=== PATIENT | female | born 1970 | race Caucasian/White ===

== ENCOUNTER → 2018-06-03 16:35 | Outpatient (CLI) | payer OTHER, SELFPAY ==
[2015-04-12 07:59] VITALS: BMI 31.9
--- NOTE | 2018-06-03 16:42 | RAD_ITS ---
STUDY: X-RAY - LUMBAR SPINE REASON FOR EXAM: Female, 48 years old. Pain in lower back for about a year or more per patient.. Pain radiates into both hips and legs TECHNIQUE: 5 view(s) of the lumbar spine were obtained. COMPARISON: None FINDINGS: Normal lumbar lordosis. There is no substantial scoliosis. There is a normal alignment of the vertebrae. Minor spondylosis at L3-L4 with only minimal disc height narrowing. Mild disc space narrowing L5-S1 with remaining disc levels are normal in height. There is no demonstrated fracture. There is no demonstrated spondylolysis of the pars interarticulares. There are surgical beverly of the right upper abdomen. RAD/L/S Spine Min 4 Views IMPRESSION: 1. Mild degenerative changes, as above. Electronically Signed: Adam Aguilar MD at 16:34 EST , Service support ,
== END ==
PROVIDERS: Family Provider Family Medicine; PCP Family Medicine; Referring Provider Chiropractor; Visit Provider Chiropractor
DX: S33.5XXA Sprain of ligaments of lumbar spine, initial encounter (principal)
CPT/HCPCS: 72110

== ENCOUNTER 2019-01-14 22:33 | Observation (INO) | payer OTHER, SELFPAY ==
[2019-01-14 22:33] VITALS: BP 160/88; PULSE 78; PULSE 81; RESP 16; TEMP 36.9; O2SAT 97; O2SAT 99; BMI 36.7
[2019-01-14 22:40] VITALS: O2SAT 96
--- NOTE | 2019-01-14 22:40 | EKG12_ITS ---
Test Reason : CHEST PAIN Blood Pressure : / mmHG Vent. Rate : 074 BPM Atrial Rate : 074 BPM P-R Int : 204 ms QRS Dur : 088 ms QT Int : 390 ms P-R-T Axes : -09 004 013 degrees QTc Int : 432 ms Normal sinus rhythm Normal ECG Confirmed by JEEVAN AUSTIN, TRISH ([id number]), editorial cartoonist GABE SCHAEFER ([id number]) on 01/17/2019 11:53:04 AM Referred By: Andrew Hudson Confirmed By:TRISH CHEW MD
--- NOTE | 2019-01-14 22:41 | ED.VIS.GEN ---
History of Present Illness Chief Complaint: Chest Pain Informant: Patient, Family Onset: Today Context: Gradual Onset Current Severity: Moderate Maximum Severity: Moderate Narrative: Patient presents with chest pressure throughout the day today. It was gradual in onset and continues this evening. Pain does radiate into her back somewhat she thought she pulled a muscle. She had some mild reflux symptoms tonight which is not normal for her. She does report some shortness of breath and mild cough, but thought was secondary to allergies. She denies history of cardiac disease in herself but does have family history. Past Medical History - Allergies and Home Meds Allergies/Adverse Reactions: Allergies Sulfa (Sulfonamide Antibiotics) Allergy (Verified 07/16/13 19:33) Rash Primary Care Physician: Janette Collier NP-C [Primary Care Provider] - Prior records reviewed: Yes Past Medical History: - - Reviewed Lives: Spouse/ Significant Other Smoking Status: Never smoker Review of Systems General: Denies: Chills, Fever Eyes: Denies: Visual changes - bilaterally ENT: Denies: Bilateral ear pain Cardiovascular: Reports: Chest pain Respiratory: Reports: Dyspnea, Cough Gastrointestinal: Denies: Abdominal pain, Nausea, Vomiting Genitourinary: Denies: Dysuria Musculoskeletal: Reports: Neck pain, Back pain Skin: Denies: Rash Neurological: Denies: Headache, Weakness, Parasthesia Endocrine: Denies: Polyuria, Polydipsia Hematologic: Denies: Easy bruising Allergy: Denies: Uticaria Physical Exam Vital Signs/Narrative: Vital Signs Temp Pulse Resp BP Pulse Ox 01/14/19 22:33 98.4 F 81 16 160/88 H 99 Inital Vital Signs reviewed: Yes General: Well nourished, Well developed Head: Normocephalic Eyes: EOMI ENT: Moist mucous membranes Neck: Supple Cardiovascular: Regular rate, Regular rhythm Respiratory: No distress, CTA bilaterally, Chest tenderness - Producible tenderness around the sternum. Abdomen: Soft, Nontender Extremities: Nontender, No edema Skin: Normal color, No rash Neurological: Alert, Oriented x3, Normal Strength, Normal Sensation Psychological: Normal affect Diagnostic/Tx/Re-eval Impressions Chest X-Ray 01/14/19 22:45 IMPRESSION: Normal x-ray examination of the chest. Electronically Signed: Adán Terry MD at 23:11 EDT Tel , Service support , 01/14/19 22:45 Chest 1 View (Portable) [RAD] Stat Laboratory Results 01/14/19 01/14/19 01/14/19 22:40 22:40 22:40 WBC 11.9 H RBC 4.58 Hgb 14.1 Hct 43.0 MCV 93.9 MCH 30.8 MCHC 32.8 RDW Std Deviation 44.1 H RDW Coeff of Paco 12.9 Plt Count 264 MPV 10.1 Immature Gran % (Auto) 0.300 Neut % (Auto) 58.7 Lymph % (Auto) 31.8 [place] % (Auto) 6.9 Eos % (Auto) 2.0 Baso % (Auto) 0.3 Absolute Neuts (auto) 7.0 Absolute Lymphs (auto) 3.78 Nucleated RBC % 0 D-Dimer Quant (PE/DVT) < 0.27 L Sodium 139 Potassium 3.9 Chloride 107 Carbon Dioxide 27.0 Anion Gap 5 BUN 21 H Creatinine 0.89 Estim Creat Clear Calc 73.94 Est GFR (MDRD) Af Amer 87 Est GFR (MDRD) Non-Af 72 BUN/Creatinine Ratio 23.6 H Glucose 92 Calcium 9.0 Troponin I < 0.015 - EKG Initial EKG Interpretation: Sinus Rhythm - Sinus at [address] change. - Medical Decision Making Patient presents with progressive chest pain with radiation into her back. She does have significant family history of coronary disease and herself has never had cardiac work-up. Labs are reassuring at this time, however explain to the patient that this does not rule out a coronary cause. She is agreed to overnight observation with probable stress test in the morning. I will speak with the hospitalist. ED Disposition - Plan for ED Patient: Disposition: Acute Care Hospital [facility] Diagnosis: Chest pain Referrals: Janette Collier NP-C [Primary Care Provider] -
--- NOTE | 2019-01-14 22:45 | RAD_ITS ---
STUDY: X-RAY CHEST REASON FOR EXAM: Female, 48 years old. Chest pain TECHNIQUE: Single frontal view of the chest. COMPARISON: None. FINDINGS: The lungs are clear and expanded. There is no demonstrated pleural abnormality. Normal size heart. Normal mediastinum and vignesh. Normal visualized pulmonary arteries. Normal visualized aortic arch and descending thoracic aorta. Normal visualized thoracic spine. Normal visualized ribs, clavicles, and shoulders. There is no demonstrated abnormality of the visualized soft tissue structures of the upper abdomen. RAD/Chest 1 View (Portable) IMPRESSION: Normal x-ray examination of the chest. Electronically Signed: Adán Terry MD at 23:11 EDT Tel , Service support ,
[2019-01-14 22:56] LABS: Absolute Lymphocyte Count 3.78 X10^3/uL (0.83-4.51); Basophil# 0.04 X10^3/uL; Basophil% 0.3 % (0-1); Eosinophil# 0.24 X10^3/uL; Hemoglobin 14.1 g/dL (12.0-15.0); Lymphocyte # 3.78 X10^3/ul (4.0); Lymphocyte % 31.8 % (19-41); Mean Corp Hgb Conc 32.8 g/dL (32-36); Mean Corpuscular Hgb 30.8 pg (27.0-32.0); Mean Corpuscular Volume 93.9 fL (81-99); Mean Platelet Vol. 10.1 fl (6.2-12.0); Monocyte# 0.82 X10^3/uL; Monocyte% 6.9 % (0-10); NRBC Flagged by Analyzer 0 % (0-5); Neutrophil # 6.95 X10^3/uL (2.7-7.7); Neutrophil % 58.7 % (47-70); Platelet Count 264 K/mm3 (150-450); RBC Distribution Width CV 12.9 % (11.6-14.6); RBC Distribution Width SD 44.1 fl (35.1-43.9); Red Blood Count 4.58 M/mm3 (4.2-5.4); White Blood Count 11.9 K/mm3 (4.4-11.0)
[2019-01-14] MEDS: Aspirin 81 MG TAB.CHEW 324 MG PO (23:04)
[2019-01-14] MEDS: 0.9% Normal Saline 1,000 ML 150 ML IV (23:07)
[2019-01-14 23:08] LABS: D-Dimer Quantitative (DVT/PE) < 0.27 FEU/ug/m (0.27-0.49)
[2019-01-14 23:20] LABS: Anion Gap 5 (5-15); BUN 21 mg/dL (7-18); BUN/Creat Ratio 23.6 RATIO (10-20); Chloride 107 mmol/L (98-107); Creatinine, Serum 0.89 mg/dL (0.55-1.02); EST Glomerular Filtration Rate 72 mL/min (>60); Est Glom Filt Rate - Afr Amer 87 mL/min (>60); Estimated Creatinine Clearance 73.94 ml/min; Glucose 92 mg/dL (74-106); Potassium 3.9 mmol/L (3.5-5.1); Sodium Level 139 mmol/L (136-145)
[2019-01-14 23:33] VITALS: BP 146/83; PULSE 77; RESP 16; O2SAT 97
--- NOTE | 2019-01-14 23:34 | HP.PCM_ITS ---
Problem List (1) Chest pain Status: Acute History of Present Illness Date of Admission: 01/15/19 Chief Complaint: chest pain The patient is a 48 year old F with a significant history of seasonal allergies; and asthma who presented with one day history of progressively worsening chest pain that she described as mild substernal and epigastric heaviness that radiated to beneath her left scapula and to her left arm. She describes a tingling sensation in her entire left upper extremities. Her symptoms is shortness of breath. She denies any aggravating or ameliorating factor to her chest pain. She denies any nausea, vomiting or diaphoresis. EKG and troponin at the emergency department was unremarkable.Patient states that her chest pain may be related to anxiety because if she began to think about her work or if she talks her chest pain comes on. Past Medical History Medical History: Medical History (Last Reviewed 01/15/19 @ 06:03 by Andrew Hudson MD) Asthma J45.909 Seasonal allergies J30.2 Allergies Sulfa (Sulfonamide Antibiotics) Allergy (Verified 07/16/13 19:33) Rash Home Medications: Ambulatory Orders Medication Instructions Recorded buPROPion XL [Wellbutrin Xl] 300 mg PO DAILY 07/16/13 Albuterol Sulfate [Proair Hfa] 8.5 gm IH PRN PRN 01/14/19 Loratadine [Claritin] 10 mg PO DAILY 01/14/19 Tolterodine Tartrate [Detrol LA] 4 mg PO DAILY 01/14/19 Surgical History: cholecystectomy, - - Carpal tunnel surgery; left foot surgery with screws in place; tubal ligation similar and 2 D&Cs Lives: With Family Smoking Status: Never smoker Alcohol: Occasional - *Family History Maternal History Items: Heart Disease - Her mother had congestive heart failure in her 50s. Her grandmother also had congestive heart failure in her 60s to 70s., - Paternal History Items: Heart Disease Review of Systems Constitutional: Denies: Chills, Fever, Weight Change HEENT: Denies: Head Aches, Sinus Congestion, Sinus Drainage Cardiovascular: Reports: Chest Pain. Denies: Palpitations Respiratory: Reports: Shortness of Breath. Denies: Cough Gastrointestinal: Denies: Abdominal Pain, Nausea, Vomiting Genitourinary: Denies: Dysuria Musculoskeletal: Denies: Joint Pain, Joint Tenderness Skin: Denies: Rash, Wounds Neurological: Reports: Tingling. Denies: Focal weakness, Numbness Psychiatric: Reports: Anxiety. Denies: Depression, Homicidal Ideations, Suicidal Ideations Hematologic/ Lymphatic: Denies: Easy Bruising, Easy Bleeding VTE Information - Inpt Only VTE Present on Admission: No VTE Mechan Device Prophylaxis: SCD's VTE Pharm Prophylaxis ordered?: No Patient Problems: Active and Suspected Problems (Last Updated 01/15/19 @ 02:41 by Andrew Hudson MD) Chest pain (Acute) - Physical Exam General: Alert, Oriented x3, Cooperative HEENT: Atraumatic, PERRLA, EOMI, Normocephalic Neck: Supple, No JVD, Negative Carotid Bruits Lungs: Clear to auscultation, Normal air movement Cardiovascular: Regular rate, No murmurs Abdomen: Bowel Sounds Present, Soft, Non Tender Extremities: No edema, Capillary Refill Less than 3 Seconds Skin: No rashes, No breakdown Musculoskeletal: No Tenderness to Palpation of Joints or Extremities Neurological: Cranial nerves II-XII grossly intact Psych/Mental Status: Normal Affect, Appropriate Vital Signs Temp Pulse Resp BP Pulse Ox 98.4 F 81 16 160/88 H 96 01/14/19 22:33 01/14/19 22:33 01/14/19 22:33 01/14/19 22:33 01/14/19 22:40 Oxygen Delivery Method Room Air Weight: 103.2 kg Body Mass Index (BMI) 36.7 Laboratory Tests Past 24 Hrs 01/14/19 01/14/19 01/14/19 22:40 22:40 22:40 WBC 11.9 H RBC 4.58 Hgb 14.1 Hct 43.0 MCV 93.9 MCH 30.8 MCHC 32.8 RDW Std Deviation 44.1 H RDW Coeff of Paco 12.9 Plt Count 264 MPV 10.1 Immature Gran % (Auto) 0.300 Neut % (Auto) 58.7 Lymph % (Auto) 31.8 [place] % (Auto) 6.9 Eos % (Auto) 2.0 Baso % (Auto) 0.3 Absolute Neuts (auto) 7.0 Absolute Lymphs (auto) 3.78 Nucleated RBC % 0 D-Dimer Quant (PE/DVT) < 0.27 L Sodium 139 Potassium 3.9 Chloride 107 Carbon Dioxide 27.0 Anion Gap 5 BUN 21 H Creatinine 0.89 Estim Creat Clear Calc 73.94 Est GFR (MDRD) Af Amer 87 Est GFR (MDRD) Non-Af 72 BUN/Creatinine Ratio 23.6 H Glucose 92 Calcium 9.0 Troponin I < 0.015 Assessment/Plan All Active Problems (Last Updated 01/15/19 @ 02:41 by Andrew Hudson MD) Chest pain (Acute) The patient is a 48 year old F with a significant history of seasonal allergies; and asthma who presented with one day history of progressively worsening chest pain. Chest Pain Admit to a monitored bed on progressive care unit CXR independently reviewed confirms no acute cardiopulmonary process. EKG independently reviewed confirms sinus rhythm Patient received aspirin 324 mg in the emergency department ASA 81 mg p.o. daily Morphine as needed for pain We will check lipid panel. Serial cardiac enzymes Stat EKG as needed for chest pain Chemical stress test in the AM if the cardiac enzymes are negative. Of note patient has hardware in her left lower extremities and can not run on a treadmill for long. Elevated blood pressure without diagnosis of hypertension: On presentation his blood pressure was not within goal. She reports that at home her blood pressures are not elevated. Trend blood pressures. Seasonal allergies/asthma Claritin and albuterol continued Depression/anxiety Wellbutrin continued Overactive bladder Detrol continued DVT prophylaxis SCD Code Visit OBSV E&M: 54538 Initial observation care L3
[2019-01-14 23:53] VITALS: BP 146/83; PULSE 77; RESP 16; O2SAT 97
[2019-01-15] VITALS (8 sets, daily range): BP systolic 133–141; BP diastolic 72–81; PULSE 60–77; RESP 14; TEMP 36.6–36.8; O2SAT 94–96; BMI 36.1
--- NOTE | 2019-01-15 01:11 | EKG12_ITS ---
Test Reason : REPEAT FLOOR EKG Blood Pressure : / mmHG Vent. Rate : 070 BPM Atrial Rate : 070 BPM P-R Int : 212 ms QRS Dur : 076 ms QT Int : 408 ms P-R-T Axes : -10 019 006 degrees QTc Int : 440 ms Sinus rhythm with 1st degree A-V block Otherwise normal ECG Confirmed by DAX AUSTIN, ROBER ([id number]), rewrite editor GABE SCHAEFER ([id number]) on 01/19/2019 12:59:15 PM Referred By: Andrew Hudson Confirmed By:ROBER VERDUZCO MD
[2019-01-15] MEDS: Aspirin E.C. 81 MG Tablet PO (05:16)
[2019-01-15 07:03] LABS: Cholesterol 154 mg/dL (200); High Density Lipoprotein 55 mg/dL; Triglycerides 94 mg/dL; Very Low Density Lipoprotein 19 mg/dL (5-40)
--- NOTE | 2019-01-15 10:28 | STRESSREP ---
Stress Test Report Pharmacologic myocardial perfusion stress test. 48-year-old lady with a history of chest pain. Stress protocol: Resting EKG demonstrates normal sinus rhythm with a rate of 73 bpm normal intervals are noted resting blood pressures 118/82 mmHg. 0.4 mg of regadenoson was infused per usual protocol followed Intravenous and flush injection continuous EKG monitoring was performed. The maximum heart rate attained was 108 bpm which was 62% of maximum predicted heart rate the maximum workload attained was 1 metabolic equivalent. At rest there were no ST or T wave changes noted suggest ischemia at peak infusion nonspecific ST-T wave changes were noted. No clinical angina was noted the test was terminated. Myocardial perfusion protocol. 14.3 mCi of technetium 99m sestamibi was injected at rest. 0.4 mg of regadenoson was infused per usual protocol peak infusion 42.5 mCi of technetium 99m sestamibi was injected stress images were obtained stress and rest images were reconstructed in comparing the short axis vertical and horizontal long axis. Gated images were also obtained Perfusion SPECT analysis: Review of the stress images demonstrate normal uptake of tracer noted in all areas of myocardium the resting images similar demonstrate normal uptake of tracer noted in all areas of the myocardium. Gated SPECT analysis: The gated ejection fraction is noted to be 60%. Conclusion: Normal pharmacologic myocardial perfusion stress test. Preserved ejection fraction.
--- NOTE | 2019-01-15 10:37 | DCINST_ITS ---
- Discharge Diagnoses Current Active Problems: Current Active and Chronic Problems (Last Reviewed 01/15/19 @ 06:03 by Andrew Hudson MD) Chest pain (Acute) You will use the following diet at home:: No restrictions Your food should be the consistency of: Regular Your liquids should be the consistency of: Regular/Thin Discharge Activity: Return to Normal Activity Weight Bearing Status: Full weight bearing Allergies/Adverse Reactions: Allergies cashew nut Allergy (Verified 01/15/19 00:51) Anaphylaxis cat dander Allergy (Verified 01/15/19 00:52) Itching Sulfa (Sulfonamide Antibiotics) Allergy (Verified 07/16/13 19:33) Rash Medications to take at Discharge buPROPion XL [Wellbutrin Xl] 300 mg PO DAILY 07/16/13 Albuterol Sulfate [Proair Hfa] 8.5 gm IH PRN PRN 01/14/19 Loratadine [Claritin] 10 mg PO DAILY 01/14/19 Tolterodine Tartrate [Detrol LA] 4 mg PO DAILY 01/14/19 Primary Care Physician: Janette Collier NP-C [Primary Care Provider] - Please follow up with your Primary Care Physician in: IN 2 WEEKS Test Results: Test results from this visit will be discussed in further detail at your follow- up appointment, if applicable.
--- NOTE | 2019-01-15 10:47 | NURSING ---
Patient refused to take scheduled am medications, she states that she will take her own when she gets home.
--- NOTE | 2019-01-17 09:22 | PCM.DC.SUM ---
Discharge Date and Diagnosis Date of Admission: 01/14/19 Date of Discharge: 01/15/19 - Primary Discharge Diagnosis #1 musculoskeletal chest pain #2 chronic depression Hospital Course and Treatment Operations: None Procedures: Nuclear stress test Summary of Care Provided: The patient is a 48 year old F was seen in the emergency room at [facility] with a chief complaint of chest pain which radiated into her back. She describes the pain is a pressure-like sensation. Work-up in the emergency room included an EKG which showed a normal sinus rhythm without evidence of ischemia, patient's labs are unremarkable. Patient's chest x-ray was unremarkable. Patient was placed in observation status on PCU, serial cardiac enzymes were obtained which were negative, she underwent a pharmacological resting stress test on 01/15/2019 which was negative for reversible ischemia. On 01/15/2019, patient was seen and examined: On examination she appeared in good health and spirits. Vital signs as documented. Skin warm and dry and without overt rashes. Neck without JVD. Lungs clear. Heart exam notable for regular rhythm, normal sounds and absence of murmurs, rubs or gallops. Abdomen unremarkable and without evidence of organomegaly, masses, or abdominal aortic enlargement. Extremities nonedematous. Neuro: Cranial nerves II through XII are grossly intact, no focal motor deficits were noted, sensation to light touch and pinprick is intact. Psych: Patient is alert and oriented x3, she does not appear anxious or depressed On 01/15/2019, patient was seen and examined and felt to be in stable condition for discharge home - Physical Exam Vital Signs Temp Pulse Resp BP Pulse Ox 97.9 F 77 14 133/80 H 96 01/15/19 09:24 01/15/19 09:24 01/15/19 09:24 01/15/19 09:24 01/15/19 09:24 Oxygen Delivery Method Room Air Weight: 101.5 kg Body Mass Index (BMI) 36.1 Intake and Output for Last 24 Hours 01/15/19 01/16/19 01/17/19 23:59 23:59 23:59 Intake Total 965.0 / 965.0 Balance 965.0 / 965.0 Discharge Activity: Return to Normal Activity Weight Bearing Status: Full weight bearing Home Medications: Medications to take at Discharge buPROPion XL [Wellbutrin Xl] 300 mg PO DAILY 07/16/13 Albuterol Sulfate [Proair Hfa] 8.5 gm IH PRN PRN 01/14/19 Loratadine [Claritin] 10 mg PO DAILY 01/14/19 Tolterodine Tartrate [Detrol LA] 4 mg PO DAILY 01/14/19 Primary Care Physician: Janette Collier NP-C [Primary Care Provider] - Please follow up with your Primary Care Physician in: IN 2 WEEKS Disposition: Home Minutes spent on discharge:: 28 Patient Condition:: Stable Medical Necessity - Tobacco Use Smoking Status: Never smoker Tobacco Use: Non-smoker Meaningful Use Info Meaningful Use Diagnoses (Choose all that apply): None applicable Code Visit OBSV E&M: 87249 Observation care discharge
== END 2019-01-15 11:38 | disposition home or self-care (01) ==
LOC: ED 23:29 → PCU 01-15 07:54
PROVIDERS: Admitting Provider Hospitalist; Emergency Provider Emergency Medicine; Family Provider Family Medicine; PCP Family Medicine; Referring Provider Hospitalist; Visit Provider Internal Medicine
DX: R07.9 Chest pain, unspecified (principal); F32.9 Major depressive disorder, single episode, unspecified; R06.02 Shortness of breath; J45.909 Unspecified asthma, uncomplicated; R20.2 Paresthesia of skin; Z79.899 Other long term (current) drug therapy; F41.9 Anxiety disorder, unspecified; N32.81 Overactive bladder; R03.0 Elevated blood-pressure reading, without diagnosis of hypertension
CPT/HCPCS: 36415; 71045; 78452; 80048; 80061; 84484; 85025; 85379; 93005; 93017; 96360; 96361; 99218; 99285; A9500; J7030; A4216; G0378; J2785

== ENCOUNTER 2020-07-29 07:10 | Emergency (ER) | payer OTHER, SELFPAY ==
[2019-01-15 00:22] VITALS: BMI 36.1
[2020-07-29 07:14] VITALS: BP 155/103; PULSE 77; RESP 18; TEMP 36.7; O2SAT 96; BMI 37.8
[2020-07-29 07:22] VITALS: O2SAT 96
--- NOTE | 2020-07-29 07:23 | RAD_ITS ---
STUDY: X-RAY CHEST REASON FOR EXAM: Female, 50 years old. chest pain, anxiety TECHNIQUE: Single AP portable view of the chest. COMPARISON: 01/14/2019 FINDINGS: The lungs are clear and expanded. There is no demonstrated pleural abnormality. Normal size heart. Normal mediastinum and vignesh. Normal visualized pulmonary arteries. Normal visualized aortic arch and descending thoracic aorta. Normal visualized thoracic spine. Normal visualized ribs, clavicles, and shoulders. There is no demonstrated abnormality of the visualized soft tissue structures of the upper abdomen. RAD/Chest 1 View (Portable) IMPRESSION: Normal x-ray examination of the chest. Electronically Signed: Arcenio Ng MD at 8:03 EST Tel , Service support ,
--- NOTE | 2020-07-29 07:23 | EKG12_ITS ---
Test Reason : CP Blood Pressure : / mmHG Vent. Rate : 073 BPM Atrial Rate : 073 BPM P-R Int : 206 ms QRS Dur : 080 ms QT Int : 404 ms P-R-T Axes : 005 -11 008 degrees QTc Int : 445 ms Normal sinus rhythm Normal ECG Confirmed by DAX AUSTIN, ROBER ([id number]), editor managing newspaper GABE SCHAEFER ([id number]) on 08/01/2020 10:46:49 AM Referred By: [place] Confirmed By:ROBER VERDUZCO MD
--- NOTE | 2020-07-29 07:24 | ED.VIS.GEN ---
History of Present Illness Chief Complaint: Chest Pain Informant: Patient Narrative: 50-year-old female presenting with chest pain. She states that her chest pain has been present all night. Patient states she has no health issues. She does relate that she has been under a lot of stress for the past year. She has been otherwise healthy. She is noted some palpitations recently. She has not had fever, chills, cough, myalgias, change in taste or smell. She states she is not short of breath. She denies any cardiac history. She denies any history of blood clots. She has no history of recent travel or risk factors for DVT/PE. Past Medical History - Allergies and Home Meds Allergies/Adverse Reactions: Allergies cashew nut Allergy (Verified 07/29/20 07:11) Anaphylaxis cat dander Allergy (Verified 07/29/20 07:11) Itching Sulfa (Sulfonamide Antibiotics) Allergy (Verified 07/29/20 07:11) Rash Primary Care Physician: Tavares Villa COMMERCIAL PRODUCER, COMMERCIAL PRODUCER-C [Primary Care Provider] - Prior records reviewed: Yes Past Medical History: - - Anxiety Surgical History: noncontributory, cholecystectomy, - - Carpal tunnel surgery; left foot surgery with screws in place; tubal ligation similar and 2 D&Cs Lives: Spouse/ Significant Other Smoking Status: Never smoker Alcohol: None Drugs: None - Family History Maternal Family History: Reports: Heart Disease - Her mother had congestive heart failure in her 50s. Her grandmother also had congestive heart failure in her 60s to 70s., - Paternal Family History: Reports: Heart Disease Review of Systems General: Denies: Chills, Fever, Malaise Eyes: Denies: Visual changes - left, Visual changes - right, Visual changes - bilaterally, Blurred vision - left, Blurred vision - right, Blurred Vision - bilaterally, Diplopia, -, - ENT: Denies: Rhinorrhea, Sore throat Cardiovascular: Reports: Chest pain, Palpitations. Denies: Heart racing Respiratory: Denies: Dyspnea, Cough, Sputum Gastrointestinal: Denies: Abdominal pain, Nausea, Vomiting Genitourinary: Denies: Dysuria, Hematuria Musculoskeletal: Denies: Myalgias, Arthralgias Skin: Denies: Rash, Abscess Neurological: Denies: Headache, Weakness, Parasthesia Psych: Reports: Anxiety. Denies: Suicidal thoughts, Suicidal ideations Physical Exam Vital Signs/Narrative: Vital Signs Temp Pulse Resp BP Pulse Ox 07/29/20 07:22 96 07/29/20 07:14 98.0 F 77 18 155/103 H 96 Inital Vital Signs reviewed: Yes General: Obese, No Acute Distress Head: Normocephalic, Atraumatic Eyes: Perrl, EOMI ENT: Moist mucous membranes, No rhinorrhea Cardiovascular: Regular rate, Regular rhythm Respiratory: No distress, CTA bilaterally Abdomen: Soft, Nontender, Nondistended Extremities: Nontender, No edema. Negative for: Calf Tenderness Skin: Normal color, No rash. Negative for: Cyanosis, Diaphoresis, Jaundice Neurological: Alert, Oriented x3, Cranial nerves II-XII grossly intact Psychological: Normal affect, Normal Mood Diagnostic/Tx/Re-eval Clinical Impression(s) from Imaging Studies Chest X-Ray 07/29/20 07:23 IMPRESSION: Normal x-ray examination of the chest. Electronically Signed: Arcenio Ng MD at 8:03 EST Tel , Service support , Laboratory Data 07/29/20 07/29/20 07:12 07:45 WBC 7.0 RBC 4.70 Hgb 14.0 Hct 42.9 MCV 91.3 MCH 29.8 MCHC 32.6 RDW Std Deviation 41.9 RDW Coeff of Paco 12.5 Plt Count 226 MPV 9.9 Immature Gran % (Auto) 0.300 Neut % (Auto) 64.2 Lymph % (Auto) 26.2 [place] % (Auto) 6.9 Eos % (Auto) 2.0 Baso % (Auto) 0.4 Absolute Neuts (auto) 4.5 Absolute Lymphs (auto) 1.83 Nucleated RBC % 0 Sodium 137 Potassium 3.7 Chloride 104 Carbon Dioxide 25.0 Anion Gap 8 BUN 23 H Creatinine 0.84 Estim Creat Clear Calc 76.67 Est GFR (MDRD) Af Amer 93 Est GFR (MDRD) Non-Af 77 BUN/Creatinine Ratio 27.5 H Glucose 93 Calcium 9.0 Troponin I < 0.015 - Medical Decision Making 50-year-old female presenting with chest pain which is been constant all night long. She denies shortness of breath, lightheadedness, nausea, vomiting. Patient had previous stress test within the last year which was normal. EKG interpreted by myself shows a normal sinus rhythm at 73 bpm without signs of ischemic change or dysrhythmia. Chest x-ray is interpreted by myself shows no acute cardiopulmonary process. Patient is PERC negative. CBC, BMP, troponin all unremarkable. Given that she has had chest pain all night I do not believe she needs repeat EKG or delta troponin. Patient counseled on all findings. I believe she stable for discharge at this time. She is given return precautions. Impression: 1. Chest pain ED Disposition - Plan for ED Patient: Disposition: Home or Assisted Living Instructions: ED Chest Pain, Uncertain Cause Referrals: Tavares Villa COMMERCIAL PRODUCER, COMMERCIAL PRODUCER-C [Primary Care Provider] -
[2020-07-29 07:29] VITALS: O2SAT 96
[2020-07-29] MEDS: Aspirin 81 MG TAB.CHEW 324 MG PO (07:32)
[2020-07-29 07:52] LABS: Anion Gap 8 (5-15); BUN 23 mg/dL (7-18); BUN/Creat Ratio 27.5 RATIO (10-20); Chloride 104 mmol/L (98-107); Creatinine, Serum 0.84 mg/dL (0.55-1.02); EST Glomerular Filtration Rate 77 mL/min (>60); Est Glom Filt Rate - Afr Amer 93 mL/min (>60); Estimated Creatinine Clearance 76.67 ml/min; Glucose 93 mg/dL (74-106); Potassium 3.7 mmol/L (3.5-5.1); Sodium Level 137 mmol/L (136-145)
[2020-07-29 07:53] LABS: Absolute Lymphocyte Count 1.83 X10^3/uL (0.83-4.51); Absolute Neutrophil Count 4.5 X10^3/uL (2.0-7.7); Basophil# 0.03 X10^3/uL; Basophil% 0.4 % (0-1); Eosinophil# 0.14 X10^3/uL; Hematocrit 42.9 % (37-47); Lymphocyte # 1.83 X10^3/ul (4.0); Lymphocyte % 26.2 % (19-41); Mean Corp Hgb Conc 32.6 g/dL (32-36); Mean Corpuscular Hgb 29.8 pg (27.0-32.0); Mean Corpuscular Volume 91.3 fL (81-99); Mean Platelet Vol. 9.9 fl (6.2-12.0); Monocyte# 0.48 X10^3/uL; Monocyte% 6.9 % (0-10); NRBC Flagged by Analyzer 0 % (0-5); Neutrophil # 4.49 X10^3/uL (2.7-7.7); Neutrophil % 64.2 % (47-70); Platelet Count 226 K/mm3 (150-450); RBC Distribution Width CV 12.5 % (11.6-14.6); RBC Distribution Width SD 41.9 fl (35.1-43.9)
[2020-07-29 08:10] VITALS: BP 139/83; PULSE 81; RESP 15; O2SAT 98
[2020-07-29 08:23] VITALS: PULSE 86; RESP 17; O2SAT 95
== END 2020-07-29 08:23 | disposition home or self-care (01) ==
PROVIDERS: Emergency Provider Student in an Organized Health Care Education/Training Program; PCP Nurse Practitioner Primary Care
DX: R07.9 Chest pain, unspecified (principal)
CPT/HCPCS: 71045; 80048; 84484; 85025; 93005; 99285; A4216

== ENCOUNTER 2021-03-03 21:03 | Emergency (ER) | payer OTHER, SELFPAY ==
[2021-03-03 21:04] VITALS: BP 170/82; PULSE 78; RESP 16; TEMP 37; O2SAT 98; BMI 35.5
--- NOTE | 2021-03-03 22:59 | EDS_ITS ---
HPI History of Present Illness Chief Complaint: Lower Extremity Injury Detail of Chief Complaint: Increased knee pain and swelling after arthroscopic surgery Informant: patient Occured/Mechanism Mechanism/Context: Yes other see comment below Comment: Arthroscopic surgery on March 01 Onset/Context/Timing Onset: Today Context: Gradual Onset Timing: Continuous Quality of Pain: Dull and Aching Current Severity: Moderate Maximum Severity: Severe Worsened by: Exercises and movement Relieved by: Nothing Associated Symptoms Associated Symptoms: Negative for Parasthesia, Weakness and Loss of Funtion Narrative Tetanus Immunization: 5-10 years Prior similar symptoms: No Recent Illness/Hospitalization: Yes PFSH PFS Medical History Aneurysm (arteriovenous) of coronary vessels Anxiety Asthma Seasonal allergies Home Medications albuterol sulfate 8.5 gm IH PRN PRN 01/14/19 [History Last Taken 01/14/19 15:30] tolterodine 4 mg PO DAILY 01/14/19 [History Last Taken 01/14/19 06:30] alprazolam 0.5 - 1 mg PO TID PRN PRN 07/29/20 [History Last Taken Unknown] aspirin 81 mg PO DAILY 03/03/21 [History Last Taken Unknown] oxycodone 5 - 10 mg PO Q4H PRN PRN 03/03/21 [History Last Taken Unknown] venlafaxine 150 mg PO DAILY 03/03/21 [History Last Taken Unknown] Allergy/AdvReac Type Severity Reaction Status Date / Time cashew nut Allergy Anaphylaxis Verified 03/03/21 21:04 cat dander Allergy Itching Verified 03/03/21 21:04 Sulfa (Sulfonamide Allergy Rash Verified 03/03/21 21:04 Antibiotics) Surgical History History of cholecystectomy History of D&C History of foot surgery History of knee surgery History of tonsillectomy and adenoidectomy History of tubal ligation Social History (Updated 03/03/21 @ 23:[address] El Fournier MD) household members: spouse Smoking Status: Never smoker substance use type: does not use ROS ROS ED Constitutional Constitutional ED: Denies chills, fever(s), subjective or sweats Eyes Eyes: Denies blurry vision, change in vision or diplopia ENT ENT ED: Denies ear pain, rhinorrhea or sore throat Cardiovascular Cardiovascular: Denies chest pain or palpitations Respiratory/Chest Respiratory/Chest: Denies cough, dyspnea or dyspnea on exertion Gastrointestinal Gastrointestinal: Denies abdominal pain, nausea or vomiting Musculoskeletal Musculoskeletal: Reports other Details: Anterior right knee pain status post arthroscopic surgery ; Denies arthralgias, back pain, myalgias or neck pain Neurologic Neurologic: Denies headache(s), paresthesias or weakness Hematologic/Lymphatic Hematologic/Lymphatic: Denies easy bleeding or easy bruising EXAM Physical Exam Const Vital Signs: 03/03/21 21:04 03/03/21 23:55 Temperature 98.6 F Temperature Source Oral Pulse Rate 78 74 Respiratory Rate 16 16 Blood Pressure 170/82 H 148/80 H Blood Pressure Mean 111 Pulse Ox 98 97 Oxygen Delivery Method Room Air Positive well nourished, well developed and obese General Appearance ED: well developed and NAD Nutritional Appearance: obese HEENT normocephalic and atraumatic Neck full ROM Resp normal respiratory effort Cardio regular rate and regular rhythm Extremity Negative for normal to inspection or full ROM Extremity Narrative: There is swelling of the right knee. There is a small effusion. The patellas not blottable. Sutures are in place. There is no erythema, warmth induration. There is no drainage from the incision/port sites. There is fullness in the popliteal fossa. There is no tenderness on the distribution deep venous system. There is no swelling of the leg or thigh. There is no palpable cords. General Extremety ED: Negative for cyanosis, edema or weight-bearing difficulty General Extremity: Negative for cyanosis, edema or weight-bearing difficulty Neuro oriented x3 and CN's II-XII intact bilaterally Sensorium / Orientation: alert Psych mental status grossly normal Skin no wounds Lesions: no lesions Rashes: no rashes MDM MDM MDM Narrative Medical decision making narrative: Patient with postop pain. Patient was informed that I would prescribe pain medicine parenterally. When nurse went to administer the medication she did not want an IV or meds. She requested to speak with me. After talking with her informing her why I chose the meds I did and specifically Toradol and Dilaudid. She has no contraindication to NSAIDs. There is no reconstructive work so NSAIDs are not contraindicated. Patient is now willing to have the nurse place the IV and receive the parenteral meds that were ordered. Patient was reassessed at 2345. Her pain improved markedly after IV Dilaudid and Toradol. Plan is to discharge to home Discharge Plan Triage Chief Complaint: Lower Extremity Injury ED Provider: El Fournier Dx/Rx/DC Orders Clinical Impression: Acute postoperative pain of right knee Instructions: Managing Post-Op Pain at Home Prescriptions: No Action tolterodine 4 MG capsule,extended release 24hr 4 mg PO DAILY RF: 0 albuterol sulfate 8.5 GM HFA aerosol inhaler 8.5 gm IH PRN PRN (Reason: Bronchodialation) RF: 0 alprazolam 1 MG tablet 0.5 - 1 mg PO TID PRN PRN (Reason: Anxiety) RF: 0 venlafaxine 150 mg capsule,extended release 24hr 150 mg PO DAILY RF: 0 aspirin 81 mg Tablet 81 mg PO DAILY RF: 0 oxycodone 5 mg tablet 5 - 10 mg PO Q4H PRN PRN (Reason: Pain) RF: 0 Primary Care Provider: Tavares Villa NP Referrals: Matias Collazo DO [STAFF PHYSICIAN] - Keep [place] appointment Tavares Villa NP, ADULT HEALTH CLINICAL NURSE SPECIALIST-[facility] [Primary Care Provider] - Activity Restrictions/Additional Instructions: 1. Apply ice 8+ times a day 2. Take 2 Aleve tablets every 12 hours in addition to the oxycodone you were prescribed 3. Contact Dr. Fish Coleman if the pain remains intense or severe Disposition Disposition: Home, Self Care
[2021-03-03] MEDS: HYDROmorphone 1 MG/ML Syringe 0.5 MG IV (23:22)
[2021-03-03] MEDS: Ondansetron 4 MG/2 ML Vial IV (23:23)
[2021-03-03] MEDS: Ketorolac 15 MG/ML Vial IV (23:23)
[2021-03-03 23:55] VITALS: BP 148/80; PULSE 74; RESP 16; O2SAT 97
[2021-03-04 00:16] VITALS: RESP 16; O2SAT 99
== END 2021-03-04 00:16 | disposition home or self-care (01) ==
PROVIDERS: Emergency Provider Emergency Medicine; PCP Nurse Practitioner Primary Care
DX: M25.561 Pain in right knee (principal); G89.18 Other acute postprocedural pain; E66.9 Obesity, unspecified; Z68.35 Body mass index [BMI] 35.0-35.9, adult; Z79.82 Long term (current) use of aspirin
CPT/HCPCS: 96374; 96375; 99283; A4216; J2405

== ENCOUNTER → 2021-10-24 | Outpatient (CLI) | payer OTHER, SELFPAY | END | disposition home or self-care (01) | LOC: PSN 11:41 | PROVIDERS: PCP Nurse Practitioner Primary Care; Referring Provider Internal Medicine Cardiovascular Disease; Visit Provider Internal Medicine Cardiovascular Disease | DX: I49.3 Ventricular premature depolarization (principal) | CPT/HCPCS: 93225; 93226 ==

== ENCOUNTER → 2021-10-25 | Outpatient (CLI) | payer OTHER, SELFPAY ==
--- NOTE | 2021-10-25 12:58 | ECHOD_ITS ---
Version 2 Reason For Study: ARRYTHMIA Procedure This was a 2D Doppler, Color Flow transthoracic echocardiogram. Exam performed in department. Left Ventricle Normal LV size. Left ventricular systolic function is normal. The estimated ejection fraction is 60 %. Stage 1 diastolic dysfunction. No regional wall motion abnormalities noted. Right Ventricle Normal RV size. Normal systolic function. Atria Normal left atrium. Normal right atrium. Patent foramen ovale. Aneurysmal atrial septum. Mitral Valve Normal mitral valve. Tricuspid Valve Normal tricuspid valve. Aortic Valve Trisinus/trileaflet aortic valve. Pulmonic Valve Normal pulmonic valve. Great Vessels Normal aortic root. The pulmonary artery is normal size. Normal inferior vena cava. Pericardium/Pleural No pericardial effusion. MMode/2D Measurements & Calculations LVIDd: 4.7 cm IVSd: 1.0 cm Ao root diam: 2.8 cm LVIDs: 3.1 cm LVPWd: 1.2 cm RVDd: 3.6 cm FS: 35.5 % LVAd ap4: 28.0 cm2 SV(MOD-sp4): 33.0 ml SV(sp4-el): 38.0 ml LVLd ap4: 7.3 cm EDV(MOD-sp4): 89.2 ml EDV(sp4-el): 91.4 ml LVAs ap4: 20.8 cm2 LVLs ap4: 6.9 cm ESV(MOD-sp4): 56.1 ml ESV(sp4-el): 53.3 ml EF(MOD-sp4): 37.1 % EF(sp4-el): 41.6 % LA A4 area: 18.9 cm2 LA dimension(2D): 3.7 cm RA A4 area: 16.0 cm2 Doppler Measurements & Calculations MV E max nael: 51.8 cm/sec Lat Peak E' Nael: 6.4 cm/sec Med Peak E' Nael: 5.4 cm/sec MV A max nael: 94.4 cm/sec E/E' lat: 8.1 E/E' med: 9.7 MV E/A: 0.55 Ao V2 max: 134.8 cm/sec LV V1 max: 105.6 cm/sec PA V2 max: 109.8 cm/sec Ao max P.3 mmHg LV V1 max P.5 mmHg TR max nael: 202.6 cm/sec TR max P.4 mmHg ECHO/Echo Complete Interpretation Summary Normal LV size. Left ventricular systolic function is normal. The estimated ejection fraction is 60 %. Stage 1 diastolic dysfunction. Patent foramen ovale. Aneurysmal atrial septum. Ordering Physician: Elder Kang Referring Physician: Pearl, [place] Performed By: Bethany Elam RCS
== END | disposition home or self-care (01) ==
PROVIDERS: PCP Nurse Practitioner Primary Care; Referring Provider Internal Medicine Cardiovascular Disease; Visit Provider Internal Medicine Cardiovascular Disease
DX: I49.3 Ventricular premature depolarization (principal)
CPT/HCPCS: 93306

== ENCOUNTER → 2022-03-31 | Outpatient (CLI) | payer OTHER, SELFPAY ==
--- NOTE | 2022-03-31 15:01 | VDLE_ITS ---
Reason For Study: Swelling RIGHT GSV is normal. CFV is compressible, spontaneous, phasic, competent and demonstrates normal augmentation. FV is compressible, spontaneous, phasic, competent and demonstrates normal augmentation. POP V is compressible, spontaneous, phasic, competent and demonstrates normal augmentation. T/P Trunk is compressible. PTV is compressible. RT PerV is compressible. Procedure This is a venous duplex using B-mode, color flow and spectral Doppler. Exam performed in department. A preliminary report was called and/or faxed to Dr. Collazo. VL/Venous Duplex US, Unilateral Interpretation Summary Deep veins of the right lower extremity are patent and compressible segmentally . There is no evidence of right lower extremity deep vein thrombosis. The right great sapheno us vein appears patent and compressible segmentally. Ordering Physician: Matias Collazo Referring Physician: Tavares Villa Performed By: Gena Marie, LOLY, RVT
== END | disposition home or self-care (01) ==
LOC: CVS 15:00
PROVIDERS: PCP Nurse Practitioner Primary Care; Referring Provider Orthopaedic Surgery; Visit Provider Orthopaedic Surgery
DX: R22.41 Localized swelling, mass and lump, right lower limb (principal)
CPT/HCPCS: 93971

== ENCOUNTER → 2022-05-20 | Outpatient (CLI) | payer OTHER, SELFPAY | END | disposition home or self-care (01) | LOC: SL 19:42 | PROVIDERS: PCP Nurse Practitioner Primary Care; Visit Provider Nurse Practitioner Gerontology | DX: G47.10 Hypersomnia, unspecified (principal) | CPT/HCPCS: 95810 ==

== ENCOUNTER → 2022-08-26 | Outpatient (CLI) | payer OTHER, SELFPAY | END | disposition home or self-care (01) | LOC: PSN 12:11 | PROVIDERS: PCP Nurse Practitioner Primary Care; Visit Provider Nurse Practitioner Gerontology | DX: I49.3 Ventricular premature depolarization (principal) | CPT/HCPCS: 93225; 93226 ==

== ENCOUNTER → 2023-06-16 | Outpatient (CLI) | payer OTHER, SELFPAY ==
--- OUTSIDE RECORDS SUMMARY | 2023-06-16 12:54 | XMS RPT_ITS | CCD ---
Author Name Unknown Address [address] [place] [address] Organization [facility] Care Team Providers Care Director Of Engineering Name Role Phone AKANKSHA JEREZ Unavailable Unavailable TAYLA MEHTA Unavailable Unavailable TAYLA MEHTA Unavailable Unavailable SCOTTY CONCRETE FINISHER APPRENTICEAlexeyINSTITUTION LIBRARIAN, JULIENNE Primary Care Physician Unavailable Primary Care Provider Unavailabl e BALTES CONCRETE FINISHER APPRENTICE-INSTITUTION LIBRARIAN, JULIENNE Primary Care Unavailabl e BALTES CONCRETE FINISHER APPRENTICE-INSTITUTION LIBRARIAN, JULIENNE Attending Unavailabl e FELIPA DONAHUE PA-C Attending Unavailab le BALTES CONCRETE FINISHER APPRENTICE-INSTITUTION LIBRARIAN, JULIENNE Primary Care Unavailabl e BALTES CONCRETE FINISHER APPRENTICE-INSTITUTION LIBRARIAN, JULIENNE Primary Care Unavailabl e RAY LEAL Attending Unavailable JIGNA AUSTIN, DR FRANKO Jackson Attending Unavailab le BALTES CONCRETE FINISHER APPRENTICE-INSTITUTION LIBRARIAN, JULIENNE Primary Care Unavailsheba BENITO MD, DR FRANKO Jackson Attending Unavailab le BALTES CONCRETE FINISHER APPRENTICE-INSTITUTION LIBRARIAN, JULIENNE Primary Care Unavailabl e BALTES CONCRETE FINISHER APPRENTICE-INSTITUTION LIBRARIAN, JULIENNE Attending Unavailabl e BALTES CONCRETE FINISHER APPRENTICE-INSTITUTION LIBRARIAN, JULIENNE Primary Care Unavailsheba BENITO MD, DR FRANKO Jackson Attending Unavailab le BALTES CONCRETE FINISHER APPRENTICE-INSTITUTION LIBRARIAN, JULIENNE Primary Care Unavailabl e BALTES CONCRETE FINISHER APPRENTICE-INSTITUTION LIBRARIAN, JULIENNE Primary Care UnavailTARAH Gaines MD Attending Unavailable BALTES CONCRETE FINISHER APPRENTICE-INSTITUTION LIBRARIAN, JULIENNE Primary Care UnavailTARAH Gaines MD Attending Unavailable BALTES CONCRETE FINISHER APPRENTICE-INSTITUTION LIBRARIAN, JULIENNE Attending Unavailabl e BALTES CONCRETE FINISHER APPRENTICE-INSTITUTION LIBRARIAN, JULIENNE Primary Care Unavailabl e Allergies Allergy Classification Reported Allergen(s) Allergy Type Date of Onset Reaction(s) Facility (12 sources) Cashew nut Food allergy Difficulty swallowing [facility] Work Phone: (12 sources) Sulfamethoxazole ; Translations: [sulfamethoxazol e] Drug Allergy Rash [facility] Work Phone: Medications Current Medications Medication Drug Class(es) Dates Sig (Normalized) Sig (Original) albuterol 0.83 mg/ml inhalation solution (13 sources) beta2-Adrenergic Agonist Start: 04-28-2023 take 1 capsule by inhalation every six hours as needed albuterol 2.5 mg/3 mL (0.083%) inhalation solution Dose : 2.5 mg = 3 mL, Inhalation, q6h, PRN as needed for wheezing, # 60 EA, 0 Refill(s), Pharmacy: [id number], Wheezing CAP (community acquired pneumonia), 166, cm, 04/10/23 15:01:00 EST, Height, kg, 04/10/23 15:01:00 EST, Dosing Weight Start Date: 04/28/23 Status: Ordered Completed/Discontinued Medications Medication Drug Class(es) Dates Sig (Normalized) Sig (Original) ALPRAZolam 1 mg oral tablet (12 sources) Benzodiazepine Start: 06-10-2023 ALPRAZolam 1 mg oral tablet Dose : 1 mg = 1 tab(s), Oral, qHS, 0 Refill(s), 107 Start Date: 06/10/23 Status: Ordered Problems Active Problems Problem Classification Problem Date Documented Date Episodic/Chronic Acute bronchitis (12 sources) Acute bronchiolitis 06-09-2019 Episodic Anxiety disorders (12 sources) Mixed anxiety and depressive disorder; Translations: [Anxiety] 06-08-2020 Chronic Asthma (12 sources) Allergic asthma 06-09-2019 Chronic Cancer of cervix (12 sources) Low grade squamous intraepithelial lesion on cervical Papanicolaou smear 07-31-2020 Episodic Cardiac and circulatory congenital anomalies (12 sources) Patent foramen ovale 10-29-2020 Chronic Cardiac dysrhythmias (12 sources) Ventricular premature beats 08-16-2020 Chronic Chronic obstructive pulmonary disease and bronchiectasis (1 source) Bronchitis 04-29-2023 Episodic Esophageal disorders (12 sources) Gastroesophageal reflux disease 12-13-2019 Chronic Genitourinary symptoms and ill-defined conditions (12 sources) Urge incontinence of urine 12-13-2019 Chronic Malaise and fatigue (10 sources) Fatigue 12-25-2021 Episodic Mood disorders (6 sources) Recurrent major depression 11-11-2022 Chronic Osteoarthritis (6 sources) Osteoarthritis of right knee joint 11-11-2022 Chronic Other and ill-defined heart disease (12 sources) Atrial septal aneurysm 09-13-2020 Chronic Other lower respiratory disease (12 sources) Cough 06-09-2019 Episodic Other lower respiratory disease (12 sources) Dyspnea on exertion 06-09-2019 Episodic Other lower respiratory disease (12 sources) H/O: pneumonia 06-09-2019 Episodic Other lower respiratory disease (1 source) Hemoptysis; Translations: [Hemoptysis] Onset: 04-12-2023 Episodic Other nutritional; endocrine; and metabolic disorders (2 sources) Body mass index (BMI) 37.0-37.9, adult; Translations: [Body mass index [BMI] 37.0-37.9, adult] Onset: 10-14-2022 Chronic Unclassified (1 source) Unknown / UNK(Unknown) Onset: 11-20-2016 Unclassified (20 sources) Patient encounter status 07-17-2021 Past or Other Problems Problem Classification Problem Date Documented Da te Episodic/Chronic Other female genital disorders (2 sources) Mild cervical dysplasia; Translations: [Mild cervical dysplasia] Onset: 10-14-2022 Episodic Other screening for suspected conditions (not mental disorders or infectious disease) (2 sources) Encounter for other screening for malignant neoplasm of breast; Translations: [Encounter for other screening for malignant neoplasm of breast] Onset: 10-14-2022 Episodic Spondylosis; intervertebral disc disorders; other back problems (1 source) Backache Onset: 11-20-2016 Episodic Results Test Name Value Interpretation Reference Range Facil ity Vital Signs Date Time Vital Sign Value Performing Clinician Facility 04-12-2023 05:19-0500 Heart rate 63 /min DR RAY LEAL MD [facility] 04-12-2023 05:19-0500 Respiratory rate 18 /min DR RAY LEAL MD [facility] 04-12-2023 04:41-0500 Body temperature 97.88 [degF] DR RAY LEAL MD [facility] 04-12-2023 04:41-0500 Diastolic Blood Pressure Non-Invasive 92 mm[Hg] DR RAY LEAL MD [facility] 04-12-2023 04:41-0500 Heart rate 64 /min DR RAY LEAL MD [facility] 04-12-2023 04:41-0500 Respiratory rate 20 /min DR RAY LEAL MD [facility] 04-12-2023 04:41-0500 Systolic Blood Pressure Non-Invasive 142 mm[Hg] DR RAY LEAL MD [facility] 11-28-2022 16:05-0400 Diastolic Blood Pressure Non-Invasive [address] FRANKO BENITO MD [facility] 11-28-2022 16:05-0400 Heart rate 73 /min DR FRANKO BENITO MD [facility] 11-28-2022 16:05-0400 Respiratory rate 16 /min DR FRANKO BENITO MD [facility] 11-28-2022 16:05-0400 Systolic Blood Pressure Non-Invasive [address] FRANKO BENITO MD [facility] 11-28-2022 14:02-0400 Diastolic Blood Pressure Non-Invasive [address] FRANKO BENITO MD [facility] 11-28-2022 14:02-0400 Heart rate 67 /min DR FRANKO BENITO MD [facility] 11-28-2022 14:02-0400 Systolic Blood Pressure Non-Invasive [address] FRANKO BENITO MD [facility] 11-28-2022 13:46-0400 Respiratory rate 16 /min DR FRANKO BENITO MD [facility] 11-28-2022 13:30-0400 Diastolic Blood Pressure Non-Invasive [address] FRANKO BENITO MD [facility] 11-28-2022 13:30-0400 Heart rate 68 /min DR FRANKO BENITO MD [facility] 11-28-2022 13:30-0400 Respiratory rate 21 /min DR FRANKO BENITO MD [facility] 11-28-2022 13:30-0400 Systolic Blood Pressure Non-Invasive [address] FRANKO BENIOT MD [facility] 11-28-2022 13:15-0400 Heart rate 62 /min DR FRANKO BENITO MD [facility] 11-28-2022 12:45-0400 Body temperature 96.8 [degF] DR FRANKO BENITO MD [facility] 11-28-2022 12:40-0400 Body temperature 32 [degF] DR FRANKO BENITO MD [facility] 11-28-2022 12:40-0400 Respiratory Rate - Anes 0 br/min DR FRANKO BENITO MD [facility] 11-28-2022 12:35-0400 Respiratory Rate - Anes 17 br/min DR FRANKO BENITO MD [facility] 11-28-2022 12:30-0400 Respiratory Rate - Anes 17 br/min DR FRANKO BENITO MD [facility] 11-28-2022 09:10-0400 Body height 165.[address] FRANKO BENITO MD [facility] 11-28-2022 09:10-0400 Body temperature 98.06 [degF] DR FRANKO BENITO MD [facility] 11-28-2022 09:10-0400 Body weight [address] FRANKO BENITO MD [facility] 11-28-2022 09:10-0400 Heart rate 75 /min DR FRANKO BENITO MD [facility] 11-26-2022 08:29-0400 Body height 165.[address] FRANKO BENITO MD [facility] 11-26-2022 08:29-0400 Body weight [address] FRANKO BENITO MD [facility] 11-26-2022 08:29-0400 Body weight 36.69 kg/m2 DR FRANKO BENITO MD [facility] 11-26-2022 08:29-0400 Diastolic Blood Pressure Non-Invasive [address] FRANKO BENITO MD [facility] 11-26-2022 08:29-0400 Heart rate 68 /min DR FRANKO BENITO MD [facility] 11-26-2022 08:29-0400 Respiratory rate 20 /min DR FRANKO BENITO MD [facility] 11-26-2022 08:29-0400 Systolic Blood Pressure Non-Invasive [address] FRANKO BENITO MD [facility] 01-27-2022 10:50-0400 Body height 167 cm GUERRERO KIM MD [facility] 01-27-2022 10:50-0400 Body temperature 100.04 [degF] GUERRERO KIM MD [facility] 01-27-2022 10:50-0400 Body weight 96 kg GUERRERO KIM MD [facility] 01-27-2022 10:50-0400 Diastolic blood pressure 84 mm[Hg] GUERRERO KIM MD [facility] 01-27-2022 10:50-0400 Heart rate 100 /min GUERRERO KIM MD [facility] 01-27-2022 10:50-0400 Respiratory rate 16 /min GUERRERO KIM MD [facility] 01-27-2022 10:50-0400 Systolic blood pressure 129 mm[Hg] GUERRERO KIM MD [facility] Encounters Encounter Date Encounter Type Care Provider Facility Start: 06-10-2023 End: 06-11-2023 ambulatory JULIENNE FAJARDO APRN-NILSA Facility:B Start: 06-10-2023 End: 06-10-2023 Patient encounter procedure JULIENNE FAJARDO APRN-NILSA [facility] Start: 04-12-2023 End: 04-12-2023 Emergency department patient visit JULIENNE FAJARDO APRN-NILSA Facility:B Start: 04-12-2023 End: 04-12-2023 Emergency department patient visit DR RAY LEAL MD [facility] Start: 04-06-2023 End: 04-07-2023 ambulatory FELIPA DONAHUE PA-C Facility:B Start: 04-06-2023 End: 04-06-2023 Patient encounter procedure FELIPA DONAHUE [facility] Start: 11-28-2022 End: 11-28-[address] FRANKO BENITO MD Facility:B Start: 11-28-2022 End: 11-28-[address] FRANKO BENITO MD [facility] Start: 11-26-2022 End: 11-27-[address] FRANKO BENITO MD Facility:B Start: 11-26-2022 End: 11-26-[address] FRANKO BENITO MD [facility] Start: 11-11-2022 End: 11-12-2022 ambulatory JULIENNE FAJARDO CONCRETE FINISHER APPRENTICE-INSTITUTION LIBRARIAN Facility:B Start: 11-11-2022 End: 11-11-2022 Patient encounter procedure JULIENNE FAJARDO CONCRETE FINISHER APPRENTICE-INSTITUTION LIBRARIAN [facility] Start: 11-11-2022 End: 11-11-2022 Well adult monitoring check done JULIENNE FAJARDO CONCRETE FINISHER APPRENTICE-INSTITUTION LIBRARIAN [facility] Start: 11-03-2022 End: 11-04-[address] FRANKO BENITO MD Facility:B Start: 10-23-2022 End: 10-24-2022 ambulatory JULIENNE FAJARDO CONCRETE FINISHER APPRENTICE-INSTITUTION LIBRARIAN Facility:B Start: 10-23-2022 End: 10-23-2022 Patient encounter procedure TARAH BHATT MD [facility] Start: 10-14-2022 End: 10-19-2022 ambulatory JULIENNE FAJARDO CONCRETE FINISHER APPRENTICE-INSTITUTION LIBRARIAN Facility:B Start: 10-14-2022 End: 10-19-2022 Encounter for gynecological examination (general) (routine) without abnormal findings TARAH BHATT MD Facility:B Start: 10-14-2022 End: 10-18-2022 Outreach Lab TARAH BHATT MD [facility] Start: 09-04-2022 ambulatory JULIENNE FAJARDO CONCRETE FINISHER APPRENTICE-INSTITUTION LIBRARIAN Fa cility:B Start: 01-27-2022 End: 01-27-2022 Emergency department patient visit GUERRERO KIM MD [facility] Start: 01-17-2022 End: 01-17-2022 Subsequent hospital visit by physician Mri 2 [facility] (I-Stat/1.5t) [facility]IO [facility] Procedures Date Procedure Procedure Detail Performing Clinician Start: 10-02-2020 Transesophageal echocardiography JULIENNE FAJARDO CONCRETE FINISHER APPRENTICE-INSTITUTION LIBRARIAN Plan of Treatment Date Care Activity Detail Author Start: 01-23-2022 Influenza vaccination INFLUENZA (#1) [facility] Start: 01-28-2017 COLOGUARD (FIT-DNA) COLOGUARD (FIT-D NA) [facility] Start: 01-28-2017 Colonoscopy COLONOSCOPY [facility] Start: 01-28-2017 COLORECTAL CANCER SCREENING COLORECTAL CANCER SCREENING [facility] Start: 01-28-[address] COLONOGRAPHY [facility] Start: 01-28-2017 DIABETES SCREEN DIABETES SCREEN [facility] Start: 01-28-2017 FECAL OCCULT BLOOD FECAL OCCULT BLOO D [facility] Start: 01-28-2017 LIPID SCREEN LIPID SCREEN [facility] Start: 01-28-2017 SIGMOIDOSCOPY SIGMOIDOSCOPY [facility] Start: 2012 Mammography MAMMOGRAM [facility] Start: 01-28-2002 HPV TESTING HPV TESTING [facility] Start: 01-28-1993 PAP TESTING PAP TESTING [facility] Start: 01-28-1991 Urine microalbumin profile DTAP,TDAP ,TD (1 - Tdap) [facility] Start: 01-28-1990 HEPATITIS C SCREENING HEPATITIS C SC REENING [facility] Start: 01-28-1990 HIV SCREENING HIV SCREENING [facility] Start: 1984 Adult depression scr eening assessment DEPRESSION SCREENING [facility] Start: 1972 COVID-19 VACCINE (#1) COVID-19 VACCI NE (#1) [facility] Start: 1972 HEPATITIS B (1 of 3 - 3-dose series) HEPATITIS B (1 of 3 - 3-dose series) [facility] Payers Date Payer Category Payer Unknown MMO MMO [employer] [id number] 2021-Present [phone] [address] [place] [address] PPO [id number] 2003 Unknown [id number] 1972 Unknown [id number] 1972 Unknown [id number] 1972 Unknown [id number] 1972 Unknown [id number] 1972 Unknown [id number] 1972 Unknown [id number] 1972 Unknown [id number] 1972 Unknown [id number] 1972 Unknown [id number] 1972 Unknown [id number] Social History Date Type Detail Facility Start: 12-28-2018 Never smoked t obmarta (finding) [facility] Sex Assigned At Female [facility] Tobacco smoking status NHIS Tobacco smoking consumption unknown [facility] Start: 1972 Sex Assigned At Not on file C [facility] Start: 01-07-2022 End: 01-17-2022 Exposure to SARS-CoV-2 (event) Not sure [facility] Functional Status Date Assessment Result Facility 04-12-2023 Functional Status Independent Yolanda [facility] 04-12-2023 Functional Status Standard Safet y ID band on, Allergy Band on, Call device within reach, Bed in low position, Wheels locked, Upper/Half-Length side-rails up, personal items within reach, Bedside Cart Locked, Visitor at bedside [facility] 11-28-2022 Functional Status Independent [facility] 11-28-2022 Functional Status Repositions se lf, Resting [facility] 11-28-2022 Functional Status ice on [facility] 11-28-2022 Functional Status NPO Status Maintained A [facility] 11-28-2022 Functional Status [facility] 11-26-2022 Functional Status Sensory Deficits None A [facility] 01-27-2022 Functional Status ID band on, Allergy Band on, Call device within reach, Bed in low position, Wheels locked, personal items within reach [facility] Mental Status Date Assessment Result Facility 04-12-2023 Mental Status Orientation Oriented x 4 [facility] 04-12-2023 Mental Status [facility] 11-28-2022 Mental Status Oriented x 4 [facility] 11-28-2022 Mental Status Orientation Asse ssment Oriented x 4 [facility] 01-27-2022 Mental Status Oriented x 4 [facility] Clinical Notes 01-14-2022 to 01-17-2024 RadiologyTelephone Encounter - Eula Cantrell, RT(R) - 01/14/2022 2:08 PM EDTLaboratoryLaboratoryLaboratoryLaboratoryRadiologyLaboratoryRadiologyRadiology Radiology Note Date & Type Note Facility 06-10-2023 Note ORIGINAL EXAMINATION: TWO XRAY VIEWS OF THE CHEST 06/10/2023 2:15 pm COMPARISON: Chest x-ray, 04/06/2023 HISTORY: ORDERING SYSTEM PROVIDED HISTORY: Reason for Exam: chronic cough, FINDINGS: The cardiomediastinal contours are stable. The lungs are clear bilaterally. There is no evidence of focal consolidation, pulmonary edema, pleural effusion or pneumothorax. There is no blunting of the costophrenic angles on the lateral view. Cholecystectomy clips seen overlying the right upper quadrant. IMPRESSION: Stable chest with no acute cardiopulmonary process. Interpreted by: Deric Burrell MD Preliminary Report By: Deric Burrell MD Electronically signed By Deric Burrell MD Dictated Date: 06/10/2023 2:57:36 PM Prelim Date: 06/10/2023 2:58:01 PM Sign Date: 06/10/2023 2:58:01 PM Ordering Provider: [facility] 04-18-2023 Note . MICRO - Microbiology PROCEDURE: Blood Culture (bacterial) [*1] SOURCE: Blood BODY SITE: COLLECTED DATE/TIME: 04/12/2023 05:06 EST RECEIVED DATE/TIME: 04/12/2023 22:59 EST START DATE/TIME: 04/12/2023 22:59 EST FREE TEXT SOURCE: FINAL REPORTS Final Report [] Verified Date/Time/Personnel: 04/17/2023 23:59 EST Blood Culture: No Growth at 5 days. PRELIMINARY REPORTS Preliminary Report [] Verified Date/Time/Personnel: 04/12/2023 23:59 EST Culture has been received in lab and is no growth to date. Routine cultures are held for 5 days. Performing Locations *1: This test was performed at: [facility], [address] [place] [address], [id number] , [facility] ([place]) 04-18-2023 Note . MICRO - Microbiology PROCEDURE: Blood Culture (bacterial) [*1] SOURCE: Blood BODY SITE: COLLECTED DATE/TIME: 04/12/2023 05:06 EST RECEIVED DATE/TIME: 04/12/2023 22:59 EST START DATE/TIME: 04/12/2023 22:59 EST FREE TEXT SOURCE: FINAL REPORTS Final Report [] Verified Date/Time/Personnel: 04/17/2023 23:59 EST Blood Culture: No Growth at 5 days. PRELIMINARY REPORTS Preliminary Report [] Verified Date/Time/Personnel: 04/12/2023 23:59 EST Culture has been received in lab and is no growth to date. Routine cultures are held for 5 days. Performing Locations *1: This test was performed at: [address], [facility] , [facility] ([place]) 04-12-2023 Hospital Discharg e instructions Patient Education 04/12/2023 06:41:00 Acute Bronchitis Acute Bronchitis Your healthcare provider has told you that you have acute bronchitis. Bronchitis is infection or inflammation of the bronchial tubes (airways in the lungs). Normally, air moves easily in and out of the airways. Bronchitis narrows the airways, making it harder for air to flow in and out of the lungs. This causes symptoms such as shortness of breath, coughing up yellow or green mucus, and wheezing. Bronchitis can be acute or chronic. Acute means the condition comes on quickly and goes away in a short time, usually within 3 to 10 days. Chronic means a condition lasts a long time and often comes back. What causes acute bronchitis? Acute bronchitis almost always starts as a viral respiratory infection, such as a cold or the flu. Certain factors make it more likely for a cold or flu to turn into bronchitis. These include being very young, being elderly, having a heart or lung problem, or having a weak immune system. Cigarette smoking also makes bronchitis more likely. When bronchitis develops, the airways become swollen. The airways may also become infected with bacteria. This is known as a secondary infection. Diagnosing acute bronchitis Your healthcare provider will examine you and ask about your symptoms and health history. You may also have a sputum culture to test the fluid in your lungs. Chest X-rays may be done to look for infection in the lungs. Treating acute bronchitis Bronchitis usually clears up as the cold or flu goes away. You can help feel better faster by doing the following: Take medicine as directed. You may be told to take ibuprofen or other qvfy-tzf-viicics medicines. These help relieve inflammation in your bronchial tubes. Your healthcare provider may prescribe an inhaler to help open up the bronchial tubes. Most of the time, acute bronchitis is caused by a viral infection. Antibiotics are usually not prescribed for viral infections. Drink plenty of fluids, such as water, juice, or warm soup. Fluids loosen mucus so that you can cough it up. This helps you breathe more easily. Fluids also prevent dehydration. Make sure you get plenty of rest. Do not smoke. Do not allow anyone else to smoke in your home. Recovery and follow-up Follow up with your doctor as you are told. You will likely feel better in a week or two. But a dry cough can linger beyond that time. Let your doctor know if you still have symptoms (other than a dry cough) after 2 weeks, or if you re prone to getting bronchial infections. Take steps to protect yourself from future infections. These steps include stopping smoking and avoiding tobacco smoke, washing your hands often, and getting a yearly flu shot. When to call your healthcare provider Call the healthcare provider if you have any of the following: Fever of 100.4 F (38.0 C) or higher, or as advised Symptoms that get worse, or new symptoms Trouble breathing Symptoms that don t start to improve within a week, or within 3 days of taking antibiotics [id number] [employer]. [address] [place] [address], [place] [address]. All rights reserved. This information is not intended as a substitute for professional medical care. Always follow your healthcare professional's instructions. 04/12/2023 06:40:52 Hemoptysis Hemoptysis Hemoptysis is the medical term for coughing up blood. There are many causes for this, including minor illnesses like bronchitis. Hemoptysis can also be an early sign of a more serious illness, like a blood clot in the lung (pulmonary embolism), cancer, tuberculosis, or pneumonia. Less common causes of hemoptysis can be hard to diagnose in an emergency department or a clinic. More testing will be needed if the symptoms continue. Home care Stay away from cigarette smoke. Smoke irritates the bronchial passages. Unless you are taking daily aspirin to prevent stroke or heart attack, don't take aspirin or products that contain aspirin. Check with your healthcare provider to see if you should continue the aspirin or when you should restart it if you develop hemoptysis. Aspirin affects how readily the blood clots. Medicines that prevent clotting may make hemoptysis worse. If you have a lung infection, drinking extra fluid will help loosen secretions in the lungs. Lfun-mri-vhfovov cough medicines that contain dextromethorphan may help reduce coughing. Check with your healthcare provider before taking dextromethorphan if you have a chronic illness, are , or take daily medicines. If you were prescribed an antibiotic, take it until it is all gone. Take it even if you are feeling better after only a few days. Follow-up care Follow up with your healthcare provider, or as advised. When to seek medical advice Call your healthcare provider right away if any of these occur: Fever of 100.4 F (38 C) or higher, or as directed by your healthcare provider Call 911 Call 911 if any of these occur: Coughing up an increased amount of blood Trouble breathing, wheezing, or pain with breathing Chest pain or chest pressure Fainting or losing consciousness Rapid heartbeat Weakness or dizziness 4213-0995 [employer]. [address] [place] [address]. All rights reserved. This information is not intended as a substitute for professional medical care. Always follow your healthcare professional's instructions. Follow Up Care 04/12/2023 04:34:10 With:JULIENNE FAJARDO Address: [address] [place] [address] [place] [address] [phone] When:2-4 days Comments:Return to ED if symptoms worsen [facility] 04-12-2023 Note Discharge Instructions Thank you for allowing [facility] to assist you with your healthcare needs. The following is important discharge information regarding your hospital visit. Diagnosis from Today's Visit Cough - Minor hemoptysis Hemoptysis What to Do Next Instructions from Your Care Team No qualifying data available. Post Acute Orders No qualifying data available. You Need to Schedule the Following Appointments Follow Up with JULIENNE FAJARDO When Within 2-4 days Why: Return to ED if symptoms worsen Where: [address] [facility] [place] [address]- [phone] Allergies Cashews (Difficulty swallowing) sulfamethoxazole (Rash) Medications Please ask your primary doctor or pharmacist before taking any other medication not listed, including over the counter drugs, herbal medications, vitamins and or supplements as they may interact with your home medications. What How Much When Why Instructions Last Dose New benzonatate (Tessalon Perles 100 mg oral capsule) 2 cap by mouth Three (3) times a day as needed for as needed for cough Duration: 5 Days Printed Prescription Please take this list to your next doctor s visit. Bring all medications you take, including over the counter medications, herbals and other supplements with you to your doctor s visit. Patients and families are reminded to discard old lists and to update any records with all medication providers or retail pharmacies. Education Materials Acute Bronchitis Your healthcare provider has told you that you have acute bronchitis. Bronchitis is infection or inflammation of the bronchial tubes (airways in the lungs). Normally, air moves easily in and out of the airways. Bronchitis narrows the airways, making it harder for air to flow in and out of the lungs. This causes symptoms such as shortness of breath, coughing up yellow or green mucus, and wheezing. Bronchitis can be acute or chronic. Acute means the condition comes on quickly and goes away in a short time, usually within 3 to 10 days. Chronic means a condition lasts a long time and often comes back. What causes acute bronchitis? Acute bronchitis almost always starts as a viral respiratory infection, such as a cold or the flu. Certain factors make it more likely for a cold or flu to turn into bronchitis. These include being very young, being elderly, having a heart or lung problem, or having a weak immune system. Cigarette smoking also makes bronchitis more likely. When bronchitis develops, the airways become swollen. The airways may also become infected with bacteria. This is known as a secondary infection. Diagnosing acute bronchitis Your healthcare provider will examine you and ask about your symptoms and health history. You may also have a sputum culture to test the fluid in your lungs. Chest X-rays may be done to look for infection in the lungs. Treating acute bronchitis Bronchitis usually clears up as the cold or flu goes away. You can help feel better faster by doing the following: Take medicine as directed. You may be told to take ibuprofen or other ictd-nye-xxinflk medicines. These help relieve inflammation in your bronchial tubes. Your healthcare provider may prescribe an inhaler to help open up the bronchial tubes. Most of the time, acute bronchitis is caused by a viral infection. Antibiotics are usually not prescribed for viral infections. Drink plenty of fluids, such as water, juice, or warm soup. Fluids loosen mucus so that you can cough it up. This helps you breathe more easily. Fluids also prevent dehydration. Make sure you get plenty of rest. Do not smoke. Do not allow anyone else to smoke in your home. Recovery and follow-up Follow up with your doctor as you are told. You will likely feel better in a week or two. But a dry cough can linger beyond that time. Let your doctor know if you still have symptoms (other than a dry cough) after 2 weeks, or if you re prone to getting bronchial infections. Take steps to protect yourself from future infections. These steps include stopping smoking and avoiding tobacco smoke, washing your hands often, and getting a yearly flu shot. When to call your healthcare provider Call the healthcare provider if you have any of the following: Fever of 100.4 F (38.0 C) or higher, or as advised Symptoms that get worse, or new symptoms Trouble breathing Symptoms that don t start to improve within a week, or within 3 days of taking antibiotics [id number] [employer]. [address] [place], [place] [id number]. All rights reserved. This information is not intended as a substitute for professional medical care. Always follow your healthcare professional's instructions. Hemoptysis Hemoptysis is the medical term for coughing up blood. There are many causes for this, including minor illnesses like bronchitis. Hemoptysis can also be an early sign of a more serious illness, like a blood clot in the lung (pulmonary embolism), cancer, tuberculosis, or pneumonia. Less common causes of hemoptysis can be hard to diagnose in an emergency department or a clinic. More testing will be needed if the symptoms continue. Home care Stay away from cigarette smoke. Smoke irritates the bronchial passages. Unless you are taking daily aspirin to prevent stroke or heart attack, don't take aspirin or products that contain aspirin. Check with your healthcare provider to see if you should continue the aspirin or when you should restart it if you develop hemoptysis. Aspirin affects how readily the blood clots. Medicines that prevent clotting may make hemoptysis worse. If you have a lung infection, drinking extra fluid will help loosen secretions in the lungs. Hukx-rle-xwsbzhw cough medicines that contain dextromethorphan may help reduce coughing. Check with your healthcare provider before taking dextromethorphan if you have a chronic illness, are , or take daily medicines. If you were prescribed an antibiotic, take it until it is all gone. Take it even if you are feeling better after only a few days. Follow-up care Follow up with your healthcare provider, or as advised. When to seek medical advice Call your healthcare provider right away if any of these occur: Fever of 100.4 F (38 C) or higher, or as directed by your healthcare provider Call 911 Call 911 if any of these occur: Coughing up an increased amount of blood Trouble breathing, wheezing, or pain with breathing Chest pain or chest pressure Fainting or losing consciousness Rapid heartbeat Weakness or dizziness [phone] [employer]. [address] [place] [address]. All rights reserved. This information is not intended as a substitute for professional medical care. Always follow your healthcare professional's instructions. Additional Information VACCINATE! IT SAVES LIVES! Members of the community who have not yet received the COVID-19 vaccine and would like to receive it can visit one of [facility] vaccine clinics. There are many vaccine clinic locations within the [facility]. For locations and available times, please visit www.gettheshot.coronavirus.[place]. gov/. It is important to note that some COVID mobile vaccine clinics are held outdoors and may be canceled in rainy or stormy conditions. To learn more about pediatric vaccinations (ages 5-11), we invite you to visit the [facility] webpage. https://www.[facility].org/p ages/0928-Wyzly-Jzygjsispwd-Freq jqoodk-Itmjr-Jicfiouvf.html To learn more about the COVID-19 vaccine, we invite you to visit the CDC website for a list of frequently asked questions. https://www.cdc.gov/coronavirus/ 2019-ncov/vaccines/faq.html [facility] Patient Portal Access Instructions: Stay connected with your healthcare team and access your personal medical information anytime with the [employer] Patient Portal. If you would like a full copy of your medical records please contact the [facility] Medical Records Department Thursday through Thursday between 8a.m. and 4:30p.m. Please follow the directions below to access the portal: 1.Access the email account you provided upon registration to the [facility].2.Look for an invitation email from [facility].3.Open the email and access the invitation link: [facility].Fill in the required zapien to create your account. Sign into [email or web address].[email or web address] with your username and password that you created in the above steps to stay up to date. You can then view a summary of results, a summary of your visits, and the ability to download your summaries to your computer or send the information securely to a physician. Remember that your healthcare information is confidential, so carefully consider who you will allow to register on the [employer] Patient Portal for access to your information. You can also access the [employer] Patient Portal on the [employer]. Simply click on Health Records under Health Data and then click on the [employer] logo. HOW TO SAFELY DISPOSE OF PRESCRIPTION MEDICATIONS Please use one of the following methods to safely dispose of your unused medications. 1.Use a drug disposal kit: the drug disposal pouch allows you to safely discard your old and unused drugs. Ask your nurse to give you one when you are discharged.2.Visit a local take-back location: Many local pharmacies and police departments have programs that collect old and unwanted prescription drugs. Call your local pharmacy or go to http://[employer]/1N2Zm4s to find one close to you.3.Make use of household items: Use cat litter or old coffee grounds to dispose medications if other options are not available. Mix your drugs with these household products, seal them in an airtight container and throw it into the garbage. Call [facility]: [phone] to be sure your drugs can be disposed of in this way. Some medicines may require a different approach.4.Never flush your medications down the toilet. IF YOU HAVE BEEN PRESCRIBED AN OPIOIDS FOR PAIN If you have been prescribed an opioid (such as hydrocodone, oxycodone or morphine), it is critical to understand the possible side effects and risks of opioid pain medications. Even when taken as directed, opioids can have several side effects including: Tolerance, meaning you might need to take more of a medication for the same pain relief. Nausea, vomiting and/or constipation. Sleepiness, dizziness, dry mouth, confusion, depression or itching. Physical dependence, meaning you have withdrawal symptoms when a medication is stopped ? this can develop within a few days. KNOW YOUR RESPONSIBILITIES It is important to know exactly how much and how often to take the opioid pain medications you are prescribed. Never take opioids in higher amounts or more often than prescribed. Do not combine opioids with alcohol or other drugs that cause drowsiness, such as benzodiazepines, also known as benzos, including diazepam and alprazolam, muscle relaxants or sleep aids. Never sell or share prescription opioids. This is illegal. Store opioids in a secure place and out of reach of others (including children, family, friends and visitors). The last page(s) of this document has been signed and retained as a CHART COPY Signatures Patient Education Materials Acute Bronchitis Hemoptysis Medication Leaflets My discharge plan and instructions have been reviewed and explained to me and ISANDRO PATRICIA E understand my current condition and have read and understand these discharge instructions. I have received a written copy of the plan/instructions. If I have questions, I am aware that I should contact my doctor. 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 Multiplanar reformatted images are provided for review. MIP images are provided for review. Automated exposure control, iterative reconstruction, and/or weight based adjustment of the mA/kV was utilized to reduce the radiation dose to as low as reasonably achievable. COMPARISON: Chest x-ray on 04/06/2023 HISTORY: ORDERING SYSTEM PROVIDED HISTORY: Reason for Exam: chest pain; suspect PE FINDINGS: Pulmonary Arteries: Pulmonary arteries are adequately opacified for evaluation. No evidence of intraluminal filling defect to suggest pulmonary embolism. Main pulmonary artery is normal in caliber. Mediastinum: No evidence of mediastinal lymphadenopathy. The heart and pericardium demonstrate no acute abnormality. There is no acute abnormality of the thoracic aorta. Lungs/pleura: The lungs are without acute process. No focal consolidation or pulmonary edema. No evidence of pleural effusion or pneumothorax. Upper Abdomen: Limited images of the upper abdomen are unremarkable. Soft Tissues/Bones: No acute bone or soft tissue abnormality. IMPRESSION: No evidence of pulmonary embolism or acute chest abnormality. Interpreted by: Rubio Lara MD Preliminary Report By: Rubio Lara MD Electronically signed By Rubio Lara MD Dictated Date: 04/12/2023 5:58:00 AM Prelim Date: 04/12/2023 6:00:00 AM Sign Date: 04/12/2023 6:00:00 AM Ordering Provider: RAY LEAL [facility] 04-12-2023 Note Sinus rhythm Short NM interval Nonspecific intraventricular conduction delay Artifact in lead(s) I,II,III,aVR,aVL,aVF,V1,V3,V4 and baseline wander in lead(s) V1,V2,V3,V6 Electronic Signature: MD RAY LEAL MD 04/12/2023 06:32:43 [facility] 04-12-2023 SARS-CoV-2 (COVID-19) RNA VALERIO+probe Ql (Nph) Negative *NA* (04/12/23 5:06 AM) AO Auto Urine SS 04-06-2023 Note ORIGINAL EXAMINATION: TWO XRAY VIEWS OF THE CHEST04/06/2023 9:15 am COMPARISON: 06/08/2021 HISTORY: ORDERING SYSTEM PROVIDED HISTORY: Reason for Exam: cough with SOB FINDINGS: The heart size is normal. Streaky retrocardiac opacities and right infrahilar opacities. No pneumothorax or pleural effusion. No aggressive osseous lesions identified.Surgical clips seen in the right upper quadrant. IMPRESSION: Streaky opacities in the retrocardiac region and left infrahilar region could relate to pneumonia in the proper clinical setting. Follow to resolution. Interpreted by: Nas Yancey MD Preliminary Report By: Nas Yancey MD Electronically signed By Nas Yancey MD Dictated Date: 04/06/2023 3:26:34 PM Prelim Date: 04/06/2023 3:27:35 PM Sign Date: 04/06/2023 3:27:35 PM Ordering Provider: [facility] 11-28-2022 Hospital [facility] instructions Patient Education 11/28/2022 14:30:57 Monitored Anesthesia Care, Care After Monitored Anesthesia Care, Care After These instructions provide you with information about caring for yourself after your procedure. Your health care provider may also give you more specific instructions. Your treatment has been planned according to current medical practices, but problems sometimes occur. Call your health care provider if you have any problems or questions after your procedure. What can I expect after the procedure? After your procedure, you may: Feel sleepy for several hours. Feel clumsy and have poor balance for several hours. Feel forgetful about what happened after the procedure. Have poor judgment for several hours. Feel nauseous or vomit. Have a sore throat if you had a breathing tube during the procedure. Follow these instructions at home: For at least 24 hours after the procedure: Have a responsible adult stay with you. It is important to have someone help care for you until you are awake and alert. Rest as needed. Do not: ?Participate in activities in which you could fall or become injured. ?Drive. ?Use heavy machinery. ?Drink alcohol. ?Take sleeping pills or medicines that cause drowsiness. ?Make important decisions or sign legal documents. ?Take care of children on your own. Eating and drinking Follow the diet that is recommended by your health care provider. If you vomit, drink water, juice, or soup when you can drink without vomiting. Make sure you have little or no nausea before eating solid foods. General instructions Take krkn-rkr-xgzkwco and prescription medicines only as told by your health care provider. If you have sleep apnea, surgery and certain medicines can increase your risk for breathing problems. Follow instructions from your health care provider about wearing your sleep device: ?Anytime you are sleeping, including during daytime naps. ?While taking prescription pain medicines, sleeping medicines, or medicines that make you drowsy. If you smoke, do not smoke without supervision. Keep all follow-up visits as told by your health care provider. This is important. Contact a health care provider if: You keep feeling nauseous or you keep vomiting. You feel light-headed. You develop a rash. You have a fever. Get help right away if: You have trouble breathing. Summary For several hours after your procedure, you may feel sleepy and have poor judgment. Have a responsible adult stay with you for at least 24 hours or until you are awake and alert. This information is not intended to replace advice given to you by your health care provider. Make sure you discuss any questions you have with your health care provider. Document Released: 08/31/2016 Document Revised: 08/09/2018 Document Reviewed: 08/31/2016 [employer] Patient Education 2020 [employer]. 11/28/2022 14:30:45 Partial Knee Replacement, Care After Partial Knee Replacement, Care After This sheet gives you information about how to care for yourself after your procedure. Your health care provider may also give you more specific instructions. If you have problems or questions, contact your health care provider. What can I expect after the procedure? After the procedure, it is common to have: Pain. This can be controlled with pain medicine. Soreness. Stiffness. Swelling. Bruising. Follow these instructions at home: Medicines Take krss-skg-ufuzpeh and prescription medicines only as told by your health care provider. If you were prescribed a blood thinner (anticoagulant), take it as told by your health care provider. Ask your health care provider if the medicine prescribed to you: ?Requires you to avoid driving or using heavy machinery. ?Can cause constipation. You may need to take these actions to prevent or treat constipation: ?Drink enough fluid to keep your urine pale yellow. ?Take emip-sjm-membkbl or prescription medicines. ?Eat foods that are high in fiber, such as beans, whole grains, and fresh fruits and vegetables. ?Limit foods that are high in fat and processed sugars, such as fried or sweet foods. Bathing Do not take baths, swim, or use a hot tub until your health care provider approves. Ask your health care provider if you may take showers. Keep your bandage (dressing) dry until your health care provider says it can be removed. If the dressing is not waterproof, cover it with a waterproof covering when you take a shower. Incision care Follow instructions from your health care provider about how to take care of your incision. Make sure you: ?Wash your hands with soap and water before and after you change your dressing. If soap and water are not available, use hand hogshead stripper. ?Change your dressing as told by your health care provider. ?Leave stitches (sutures), skin glue, or adhesive strips in place. These skin closures may need to stay in place for 2 weeks or longer. If adhesive strip edges start to loosen and curl up, you may trim the loose edges. Do not remove adhesive strips completely unless your health care provider tells you to do that. Check your incision area every day for signs of infection. Check for: ?More redness, swelling, or pain. ?More fluid or blood. ?Warmth. ?Pus or a bad smell. Managing pain, stiffness, and swelling If directed, put ice on the affected area. ?Put ice in a plastic bag or use the icing device (cold flow pad or cryocuff) that you were given. Follow instructions from your health care provider about how to use the icing device. ?Place a towel between your skin and the bag or between your skin and the icing device. ?Leave the ice on for 20 minutes, 2 3 times a day. If directed, apply heat to the affected area before you exercise. Use the heat source that your health care provider recommends, such as a moist heat pack or a heating pad. ?Place a towel between your skin and the heat source. ?Leave the heat on for 20 30 minutes. ?Remove the heat if your skin turns bright red. This is especially important if you are unable to feel pain, heat, or cold. You may have a greater risk of getting burned. Move your toes often to reduce stiffness and swelling. Raise (elevate) your knee above the level of your heart while you are sitting or lying down. ?Use several pillows to keep your leg straight. ?Do not put a pillow just under the knee. If the knee is bent for a long time, this may lead to stiffness. Wear elastic knee support as told by your health care provider. Activity Use your walker, cane, or crutches to walk. You can put some weight on your knee. You should be able to walk without assistance after several days or a few weeks. Do your knee exercises as instructed by your physical therapist. Ask your health care provider when it is safe to drive. Return to your normal activities as told by your health care provider. Ask your health care provider what activities are safe for you. Returning to all your usual activities may take about 6 weeks. General instructions Wear compression stockings as told by your health care provider. Tell your health care provider if you plan to have dental work. Also, tell your dentist about your joint replacement. ?Ask your health care provider if there are any special instructions you need to follow before having dental care and routine cleanings. Do not use any products that contain nicotine or tobacco, such as cigarettes, e-cigarettes, and chewing tobacco. If you need help quitting, ask your health care provider. Keep all follow-up visits with your health care provider and your physical therapist. This is important. Physical therapy may continue for several months after surgery. Contact a health care provider if you: Have chills or a fever. Have pain that is not controlled by your pain medicine. Are unable to put weight on your knee. Have any signs of infection when you check your incision. Get help right away if you: Develop a warm, tender, red, or swollen area in your leg. Have chest pain or trouble breathing. Summary After the procedure, it is common to have pain, soreness, and stiffness. Follow instructions from your health care provider about how to take care of your incision. Check your incision area every day for signs of infection. Use your walker, cane, or crutches to walk as told by your health care provider. You may have to do this for the first few days or weeks. You can put some weight on your knee as told by your health care provider. Return to your normal activities as told by your health care provider. Ask your health care provider what activities are safe for you. Returning to all your usual activities may take about 6 weeks. Call your health care provider if your pain medicine is not helping or if you have any signs of infection. This information is not intended to replace advice given to you by your health care provider. Make sure you discuss any questions you have with your health care provider. Document Released: 06/01/2019 Document Revised: 06/01/2019 Document Reviewed: 06/01/2019 [employer] Patient Education 2020 [employer]. Follow Up Care 11/17/2022 10:32:34 With:FRANKO BENITO MD Address: [address] [place] [address] [address] [place] [address] [phone] When:12/12/2022 09:15:00 Comments:Follow-up as scheduled with Sam Boone PA-C [facility] 11-28-2022 Summary of episod e note Discharge Instructions Thank you for allowing [facility] to assist you with your healthcare needs. The following is important discharge information regarding your hospital visit. Your Care Team JULIENNE FAJARDO Your Diagnosis Partial Right Knee Replacement What to do next Instructions From Your Doctor See Instruction Sheet Scheduled Follow-Up Appointments Appointment Type When With Where Contact Information Wellness Annual 12/04/2022 09:00 AM EDT JULIENNE FAJARDO [address] [id number] Follow Up Appointments Follow Up with FRANKO BENITO MD When 12/12/2022 09:15 AM EDT Why: Follow-up as scheduled with Sam Boone PA-C Where: [address] [place] [address] [place] [address] [place] [address] [phone] Allergies Cashews (Difficulty swallowing) sulfamethoxazole (Rash) Medications Please ask your primary doctor or pharmacist before taking any other medication not listed, including over the counter drugs, herbal medications, vitamins and or supplements as they may interact with your home medications. What How Much When Why Instructions Last Dose Unchanged albuterol (ProAir HFA MDI (90 mcg/ inh) inhalation aerosol) 2 puff(s) by inhalation Four (4) times a day as needed for as needed for wheezing Cough Shortness of breath EA=8.5 gr unit Unchanged ALPRAZolam (ALPRAZolam 1 mg oral tablet) 1 tab(s) by mouth Daily at bedtime as needed for as needed for anxiety Unchanged aspirin (aspirin 81 mg oral delayed release tablet) 1 tab(s) by mouth Once a day Unchanged metoprolol (metoprolol succinate 25 mg oral TABLET extended release) 2 tab(s) by mouth Once a day Unchanged multivitamin with minerals (One-A-Day Women oral tablet) 1 tab(s) by mouth Once a day Unchanged tolterodine (tolterodine 4 mg oral capsule, extended release) 1 cap by mouth Every day Urge incontinence of urine Unchanged venlafaxine (venlafaxine 75 mg oral capsule, extended release) 2 cap by mouth Daily at bedtime Please take this list to your next doctor s visit. Bring all medications you take, including over the counter medications, herbals and other supplements with you to your doctor s visit. Patients and families are reminded to discard old lists and to update any records with all medication providers or retail pharmacies. Education Materials Monitored Anesthesia Care, Care After These instructions provide you with information about caring for yourself after your procedure. Your health care provider may also give you more specific instructions. Your treatment has been planned according to current medical practices, but problems sometimes occur. Call your health care provider if you have any problems or questions after your procedure. What can I expect after the procedure? After your procedure, you may: Feel sleepy for several hours. Feel clumsy and have poor balance for several hours. Feel forgetful about what happened after the procedure. Have poor judgment for several hours. Feel nauseous or vomit. Have a sore throat if you had a breathing tube during the procedure. Follow these instructions at home: For at least 24 hours after the procedure: Have a responsible adult stay with you. It is important to have someone help care for you until you are awake and alert. Rest as needed. Do not: ? Participate in activities in which you could fall or become injured. ? Drive. ? Use heavy machinery. ? Drink alcohol. ? Take sleeping pills or medicines that cause drowsiness. ? Make important decisions or sign legal documents. ? Take care of children on your own. Eating and drinking Follow the diet that is recommended by your health care provider. If you vomit, drink water, juice, or soup when you can drink without vomiting. Make sure you have little or no nausea before eating solid foods. General instructions Take dpsr-rxp-smlfqnk and prescription medicines only as told by your health care provider. If you have sleep apnea, surgery and certain medicines can increase your risk for breathing problems. Follow instructions from your health care provider about wearing your sleep device: ? Anytime you are sleeping, including during daytime naps. ? While taking prescription pain medicines, sleeping medicines, or medicines that make you drowsy. If you smoke, do not smoke without supervision. Keep all follow-up visits as told by your health care provider. This is important. Contact a health care provider if: You keep feeling nauseous or you keep vomiting. You feel light-headed. You develop a rash. You have a fever. Get help right away if: You have trouble breathing. Summary For several hours after your procedure, you may feel sleepy and have poor judgment. Have a responsible adult stay with you for at least 24 hours or until you are awake and alert. This information is not intended to replace advice given to you by your health care provider. Make sure you discuss any questions you have with your health care provider. Document Released: 08/31/2016 Document Revised: 08/09/2018 Document Reviewed: 08/31/2016 [employer] Patient Education 2020 [employer]. Partial Knee Replacement, Care After This sheet gives you information about how to care for yourself after your procedure. Your health care provider may also give you more specific instructions. If you have problems or questions, contact your health care provider. What can I expect after the procedure? After the procedure, it is common to have: Pain. This can be controlled with pain medicine. Soreness. Stiffness. Swelling. Bruising. Follow these instructions at home: Medicines Take vhde-qse-vxdbuep and prescription medicines only as told by your health care provider. If you were prescribed a blood thinner (anticoagulant), take it as told by your health care provider. Ask your health care provider if the medicine prescribed to you: ? Requires you to avoid driving or using heavy machinery. ? Can cause constipation. You may need to take these actions to prevent or treat constipation: ? Drink enough fluid to keep your urine pale yellow. ? Take wrco-fwo-dvbmyrv or prescription medicines. ? Eat foods that are high in fiber, such as beans, whole grains, and fresh fruits and vegetables. ? Limit foods that are high in fat and processed sugars, such as fried or sweet foods. Bathing Do not take baths, swim, or use a hot tub until your health care provider approves. Ask your health care provider if you may take showers. Keep your bandage (dressing) dry until your health care provider says it can be removed. If the dressing is not waterproof, cover it with a waterproof covering when you take a shower. Incision care Follow instructions from your health care provider about how to take care of your incision. Make sure you: ? Wash your hands with soap and water before and after you change your dressing. If soap and water are not available, use hand hogshead stripper. ? Change your dressing as told by your health care provider. ? Leave stitches (sutures), skin glue, or adhesive strips in place. These skin closures may need to stay in place for 2 weeks or longer. If adhesive strip edges start to loosen and curl up, you may trim the loose edges. Do not remove adhesive strips completely unless your health care provider tells you to do that. Check your incision area every day for signs of infection. Check for: ? More redness, swelling, or pain. ? More fluid or blood. ? Warmth. ? Pus or a bad smell. Managing pain, stiffness, and swelling If directed, put ice on the affected area. ? Put ice in a plastic bag or use the icing device (cold flow pad or cryocuff) that you were given. Follow instructions from your health care provider about how to use the icing device. ? Place a towel between your skin and the bag or between your skin and the icing device. ? Leave the ice on for 20 minutes, 2 3 times a day. If directed, apply heat to the affected area before you exercise. Use the heat source that your health care provider recommends, such as a moist heat pack or a heating pad. ? Place a towel between your skin and the heat source. ? Leave the heat on for 20 30 minutes. ? Remove the heat if your skin turns bright red. This is especially important if you are unable to feel pain, heat, or cold. You may have a greater risk of getting burned. Move your toes often to reduce stiffness and swelling. Raise (elevate) your knee above the level of your heart while you are sitting or lying down. ? Use several pillows to keep your leg straight. ? Do not put a pillow just under the knee. If the knee is bent for a long time, this may lead to stiffness. Wear elastic knee support as told by your health care provider. Activity Use your walker, cane, or crutches to walk. You can put some weight on your knee. You should be able to walk without assistance after several days or a few weeks. Do your knee exercises as instructed by your physical therapist. Ask your health care provider when it is safe to drive. Return to your normal activities as told by your health care provider. Ask your health care provider what activities are safe for you. Returning to all your usual activities may take about 6 weeks. General instructions Wear compression stockings as told by your health care provider. Tell your health care provider if you plan to have dental work. Also, tell your dentist about your joint replacement. ? Ask your health care provider if there are any special instructions you need to follow before having dental care and routine cleanings. Do not use any products that contain nicotine or tobacco, such as cigarettes, e-cigarettes, and chewing tobacco. If you need help quitting, ask your health care provider. Keep all follow-up visits with your health care provider and your physical therapist. This is important. Physical therapy may continue for several months after surgery. Contact a health care provider if you: Have chills or a fever. Have pain that is not controlled by your pain medicine. Are unable to put weight on your knee. Have any signs of infection when you check your incision. Get help right away if you: Develop a warm, tender, red, or swollen area in your leg. Have chest pain or trouble breathing. Summary After the procedure, it is common to have pain, soreness, and stiffness. Follow instructions from your health care provider about how to take care of your incision. Check your incision area every day for signs of infection. Use your walker, cane, or crutches to walk as told by your health care provider. You may have to do this for the first few days or weeks. You can put some weight on your knee as told by your health care provider. Return to your normal activities as told by your health care provider. Ask your health care provider what activities are safe for you. Returning to all your usual activities may take about 6 weeks. Call your health care provider if your pain medicine is not helping or if you have any signs of infection. This information is not intended to replace advice given to you by your health care provider. Make sure you discuss any questions you have with your health care provider. Document Released: 06/01/2019 Document Revised: 06/01/2019 Document Reviewed: 06/01/2019 Elsevier Patient Education 2020 [employer] Additional Information VACCINATE! IT SAVES LIVES! Members of the community who have not yet received the COVID-19 vaccine and would like to receive it can visit one of [facility] vaccine clinics. There are many vaccine clinic locations within the [facility]. For locations and available times, please visit https://gettheshot.coronavirus.[place].gov/. It is important to note that some COVID mobile vaccine clinics are held outdoors and may be canceled in rainy or stormy conditions. To learn more about pediatric vaccinations (ages 5-11), we invite you to visit the [facility] webpage. https://www.TrenDemons.org/p ages/7024-Xmevf-Kascbphzhdy-Freq rhrynr-Bknem-Uvsvzazgm.html To learn more about the COVID-19 vaccine, we invite you to visit the CDC website for a list of frequently asked questions.https://www.cdc.gov/co ronavirus/2019-ncov/vaccines/faq .html [employer] Patient Portal Access Instructions: Stay connected with your healthcare team and access your personal medical information anytime with the [employer] Patient Portal. Please follow the directions below to create your [employer] account: 1.Access the email account you provided upon registration to the hospital/physician office.2.Look for an invitation email from [facility].3.Open the email and access the invitation link: Accept Invitation to [employer].4.Fill in the required zapien to create your account. To access your account, visit [email or web address]. Click the blue button labeled Access Patient Portal and then log in with the username and password that you created in the steps above. You will be able to view your test results, lab results, a summary of your visits, upcoming appointments and more. There is also a convenient messaging option where you can send secure messages to your provider. In addition, you will have the ability to download any documents or summaries to your computer and/or send the information securely to a physician. Remember that your healthcare information is confidential, so carefully consider who you will allow to register on the [facility] Patient Portal for access to your information. You can also access the [facility] Patient Portal on the [facility]. Simply click on Patient Portal and then log into your account. If you would like to receive a full copy of your medical records, please contact the [facility] Medical Records Department by calling [phone], Thursday through Thursday between 8 a.m. and 4:30 p.m. HOW TO SAFELY DISPOSE OF PRESCRIPTION MEDICATIONS Please use one of the following methods to safely dispose of your unused medications. 1.Use a drug disposal kit: the drug disposal pouch allows you to safely discard your old and unused drugs. Ask your nurse to give you one when you are discharged.2.Visit a local take-back location: Many local pharmacies and police departments have programs that collect old and unwanted prescription drugs. Call your local pharmacy or go to http://TagaPet/3N3Zs0i to find one close to you.3.Make use of household items: Use cat litter or old coffee grounds to dispose medications if other options are not available. Mix your drugs with these household products, seal them in an airtight container and throw it into the garbage. Call [facility]: [phone] to be sure your drugs can be disposed of in this way. Some medicines may require a different approach.4.Never flush your medications down the toilet. IF YOU HAVE BEEN PRESCRIBED AN OPIOID FOR PAIN If you have been prescribed an opioid (such as hydrocodone, oxycodone or morphine), it is critical to understand the possible side effects and risks of opioid pain medications. Even when taken as directed, opioids can have several side effects including: Tolerance, meaning you might need to take more of a medication for the same pain relief. Nausea, vomiting and/or constipation. Sleepiness, dizziness, dry mouth, confusion, depression or itching. Physical dependence, meaning you have withdrawal symptoms when a medication is stopped, can develop within a few days. KNOW YOUR RESPONSIBILITIES It is important to know exactly how much and how often to take the opioid pain medications you are prescribed. Never take opioids in higher amounts or more often than prescribed. Do not combine opioids with alcohol or other drugs that cause drowsiness, such as benzodiazepines, also known as benzos, including diazepam and alprazolam, muscle relaxants or sleep aids. Never sell or share prescription opioids. This is illegal. Store opioids in a secure place and out of reach of others (including children, family, friends and visitors). The last page of this document has been signed and retained as a CHART COPY. Signatures Patient Education Materials Monitored Anesthesia Care, Care After Partial Knee Replacement, Care After Medication Leaflets My discharge plan and instructions have been reviewed and explained to me and I,JAKE JO understand my current condition and have read and understand these discharge instructions. I have received a written copy of the plan/instructions. If I have questions, I am aware that I should contact my doctor. 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 HISTORY: ORDERING SYSTEM PROVIDED HISTORY: Reason for Exam: Status Post Arthroplasty FINDINGS: Patient is status post medial femorotibial compartment arthroplasty. There is no evidence of hardware complication. Ghost tracks are noted of the distal femur. Expected postoperative changes of the soft tissues are noted relating to swelling, soft tissue gas, as well as an air-fluid level of the knee joint. Overlying skin beverly. IMPRESSION: 1. Status post medial femorotibial compartment arthroplasty. No evidence of hardware complication. 2. Expected postoperative changes of the soft tissues. Interpreted by: Nas Lino DO Preliminary Report By: Nas Lino DO Electronically signed By Nas Lino DO Dictated Date: 11/28/2022 1:24:24 PM Prelim Date: 11/28/2022 1:25:39 PM Sign Date: 11/28/2022 1:25:39 PM Ordering Provider: [facility] 11-28-2022 Note ORIGINAL EXAMINATION: TWO XRAY VIEWS OF THE RIGHT KNEE 11/28/2022 1:20 pm COMPARISON: CT knee 11/03/2022. HISTORY: ORDERING SYSTEM PROVIDED HISTORY: Reason for Exam: Status Post Arthroplasty FINDINGS: Patient is status post medial femorotibial compartment arthroplasty. There is no evidence of hardware complication. Ghost tracks are noted of the distal femur. Expected postoperative changes of the soft tissues are noted relating to swelling, soft tissue gas, as well as an air-fluid level of the knee joint. Overlying skin beverly. IMPRESSION: 1. Status post medial femorotibial compartment arthroplasty. No evidence of hardware complication. 2. Expected postoperative changes of the soft tissues. Interpreted by: Nas Lino DO Preliminary Report By: Nas Lino DO Electronically signed By aNs Lino DO Dictated Date: 11/28/2022 1:24:24 PM Prelim Date: 11/28/2022 1:25:39 PM Sign Date: 11/28/2022 1:25:39 PM Ordering Provider: FRANKO [facility] 11-28-2022 Anesthesiology Consult note Patient: JAKE JO Age: 52 years Sex: Female : 1970 Associated Diagnoses: None Author: QUANG BOURNE Assessment Postanesthesia assessment Vitals: Reviewed Results: Vital signs from flowsheet : Vital Signs(Date Range: 11/27/2022 0:00 EDT - 11/28/2022 12:47 EDT) . Mental status: at preoperative baseline, alert & oriented x 4. Respiratory function: lungs are clear to auscultation. Respiratory support: none. CV function: Normal rate. Cardiovascular support: none. Pain. Nausea status: denies nausea. Postoperative hydration status: within normal limits. Digitally Signed by QUANG BOURNE on 11/28/2022 12:47 PM [facility] 11-28-2022 Anesthesiology Consult note Patient: JAKE JO Age: 52 years Sex: Female : 1970 Associated Diagnoses: None Author: QUANG BOURNE Preoperative Information Time of last food or liquid consumption: 11/28/2022 00:00:00 Anesthesia history Patient's history: negative. Family's history: negative. Health Status Allergies: Allergic Reactions (Selected) Severity Not Documented Cashews- Difficulty swallowing. Sulfamethoxazole- Rash., Allergies (2) ActiveReaction CashewsDifficulty swallowing sulfamethoxazoleRash Current medications: (Selected) Inpatient Medications Ordered Betadine 10% topical solution: 17.5 mL, mL/hr, Topical (INT), PREOP pharm Decadron: 10 mg, 1 mL, IV Push, AsDirected Kefzol: 2 gram(s), 200 mL/hr, IV Piggyback, PREOP pharm LR 1,000 mL: 125 mL/hr, Intravenous, Stop: 11/28/22 23:59:00 EDT Naropin 25 mg + Toradol 15 mg + EPINEPHrine 1 mg/mL injectable solution 0.3 mg + morphine 2.5 mg...: 25 mg, 5 mL, mL/hr, Other, PREOP pharm Naropin 25 mg + Toradol 15 mg + EPINEPHrine 1 mg/mL injectable solution 0.3 mg + morphine 2.5 mg...: 25 mg, 5 mL, mL/hr, Other, PREOP pharm tranexamic acid 1 g / 100 mL 0.7% NaCl PMX: 1 gram(s), 100 mL, 300 mL/hr, IV Piggyback, AsDirected tranexamic acid 1 g / 100 mL 0.7% NaCl PMX: 1 gram(s), 100 mL, 300 mL/hr, IV Piggyback, AsDirected Prescriptions Prescribed ProAir HFA MDI (90 mcg/inh) inhalation aerosol: 2 puff(s), Inhalation, QID, EA=8.5 gr unit, PRN: as needed for wheezing, 3 EA, 3 Refill(s) tolterodine 4 mg oral capsule, extended release: 4 mg, 1 cap(s), Oral, Daily, 90 cap(s), 3 Refill(s) Documented Medications Documented ALPRAZolam 1 mg oral tablet: 1 mg, 1 tab(s), Oral, qHS, PRN: as needed for anxiety, 0 Refill(s) One-A-Day Women oral tablet: 1 tab(s), Oral, qDay, 30 tab(s), 0 Refill(s) aspirin 81 mg oral delayed release tablet: 81 mg, 1 tab(s), Oral, qDay, 0 Refill(s) metoprolol succinate 25 mg oral TABLET extended release: 50 mg, 2 tab(s), Oral, qDay, 0 Refill(s) venlafaxine 75 mg oral capsule, extended release: 150 mg, 2 cap(s), Oral, qHS, 0 Refill(s), Medications (8) Active Scheduled: (7) ceFAZolin 2 gram(s), IV Piggyback, PREOP pharm dexamethasone 10 mg/mL (1mL) SDV 10 mg 1 mL, IV Push, AsDirected povidone iodine topical 17.5 mL, Topical (INT), PREOP pharm ropivacaine 25 mg + ketorolac 15 mg + epinephrine 0.3 mg + morphine 2.5 mg 25 mg 5 mL, Other, PREOP pharm ropivacaine 25 mg + ketorolac 15 mg + epinephrine 0.3 mg + morphine 2.5 mg 25 mg 5 mL, Other, PREOP pharm tranexamic acid PMX 1 gram(s) 100 mL, IV Piggyback, AsDirected tranexamic acid PMX 1 gram(s) 100 mL, IV Piggyback, AsDirected Continuous: (1) Lactated Ringers 1,000 mL 1,000 mL, Intravenous, 125 mL/hr PRN: (0) Problem list: Medical Acute bronchiolitis / SNOMED CT 42982383 / Confirmed Asthma due to seasonal allergies / SNOMED CT 4591476420 / Confirmed Anxiety / SNOMED CT 95572795 / Confirmed Atrial septal aneurysm / SNOMED CT 502565009 / Confirmed Cough in adult / SNOMED CT 50954031 / Confirmed SOB (shortness of breath) on exertion / SNOMED CT 674727886 / Confirmed Fatigue / SNOMED CT 868880326 / Confirmed GERD (gastroesophageal reflux disease) / SNOMED CT 120845841 / Confirmed History of pneumonia / SNOMED CT 810096728 / Confirmed LGSIL on Pap smear of cervix / SNOMED CT 8678277141 / Confirmed Osteoarthritis of right knee / SNOMED CT 3709131354 / Confirmed PFO (patent foramen ovale) / SNOMED CT 402915197 / Confirmed Screening for colon cancer / SNOMED CT 110369187 / Confirmed Screening for cardiovascular condition / SNOMED CT 197631568 / Confirmed Pre-op exam / SNOMED CT 412258289 / Confirmed Major depression, recurrent, chronic / SNOMED CT 246814078 / Confirmed Urge incontinence of urine / SNOMED CT 966942552 / Confirmed PVCs (premature ventricular contractions) / SNOMED CT 00261745 / Confirmed, Active Problems (18) Acute bronchiolitis Anxiety Asthma due to seasonal allergies Atrial septal aneurysm Cough in adult Fatigue GERD (gastroesophageal reflux disease) History of pneumonia LGSIL on Pap smear of cervix Major depression, recurrent, chronic Osteoarthritis of right knee PFO (patent foramen ovale) Pre-op exam PVCs (premature ventricular contractions) Screening for cardiovascular condition Screening for colon cancer SOB (shortness of breath) on exertion Urge incontinence of urine Histories Past Medical History: Resolved (742901596): Resolved. Screening for breast cancer (166299337): Resolved., extreme anxiety and panic attacks. PFO, atrial septal aneurysm being followed by cardiology, Family History: Heart disease Mother (Loyda Sifuentes) Grandparent (mat, gma) Father (Quan Muse) Arthritis Mother (Loyda Sifuentes) Alcohol abuse Father (Quan Muse) Hepatitis Grandparent (mat, gma) Cancer Grandparent (mat, gpa) Procedure history: Transesophageal echocardiogram ([id number]) on 10/02/2020 at 50 Years. Comments: 10/19/2020 14:46 TOMT Jake Melara MA (ABR-OE) No evidence of thrombus or vegetation. There is a small shunt through a patent foramen ovale. Cholecystectomy ([id number]). Tubal ligation ([id number]). Dilation and curettage ([id number]). Comments: 12/28/2018 11:37 La Collins LPN x2 Foot repair ([id number]). Comments: 12/28/2018 11:38 La Collins LPN screw Carpal tunnel release ([id number]). Comments: 12/28/2018 11:38 EDT - La Russell LPN damaso Arthroscopic repair of meniscus ([id number]). Social History Social & Psychosocial Habits Alcohol 04/30/2018Risk Assessment: Denies Alcohol Use 08/20/2021 Use: Current Frequency: 1-2 times per week Comment: Moderate-4 weekly - 12/28/2018 06:38 - La Russell LPN; Hasn't drank in a couple months - 12/13/2019 08:08 - La Russell LPN; Has drank since September 2019 - 12/27/2019 09:46 - La Russell LPN; Still has not drank alcohol - 07/31/2020 13:32 - La Russell LPN; very occ - 07/17/2021 15:40 - La Russell LPN Substance Abuse 04/30/2018Risk Assessment: Denies Substance Abuse 12/28/2018 Use: Never Tobacco 04/30/2018Risk Assessment: Denies Tobacco Use 12/28/2018 Tobacco Use: Never (less than 100 in l Home/Environment 11/26/2022 Domestic Concerns None Living situation: Home/Independent 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 Physical Examination Vital Signs 11/28/2022 9:10 EDT Temperature Temporal Artery 36.7 DegC Apical Heart Rate 75 bpm Respiratory Rate 14 br/min Systolic Blood Pressure Non-Invasive 131 mmHg Diastolic Blood Pressure Non-Invasive 82 mmHg Vital Signs(last 24 hrs) Last Charted Resp Rate 14 br/min (NOV 28 09:10) KYM291 mmHg (NOV 28 09:10) DBP82 mmHg (NOV 28 09:10) Measurements from flowsheet : Measurements 11/28/2022 9:10 EDT Height 165.1 cm Admission Weight 100 kg [place] Body Weight 57.00 kg Body Mass Index In Error kg/m2 (In Error) Admission Body Mass Index 36.69 m2 Pain assessment: Pain Assessment 11/28/2022 9:51 EDT Primary Pain Intensity 3 11/28/2022 9:10 EDT Primary Pain Location Knee Primary Pain Laterality Right Primary Pain Intensity 3 Pain Scale Type 0-10 Pain scale . General: Alert and oriented. Airway: Normal temporomandibular joint mobility. Mallampati classification: II (soft palate, fauces, uvula visible). Head: Normocephalic. Dentition Evaluation: Intact, Chipped teeth, broken molar lower left. Neck: Supple. Respiratory: Lungs are clear to auscultation. Cardiovascular: Normal rate. Heart Sounds: Normal. Gastrointestinal: Soft. Musculoskeletal Normal range of motion. Integumentary: Intact. Neurologic: Alert. Review / Management Results review: No qualifying data available , Lab results 11/28/2022 10:11 EDT Consent Form Signed Yes Bedside Procedure Nerve Block NPO Status Maintained Anesthesia Consent Signed Yes Blood Consent Signed Yes Last Void 11/28/2022 9:10 11/28/2022 9:56 EDT SN - Preop - CTm Pt Ready for OR/Proced 11/28/2022 9:45 11/28/2022 9:51 EDT Primary Pain Intensity 3 famotidine 20 mg mg oxyCODONE 10 mg mg Lactated Ringers Injection 1,000 mL mL 11/28/2022 9:43 EDT citric acid-sodium citrate 30 mL mL 11/28/2022 9:35 EDT Ed-Plan of Care Verbalizes/Nonverbally indicates understanding Individuals Taught Patient Pre Procedure/Surgery Education Appropriate expectations 11/28/2022 9:34 EDT Hand Right 11/28/2022 20 gauge Peripheral IV Activity: Insert new site Peripheral IV Dressing Condition: Clean, Dry, Intact Peripheral IV Site Condition: No complications Peripheral IV Number of Attempts: 1 11/28/2022 9:17 EDT Test Urine Negative test (u) int test (u) int QC PRGUN Negative QC PRGUP Positive 11/28/2022 9:10 EDT Additional Designated Person Share PHI Additional Designated Person Share PHI Height 165.1 cm Admission Weight 100 kg [place] Body Weight 57.00 kg Body Mass Index In Error kg/m2 (In Error) Admission Body Mass Index 36.69 m2 Temperature Temporal Artery 36.7 DegC Apical Heart Rate 75 bpm Respiratory Rate 14 br/min Systolic Blood Pressure Non-Invasive 131 mmHg Diastolic Blood Pressure Non-Invasive 82 mmHg Primary Pain Location Knee Primary Pain Laterality Right Primary Pain Intensity 3 Pain Scale Type 0-10 Pain scale Heart Rhythm Regular Respirations Unlabored Respiratory Pattern Regular All Lobes Breath Sounds Clear Cough None Oxygen Therapy Room air Oxygen Saturation 94 % Abdomen Description Non-distended, Soft Swallowing Disorder None Bowel Sounds All Quadrants Present Urinary Elimination Voiding, no difficulties Skin Temperature Warm Skin Description [place], Normal for ethnicity, Dry Skin Moisture General Dry IV Present Present Extremity Movement Equal Characteristics of Speech Clear Level of Consciousness Alert Strength All Extremities Strong Affect/Behavior Appropriate Orientation Oriented x 4 Infectious Disease Symptoms Patient states no symptoms Allergies Yes Data Consultant On Yes Consent Form Signed Yes Patient Dressed In Hospital gown Pre-op Preparation Jewelry removed CHG Preoperative Wash/Wipe Night before procedure, Day of procedure Preop Nasal Swab Povidone-Iodine CHG Skin Prep Completed for Eligible Surgery History & Physical Update On Chart Yes History & Physical On Chart Yes Obstructive Sleep Apnea Assess Completed Yes Orientation Assessment Oriented x 4 Safety Brochure Information Reviewed Unable to complete Yolanda Guzman Video Viewed No Teaching Evaluation No further teaching needed Belongings At Bedside Cell phone, Pants, Purse, Shirt, Shoes Activity Status ADL Ambulating in kong, Ambulating in room, Awake, Repositions self, Resting Assistive Device Walker SCD On/Re-applied left knee high Antiembolism Stocking On/Re-applied left thigh high NPO Status Maintained Standard Safety ID band on, Allergy Band on, Call device within reach, Bed in low position, Wheels locked, Safety level maintained Allergy Band on and Verified Yes Patient ID Band on and Verified Yes Implants Verified Yes Pacemaker/AICD Verified Yes Blood Consent Signed Yes Last Fluid Intake 11/27/2022 22:30 Last Food Intake 11/28/2022 21:00 Last Void 11/28/2022 9:15 Patient Cleared for Surgery By JULIENNE FAJARDO APRN-INSTITUTION LIBRARIAN Cardiac Clearance For Surgery By TRISH CHEW MD Admission Note-Nursing Same Day Patient History (Modified) 11/28/2022 9:02 EDT SN - Preop - CTm Pt in SDS Room 11/28/2022 9:02 . Assessment and Plan [place] [employer] Anesthesiologists (ASA) physical status classification: Class III. Anesthetic Preoperative Plan Premedication: intravenous. Anesthetic technique: Spinal. Induction: intravenously. Regional: Spinal, Adductor Canal Block. Postoperative pain management: Per surgeon. Risks discussed: nausea, vomiting, headache, sore throat, dental injury, hypotension, allergic reaction, serious complications. Informed consent: signed by patient. Digitally Signed by QUANG BOURNE on 11/28/2022 10:24 AM [facility] 09-19-2022 Evaluation + Plan note Future Scheduled TestsMA Mammo Screening Bilateral w/ [place] 09/19/22 [facility] 01-27-2022 Hospital Discharg e instructions Patient Education 01/27/2022 11:04:31 URI, Viral, No Abx (Adult) Viral Upper Respiratory Illness (Adult) You have a viral upper respiratory illness (URI), which is another term for the common cold. This illness is contagious during the first few days. It is spread through the air by coughing and sneezing. It may also be spread by direct contact (touching the sick person and then touching your own eyes, nose, or mouth). Frequent handwashing will decrease risk of spread. Most viral illnesses go away within 7 to 10 days with rest and simple home remedies. Sometimes the illness may last for several weeks. Antibiotics will not kill a virus, and they are generally not prescribed for this condition. Home care If symptoms are severe, rest at home for the first 2 to 3 days. When you resume activity, don't let yourself get too tired. Don't smoke. If you need help stopping, talk with your healthcare provider. Avoid being exposed to cigarette smoke (yours or others ). You may use acetaminophen or ibuprofen to control pain and fever, unless another medicine was prescribed. If you have chronic liver or kidney disease, have ever had a stomach ulcer or gastrointestinal bleeding, or are taking blood-thinning medicines, talk with your healthcare provider before using these medicines. Aspirin should never be given to anyone under 18 years of age who is ill with a viral infection or fever. It may cause severe liver or brain damage. Your appetite may be poor, so a light diet is fine. Stay well hydrated by drinking 6 to 8 glasses of fluids per day (water, soft drinks, juices, tea, or soup). Extra fluids will help loosen secretions in the nose and lungs. Ljjc-acb-bkzotqs cold medicines will not shorten the length of time you re sick, but they may be helpful for the following symptoms: cough, sore throat, and nasal and sinus congestion. If you take prescription medicines, ask your healthcare provider or pharmacist which nzxy-pca-mwlgzhh medicines are safe to use. (Note: Don't use decongestants if you have high blood pressure.) Follow-up care Follow up with your healthcare provider, or as advised. When to seek medical advice Call your healthcare provider right away if any of these occur: Cough with lots of colored sputum (mucus) Severe headache; face, neck, or ear pain Difficulty swallowing due to throat pain Fever of 100.4 F (38 C) or higher, or as directed by your healthcare provider Call 911 Call 911 if any of these occur: Chest pain, shortness of breath, wheezing, or difficulty breathing Coughing up blood Very severe pain with swallowing, especially if it goes along with a muffled voice [phone] [employer]. [address] [place] [address]. All rights reserved. This information is not intended as a substitute for professional medical care. Always follow your healthcare professional's instructions. Follow Up Care 01/27/2022 10:46:34 With:JULIENNE FAJARDO Address: [address] [place] [address] [place] [address]- [phone] When:Within 1 Week(s) Comments:Follow-up as needed if your symptoms or not improving.Push fluids, vaporizer at bedside.Use Tylenol, Advil or Aleve for fever and discomfort as needed.Continue vbju-tos-kwddduj decongestants for symptomatic relief.Use antibiotic (Z-Lisa) as prescribed.Return to the ED if symptoms worsen. [facility] 01-27-2022 Note Discharge Instructions Thank you for allowing [facility] to assist you with your healthcare needs. The following is important discharge information regarding your hospital visit. Diagnosis from Today's Visit Sinus Pain/Congestion What to Do Next Instructions from Your Care Team No qualifying data available. Post Acute Orders No qualifying data available. You Need to Schedule the Following Appointments Follow Up with JULIENNE FAJARDO When In 1 week Why: Follow-up as needed if your symptoms or not improving. Push fluids, vaporizer at bedside. Use Tylenol, Advil or Aleve for fever and discomfort as needed. Continue rsrq-kab-jcffxus decongestants for symptomatic relief. Use antibiotic (Z-Lisa) as prescribed. Return to the ED if symptoms worsen. Where: [address] [facility] [place] [address]- [phone] Allergies Cashews (Difficulty swallowing) sulfamethoxazole (Rash) Medications Please ask your primary doctor or pharmacist before taking any other medication not listed, including over the counter drugs, herbal medications, vitamins and or supplements as they may interact with your home medications. What How Much When Why Instructions Last Dose New azithromycin (Zithromax 250 mg oral tablet) 1 tab(s) by mouth Once a day Duration: 5 Days follow directions on Z-Lisa Printed Prescription Unchanged albuterol (ProAir HFA MDI (90 mcg/ inh) inhalation aerosol) 2 puff(s) by inhalation Four (4) times a day as needed for as needed for wheezing Cough Shortness of breath EA=8.5 gr unit Unchanged ALPRAZolam (ALPRAZolam 1 mg oral tablet) 1 tab(s) by mouth Three (3) times a day been taking 1/ 2 in am, one a hs and another if needed during the day Unchanged ascorbic acid/ chondroitin/ glucosa/ karie (Glucosamine Chondroitin) 1 tab by mouth Once a day Unchanged aspirin (aspirin 81 mg oral delayed release tablet) 1 tab(s) by mouth Once a day Unchanged metoprolol (Lopressor 25mg--USE metoprolol tartrate 25 mg oral tablet) 1 tab(s) by mouth Once a day Unchanged multivitamin with minerals (One-A-Day Women oral tablet) 1 tab(s) by mouth Once a day Unchanged tolterodine (tolterodine 4 mg oral capsule, extended release) 1 cap by mouth Every day Urge incontinence of urine Unchanged venlafaxine (venlafaxine 75 mg oral capsule, extended release) 2 cap by mouth Daily at bedtime Please take this list to your next doctor s visit. Bring all medications you take, including over the counter medications, herbals and other supplements with you to your doctor s visit. Patients and families are reminded to discard old lists and to update any records with all medication providers or retail pharmacies. Medication Leaflets azithromycin (oral/injection) (venice conway) Azithromycin 3 Day Dose Pack, Azithromycin 5 Day Dose Pack, Zithromax, Zithromax IV, Zithromax TRI-LISA, Zithromax Z-Lisa What is the most important information I should know about azithromycin? You should not use azithromycin if you have ever had an allergic reaction, jaundice, or liver problems while taking this medicine. You should not use azithromycin if you have ever had a severe allergic reaction to similar drugs such as clarithromycin, erythromycin, or telithromycin. What is azithromycin? Azithromycin is used to treat many different types of infections caused by bacteria, including infections of the lungs, sinus, throat, tonsils, skin, urinary tract, cervix, or genitals. Azithromycin may also be used for purposes not listed in this medication guide. What should I discuss with my healthcare provider before using azithromycin? You should not use azithromycin if you are allergic to it, or if you have ever had: jaundice or liver problems caused by taking azithromycin; or a severe allergic reaction to similar drugs such as clarithromycin, erythromycin, or telithromycin. Azithromycin oral should not be used to treat pneumonia in people who have: cystic fibrosis; an infection after being in a hospital; an infection in the blood; a weak immune system (caused by diseases such as HIV/AIDS or cancer); or in older adults and those who are ill or debilitated. Tell your doctor if you have ever had: pneumonia; liver or kidney disease; myasthenia gravis; low levels of potassium in your blood; a heart rhythm disorder; or long QT syndrome (in you or a family member). It is not known whether this medicine is effective in treating genital ulcers in women. Tell your doctor if you are or . Taking azithromycin while may cause diarrhea, vomiting, or rash in the nursing baby. Azithromycin is not approved for use by anyone younger than 6 months old. Azithromycin should not be used to treat a throat or tonsil infection in a child younger than 2 years old. How should I take azithromycin? Follow all directions on your prescription label and read all medication guides or instruction sheets. Use the medicine exactly as directed. Azithromycin oral is taken by mouth. Azithromycin injection is given as an infusion into a vein, usually for 2 days before you switch to azithromycin oral. A healthcare provider will give you this injection. You may take azithromycin oral with or without food. Shake the oral suspension (liquid) before you measure a dose. Use the dosing syringe provided, or use a medicine dose-measuring device (not a kitchen spoon). Use this medicine for the full prescribed length of time, even if your symptoms quickly improve. Skipping doses can increase your risk of infection that is resistant to medication. Azithromycin will not treat a viral infection such as the flu or a common cold. Store at room temperature away from moisture and heat. Throw away any unused liquid medicine after 10 days. What happens if I miss a dose? Take the medicine as soon as you can, but skip the missed dose if it is almost time for your next dose. Do not take two doses at one time. What happens if I overdose? Seek emergency medical attention or call the Poison Help line at . What should I avoid while taking azithromycin? Antibiotic medicines can cause diarrhea, which may be a sign of a new infection. If you have diarrhea that is watery or bloody, call your doctor before using anti-diarrhea medicine. Azithromycin could make you sunburn more easily. Avoid sunlight or tanning beds. Wear protective clothing and use sunscreen (SPF 30 or higher) when you are outdoors. What are the possible side effects of azithromycin? Get emergency medical help if you have signs of an allergic reaction (hives, difficult breathing, swelling in your face or throat) or a severe skin reaction (fever, sore throat, burning in your eyes, skin pain, red or purple skin rash that spreads and causes blistering and peeling). Seek medical treatment if you have a serious drug reaction that can affect many parts of your body. Symptoms may include: skin rash, fever, swollen glands, muscle aches, severe weakness, unusual bruising, or yellowing of your skin or eyes. Call your doctor at once if you have: severe stomach pain, diarrhea that is watery or bloody; fast or pounding heartbeats, fluttering in your chest, shortness of breath, and sudden dizziness (like you might pass out); or liver problems--nausea, vomiting, loss of appetite, stomach pain (upper right side), tiredness, itching, dark urine, bibiana-colored stools, jaundice (yellowing of the skin or eyes); Call your doctor right away if a baby taking azithromycin becomes irritable or vomits while eating or nursing. Older adults may be more likely to have side effects on heart rhythm, including a life-threatening fast heart rate. Common side effects may include: nausea, vomiting; or stomach pain. This is not a complete list of side effects and others may occur. Call your doctor for medical advice about side effects. You may report side effects to FDA at 6-495-YFB-3592. What other drugs will affect azithromycin? Tell your doctor about all your other medicines, especially: colchicine; digoxin; nelfinavir; phenytoin; an antacid that contains aluminum or magnesium--Acid Gone, Gaviscon, Gelusil, Maalox, Milk of Magnesia, Mylanta, Pepcid Complete, Rolaids, Rulox, and others; or a blood thinner--warfarin, Coumadin, Jantoven. This list is not complete. Other drugs may affect azithromycin, including prescription and zjuh-olt-jiwvoso medicines, vitamins, and herbal products. Not all possible drug interactions are listed here. Where can I get more information? Your pharmacist can provide more information about azithromycin. Remember, keep this and all other medicines out of the reach of children, never share your medicines with others, and use this medication only for the indication prescribed. Every effort has been made to ensure that the information provided by [employer] ('[employer]') is accurate, up-to-date, and complete, but no guarantee is made to that effect. Drug information contained herein may be time sensitive. [employer] information has been compiled for use by healthcare practitioners and consumers in the [place] and therefore [employer] does not warrant that uses outside of the [place] are appropriate, unless specifically indicated otherwise. [employer] drug information does not endorse drugs, diagnose patients or recommend therapy. [employer] drug information is an informational resource designed to assist licensed healthcare practitioners in caring for their patients and/or to serve consumers viewing this service as a supplement to, and not a substitute for, the expertise, skill, knowledge and judgment of healthcare practitioners. The absence of a warning for a given drug or drug combination in no way should be construed to indicate that the drug or drug combination is safe, effective or appropriate for any given patient. [employer] does not assume any responsibility for any aspect of healthcare administered with the aid of information [employer] provides. The information contained herein is not intended to cover all possible uses, directions, precautions, warnings, drug interactions, allergic reactions, or adverse effects. If you have questions about the drugs you are taking, check with your doctor, nurse or pharmacist. Copyright 8417-7888 [employer]. Version: 18.01. Revision Date: 09/23/2018. Education Materials Viral Upper Respiratory Illness (Adult) You have a viral upper respiratory illness (URI), which is another term for the common cold. This illness is contagious during the first few days. It is spread through the air by coughing and sneezing. It may also be spread by direct contact (touching the sick person and then touching your own eyes, nose, or mouth). Frequent handwashing will decrease risk of spread. Most viral illnesses go away within 7 to 10 days with rest and simple home remedies. Sometimes the illness may last for several weeks. Antibiotics will not kill a virus, and they are generally not prescribed for this condition. Home care If symptoms are severe, rest at home for the first 2 to 3 days. When you resume activity, don't let yourself get too tired. Don't smoke. If you need help stopping, talk with your healthcare provider. Avoid being exposed to cigarette smoke (yours or others ). You may use acetaminophen or ibuprofen to control pain and fever, unless another medicine was prescribed. If you have chronic liver or kidney disease, have ever had a stomach ulcer or gastrointestinal bleeding, or are taking blood-thinning medicines, talk with your healthcare provider before using these medicines. Aspirin should never be given to anyone under 18 years of age who is ill with a viral infection or fever. It may cause severe liver or brain damage. Your appetite may be poor, so a light diet is fine. Stay well hydrated by drinking 6 to 8 glasses of fluids per day (water, soft drinks, juices, tea, or soup). Extra fluids will help loosen secretions in the nose and lungs. Neir-ize-gexfhxz cold medicines will not shorten the length of time you re sick, but they may be helpful for the following symptoms: cough, sore throat, and nasal and sinus congestion. If you take prescription medicines, ask your healthcare provider or pharmacist which xxaz-fdd-mjunlto medicines are safe to use. (Note: Don't use decongestants if you have high blood pressure.) Follow-up care Follow up with your healthcare provider, or as advised. When to seek medical advice Call your healthcare provider right away if any of these occur: Cough with lots of colored sputum (mucus) Severe headache; face, neck, or ear pain Difficulty swallowing due to throat pain Fever of 100.4 F (38 C) or higher, or as directed by your healthcare provider Call 911 Call 911 if any of these occur: Chest pain, shortness of breath, wheezing, or difficulty breathing Coughing up blood Very severe pain with swallowing, especially if it goes along with a muffled voice [phone] [employer]. [address] [place] [address]. All rights reserved. This information is not intended as a substitute for professional medical care. Always follow your healthcare professional's instructions. Additional Information VACCINATE! IT SAVES LIVES! Members of the community who have not yet received the COVID-19 vaccine and would like to receive it can visit one of [facility] vaccine clinics. There are many vaccine clinic locations within the [facility]. For locations and available times, please visit [email or web address]. It is important to note that some COVID mobile vaccine clinics are held outdoors and may be canceled in rainy or stormy conditions. To learn more about pediatric vaccinations (ages 5-11), we invite you to visit the [facility] webpage. [email or web address] [email or web address] To learn more about the COVID-19 vaccine, we invite you to visit the [facility] website for a list of frequently asked questions. [email or web address] [facility] Patient Portal Access Instructions: Stay connected with your healthcare team and access your personal medical information anytime with the [facility] Patient Portal. If you would like a full copy of your medical records please contact the [facility] Medical Records Department Thursday through Thursday between 8a.m. and 4:30p.m. Please follow the directions below to access the portal: 1.Access the email account you provided upon registration to the [facility] [facility].2.Look for an invitation email from [facility].3.Open the email and access the invitation link: Accept Invitation to [employer]4.Fill in the required zapien to create your account. Sign into [email or web address] with your username and password that you created in the above steps to stay up to date. You can then view a summary of results, a summary of your visits, and the ability to download your summaries to your computer or send the information securely to a physician. Remember that your healthcare information is confidential, so carefully consider who you will allow to register on the [facility] Patient Portal for access to your information. You can also access the [facility] Patient Portal on the [employer] kj. Simply click on Health Records under Health Data and then click on the Yolanda logo. HOW TO SAFELY DISPOSE OF PRESCRIPTION MEDICATIONS Please use one of the following methods to safely dispose of your unused medications. 1.Use a drug disposal kit: the drug disposal pouch allows you to safely discard your old and unused drugs. Ask your nurse to give you one when you are discharged.2.Visit a local take-back location: Many local pharmacies and police departments have programs that collect old and unwanted prescription drugs. Call your local pharmacy or go to http://Virtual DBS.Teamwork Retail/3I3Tv5o to find one close to you.3.Make use of household items: Use cat litter or old coffee grounds to dispose medications if other options are not available. Mix your drugs with these household products, seal them in an airtight container and throw it into the garbage. Call [facility]: [phone] to be sure your drugs can be disposed of in this way. Some medicines may require a different approach.4.Never flush your medications down the toilet. IF YOU HAVE BEEN PRESCRIBED AN OPIOIDS FOR PAIN If you have been prescribed an opioid (such as hydrocodone, oxycodone or morphine), it is critical to understand the possible side effects and risks of opioid pain medications. Even when taken as directed, opioids can have several side effects including: Tolerance, meaning you might need to take more of a medication for the same pain relief. Nausea, vomiting and/or constipation. Sleepiness, dizziness, dry mouth, confusion, depression or itching. Physical dependence, meaning you have withdrawal symptoms when a medication is stopped ? this can develop within a few days. KNOW YOUR RESPONSIBILITIES It is important to know exactly how much and how often to take the opioid pain medications you are prescribed. Never take opioids in higher amounts or more often than prescribed. Do not combine opioids with alcohol or other drugs that cause drowsiness, such as benzodiazepines, also known as benzos, including diazepam and alprazolam, muscle relaxants or sleep aids. Never sell or share prescription opioids. This is illegal. Store opioids in a secure place and out of reach of others (including children, family, friends and visitors). The last page(s) of this document has been signed and retained as a CHART COPY Signatures Patient Education Materials URI, Viral, No Abx (Adult) Medication Leaflets azithromycin (oral/injection) My discharge plan and instructions have been reviewed and explained to me and I,JAKE JO understand my current condition and have read and understand these discharge instructions. I have received a written copy of the plan/instructions. If I have questions, I am aware that I should contact my doctor. 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 Order in scanned documents. documented in this encounter [facility] Evaluation + Plan note Future Appointments Appointment Date:08/05/2021 03:30:00 PM Scheduled Provider:LINDSAY AYALA MD Location:[facility] Appointment Type:CARMEN CONTINUOUS LINTER DRIER OPERATOR Appointment Date:08/13/2021 03:30:00 PM Scheduled Provider:TARAH BHATT MD Location: [facility] Appointment Type:WH OV Appointment Date:12/24/2021 10:00:00 AM Scheduled Provider:JULIENNE FAJARDO Location:[facility] [place] Appointment Type:PC OV Appointment Date:04/28/2022 03:30:00 PM Scheduled Provider:KANDY HERRERA Location:[facility] [place] Appointment Type:CV OV Future Scheduled TestsPathology Global Recruiter Request 02/14/21 [facility] Evaluation + Plan note Future Appointments Appointment Date:12/24/2021 10:00:00 AM Scheduled Provider:JULIENNE FAJARDO Location:[facility] [place] Appointment Type:PC OV Appointment Date:04/28/2022 03:30:00 PM Scheduled Provider:KANDY HERRERA Location:[facility] [place] Appointment Type:CV OV Future Scheduled TestsPathology Global Recruiter Request 02/14/21 [facility] Evaluation + Plan note Future Appointments Appointment Date:04/28/2022 03:30:00 PM Scheduled Provider:KANDY HERRERA Location:[facility] [place] Appointment Type:CV OV Appointment Date:07/24/2022 03:30:00 PM Scheduled Provider:JULIENNE FAJARDO Location:[facility] [place] Appointment Type:PC OV Future Scheduled TestsPathology Global Recruiter Request 02/14/21 [facility] Evaluation + Plan note Future Appointments Appointment Date:11/03/2022 09:30:00 AM Scheduled Provider: Location:[facility] Appointment Type:CT Knee w/o Contrast Right Appointment Date:11/11/2022 09:00:00 AM Scheduled Provider:ABEBA MIDDLETON Location:[facility] [place] Appointment Type:PC OV Pre Op Appointment Date:12/04/2022 09:00:00 AM Scheduled Provider:JULIENNE FAJARDO Location:[facility] Appointment Type:PC Wellness Annual Future Scheduled TestsComplete Blood Count 11/29/22Lipid Profile 11/29/22Complete Metabolic Panel 11/29/22[facility] Mammo Screening Bilateral w/ Her[place]th 10/14/22MA Mammo Screening Bilateral w/ [place] 09/19/22CT Knee w/o Contrast Right 11/03/22 [facility] Evaluation + Plan note Future Appointments Appointment Date:11/03/2022 09:30:00 AM Scheduled Provider: Location:[facility] Appointment Type:CT Knee w/o Contrast Right Appointment Date:11/11/2022 09:00:00 AM Scheduled Provider:ABEBA MIDDLETON Location:[facility] [place] Appointment Type:PC OV Pre Op Appointment Date:12/04/2022 09:00:00 AM Scheduled Provider:JULIENNE FAJARDO Location:[facility] [place] Appointment Type:PC Wellness Annual Future Scheduled TestsComplete Blood Count 11/29/22Lipid Profile 11/29/22Complete Metabolic Panel 11/29/22MA Mammo Screening Bilateral w/ [place] 09/19/22CT Knee w/o Contrast Right 11/03/22 [facility] Evaluation + Plan note Future Appointments Appointment Date:12/04/2022 09:00:00 AM Scheduled Provider:JULIENNE FAJARDO Location:[facility] [place] Appointment Type:PC Wellness Annual Future Scheduled TestsMA Mammo Screening Bilateral w/ [place] 09/19/22 [facility] Evaluation + Plan note Future Appointments Appointment Date:07/01/2023 03:30:00 PM Scheduled Provider:JULIENNE FAJARDO Location:[facility] [place] Appointment Type:PC OV Future Scheduled TestsMA Mammo Screening Bilateral w/ [place] 09/19/22 [facility] Hospital course Narrative No data available for this section [facility] Hospital Discharge instructions No data available for this section [facility] Progress note No data available for this section [facility] Referral ID Status Reason Start Date Expiration Date Visits Re quested Visits Authorized [id number] Closed 01/08/2022 02/22/2022 1 1 [facility] Summary Purpose Family History No Family History Records FoundNo Family History Records Found No data available for this section No data available for this section No Family History Records Found No data available for this section Advance Directives No Advanced Directives Records FoundNo Advanced Directives Records FoundNo Advanced Directives Records Found Additional Source Comments INFORMATION SOURCE (unrecogn ized section and content) DATE CREATED AUTHOR AUTHOR'S ORGANIZ ATION 01/24/2022 [facility] DATE CREATED AUTHOR AUTHOR'S ORGANIZ ATION 06/11/2023 [facility] ([place]) Care Team (unrecognized sect ion and content) Personnel Name: JULIENNE FAJARDO Address: [address] [place] [address]- Care Team Personnel Name: JULIENNE FAJARDO Position: P4 Advanced Coutierier Member Role: Primary Care Physician Address: Address: [address] [place] [address]- Name: KANDY HERRERA Position: P4 Advanced Coutierier Member Role: Marine Structural Designer Address: Address: [address] [place] [address] [address] [facility] [place] [address]- Name: DO HEIDI JACKMAN DO Position: P3 Physician - Orthopedics Member Role: Orthopaedist Address: Address: [address] [place] [address] [address] [place] [address] [place] Name: TARAH BHATT MD Position: P4 MANAGER MALL Provider Member Role: OBGYN Address: Address: [address] [facility] [address] [facility] [address]- [place] Name: COSTA MCBRIDE APRN-INSTITUTION LIBRARIAN Member Role: Portfolio Lead Address: Address: [address] [facility] [address] [place] [address] [place] Name: LAMINE SANDOVAL MD Member Role: Psychiatrist Address: Address: [address] [facility] [address] [place] [address]- [place] Care Team Related Persons Name: ELOISA ELIZABETH Address: Home [address] [place], [place] [id number] [place] Name: LOYDA SIFUENTES Name: RADHA MARSHALL Name: HEIDI JO Name: HEIDI JO Care Team Personnel Name: JULIENNE FAJARDO Position: P4 Advanced Coutierier Member Role: Primary Care Physician Address: Address: [address] [place] [address]- Name: KANDY HERRERA APRN-INSTITUTION LIBRARIAN Position: P4 Advanced Coutierier Member Role: Marine Structural Designer Address: Address: [facility] [place] [address] [address] [place] [address]- [place] Name: DO HEIDI JACKMAN DO Position: P3 Physician - Orthopedics Member Role: Orthopaedist Address: Address: [address] [place] [address] [address] [place] [address] [place] Name: TARAH BHATT MD Position: P4 MANAGER MALL Provider Member Role: OBGYN Address: Address: [address] [place] [address] [address] [facility] [place] [address]- Name: COSTA MCBRIDE APRN-INSTITUTION LIBRARIAN Member Role: Portfolio Lead Address: Address: [address] [facility] [address] [place] [address] [place] Name: LAMINE SANDOVAL MD Member Role: Psychiatrist Address: Address: [address] [facility] [address] [place] [address]- [place] Care Team Related Persons Name: ELOISA ELIZABETH Address: Home [address] [place], [place] [id number] [place] Name: LOYDA SIFUENTES Name: RADHA MARSHALL Name: HEIDI JO Name: HEIDI JO Care Team Personnel Name: JULIENNE FAJARDO Position: P4 Advanced Coutierier Member Role: Primary Care Physician Address: Address: [address] [place] [address]- [place] Name: KANDY HERRERA APRN-INSTITUTION LIBRARIAN Position: P4 Advanced Coutierier Member Role: Marine Structural Designer Address: Address: [address] [place] [address] [address] [place] [address]- [place] Name: DO HEIDI JACKMAN DO Position: P3 Physician - Orthopedics Member Role: Orthopaedist Address: Address: [address] [place], [place] [address] [address] [place] [address] [place] Name: TARAH BHATT MD Position: P4 MANAGER MALL Provider Member Role: OBGYN Address: Address: [address] [place] [address]- Name: COSTA MCBRIDE APRN-INSTITUTION LIBRARIAN Member Role: Portfolio Lead Address: Address: [address] [facility] [address] [place] [address] [place] Name: LAMINE SANDOVAL MD Member Role: Psychiatrist Address: Address: [address] [facility] [address] [place] [address]- Care Team Related Persons Name: ALLY ELIZABETH Name: ELOISA ELIZABETH Address: Home [address] [place], [place] [phone] [place] Name: SIFUENTESLOYDA Name: RADHA MARSHALL Name: HEIDI JO Care Team Personnel Name: JULIENNE FAJARDO CONCRETE FINISHER APPRENTICE-INSTITUTION LIBRARIAN Position: P4 Advanced Coutierier Member Role: Primary Care Physician Address: Address: [address] [place] [address]- Name: KANDY HERRERA CONCRETE FINISHER APPRENTICE-INSTITUTION LIBRARIAN Position: P4 Advanced Coutierier Member Role: Marine Structural Designer Address: Address: [address] [place] [address] [address] [facility] [place] [address]- Name: DO HEIDI JACKMAN DO Position: P3 Physician - Orthopedics Member Role: Orthopaedist Address: Address: [address] [place] [address] [address] [place] [address] [place] Name: TARAH BHATT MD Position: P4 MANAGER MALL Provider Member Role: OBGYN Address: Address: [address] [place] [address] [address] [place] [address]- Name: COSTA MCBRIDE APRN-INSTITUTION LIBRARIAN Member Role: Portfolio Lead Address: Address: [address] [facility] [address] [place] [address] [place] Name: LAMINE SANDOVAL MD Member Role: Psychiatrist Address: Address: [address] [facility] [address] [place] [address]- Care Team Related Persons Name: ALLY ELIZABETH Name: ELOISA ELIZABETH Address: Home [address] [place], [place] [phone] [place] Name: LOYDA SIFUENTES Name: RADHA MARSHALL Name: HEIDI JO Care Team Personnel Name: JULIENNE FAJARDO APRN-INSTITUTION LIBRARIAN Position: P4 Advanced Coutierier Member Role: Primary Care Physician Address: Address: [address] [place] [address]- Name: KANDY HERRERA APRN-INSTITUTION LIBRARIAN Position: P4 Advanced Coutierier Member Role: Marine Structural Designer Address: Address: [address] [place] [address] [address] [place] [address]- [place] Name: DO HEIDI JACKMAN DO Position: P3 Physician - Orthopedics Member Role: Orthopaedist Address: Address: [address] [place] [address] [address] [place] [address] [place] Name: TARAH BHATT MD Position: P4 MANAGER MALL Provider Member Role: OBGYN Address: Address: [address] [facility] [address] [facility] [place] [address]- Name: COSTA MCBRIDE APRN-INSTITUTION LIBRARIAN Member Role: Portfolio Lead Address: Address: [address] [facility] [address] [place] [address] [place] Name: LAMINE SANDOVAL MD Member Role: Psychiatrist Address: Address: [address] [facility] [address] [place] [address]- [place] Care Team Related Persons Name: SHILPA ELIZABETHON Name: ELOISA ELIZABETH Address: Home [address] [place], [place] [phone] [place] Name: LOYDA SIFUENTES Name: RADHA MARSHALL Name: HEIDI JO Care Team Personnel Name: JULIENNE FAJARDOINSTITUTION LIBRARIAN Position: P4 Advanced Coutierier Member Role: Primary Care Physician Address: Address: [address] [place] [address]- Name: KANDY HERRERA APRN-INSTITUTION LIBRARIAN Position: P4 Advanced Coutierier Member Role: Marine Structural Designer Address: Address: [address] [place] [address] [address] [place] [address]- [place] Name: DO HEIDI JACKMAN DO Position: P3 Physician - Orthopedics Member Role: Orthopaedist Address: Address: [facility] [address] [place] [address] [place] Name: TARAH BHATT MD Position: P4 MANAGER MALL Provider Member Role: OBGYN Address: Address: [address] [place] [address]- Name: COSTA MCBRIDE APRN-INSTITUTION LIBRARIAN Member Role: Portfolio Lead Address: Address: [address] [facility] [address] [place] [address] [place] Name: LAMINE SANDOVAL MD Member Role: Psychiatrist Address: Address: [address] [address]- Care Team Related Persons Name: ALLY ELIZABETH Name: ELOISA ELIZABETH Address: Home [address] [place], [place] [phone] [place] Name: RADHA MARSHALL Care Team Personnel Name: JULIENNE FAJARDO CONCRETE FINISHER APPRENTICE-INSTITUTION LIBRARIAN Position: P4 Advanced Coutierier Member Role: Primary Care Physician Address: Address: [address] [place] [address] [place] [address]- Name: KANDY HERRERA CONCRETE FINISHER APPRENTICE-INSTITUTION LIBRARIAN Position: P4 Advanced Coutierier Member Role: Marine Structural Designer Address: Address: [address] [place] [address] [address] [facility] [place] [address]- Name: DO HEIDI JACKMAN DO Position: P3 Physician - Orthopedics Member Role: Orthopaedist Address: Address: [address] [place] [address] [address] [place] [address] [place] Name: TARAH BHATT MD Position: P4 MANAGER MALL Provider Member Role: OBGYN Address: Address: [address] [place] [address]- Name: COSTA MCBRIDE APRN-INSTITUTION LIBRARIAN Member Role: Portfolio Lead Address: Address: [address] [facility] [address] [place] [address] [place] Name: LAMINE SANDOVAL MD Member Role: Psychiatrist Address: Address: [address] [facility] [address] [place] [address]- Care Team Related Persons Name: ALLY ELIZABETH Name: ELOISA ELIZABETH Address: Home [address] [place], [place] [phone] [place] Name: RADHA MARSHALL Care Team Personnel Name: JULIENNE FAJARDO Position: P4 Advanced Coutierier Member Role: Primary Care Physician Address: Address: [address] [place] [address]- Name: KANDY HERRERA Position: P4 Advanced Coutierier Member Role: Marine Structural Designer Address: Address: [address] [place] [address] [address] [place] [address]- [place] Name: DO HEIDI JACKMAN DO Position: P3 Physician - Orthopedics Member Role: Orthopaedist Address: Address: [address] [place] [address] [address] [place] [address] [place] Name: TARAH BHATT MD Position: P4 MANAGER MALL Provider Member Role: OBGYN Address: Address: [address] [facility] [address] [place] [address]- [place] Name: COSTA MCBRIDE Member Role: Portfolio Lead Address: Address: [address] [facility] [address] [place] [address] [place] Name: LAMINE SANDOVAL MD Member Role: Psychiatrist Address: Address: [address] [facility] [address] [place] [address]- [place] Care Team Related Persons Name: ALLY ELIZABETH Name: ELOISA ELIZABETH Address: Home [address] [place], [place] [phone] [place] Name: RADHA MARSHALL Care Team (unrecognized sect ion and content) Care Team Personnel Name: JULIENNE FAJARDO Position: P4 Advanced Practice Nurse Med Service: Active Provider Member Role: Primary Care Physician Address: Address: [address] [place] [address]- [place] Name: KANDY HERRERA Position: P4 Advanced Practice Nurse Med Service: Active Provider Member Role: Marine Structural Designer Address: Address: [address] [place] [address] [address] [place] [address]- [place] Name: DO HEIDI JACKMAN DO Position: P3 Physician - Orthopedics Med Service: Admitting Member Role: Orthopaedist Address: Address: [address] [place] [address] 2 [place] [address] [place] Name: TARAH BHATT MD Position: P4 MANAGER MALL Provider Med Service: Active Provider Member Role: OBGYN Address: Address: [address] [place] [address] [address] [place] [address]- Name: LAMINE SANDOVAL MD Med Service: Psychiatry Member Role: Psychiatrist Address: Address: [address] [place] [address] [address] [place] [address]- Care Team Related Persons Name: ELOISA ELIZABETH Address: Home [address] [place], [place] [phone] [place] Name: LOYDA SIFUENTES Name: RADHA MARSHALL Name: HEIDI JO Name: HEIDI JO Care Team Personnel Name: JULIENNE FAJARDO APRN-INSTITUTION LIBRARIAN Position: P4 Advanced Practice Nurse Member Role: Primary Care Physician Address: Address: [address] [place] [address]- Name: KANDY HERRERA CONCRETE FINISHER APPRENTICE-INSTITUTION LIBRARIAN Position: P4 Advanced Practice Nurse Address: Address: [address] [place] [address] [address] [facility] [place] [address]- [place] Name: DO HEIDI JACKMAN DO Position: P3 Physician - Orthopedics Address: Address: [address] [place] [address] [address] [place] [address] [place] Name: TARAH BHATT MD Position: P4 MANAGER MALL Provider Address: Address: [address] [place] [address]- Name: LAMINE SANDOVAL MD Address: Address: [address] [place] [address]- [place] Name: GUERRERO KIM MD Position: ED Physician Member Role: ED Physician Address: Address: [facility] [address] [place] [address]- [place] Name: JELANI Wolff Position: AO RN Member Role: ED RN Care Team Related Persons Name: ELOISA ELIZABETH Address: Home [address], [place] [phone] [place] Name: LOYDA SIFUENTES Name: RADHA MARSHALL Name: HEIDI JO Name: HEIDI JO Source Comments (unrecognize d section and content) In the event this informatio n is protected by the Federal Confidentiality of Alcohol and Drug Abuse Patient Records regulations: The Federal rules restrict any use of the information to criminally investigate or prosecute any alcohol or drug abuse patient.[facility] the event this information is protected by the Federal Confidentiality of Alcohol and Drug Abuse Patient Records regulations: The Federal rules restrict any use of the information to criminally investigate or prosecute any alcohol or drug abuse patient.[facility] Reason for Visit (unrecogniz ed section and content) FOR RECORDS PERTAINING TO PATIENTS WHO ARE OR HAVE BEEN ENROLLED IN A CHEMICAL DEPENDENCY/SUBSTANCEABUSE PROGRAM, SOME INFORMATION MAY BE OMITTED. This clinical summary was aggregated from multiple sources. Caution should be exercised in using it in the provision of clinical care. This summary normalizes information from multiple sources, and as a consequence, information in this document may materially change the coding, format and clinical context of patient data. In addition, data may be omitted in some cases. CLINICAL DECISIONS SHOULD BE BASED ON THE PRIMARY CLINICAL RECORDS. [facility]. provides no warranty or guarantee of the accuracy or completeness of information in this document.
[2023-06-16 13:06] LABS: Absolute Lymphocyte Count 2.36 X10^3/uL (0.83-4.51); Absolute Neutrophil Count 3.2 X10^3/uL (2.0-7.7); Basophil# 0.04 X10^3/uL; Basophil% 0.6 % (0-1); Eosinophil# 0.31 X10^3/uL; Eosinophils% 4.8 % (0-5); Hematocrit 41.4 % (37-47); Hemoglobin 13.1 g/dL (12.0-15.0); Lymphocyte # 2.36 X10^3/ul (0.83-4.51); Lymphocyte % 36.2 % (19-41); Mean Corp Hgb Conc 31.6 g/dL (32-36); Mean Corpuscular Hgb 29.6 pg (27.0-32.0); Mean Corpuscular Volume 93.5 fL (81-99); Mean Platelet Vol. 10.7 fl (6.2-12.0); Monocyte# 0.56 X10^3/uL; Monocyte% 8.6 % (0-10); NRBC Flagged by Analyzer 0 % (0-5); Neutrophil # 3.24 X10^3/uL (2.7-7.7); Neutrophil % 49.6 % (47-70); Platelet Count 295 K/mm3 (150-450); RBC Distribution Width CV 13.4 % (11.6-14.6); RBC Distribution Width SD 46.1 fl (35.1-43.9); Red Blood Count 4.43 M/mm3 (4.2-5.4); White Blood Count 6.5 K/mm3 (4.4-11.0)
[2023-06-20 00:06] LABS: Alternaria tenuis <0.10 kU/L (Class 0); Ash, White <0.10 kU/L (Class 0); Aspergillus fumigatus <0.10 kU/L (Class 0); Bermuda Grass <0.10 kU/L (Class 0); Birch <0.10 kU/L (Class 0); Black Walnut <0.10 kU/L (Class 0); Cat Hair / Dander,Stand 4.48 kU/L (Class IV); Cedar, Mountain <0.10 kU/L (Class 0); Cladosporium herbarum <0.10 kU/L (Class 0); Cockroach, American 0.15 kU/L (Class 0/I); Cottonwood <0.10 kU/L (Class 0); Elm, American White <0.10 kU/L (Class 0); Immunoglobulin E 193 IU/mL (6-495); Immunoglobulin E 199 IU/mL (6-495); Maple/Box Elder 0.12 kU/L (Class 0/I); Mouse Urine 0.49 kU/L (Class I); Mulberry, White <0.10 kU/L (Class 0); Oak, White <0.10 kU/L (Class 0); Pecan 0.15 kU/L (Class 0/I); Penicillium Notatum <0.10 kU/L (Class 0); Pigweed, Rough <0.10 kU/L (Class 0); Ragweed, Short/Common <0.10 kU/L (Class 0); Russian Thistle <0.10 kU/L (Class 0); Sheep Sorrel <0.10 kU/L (Class 0); Sycamore, American <0.10 kU/L (Class 0); Timothy Grass 0.49 kU/L (Class I)
== END | disposition home or self-care (01) ==
LOC: LAB 12:28
PROVIDERS: PCP Nurse Practitioner Primary Care; Referring Provider Internal Medicine Critical Care Medicine; Visit Provider Internal Medicine Critical Care Medicine
DX: R05.3 Chronic cough (principal); J45.909 Unspecified asthma, uncomplicated
CPT/HCPCS: 36415; 82785; 85025; 86003

== ENCOUNTER → 2023-06-23 | Outpatient (CLI) | payer OTHER, SELFPAY ==
--- NOTE | 2023-06-23 14:24 | PFTCOMP_ITS ---
COMPLETE PULMONARY FUNCTION TEST INTERPRETATION Brief HPI: Patient is a 53-year-old female, currently under the care of Dr. Schmidt, who presents to [facility] for complete pulmonary function tests secondary to diagnosis of cough. Respiratory therapist reports good effort and reproducible results. Interpretation: Forced expiration spirometry shows no large airways obstructive ventilatory defect with an FEV1 of 112% predicted. There is no significant bronchodilator response by strict ATS criteria. Spirograms are of good quality and plateau normally. The respiratory flow volume loop shows a normal pattern. Lung volumes by body plethysmography show a normal total lung capacity at 5.88 L, 115% predicted. All other lung volumes are within normal limits. Diffusion capacity by carbon monoxide is elevated at 139% predicted. The airway resistance is normal. No previous pulmonary function tests were available for review. Impression: Grossly normal pulmonary function test. Could consider a bronchoprovocation study if asthma is suspected
== END | disposition home or self-care (01) ==
PROVIDERS: PCP Nurse Practitioner Primary Care; Referring Provider Internal Medicine Critical Care Medicine; Visit Provider Internal Medicine Critical Care Medicine
DX: R05.3 Chronic cough (principal)
CPT/HCPCS: 94060; 94726; 94729

== ENCOUNTER → 2023-07-11 | Outpatient (CLI) | payer OTHER, SELFPAY ==
--- NOTE | 2023-07-11 08:49 | CT_ITS ---
STUDY: CT MAXILLOFACIAL SINUSES REASON FOR EXAM: Female, 53 years old. CHRONIC SINUSITIS RADIATION DOSAGE (If Supplied By Facility): CTDIvol = ( 33.06 ) mGy, DLP = ( 788.40 ) mGycm TECHNIQUE: The patient was scanned in a multi detector CT scanner. High resolution axial imaging was performed without the administration of intravenous contrast material. Sagittal and coronal images were reconstructed. Individualized dose optimization techniques were used for this CT. COMPARISON: None. FINDINGS: FRONTAL SINUSES: Normal aeration, without mucosal inflammatory disease. ETHMOIDAL SINUSES: Normal aeration, with moderate mucosal inflammatory disease. MAXILLARY SINUSES: Normal aeration, with moderate mucosal inflammatory disease. SPHENOIDAL SINUSES: Normal aeration, without mucosal inflammatory disease. There is patency of the right maxillary infundibuli with normal uncinate process, the left ostiomeatal complex is occluded. Normal bilateral middle turbinates. Normal bilateral inferior turbinates. Normal midline nasal septum. There is patency of the bilateral nasal airways. The visualized osseous structures are normal. The visualized bilateral orbital contents are normal. CT/Sinus/Facial Bone IMPRESSION: No demonstrated fracture or suspicious osseous lesion Diffuse mucosal thickening noted in the maxillary and ethmoid sinuses with occlusion of the left ostiomeatal complex Electronically Signed: New Lee MD at 12:53 EST ,
--- OUTSIDE RECORDS SUMMARY | 2023-07-11 09:01 | XMS RPT_ITS | CCD ---
Author Name Unknown Address [address] [place] [address] Organization [facility] Care Team Providers Care Police Commanding Officer Name Role Phone AKANKSHA JEREZ Unavailable Unavailable TAYLA MEHTA Unavailable Unavailable TAYLA MEHTA Unavailable Unavailable SCOTTY BREWERY REPRESENTATIVERITU, JULIENNE Primary Care Physician Unavailable Primary Care Provider Unavailabl e BALTES BREWERY REPRESENTATIVE-DROP HAMMER PILE DRIVER OPERATOR, JULIENNE Primary Care Unavailabl e BALTES BREWERY REPRESENTATIVE-DROP HAMMER PILE DRIVER OPERATOR, JULIENNE Attending Unavailabl e FELIPA DONAHUE PA-C Attending Unavailab le BALTES BREWERY REPRESENTATIVE-DROP HAMMER PILE DRIVER OPERATOR, JULIENNE Primary Care Unavailabl e BALTES BREWERY REPRESENTATIVE-DROP HAMMER PILE DRIVER OPERATOR, JULIENNE Primary Care Unavailabl e RAY LEAL Attending Unavailable JIGNA AUSTIN, DR FRANKO Jackson Attending Unavailab le BALTES BREWERY REPRESENTATIVE-DROP HAMMER PILE DRIVER OPERATOR, JULIENNE Primary Care Unavailsheba BENITO MD, DR FRANKO Jackson Attending Unavailab le BALTES BREWERY REPRESENTATIVE-DROP HAMMER PILE DRIVER OPERATOR, JULIENNE Primary Care Unavailabl e BALTES BREWERY REPRESENTATIVE-DROP HAMMER PILE DRIVER OPERATOR, JULIENNE Attending Unavailabl e BALTES BREWERY REPRESENTATIVE-DROP HAMMER PILE DRIVER OPERATOR, JULIENNE Primary Care Unavailsheba BENITO MD, DR FRANKO Jackson Attending Unavailab le BALTES BREWERY REPRESENTATIVE-DROP HAMMER PILE DRIVER OPERATOR, JULIENNE Primary Care Unavailabl e BALTES BREWERY REPRESENTATIVE-DROP HAMMER PILE DRIVER OPERATOR, JULIENNE Primary Care UnavailTARAH Gaines MD Attending Unavailable BALTES BREWERY REPRESENTATIVE-DROP HAMMER PILE DRIVER OPERATOR, JULIENNE Primary Care UnavailTARAH Gaines MD Attending Unavailable BALTES BREWERY REPRESENTATIVE-DROP HAMMER PILE DRIVER OPERATOR, JULIENNE Attending Unavailabl e BALTES BREWERY REPRESENTATIVE-DROP HAMMER PILE DRIVER OPERATOR, JULIENNE Primary Care Unavailabl e Allergies Allergy Classification Reported Allergen(s) Allergy Type Date of Onset Reaction(s) Facility (12 sources) Cashew nut Food allergy Difficulty swallowing [facility] Work Phone: (12 sources) Sulfamethoxazole ; Translations: [sulfamethoxazol e] Drug Allergy Rash [facility] Work Phone: Medications Current Medications Medication Drug Class(es) Dates Sig (Normalized) Sig (Original) albuterol 0.83 mg/ml inhalation solution (13 sources) beta2-Adrenergic Agonist Start: 04-28-2023 take 1 capsule by inhalation every six hours as needed albuterol 2.5 mg/3 mL (0.083%) inhalation solution Dose : 2.5 mg = 3 mL, Inhalation, q6h, PRN as needed for wheezing, # 60 EA, 0 Refill(s), Pharmacy: [facility], Wheezing CAP (community acquired pneumonia), 166, [...] rate 63 /min DR RAY LEAL MD [facility] 04-12-2023 05:19-0500 Respiratory rate 18 /min DR RAY LEAL MD [facility] 04-12-2023 04:41-0500 Body temperature 97.88 [degF] DR RAY LEAL MD [facility] 04-12-2023 04:41-0500 Diastolic Blood Pressure Non-Invasive 92 mm[Hg] DR RAY LEAL MD [facility] 04-12-2023 04:41-0500 Heart rate 64 /min DR RAY LEAL MD [facility] 04-12-2023 04:41-0500 Respiratory rate 20 /min DR RAY LEAL MD [facility] 04-12-2023 04:41-0500 Systolic Blood Pressure Non-Invasive 142 mm[Hg] DR RAY LEAL MD [facility] 11-28-2022 16:05-0400 Diastolic Blood Pressure Non-Invasive [address] FRANKO BENIOT MD [facility] 11-28-2022 16:05-0400 Heart rate 73 /min DR FRANKO BENITO MD [facility] 11-28-2022 16:05-0400 Respiratory rate 16 /min DR FRANKO BENITO MD [facility] 11-28-2022 16:05-0400 Systolic Blood Pressure Non-Invasive [address] FRANKO BENITO MD [facility] 11-28-2022 14:02-0400 Diastolic Blood Pressure Non-Invasive [address] FRANKO BENITO MD [facility] 11-28-2022 14:02-0400 Heart rate 67 /min DR FRANKO BENITO MD [facility] 11-28-2022 14:02-0400 Systolic Blood Pressure Non-Invasive [address] FRANKO BENITO MD [facility] 11-28-2022 13:46-0400 Respiratory rate 16 /min DR FARNKO BENITO MD [facility] 11-28-2022 13:30-0400 Diastolic Blood Pressure Non-Invasive [address] FRANKO BENITO MD [facility] 11-28-2022 13:30-0400 Heart rate 68 /min DR FRANKO BENITO MD [facility] 11-28-2022 13:30-0400 Respiratory rate 21 /min DR FRANKO BENITO MD [facility] 11-28-2022 13:30-0400 Systolic Blood Pressure Non-Invasive [address] FRANKO BENITO MD [facility] 11-28-2022 13:15-0400 Heart rate 62 /min DR FRANKO BENITO MD [facility] 11-28-2022 12:45-0400 Body temperature 96.8 [degF] DR FRANKO BENITO MD [facility] 11-28-2022 12:40-0400 Body temperature 32 [degF] DR FRANKO BENITO MD [facility] 11-28-2022 12:40-0400 Respiratory Rate - Anes 0 br/min DR FRANKO BENITO MD [facility] 11-28-2022 12:35-0400 Respiratory Rate - Anes 17 br/min DR FRANKO BENITO MD [facility] 11-28-2022 12:30-0400 Respiratory Rate - Anes 17 br/min DR FRANKO BENITO MD [facility] 11-28-2022 09:10-0400 Body height 165.[address] FRANKO BENITO MD [facility] 11-28-2022 09:10-0400 Body temperature 98.06 [degF] DR FRANKO BENITO MD [facility] 11-28-2022 09:10-0400 Body weight [address] FRANKO BENITO MD [facility] 11-28-2022 09:10-0400 Heart rate 75 /min DR FRANKO BENITO MD [facility] 11-26-2022 08:29-0400 Body height 165.[address] FRANKO BENITO MD [facility] 11-26-2022 08:29-0400 Body weight [address] FRANKO BENITO MD [facility] 11-26-2022 08:29-0400 Body weight 36.69 kg/m2 DR FRANKO BENITO MD [facility] 11-26-2022 08:29-0400 Diastolic Blood Pressure Non-Invasive [address] FRANKO BENITO MD [facility] 11-26-2022 08:29-0400 Heart rate 68 /min DR FRANKO BENITO MD [facility] 11-26-2022 08:29-0400 Respiratory rate 20 /min DR FRANKO BENITO MD [facility] 11-26-2022 08:29-0400 Systolic Blood Pressure Non-Invasive [address] FRANKO BENITO MD [facility] 01-27-2022 10:50-0400 Body height 167 cm GUERRERO KIM MD [facility] 01-27-2022 10:50-0400 Body temperature 100.04 [degF] GUERRERO KIM MD [facility] 01-27-2022 10:50-0400 Body weight 96 kg GUERRERO KIM MD [facility] 01-27-2022 10:50-0400 Diastolic blood pressure 84 mm[Hg] GUERRERO KIM MD [facility] 01-27-2022 10:50-0400 Heart rate 100 /min GUERRERO KIM MD [facility] 01-27-2022 10:50-0400 Respiratory rate 16 /min GUERRERO KIM MD [facility] 01-27-2022 10:50-0400 Systolic blood pressure 129 mm[Hg] GUERRERO KIM MD [facility] Encounters Encounter Date Encounter Type Care Provider Facility Start: 06-10-2023 End: 06-11-2023 ambulatory JULIENNE FAJARDO APRN-NILSA Facility:B Start: 06-10-2023 End: 06-10-2023 Patient encounter procedure JULIENNE FAJARDO APRN-NILSA [facility] Start: 04-12-2023 End: 04-12-2023 Emergency department patient visit JULIENNE FAJARDO APRN-NILSA Facility:B Start: 04-12-2023 End: 04-12-2023 Emergency department patient visit DR RAY LEAL MD [facility] Start: 04-06-2023 End: 04-07-2023 ambulatory FELIPA DONAHUE PA-C Facility:B Start: 04-06-2023 End: 04-06-2023 Patient encounter procedure FELIPA BLAKELYMiller DONG [facility] Start: 11-28-2022 End: 11-28-[address] FRANKO BENITO MD Facility:B Start: 11-28-2022 End: 11-28-[address] FRANKO BENITO MD [facility] Start: 11-26-2022 End: 11-27-[address] FRANKO BENITO MD Facility:B Start: 11-26-2022 End: 11-26-[address] FRANKO BENITO MD [facility] Start: 11-11-2022 End: 11-12-2022 ambulatory JULIENNE FAJARDO BREWERY REPRESENTATIVE-DROP HAMMER PILE DRIVER OPERATOR Facility:B Start: 11-11-2022 End: 11-11-2022 Patient encounter procedure JULIENNE FAJARDO BREWERY REPRESENTATIVE-DROP HAMMER PILE DRIVER OPERATOR [facility] Start: 11-11-2022 End: 11-11-2022 Well adult monitoring check done JULIENNE FAJARDO BREWERY REPRESENTATIVE-DROP HAMMER PILE DRIVER OPERATOR [facility] Start: 11-03-2022 End: 11-04-[address] FRANKO BENITO MD Facility:B Start: 10-23-2022 End: 10-24-2022 ambulatory JULIENNE FAJARDO BREWERY REPRESENTATIVE-DROP HAMMER PILE DRIVER OPERATOR Facility:B Start: 10-23-2022 End: 10-23-2022 Patient encounter procedure TARAH BHATT MD [facility] Start: 10-14-2022 End: 10-19-2022 ambulatory JULIENNE FAJARDO BREWERY REPRESENTATIVE-DROP HAMMER PILE DRIVER OPERATOR Facility:B Start: 10-14-2022 End: 10-19-2022 Encounter for gynecological examination (general) (routine) without abnormal findings TARAH BHATT MD Facility:B Start: 10-14-2022 End: 10-18-2022 Outreach Lab TARAH BHATT MD [facility] Start: 09-04-2022 ambulatory JULIENNE FAJARDO BREWERY REPRESENTATIVE-DROP HAMMER PILE DRIVER OPERATOR Fa cility:B Start: 01-27-2022 End: 01-27-2022 Emergency department patient visit GUERRERO KIM MD [facility] Start: 01-17-2022 End: 01-17-2022 Subsequent hospital visit by physician [facility] (I-Stat/1.5t) [facility] Procedures Date Procedure Procedure Detail Performing Clinician Start: 10-02-2020 Transesophageal echocardiography JULIENNE FAJARDO BREWERY REPRESENTATIVE-DROP HAMMER PILE DRIVER OPERATOR Plan of Treatment Date Care Activity Detail Author Start: 01-23-2022 Influenza vaccination INFLUENZA (#1) [facility] Start: 01-28-2017 COLOGUARD (FIT-DNA) COLOGUARD (FIT-D NA) [facility] Start: 01-28-2017 Colonoscopy COLONOSCOPY [facility] Start: 01-28-2017 COLORECTAL CANCER SCREENING COLORECTAL CANCER SCREENING [facility] Start: 01-28-[address] COLONOGRAPHY [facility] Start: 01-28-2017 DIABETES SCREEN DIABETES SCREEN [facility] Start: 01-28-2017 FECAL OCCULT BLOOD FECAL OCCULT BLOO D [facility] Start: 01-28-2017 LIPID SCREEN LIPID SCREEN [facility] Start: 01-28-2017 SIGMOIDOSCOPY SIGMOIDOSCOPY [facility] Start: 2012 Mammography MAMMOGRAM [facility] Start: 01-28-2002 HPV TESTING HPV TESTING [facility] Start: 01-28-1993 PAP TESTING PAP TESTING [facility] Start: 01-28-1991 Urine microalbumin profile DTAP,TDAP ,TD (1 - Tdap) [facility] Start: 01-28-1990 HEPATITIS C SCREENING HEPATITIS C SC REENING [facility] Start: 01-28-1990 HIV SCREENING HIV SCREENING [facility] Start: 1984 Adult depression scr eening assessment DEPRESSION SCREENING [facility] Start: 03-06-1973 COVID-19 VACCINE (#1) COVID-19 VACCI NE (#1) [facility] Start: 1972 HEPATITIS B (1 of 3 - 3-dose series) HEPATITIS B (1 of 3 - 3-dose series) [facility] Clini c Payers Date Payer Category Payer Unknown MMO MMO [employer] [id number] 2021-Present [phone] [address] [place] [address] PPO [id number] 2003 Unknown [id number] 1972 Unknown [id number] 1972 Unknown [id number] 1972 Unknown [id number] 1972 Unknown [id number] 1972 Unknown [id number] 1972 Unknown [id number] 1972 Unknown [id number] 1972 Unknown [id number] 1972 Unknown [id number] 1972 Unknown [id number] Social History Date Type Detail Facility Start: 12-28-2018 Never smoked t indira (finding) [facility] Sex Assigned At Female [facility] Tobacco smoking status CTIS Tobacco smoking consumption unknown [facility] Start: 1970 Sex Assigned At Not on file C [facility] Start: 01-07-2022 End: 01-17-2022 Exposure to SARS-CoV-2 (event) Not sure [facility] Functional Status Date Assessment Result Facility 04-12-2023 Functional Status Independent [facility] 04-12-2023 Functional Status Standard Safet y ID band on, Allergy Band on, Call device within reach, Bed in low position, Wheels locked, Upper/Half-Length side-rails up, personal items within reach, Bedside Cart Locked, Visitor at bedside [facility] 11-28-2022 Functional Status Independent [facility] 11-28-2022 Functional Status Repositions se lf, Resting [facility] 11-28-2022 Functional Status ice on [facility] 11-28-2022 Functional Status NPO Status Maintained A [facility] 11-28-2022 Functional Status [facility] 11-26-2022 Functional Status Sensory Deficits None A [facility] 01-27-2022 Functional Status ID band on, Allergy Band on, Call device within reach, Bed in low position, Wheels locked, personal items within reach [facility] Mental Status Date Assessment Result Facility 04-12-2023 Mental Status Orientation Oriented x 4 [facility] 04-12-2023 Mental Status [facility] 11-28-2022 Mental Status Oriented x [facility] 11-28-2022 Mental Status Orientation Asse ssment Oriented x 4 [facility] 01-27-2022 Mental Status Oriented x [address] [facility] Clinical Notes 01-14-2022 to 06-10-2023 RadiologyTelephone Encounter - Eula Cantrell, RT(R) - [...] Sign Date: 06/10/2023 2:58:01 PM Ordering Provider: [facility] 04-18-2023 Note . MICRO - Microbiology PROCEDURE: [...] Locations *1: This test was performed at: [facility], [address] [place] [address], [address] , [facility] [place] 04-18-2023 Note . MICRO - Microbiology PROCEDURE: [...] Locations *1: This test was performed at: [address], [facility] , [facility] [place] 04-12-2023 Hospital Discharg e instructions Patient Education [...] be told to take ibuprofen or other rmeh-hve-uajrxgf medicines. These help relieve inflammation in your [...] or within 3 days of taking antibiotics 9755-8731 [employer]. [address] [place] [address], [place] [address]. All rights reserved. This information is not [...] will help loosen secretions in the lungs. Wqvg-lea-ipxzthz cough medicines that contain dextromethorphan may help [...] losing consciousness Rapid heartbeat Weakness or dizziness 1547-1065 [employer]. [address] [place] [address], [place] [address]. All rights reserved. This information is not intended as a substitute for professional medical care. Always follow your healthcare professional's instructions. Follow Up Care 04/12/2023 04:34:10 With:JULIENNE FAJARDO Address: [address] [place] [address] Physicians [place], [place] [phone]- [phone] When:2-4 days Comments:Return to ED if symptoms worsen [facility] 04-12-2023 Note Discharge Instructions Thank you for allowing [facility] to assist you with your healthcare needs. [...] to ED if symptoms worsen Where: [address] [facility] [place] [place] [address]- [phone] Allergies Cashews (Difficulty swallowing) sulfamethoxazole (Rash) Medications [...] be told to take ibuprofen or other fkuc-xau-zmiqlfg medicines. These help relieve inflammation in your [...] or within 3 days of taking antibiotics 1754-6719 [employer]. [address] [place], [place] [id number]. All rights reserved. This information is not [...] will help loosen secretions in the lungs. Ayzv-qwm-vftsbzs cough medicines that contain dextromethorphan may help [...] losing consciousness Rapid heartbeat Weakness or dizziness 5051-8723 [employer]. [address] [place] [address]. All rights reserved. This information is not intended as a substitute for professional medical care. Always follow your healthcare professional's instructions. Additional Information VACCINATE! IT SAVES LIVES! Members of the community who have not yet received the COVID-19 vaccine and would like to receive it can visit one of [facility] vaccine clinics. There are many vaccine clinic locations within the [facility]. For locations and available times, please visit [email or web address].[place]. gov/. It is important to note that some COVID mobile vaccine clinics are held outdoors and may be canceled in rainy or stormy conditions. To learn more about pediatric vaccinations (ages 5-11), we invite you to visit the [facility] webpage. https://www.[facility].org/p ages/5931-Oofxe-Nvbkrkgwlrn-Freq kdajjg-Gttjr-Zplzchpuk.html To learn more about the COVID-19 vaccine, we invite you to visit the CDC website for a list of frequently asked questions. https://www.cdc.gov/coronavirus/ 2019-ncov/vaccines/faq.html [facility] Patient Portal Access Instructions: Stay connected with your healthcare team and access your personal medical information anytime with the [facility] Patient Portal. If you would like a full copy of your medical records please contact the [facility] Medical Records Department Thursday through Thursday between 8a.m. and 4:30p.m. Please follow the directions below to access the portal: 1.Access the email account you provided upon registration to the [facility].2.Look for an invitation email from [facility].3.Open the email and access the invitation link: Accept Invitation to [facility]4.Fill in the required zapien to create your account. Sign into [email or web address] with your username and password that you [...] you will allow to register on the [facility] Patient Portal for access to your information. You can also access the [facility] Patient Portal on the Yo[employer]. Simply click on Health Records under Health [...] Call your local pharmacy or go to [email or web address] to find one close to you.3.Make use of household items: Use cat litter or old coffee grounds to dispose medications if other options are not available. Mix your drugs with these household products, seal them in an airtight container and throw it into the garbage. Call [facility]: [phone] to be sure your drugs can be [...] aware that I should contact my doctor. Patient/Choke Reamer Signature: Date/Time: Relationship to Patient: Witness Name/Signature: Date/Time: [facility] 04-12-2023 Note ORIGINAL EXAMINATION: CTA OF [...] 04/12/2023 6:00:00 AM Ordering Provider: RAY LEAL [facility] 04-12-2023 Note Sinus rhythm Short IN interval Nonspecific intraventricular conduction delay Artifact in lead(s) I,II,III,aVR,aVL,aVF,V1,V3,V4 and baseline wander in lead(s) V1,V2,V3,V6 Electronic Signature: MD RAY LEAL MD 04/12/2023 06:32:43 [facility] 04-12-2023 SARS-CoV-2 (COVID-19) RNA VALERIO+probe Ql [...] Sign Date: 04/06/2023 3:27:35 PM Ordering Provider: [facility]20[facility] Patient Education 11/28/2022 14:30:57 Monitored Anesthesia [...] before eating solid foods. General instructions Take myaf-omb-mgynabf and prescription medicines only as told by [...] 08/31/2016 Document Revised: 08/09/2018 Document Reviewed: 08/31/2016 [employer] Patient Education 2020 [employer]. 11/28/2022 14:30:45 Partial Knee Replacement, Care After [...] Follow these instructions at home: Medicines Take diym-isu-pjeehiu and prescription medicines only as told by [...] to keep your urine pale yellow. ?Take uumu-rxy-kbosvst or prescription medicines. ?Eat foods that are [...] and water are not available, use hand ar manager. ?Change your dressing as told by your [...] 06/01/2019 Document Revised: 06/01/2019 Document Reviewed: 06/01/2019 [employer] Patient Education 2020 [employer]. Follow Up Care 11/17/2022 10:32:34 With:FRANKO BENITO MD Address: [address] [place] [address] [place] [address] [place] [phone] When:12/12/2022 09:15:00 Comments:Follow-up as scheduled with Sam Boone PA-C [facility] 11-28-2022 Summary of episod e note Discharge Instructions Thank you for allowing [facility] to assist you with your healthcare needs. The following is important discharge information regarding your hospital visit. Your Care Team JULIENNE FAJARDO Your Diagnosis Partial Right Knee Replacement What to do next Instructions From Your Doctor See Instruction Sheet Scheduled Follow-Up Appointments App[facility] 09:00 AM EDT JULIENNE FAJARDO [address] [phone] Follow Up Appointments Follow Up with FRANKO BENITO MD When 12/12/2022 09:15 AM EDT Why: Follow-up as scheduled with Sam Boone PA-C Where: [address] [place] [address] [place] [address] [place] [phone] Allergies Cashews (Difficulty swallowing) sulfamethoxazole (Rash) Medications [...] before eating solid foods. General instructions Take zjzp-kwe-emcepyv and prescription medicines only as told by [...] 08/31/2016 Document Revised: 08/09/2018 Document Reviewed: 08/31/2016 [employer] Patient Education 2020 [employer]. Partial Knee Replacement, Care After This sheet [...] Follow these instructions at home: Medicines Take drkt-ean-srkbqex and prescription medicines only as told by [...] keep your urine pale yellow. ? Take ebtr-jbb-bouyzvt or prescription medicines. ? Eat foods that [...] and water are not available, use hand ar manager. ? Change your dressing as told by [...] Document Reviewed: 06/01/2019 Elsevier Patient Education 2020 [employer] Additional Information VACCINATE! IT SAVES LIVES! Members of the community who have not yet received the COVID-19 vaccine and would like to receive it can visit one of [facility] vaccine clinics. There are many vaccine clinic locations within the [facility]. For locations and available times, please visit [email or web address].[email or web address].o [place].gov/. It is important to note that some COVID mobile vaccine clinics are held outdoors and may be canceled in rainy or stormy conditions. To learn more about pediatric vaccinations (ages 5-11), we invite you to visit the [facility] webpage. https://www.[employer].org/p ages/3069-Thcuq-Qqkezbwmtzt-Freq fdymjo-Maivz-Ppfjixxfc.html To learn more about the COVID-19 vaccine, we invite you to visit the CDC website for a list of frequently asked questions.https://www.cdc.gov/co ronavirus/2019-ncov/vaccines/faq .html [facility] Patient Portal Access Instructions: Stay connected with your healthcare team and access your personal medical information anytime with the [facility] Patient Portal. Please follow the directions below to create your [facility] account: 1.Access the email account you provided upon registration to the hospital/physician office.2.Look for an invitation email from [facility].3.Open the email and access the invitation link: Accept Invitation to [facility].4.Fill in the required zapien to create your account. To access your account, visit [email or web address]. Click the blue button labeled Access Patient [...] you will allow to register on the [facility] Patient Portal for access to your information. You can also access the [facility] Patient Portal on the [facility] kj. Simply click on Patient Portal and then log into your account. If you would like to receive a full copy of your medical records, please contact the [facility] Medical Records Department by calling [phone], Thursday through Thursday between 8 a.m. and [...] Call your local pharmacy or go to [email or web address] to find one close to you.3.Make use of household items: Use cat litter or old coffee grounds to dispose medications if other options are not available. Mix your drugs with these household products, seal them in an airtight container and throw it into the garbage. Call [facility]: [phone] to be sure your drugs can be [...] aware that I should contact my doctor. Patient/Choke Reamer Signature: Date/Time: Relationship to Patient: Witness Name/Signature: Date/Time: [facility] 11-28-2022 Note ORIGINAL EXAMINATION: TWO XRAY [...] Date: 11/28/2022 1:25:39 PM Ordering Provider: FRANKO [facility] 11-28-2022 Note ORIGINAL EXAMINATION: TWO [...] Date: 11/28/2022 1:25:39 PM Ordering Provider: FRANKO [facility] 11-28-2022 Anesthesiology Consult note Patient: JAKE JO [...] by QUANG BOURNE on 11/28/2022 12:47 PM [facility] 11-28-2022 Anesthesiology Consult note Patient: JAKE [...] list: Medical Acute bronchiolitis / SNOMED CT 80034552 / Confirmed Asthma due to seasonal allergies / SNOMED CT 9378860667 / Confirmed Anxiety / SNOMED CT 28300205 / Confirmed Atrial septal aneurysm / SNOMED CT 035313988 / Confirmed Cough in adult / SNOMED CT 13973703 / Confirmed SOB (shortness of breath) on exertion / SNOMED CT 295869032 / Confirmed Fatigue / SNOMED CT 771333058 / Confirmed GERD (gastroesophageal reflux disease) / SNOMED CT 497139954 / Confirmed History of pneumonia / SNOMED CT 125953466 / Confirmed LGSIL on Pap smear of cervix / SNOMED CT 2030496142 / Confirmed Osteoarthritis of right knee / SNOMED CT 6009281738 / Confirmed PFO (patent foramen ovale) / SNOMED CT 295893911 / Confirmed Screening for colon cancer / SNOMED CT 009257586 / Confirmed Screening for cardiovascular condition / SNOMED CT 558031570 / Confirmed Pre-op exam / SNOMED CT 135707849 / Confirmed Major depression, recurrent, chronic / SNOMED CT 949791138 / Confirmed Urge incontinence of urine / SNOMED CT 853033524 / Confirmed PVCs (premature ventricular contractions) / SNOMED CT 65548647 / Confirmed, Active Problems (18) Acute bronchiolitis [...] of urine Histories Past Medical History: Resolved (064465500): Resolved. Screening for breast cancer (136996485): Resolved., extreme anxiety and panic attacks. PFO, atrial septal aneurysm being followed by cardiology, Family History: Heart disease Mother (Loyda Sifuentes) Grandparent (mat, gma) Father (Quan Muse) Arthritis Mother (Loyda Sifuentes) Alcohol abuse Father (Quan Muse) Hepatitis Grandparent (mat, gma) Cancer Grandparent (mat, gpa) Procedure history: Transesophageal echocardiogram (0025610331) on 10/02/2020 at 50 Years. Comments: 10/19/2020 14:46 TOMT Jake Melara MA (ABR-OE) No evidence of thrombus or vegetation. There is a small shunt through a patent foramen ovale. Cholecystectomy (59369542). Tubal ligation (152630420). Dilation and curettage (47957302). Comments: 12/28/2018 11:37 La Collins LPN x2 Foot repair (251178306). Comments: 12/28/2018 11:38 La Collins LPN screw Carpal tunnel release (440371653). Comments: 12/28/2018 11:38 EDT - La Russell LPN damaso Arthroscopic repair of meniscus (7200856876). 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 Lives In Single level home Current [...] Resp Rate 14 br/min (NOV 28 09:10) RLA812 mmHg (NOV 28 09:10) DBP82 mmHg (NOV 28 09:10) Measurements from flowsheet : Measurements 11/28/2022 9:10 EDT Height 165.1 cm Admission Weight 100 kg Leander Body Weight 57.00 kg Body Mass Index [...] Height 165.1 cm Admission Weight 100 kg Leander Body Weight 57.00 kg Body Mass Index [...] no difficulties Skin Temperature Warm Skin Description [place], Normal for ethnicity, Dry Skin Moisture General Dry IV Present Present Extremity Movement Equal Characteristics of Speech Clear Level of Consciousness Alert Strength All Extremities Strong Affect/Behavior Appropriate Orientation Oriented x 4 Infectious Disease Symptoms Patient states no symptoms Allergies Yes Customer Care Specialist On Yes Consent Form Signed Yes Patient [...] Patient Cleared for Surgery By JULIENNE FAJARDO APRN-DROP HAMMER PILE DRIVER OPERATOR Cardiac Clearance For Surgery By TRISH CHEW MD Admission Note-Nursing Same Day Patient History (Modified) 11/28/2022 9:02 EDT SN - Preop - CTm Pt in SDS Room 11/28/2022 9:02 . Assessment and Plan [place] [employer] Anesthesiologists (ASA) physical status classification: Class III. Anesthetic Preoperative Plan Premedication: intravenous. Anesthetic technique: Spinal. Induction: intravenously. Regional: Spinal, Adductor Canal Block. Postoperative pain management: Per surgeon. Risks discussed: nausea, vomiting, headache, sore throat, dental injury, hypotension, allergic reaction, serious complications. Informed consent: signed by patient. Digitally Signed by QUANG BOURNE on 11/28/2022 10:24 AM [facility] 09-19-2022 Evaluation + Plan note Future Scheduled TestsMA Mammo Screening Bilateral w/ Herberth 09/19/22 [facility] 01-27-2022 Hospital Discharg e instructions Patient [...] loosen secretions in the nose and lungs. Aofc-njn-ycitcum cold medicines will not shorten the length of time you re sick, but they may be helpful for the following symptoms: cough, sore throat, and nasal and sinus congestion. If you take prescription medicines, ask your healthcare provider or pharmacist which higg-ehb-ldiumny medicines are safe to use. (Note: Don't [...] it goes along with a muffled voice [phone] [employer]. [address] [place] [address]. All rights reserved. This information is not intended as a substitute for professional medical care. Always follow your healthcare professional's instructions. Follow Up Care 01/27/2022 10:46:34 With:JULIENNE FAJARDO Address: [address] [place] [address] [place] [address]- [phone] When:Within 1 Week(s) Comments:Follow-up as needed if your symptoms or not improving.Push fluids, vaporizer at bedside.Use Tylenol, Advil or Aleve for fever and discomfort as needed.Continue mqhb-hwq-hcwoqxc decongestants for symptomatic relief.Use antibiotic (Z-Lisa) as prescribed.Return to the ED if symptoms worsen. [facility] 01-27-2022 Note Discharge Instructions Thank you for allowing [facility] to assist you with your healthcare needs. [...] for fever and discomfort as needed. Continue hxrb-ecc-lzrzmmd decongestants for symptomatic relief. Use antibiotic (Z-Lisa) as prescribed. Return to the ED if symptoms worsen. Where: [address] [facility] [place] [address]- [phone] Allergies Cashews (Difficulty swallowing) sulfamethoxazole (Rash) Medications [...] Pack, Zithromax, Zithromax IV, Zithromax TRI-LISA, Zithromax Z-Lias What is the most important information I [...] may report side effects to FDA at [phone]-KXI-[phone]. What other drugs will affect azithromycin? Tell your doctor about all your other medicines, especially: colchicine; digoxin; nelfinavir; phenytoin; an antacid that contains aluminum or magnesium--Acid Gone, Gaviscon, Gelusil, Maalox, Milk of Magnesia, Mylanta, Pepcid Complete, Rolaids, Rulox, and others; or a blood thinner--warfarin, Coumadin, Jantoven. This list is not complete. Other drugs may affect azithromycin, including prescription and llhl-eza-vrbtods medicines, vitamins, and herbal products. Not all [...] to ensure that the information provided by [employer]. ('[employer]') is accurate, up-to-date, and complete, but no guarantee is made to that effect. Drug information contained herein may be time sensitive. [employer] information has been compiled for use by healthcare practitioners and consumers in the [place] and therefore [employer] does not warrant that uses outside of the [place] are appropriate, unless specifically indicated otherwise. [employer] drug information does not endorse drugs, diagnose patients or recommend therapy. [employer] drug information is an informational resource designed [...] effective or appropriate for any given patient. [employer] does not assume any responsibility for any aspect of healthcare administered with the aid of information [employer] provides. The information contained herein is not intended to cover all possible uses, directions, precautions, warnings, drug interactions, allergic reactions, or adverse effects. If you have questions about the drugs you are taking, check with your doctor, nurse or pharmacist. Copyright 3617-4401 [employer]. Version: 18.01. Revision Date: 09/23/2018. Education Materials [...] loosen secretions in the nose and lungs. Fvef-zys-rbjgypj cold medicines will not shorten the length of time you re sick, but they may be helpful for the following symptoms: cough, sore throat, and nasal and sinus congestion. If you take prescription medicines, ask your healthcare provider or pharmacist which lzxz-yqi-tvonbvg medicines are safe to use. (Note: Don't [...] it goes along with a muffled voice [phone] [employer]. [address] [place] [address]. All rights reserved. This information is not intended as a substitute for professional medical care. Always follow your healthcare professional's instructions. Additional Information VACCINATE! IT SAVES LIVES! Members of the community who have not yet received the COVID-19 vaccine and would like to receive it can visit one of [facility] vaccine clinics. There are many vaccine clinic locations within the [facility]. For locations and available times, please visit [email or web address]. org. It is important to note that some COVID mobile vaccine clinics are held outdoors and may be canceled in rainy or stormy conditions. To learn more about pediatric vaccinations (ages 5-11), we invite you to visit the [facility] webpage. https://www.[email or web address].org/p ages/0059-Mxbrx-Wwptqlryskm-Freq eswqla-Utlta-Vgvcrqcrg.html To learn more about the COVID-19 vaccine, we invite you to visit the [facility] website for a list of frequently asked questions. [email or web address] leq-[email or web address]/hotnq-[email or web address]-Q requently_[email or web address]-Questions.pdf [facility] Patient Portal Access Instructions: Stay connected with your healthcare team and access your personal medical information anytime with the [facility] Patient Portal. If you would like a full copy of your medical records please contact the [facility] Medical Records Department Thursday through Thursday between 8a.m. and 4:30p.m. Please follow the directions below to access the portal: 1.Access the email account you provided upon registration to the [facility].2.Look for an invitation email from [facility].3.Open the email and access the invitation link: Accept Invitation to [facility]4.Fill in the required zapien to create your [...] you will allow to register on the [facility] Patient Portal for access to your information. You can also access the [facility] Patient Portal on the Yoics. Simply click on Health Records under Health [...] Call your local pharmacy or go to [email or web address] to find one close to you.3.Make use of household items: Use cat litter or old coffee grounds to dispose medications if other options are not available. Mix your drugs with these household products, seal them in an airtight container and throw it into the garbage. Call [facility]: [phone] to be sure your drugs can be [...] aware that I should contact my doctor. Patient/Choke Reamer Signature: Date/Time: Relationship to Patient: Witness Name/Signature: Date/Time: [facility] 01-14-2022 Miscellaneous Notes Outpatient CMR for Wednesday 01/17. Order in scanned documents. documented in this encounter [facility] Evaluation + Plan note Future Appointments Appointment Date:08/05/2021 03:30:00 PM Scheduled Provider:LINDSAY AYALA MD Location:[facility] Appointment Type:CARMEN ROLLING CHAIR PUSHER Appointment Date:08/13/2021 03:30:00 PM Scheduled Provider:TARAH BHATT MD Location: [facility] Appointment Type:WH OV Appointment Date:12/24/2021 10:00:00 AM Scheduled Provider:JULIENNE FAJARDO Location:[facility] Appointment Type:PC OV Appointment Date:04/28/2022 03:30:00 PM Scheduled Provider:KANDY HERRERA Location:[facility] [place] Appointment Type:CV OV Future Scheduled TestsPathology Boilermaker Central Steam Plant Request 02/14/21 [facility] Evaluation + Plan note Future Appointments Appointment Date:12/24/2021 10:00:00 AM Scheduled Provider:JULIENNE FAJARDO Location:[facility] [place] Appointment Type:PC OV Appointment Date:04/28/2022 03:30:00 PM Scheduled Provider:KANDY HERRERA Location:[facility] [place] Appointment Type:CV OV Future Scheduled TestsPathology Boilermaker Central Steam Plant Request 02/14/21 [facility] Evaluation + Plan note Future Appointments Appointment Date:04/28/2022 03:30:00 PM Scheduled Provider:KANDY HERRERA Location:[facility] [place] Appointment Type:CV OV Appointment Date:07/24/2022 03:30:00 PM Scheduled Provider:JULIENNE FAJARDO Location:[facility] Appointment Type:PC OV Future Scheduled TestsPathology Boilermaker Central Steam Plant Request 02/14/21 [facility] Evaluation + Plan note Future Appointments Appointment Date:11/03/2022 09:30:00 AM Scheduled Provider: Location:[facility] Appointment Type:CT Knee w/o Contrast Right Appointment Date:11/11/2022 09:00:00 AM Scheduled Provider:ABEBA MIDDLETON Location:[facility] Appointment Type:PC OV Pre Op Appointment Date:12/04/2022 09:00:00 AM Scheduled Provider:JULIENNE FAJARDO Location:[facility] Appointment Type:PC Wellness Annual Future Scheduled TestsComplete Blood Count 11/29/22Lipid Profile 11/29/22Complete Metabolic Panel 11/29/22[facility] Mammo Screening Bilateral w/ Herberth 10/14/22MA Mammo Screening Bilateral w/ Herberth 09/19/22CT Knee w/o Contrast Right 11/03/22 [facility] Evaluation + Plan note Future Appointments Appointment Date:11/03/2022 09:30:00 AM Scheduled Provider: Location:[facility] Appointment Type:CT Knee w/o Contrast Right Appointment Date:11/11/2022 09:00:00 AM Scheduled Provider:ABEBA MIDDLETON Location:[facility] [place] Appointment Type:PC OV Pre Op Appointment Date:12/04/2022 09:00:00 AM Scheduled Provider:JULIENNE FAJARDO Location:[facility] [place] Appointment Type:PC Wellness Annual Future Scheduled TestsComplete Blood Count 11/29/22Lipid Profile 11/29/22Complete Metabolic Panel 11/29/22MA Mammo Screening Bilateral w/ Herberth 09/19/22CT Knee w/o Contrast Right 11/03/22 [facility] Evaluation + Plan note Future Appointments Appointment Date:12/04/2022 09:00:00 AM Scheduled Provider:JULIENNE FAJARDO Location:[facility] [place] Appointment Type:PC Wellness Annual Future Scheduled TestsMA Mammo Screening Bilateral w/ Herberth 09/19/22 [facility] Evaluation + Plan note Future Appointments Appointment Date:07/01/2023 03:30:00 PM Scheduled Provider:JULIENNE FAJARDO Location:[facility] [place] Appointment Type:PC OV Future Scheduled TestsMA Mammo Screening Bilateral w/ Herberth 09/19/22 [facility] Hospital course Narrative No data available for this section [facility] Hospital Discharge instructions No data available for this section [facility] Progress note No data available for this section [facility] Referral ID Status Reason Start Date Expiration Date Visits Re quested Visits Authorized [id number] Closed 01/08/2022 02/22/2022 1 1 [facility] Summary Purpose Family History No Family [...] DATE CREATED AUTHOR AUTHOR'S ORGANIZ ATION 01/24/2022 [facility] DATE CREATED AUTHOR AUTHOR'S ORGANIZ ATION 06/11/2023 [facility] ([place]) Care Team (unrecognized sect ion and content) Personnel Name: JULIENNE FAJARDO Address: [address] [place] [address]- Care Team Personnel Name: JULIENNE FAJARDO Position: P4 Advanced Button Puncher Member Role: Primary Care Physician Address: Address: [address] [place] [address]- Name: KANDY HERRERA Position: P4 Advanced Button Puncher Member Role: Radiation Oncology Manager Address: Address: [address] [place] [address] [address] [facility] [place] [address]- Name: DO HEIDI JACKMAN DO Position: P3 Physician - Orthopedics Member Role: Orthopaedist Address: Address: [address] [place] [address] [address] [place] [address] [place] Name: TARAH BHATT MD Position: P4 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 Provider Member Role: OBGYN Address: Address: [address] [facility] [address] [facility] [place] [address]- [place] Name: COSTA MCBRIDE APRN-DROP HAMMER PILE DRIVER OPERATOR Member Role: Audit Machine Operator Address: Address: [address] [facility] [address] [place] [address] [place] Name: LAMINE SANDOVAL MD Member Role: Psychiatrist Address: Address: [address] [facility] [address] [place] [address]- [place] Care Team Related Persons Name: ELOISA ELIZABETH Address: Home [address] [place], [place] [id number] [place] Name: LOYDA SIFUENTES Name: RADHA MARSHALL Name: HEIDI JO Name: HEIDI JO Care Team Personnel Name: JULIENNE FAJARDO Position: P4 Advanced Button Puncher Member Role: Primary Care Physician Address: Address: [address] [place] [address]- Name: KANDY HERRERA APRN-DROP HAMMER PILE DRIVER OPERATOR Position: P4 Advanced Button Puncher Member Role: Radiation Oncology Manager Address: Address: [address] [place] [address] [address] [place] [address]- [place] Name: DO HEIDI JACKMAN DO Position: P3 Physician - Orthopedics Member Role: Orthopaedist Address: Address: [address] [place] [address] [address] [place] [address] [place] Name: TARAH BHATT MD Position: P4 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 Provider Member Role: OBGYN Address: Address: [address] [place] [address] [address] [facility] [place] [address]- Name: COSTA MCBRIDE APRN-DROP HAMMER PILE DRIVER OPERATOR Member Role: Audit Machine Operator Address: Address: [address] [facility] [address] [place] [address] [place] Name: LAMINE SANDOVAL MD Member Role: Psychiatrist Address: Address: [address] [facility] [address] [place] [address] [place] Care Team Related Persons Name: ELOISA ELIZABETH Address: Home [address] [place], [place] [phone] [place] Name: LOYDA SIFUENTES Name: RADHA MARSHALL Name: HEIDI JO Name: HEIDI JO Care Team Personnel Name: JULIENNE FAJARDO Position: P4 Advanced Button Puncher Member Role: Primary Care Physician Address: Address: [address] [place] [address]- [place] Name: KANDY HERRERA APRN-DROP HAMMER PILE DRIVER OPERATOR Position: P4 Advanced Button Puncher Member Role: Radiation Oncology Manager Address: Address: [address] [place] [address] [address] [place] [address]- [place] Name: DO HEIDI JACKMAN DO Position: P3 Physician - Orthopedics Member Role: Orthopaedist Address: Address: [address] [place] [address] [address] [place] [address] [place] Name: TARAH BHATT MD Position: P4 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 Provider Member Role: OBGYN Address: Address: [address] [place] [address]- Name: COSTA MCBRIDE APRN-DROP HAMMER PILE DRIVER OPERATOR Member Role: Audit Machine Operator Address: Address: [address] [facility] [address] [place] [address] [place] Name: LAMINE SANDOVAL MD Member Role: Psychiatrist Address: Address: [address] [facility] [address] [place] [address]- Care Team Related Persons Name: ALLY ELIZABETH Name: ELOISA ELIZABETH Address: Home [address] [place], [place] [phone] [place] Name: JAGDEEP LOYDA Name: RADHA MARSHALL Name: HEIDI JO Care Team Personnel Name: JULIENNE FAJARDO BREWERY REPRESENTATIVE-DROP HAMMER PILE DRIVER OPERATOR Position: P4 Advanced Button Puncher Member Role: Primary Care Physician Address: Address: [address] [place] [address]- Name: KANDY HERRERA BREWERY REPRESENTATIVE-DROP HAMMER PILE DRIVER OPERATOR Position: P4 Advanced Button Puncher Member Role: Radiation Oncology Manager Address: Address: [address] [place] [address] [address] [facility] [place] [address]- Name: DO HEIDI JACKMAN DO Position: P3 Physician - Orthopedics Member Role: Orthopaedist Address: Address: [address] [place] [address] [address] [place] [address] [place] Name: TARAH BHATT MD Position: P4 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 Provider Member Role: OBGYN Address: Address: [address] [place] [address] [address] [place] [address]- Name: COSTA MCBRIDE APRN-DROP HAMMER PILE DRIVER OPERATOR Member Role: Audit Machine Operator Address: Address: [address] [facility] [address] [place] [address] [place] Name: LAMINE SANDOVAL MD Member Role: Psychiatrist Address: Address: [address] [facility] [address] [place] [address]- Care Team Related Persons Name: ALLY ELIZABETH Name: ELOISA ELIZABETH Address: Home [address] [place], [place] [phone] [place] Name: LOYDA SIFUENTES Name: RADHA MARSHALL Name: HEIDI JO Care Team Personnel Name: JULIENNE FAJARDO Position: P4 Advanced Button Puncher Member Role: Primary Care Physician Address: Address: [address] [place] [address]- Name: KANDY HERERRA APRN-DROP HAMMER PILE DRIVER OPERATOR Position: P4 Advanced Button Puncher Member Role: Radiation Oncology Manager Address: Address: [address] [place] [address] [address] [place] [address]- [place] Name: DO HEIDI JACKMAN DO Position: P3 Physician - Orthopedics Member Role: Orthopaedist Address: Address: [address] [place] [address] [address] [place] [address] [place] Name: TARAH BHATT MD Position: P4 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 Provider Member Role: OBGYN Address: Address: [address] [place] [address] [address] [facility] [place] [address]- Name: COSTA MCBRIDE APRN-DROP HAMMER PILE DRIVER OPERATOR Member Role: Audit Machine Operator Address: Address: [address] [facility] [address] [place] [address] [place] Name: LAMINE SANDOVAL MD Member Role: Psychiatrist Address: Address: [address] [facility] [address] [place] [address]- [place] Care Team Related Persons Name: ALLY ELIZABETH Name: ELOISA ELIZABETH Address: Home [address] [place], [place] [phone] [place] Name: LOYDA SIFUENTES Name: RADHA MARSHALL Name: HEIDI JO Care Team Personnel Name: JULIENNE FAJARDO Position: P4 Advanced Button Puncher Member Role: Primary Care Physician Address: Address: [address] [place] [address]- [place] Name: KANDY HERRERA APRN-DROP HAMMER PILE DRIVER OPERATOR Position: P4 Advanced Button Puncher Member Role: Radiation Oncology Manager Address: Address: [address] [place] [address] [address] [place] [address]- [place] Name: DO HEIDI JACKMAN DO Position: P3 Physician - Orthopedics Member Role: Orthopaedist Address: Address: [facility] [address] [place] [address] [place] Name: TARAH BHATT MD Position: P4 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 Provider Member Role: OBGYN Address: Address: [address] [place] [address]- Name: COSTA MCBRIDE APRN-DROP HAMMER PILE DRIVER OPERATOR Member Role: Audit Machine Operator Address: Address: [address] [facility] [address] [place] [address] [place] Name: LAMINE SANDOVAL MD Member Role: Psychiatrist Address: Address: [address] [address]- Care Team Related Persons Name: ALLY ELIZABETH Name: ELOISA ELIZABETH Address: [address] [place], [place] [id number] [place] Name: RADHA MARSHALL Care Team Personnel Name: JULIENNE FAJARDO BREWERY REPRESENTATIVE-DROP HAMMER PILE DRIVER OPERATOR Position: P4 Advanced Button Puncher Member Role: Primary Care Physician Address: Address: [address] [place] [address] [place] [address]- Name: KANDY HERRERA BREWERY REPRESENTATIVE-DROP HAMMER PILE DRIVER OPERATOR Position: P4 Advanced Button Puncher Member Role: Radiation Oncology Manager Address: Address: [address] [place] [address] [address] [facility] [place] [address]- Name: DO HEIDI JACKMAN DO Position: P3 Physician - Orthopedics Member Role: Orthopaedist Address: Address: [address] [place] [address] [address] [place] [address] [place] Name: TARAH BHATT MD Position: P4 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 Provider Member Role: OBGYN Address: Address: [address] [place] [address]- Name: COSTA MCBRIDE APRN-DROP HAMMER PILE DRIVER OPERATOR Member Role: Audit Machine Operator Address: Address: [facility] [address] [place] [address] [place] Name: LAMINE SANDOVAL MD Member Role: Psychiatrist Address: Address: [address] [facility] [address] [place] [address]- Care Team Related Persons Name: ALLY ELIZABETH Name: ELOISA ELIZABETH Address: Home [address] [place], [place] [id number] [place] Name: RADHA MARSHALL Care Team Personnel Name: JULIENNE FAJARDO Position: P4 Advanced Button Puncher Member Role: Primary Care Physician Address: Address: [address] [place] [address]- Name: KANDY HERRERA Position: P4 Advanced Button Puncher Member Role: Radiation Oncology Manager Address: Address: [address] [place] [address] [address] [place] [address]- [place] Name: DO HEIDI JACKMAN DO Position: P3 Physician - Orthopedics Member Role: Orthopaedist Address: Address: [address] [place] [address] [address] [place] [address] [place] Name: TARAH BHATT MD Position: P4 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 Provider Member Role: OBGYN Address: Address: 0 [facility] [address] [place] [address]- [place] Name: COSTA MCBRIDEDROP HAMMER PILE DRIVER OPERATOR Member Role: Audit Machine Operator Address: Address: [address] [facility] [address] [place] [address] [place] Name: LAMINE SANDOVAL MD Member Role: Psychiatrist Address: Address: [address] [facility] [address] [place] [address] [place] Care Team Related Persons Name: ALLY ELIZABETH Name: ELOISA ELIZABETH Address: Home [address] [place], [place] [phone] [place] Name: RADHA MARSHALL Care Team (unrecognized sect ion and content) Care Team Personnel Name: JULIENNE FAJARDO Position: P4 Advanced Practice Nurse Med Service: Active Provider Member Role: Primary Care Physician Address: Address: [address] [place] [address] [place] Name: KANDY HERRERA Position: P4 Advanced Practice Nurse Med Service: Active Provider Member Role: Radiation Oncology Manager Address: Address: [address] [place] [address] [address] [place] [address]- [place] Name: DO HEIDI JACKMAN DO Position: P3 Physician - Orthopedics Med Service: Admitting Member Role: Orthopaedist Address: Address: [address] [place] [address] [address] [place] [phone] [place] Name: TARAH BHATT MD Position: P4 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 Provider Med Service: Active Provider Member Role: OBGYN Address: Address: [address] [place] [address] [address] [place] [address]- Name: LAMINE SANDOVAL MD Med Service: Psychiatry Member Role: Psychiatrist Address: Address: [address] [place] [address] [address] [place] [phone]- Care Team Related Persons Name: ELOISA ELIZABETH Address: Home [address] [place], [place] [phone] [place] Name: LOYDA SIFUENTES Name: RADHA MARSHALL Name: HEIDI JO Name: HEIDI JO Care Team Personnel Name: JULIENNE FAJARDO APRN-DROP HAMMER PILE DRIVER OPERATOR Position: P4 Advanced Practice Nurse Member Role: Primary Care Physician Address: Address: [address] [place] [address]- Name: KANDY HERRERA BREWERY REPRESENTATIVE-DROP HAMMER PILE DRIVER OPERATOR Position: P4 Advanced Practice Nurse Address: Address: [address] [place] [address] [address] [facility] [place] [address]- [place] Name: DO HEIDI JACKMAN DO Position: P3 Physician - Orthopedics Address: Address: [address] [place] [address] [address] [place] [address] [place] Name: TARAH BHATT MD Position: P4 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 Provider Address: Address: [address] [place] [address]- Name: LAMINE SANDOVAL MD Address: Address: [address] [place] [address]- [place] Name: GUERRERO KIM MD Position: ED Physician Member Role: ED Physician Address: Address: [facility] [address] [place] [address]- [place] Name: JELANI Wolff Position: AO RN Member Role: ED RN Care Team Related Persons Name: ELOISA ELIZABETH Address: Home [address] [place], [place] [id number] [place] Name: LOYDA SIFUENTES Name: RADHA MARSHALL Name: HEIDI JO Name: HEIDI JO Source Comments (unrecognize d section and content) In the event this informatio n is protected by the Federal Confidentiality of Alcohol and Drug Abuse Patient Records regulations: The Federal rules restrict any use of the information to criminally investigate or prosecute any alcohol or drug abuse patient.[facility] the event this information is protected by the Federal Confidentiality of Alcohol and Drug Abuse Patient Records regulations: The Federal rules restrict any use of the information to criminally investigate or prosecute any alcohol or drug abuse patient.[facility] Reason for Visit (unrecogniz ed section [...] BE BASED ON THE PRIMARY CLINICAL RECORDS. [facility]. provides no warranty or guarantee of the accuracy or completeness of information in this document.
== END | disposition home or self-care (01) ==
PROVIDERS: PCP Nurse Practitioner Primary Care; Referring Provider Otolaryngology; Visit Provider Otolaryngology
DX: J32.9 Chronic sinusitis, unspecified (principal)
CPT/HCPCS: 70486

== ENCOUNTER → 2024-03-17 | Outpatient (CLI) | payer OTHER, SELFPAY ==
[2024-03-17 12:19] LABS: Absolute Neutrophil Count 5.1 X10^3/uL (2.0-7.7); Basophil# 0.03 X10^3/uL; Basophil% 0.4 % (0-1); Eosinophil# 0.21 X10^3/uL; Eosinophils% 2.6 % (0-5); Hematocrit 43.1 % (37-47); Lymphocyte % 26.1 % (19-41); Mean Corp Hgb Conc 32.5 g/dL (32-36); Mean Corpuscular Hgb 30.5 pg (27.0-32.0); Mean Corpuscular Volume 93.9 fL (81-99); Mean Platelet Vol. 10.4 fl (6.2-12.0); Monocyte# 0.55 X10^3/uL; Monocyte% 6.8 % (0-10); NRBC Flagged by Analyzer 0 % (0-5); Neutrophil # 5.14 X10^3/uL (2.7-7.7); Neutrophil % 63.7 % (47-70); Platelet Count 254 K/mm3 (150-450); RBC Distribution Width CV 12.8 % (11.6-14.6); Red Blood Count 4.59 M/mm3 (4.2-5.4); White Blood Count 8.1 K/mm3 (4.4-11.0)
--- OUTSIDE RECORDS SUMMARY | 2024-03-17 13:32 | XMS RPT_ITS | CCD ---
Author Organization [facility] ion [facility] Care Team Providers Care Public Health Clinical Nurse Specialist Name Role Phone DEVANTEDMITRI AKANKSHA TiffanieAmy Unavailable Unavailable TAYLA MEHTA Unavailable Unavailable TAYLA MEHTA Unavailable Unavailable SCOTTY MEEKS, JULIENNE Primary Care Physician [phone] Unavailable Primary Care Provider Unavailabl e DANIATES MICROBIOLOGY DIRECTOR-MANAGER MARKET DEVELOPMENT, JULIENNE Attending Unavailabl e BALTES MICROBIOLOGY DIRECTOR-MANAGER MARKET DEVELOPMENT, JULIENNE Primary Care Unavailabl e BALTES MICROBIOLOGY DIRECTOR-MANAGER MARKET DEVELOPMENT, JULIENNE Primary Care Unavailabl e FELIPA DONAHUE PA-C Attending Unavailab le BALTES MICROBIOLOGY DIRECTOR-MANAGER MARKET DEVELOPMENT, [place] Primary Care Unavailabl e PROVIDER, UNKNOWN Attending Unavailable BALTES MICROBIOLOGY DIRECTOR-MANAGER MARKET DEVELOPMENT, JULIENNE Primary Care Unavailabl e PROVIDER, UNKNOWN Attending Unavailable PROVIDER, UNKNOWN Attending Unavailable BALTES MICROBIOLOGY DIRECTOR-MANAGER MARKET DEVELOPMENT, JULIENNE Primary Care Unavailabl e BALTES MICROBIOLOGY DIRECTOR-MANAGER MARKET DEVELOPMENT, [place] Primary Care Unavailabl e MEL AUSTIN, DR RAY Reyes Attending Anita villa PROVIDER, UNKNOWN Attending Unavailable SCOTTY LITTLEN-MANAGER MARKET DEVELOPMENT, JULIENNE Primary Care Unavailabl e PROVIDER, UNKNOWN Attending Unavailable BALTES MICROBIOLOGY DIRECTOR-MANAGER MARKET DEVELOPMENT, JULIENNE Primary Care Unavailabl e SOTO MICROBIOLOGY DIRECTOR-MANAGER MARKET DEVELOPMENT, LISA Attending Unavail able DANIATES MICROBIOLOGY DIRECTOR-MANAGER MARKET DEVELOPMENT, JULIENNE Primary Care Unavailabl e Allergies Allergy Classification Reported Allergen(s) Allergy Type Date of Onset Reaction(s) Facility (16 sources) Cashew nut Food allergy Difficulty swallowing [facility] Work Phone: (16 sources) Sulfamethoxazole ; Translations: [sulfamethoxazol e] Drug Allergy Rash [facility] Work Phone: Medications Current Medications Medication Drug Class(es) Dates Sig (Normalized) Sig (Original) albuterol 0.83 mg/ml inhalation solution (20 sources) beta2-Adrenergic Agonist Start: 04-28-2023 take 1 capsule by inhalation every six hours as needed albuterol 2.5 mg/3 mL (0.083%) inhalation solution Dose : 2.5 mg = 3 mL, Inhalation, q6h, PRN as needed for wheezing, # 60 EA, 0 Refill(s), Pharmacy: [id number], Wheezing CAP (community acquired pneumonia), 166, cm, 04/10/23 15:01:00 EST, Height, kg, 04/10/23 15:01:00 EST, Dosing Weight Start Date: 04/28/23 Status: Ordered Start: 04-06-2023 take 2 puff(s) by in halation four times daily as needed for wheezing ProAir HFA MDI (90 mcg/inh) inhalation aerosol 2 puff(s), Inhalation, QID, PRN as needed for wheezing, EA=8.5 gr unit, # 3 EA, 3 Refill(s), Pharmacy: [facility], Cough Shortness of breath, 166, cm, 04/06/23 8:01:00 EST, Height, kg, 04/06/23 8:01:00 EST, Dosing Weight Start Date: 04/06/23 Status: Ordered Start: 02-04-2022 take 2 puff(s) by in halation four times daily as needed for wheezing ProAir HFA MDI (90 mcg/inh) inhalation aerosol 2 puff(s), Inhalation, QID, PRN as needed for wheezing, EA=8.5 gr unit, # 3 EA, 3 Refill(s), Pharmacy: [facility], Cough Shortness of breath, 167, cm, 01/27/22 11:05:00 EDT, Height, kg, 01/27/22 11:05:00 EDT, Dosing Weight Start Date: 02/04/22 Status: Ordered Start: 01-16-2021 take 2 puff(s) by in halation four times daily as needed for wheezing ProAir HFA MDI (90 mcg/inh) inhalation aerosol 2 puff(s), Inhalation, QID, PRN as needed for wheezing, EA=8.5 gr unit, # 3 EA, 3 Refill(s), Pharmacy: [facility], Cough Shortness of breath, 166.37, cm, 12/20/20 14:03:00 EDT, Height, kg, 12/20/20 14:03:00 EDT, Dosing Weight Start Date: 01/16/21 Status: Ordered Start: 01-16-2021 take 2 puff(s) by in halation four times daily as needed for wheezing ProAir HFA MDI (90 mcg/inh) inhalation aerosol 2 puff(s), Inhalation, QID, PRN as needed for wheezing, EA=8.5 gr unit, # 3 EA, 3 Refill(s), Pharmacy: [facility], Cough Shortness of breath, 166.37, cm, 12/20/20 14:03:00 EDT, Height, kg, 12/20/20 14:03:00 EDT, Dosing Weight Start Date: 01/16/21 Status: Ordered aspirin 81 mg delayed release oral tablet (16 sources) Platelet Aggregation Inhibitor, Nonsteroidal Anti-inflammatory Drug Start: 12-06-2020 aspirin 81 mg ora l delayed release tablet Dose : 81 mg = 1 tab(s), Oral, qDay, 0 Refill(s) Start Date: 12/06/20 Status: Ordered Start: 12-06-2020 aspirin 81 mg oral delayed release tablet Dose : 81 mg = 1 tab(s), Oral, qDay, 0 Refill(s) Start Date: 12/06/20 Status: Ordered azithromycin 250 mg oral tablet (2 sources) Macrolide Antimicrobial Start: 04-06-2023 End: 04-11-2023 Zithromax Z-Lisa 250 mg oral tablet Take two (2) tablets day 1-then one (1) tablet, Oral, Daily, X 5 day(s), # 6 tab(s), 0 Refill(s), 04/11/23 6:47:00 PM EST, Pharmacy: [facility]/pharmacy #[id number], Community acquired pneumonia, 166, cm, 04/06/23 8:01:00 EST, Height, 106.6, kg, 04/06/23 8:01:00 EST, Dosing Weight Start Date: 04/06/23 Stop Date: 04/11/23 Status: Ordered Start: 01-27-2022 End: 02-01-2022 Zithromax 250 mg oral tablet Dose : 250 mg = 1 tab(s), Oral, qDay, follow directions on Z-Lisa, X 5 day(s), # 6 tab(s), 0 Refill(s), 02/01/22 11:05:00 EDT, 98.4 Start Date: 01/27/22 Stop Date: 02/01/22 Status: Ordered benzonatate 100 mg oral capsule (1 source) Non-narcotic Antitussive Start: 04-12-2023 End: 04-17-2023 Tessalon Perles 100 mg oral capsule Dose : 200 mg = 2 cap(s), Oral, TID, PRN as needed for cough, X 5 day(s), # 30 cap(s), 0 Refill(s), 04/17/23 6:41:00 AM EST Start Date: 04/12/23 Stop Date: 04/17/23 Status: Ordered Chondroitin Sulfates / Glucosamine (4 sources) Start: 07-17-2021 take 1 tablet by mouth once daily Glucosamine Chondroitin 1 tab, Oral, qDay, 0 Refill(s) Start Date: 07/17/21 Status: Ordered dextromethorphan hydrobromide 3 mg/ml / promethazine hydrochloride 1.25 mg/ml oral solution (1 source) Phenothiazine, Uncompetitive E-mlzfgt-H-aspartat e Receptor Antagonist, Sigma-1 Agonist Start: 04-10-2023 End: 04-17-2023 take 1 dose by mouth every six hours as needed for cough dextromethorphan -promethazine 15 mg-6.25 mg/5 mL oral syrup Dose = 5 mL, Oral, q6h, PRN for cough, # 120 mL, 0 Refill(s), Pharmacy: [facility]/pharmacy #[id number], 166, cm, 04/10/23 15:01:00 EST, Height, kg, 04/10/23 15:01:00 EST, Dosing Weight Start Date: 04/10/23 Stop Date: 04/17/23 Status: Ordered doxycycline hyclate 100 mg oral capsule (1 source) Tetracycline-class Drug Start: 04-10-2023 End: 04-20-2023 doxycycline hyclate 100 mg oral capsule Dose : 100 mg = 1 cap(s), Oral, q12h, X 10 day(s), # 20 cap(s), 0 Refill(s), 04/20/23 3:30:00 PM EST, Pharmacy: [facility]/pharmacy #[id number], 166, cm, 04/10/23 15:01:00 EST, Height, 106.6, kg, 04/10/23 15:01:00 EST, Dosing Weight Start Date: 04/10/23 Stop Date: 04/20/23 Status: Ordered imiquimod 50 mg/ml topical cream (2 sources) Start: 11-17-2023 imiquimod 5% topical cream APPLY TO AFFECTED AREA OF LABIA ON THU, THU, AND FRIDAYS AT NIGHT INTIL RESOLVED, WASH HANDS AFTER Start Date: 11/17/23 Status: Ordered Lopressor 25mg--USE metoprolol tartrate 25 mg oral tablet (3 sources) Start: 07-19-2021 Lopressor 25mg--USE metoprolol tartrate 25 mg oral tablet Dose : 25 mg = 1 tab(s), Oral, qDay, # 90 tab(s), 3 Refill(s), Pharmacy: [facility], 167.6, cm, 07/17/21 15:33:00 EST, Height, kg, 07/17/21 15:33:00 EST, Dosing Weight Start Date: 07/19/21 Status: Ordered loratadine 10 mg oral tablet (4 sources) Start: 08-14-2023 Claritin 10 mg oral tablet Dose : 10 mg = 1 tab(s), Oral, qDay Start Date: 08/14/23 Status: Ordered melatonin 10 mg oral tablet (5 sources) Start: 06-10-2023 take 2-3 tablets by mouth once daily at bedtime as needed melatonin 10 mg oral tablet 2-3 tab(s), Oral, qHS, PRN as needed for insomnia, 0 Refill(s) Start Date: 06/10/23 Status: Ordered methylPREDNISolone 4 mg oral tablet (1 source) Corticosteroid Start: 04-06-2023 End: 04-12-2023 Medrol Dosepak 4 mg oral tablet 1 packet(s), Oral, qDay, as directed on package labeling, X 6 day(s), # 21 tab(s), 0 Refill(s), 04/12/23 8:31:00 AM EST, [id number], Cough Shortness of breath, 166, cm, 04/06/23 8:01:00 EST, Height, kg, 04/06/23 8:01:00 EST, Dosing Weight Start Date: 04/06/23 Stop Date: 04/12/23 Status: Ordered 24 hr metoprolol succinate 25 mg extended release oral tablet (13 sources) beta-Adrenergic Wna Start: 10-14-2022 metoprolol succinate 25 mg oral TABLET extended release Dose : 50 mg = 2 tab(s), Oral, qDay, 0 Refill(s) Start Date: 10/14/22 Status: Ordered Start: 07-19-2021 Lopressor 25mg --USE metoprolol tartrate 25 mg oral tablet Dose : 25 mg = 1 tab(s), Oral, qDay, # 90 tab(s), 3 Refill(s), Pharmacy: [facility], 167.6, cm, 07/17/21 15:33:00 EST, Height, kg, 07/17/21 15:33:00 EST, Dosing Weight Start Date: 07/19/21 Status: Ordered metroNIDAZOLE 500 mg oral tablet (2 sources) Nitroimidazole Antimicrobial Start: 11-18-2023 End: 11-25-2023 metroNIDAZOLE 500 mg oral tablet Dose : 500 mg = 1 tab(s), Oral, q12h, X 7 day(s), # 14 tab(s), 0 Refill(s), 11/25/23 4:11:00 PM EDT, [id number], 166, cm, 11/17/23 11:11:00 EDT, Height, 102.5, kg, 11/17/23 11:11:00 EDT, Dosing Weight Start Date: 11/18/23 Stop Date: 11/25/23 Status: Ordered omeprazole 40 mg delayed release oral capsule (4 sources) Proton Pump Inhibitor Start: 08-14-2023 omeprazole 40 mg oral delayed release capsule Dose : 40 mg = 1 cap(s), Oral, qDay, 0 Refill(s) Start Date: 08/14/23 Status: Ordered One-A-Day Women oral tablet (16 sources) Start: 06-02-2019 take 1 tablet by mouth once daily One-A-Day Women oral tablet Dose = 1 tab(s), Oral, qDay, # 30 tab(s), 0 Refill(s) Start Date: 06/02/19 Status: Ordered predniSONE 10 mg oral tablet (1 source) Start: 04-10-2023 take 4 tablets by mouth once daily, then take 3 tablets by mouth once daily predniSONE 10 mg oral tablet See Instructions, Take 4 tabs (40mg) per day x 3 days; then take 3 tabs (30mg) per day x 3 days; then take 2 tabs (20mg) per day x 3 days; then take 10 mg (1 tab) per day x 1 days and stop, # 30 cap(s), 0 Refill(s), Pharmacy: [facility]/pharmacy #[id number], 166, cm, 04/10/23 15:01:00 EST, Height, kg, 04/10/23 15:01:00 EST, Dosing Weight Start Date: 04/10/23 Status: Ordered 24 hr tolterodine tartrate 4 mg extended release oral capsule (12 sources) Cholinergic Muscarinic Antagonist Start: 01-18-2023 tolterodine 4 mg oral capsule, extended release Dose : 4 mg = 1 cap(s), Oral, Daily, # 90 cap(s), 3 Refill(s), Pharmacy: [facility], Urge incontinence of urine, 165.1, cm, 11/28/22 9:33:00 EDT, Height, kg, 11/28/22 9:33:00 EDT, Dosing Weight Start Date: 01/18/23 Status: Ordered Start: 12-11-2021 tolterodine 4 mg oral capsule, extended release Dose : 4 mg = 1 cap(s), Oral, Daily, # 90 cap(s), 3 Refill(s), Pharmacy: [facility], Urge incontinence of urine, 167, cm, 08/20/21 10:05:00 EDT, Height, kg, 08/20/21 10:05:00 EDT, Dosing Weight Start Date: 12/11/21 Status: Ordered Start: 12-20-2020 tolterodine 4 mg oral capsule, extended release Dose : 4 mg = 1 cap(s), Oral, Daily, # 90 cap(s), 3 Refill(s), [facility], Urge incontinence of urine, 166.37, cm, 12/20/20 14:03:00 EDT, Height, kg, 12/20/20 14:03:00 EDT, Dosing Weight Start Date: 12/20/20 Status: Ordered 24 hr venlafaxine 150 mg extended release oral capsule (16 sources) Serotonin and Norepinephrine Reuptake Inhibitor Start: 08-14-2023 venlafaxine 150 mg oral capsule, extended release Dose : 150 mg = 1 cap(s), Oral, BID, 0 Refill(s) Start Date: 08/14/23 Status: Ordered Start: 08-14-2020 venlafaxine 75 mg oral capsule, extended release Dose : 150 mg = 2 cap(s), Oral, qHS, 0 Refill(s) Start Date: 08/14/20 Status: Ordered Start: 08-14-2020 venlafaxine 75 mg oral capsule, extended release Dose : 150 mg = 2 cap(s), Oral, qHS, 0 Refill(s) Start Date: 08/14/20 Status: Ordered Completed/Discontinued Medications Medication Drug Class(es) Dates Sig (Normalized) Sig (Original) ALPRAZolam 1 mg oral tablet (16 sources) Benzodiazepine Start: 06-10-2023 ALPRAZolam 1 mg oral tablet Dose : 1 mg = 1 tab(s), Oral, qHS, 0 Refill(s), 107 Start Date: 06/10/23 Status: Ordered Start: 07-03-2020 ALPRAZolam 1 m g oral tablet Dose : 1 mg = 1 tab(s), Oral, qHS, PRN as needed for anxiety, 0 Refill(s), 106.4 Start Date: 07/03/20 Status: Ordered fluticasone propionate 0.05 mg/actuat metered dose nasal spray (5 sources) Corticosteroid Start: 05-08-2023 End: 06-07-2023 take 50 ug nasal route twice daily Flonase 50 mcg/inh nasal spray 50 mcg Dose = 1 spray(s), Nostril, each, BID, # 16 gram(s), 0 Refill(s), Pharmacy: [facility]/pharmacy #[id number], Allergic rhinitis, 166, cm, 04/29/23 15:43:00 EST, Height, kg, 05/08/23 12:59:00 EST, Dosing Weight Start Date: 05/08/23 Stop Date: 06/07/23 Status: Ordered valACYclovir 1000 mg oral tablet (2 sources) Herpesvirus Nucleoside Analog DNA Polymerase Inhibitor, Herpes Simplex Virus Nucleoside Analog DNA Polymerase Inhibitor, Herpes Zoster Virus Nucleoside Analog DNA Polymerase Inhibitor Start: 11-17-2023 End: 11-22-2023 Valtrex 1 g oral tablet Dose : 1 gram(s) = 1 tab(s), Oral, BID, X 5 day(s), # 10 tab(s), 0 Refill(s), 11/22/23 12:15:00 PM EDT, [id number], Well woman exam STD exposure, 166, cm, 11/17/23 11:11:00 EDT, Height, 102.5, kg, 11/17/23 11:11:00 EDT, Dosing Weight Start Date: 11/17/23 Stop Date: 11/22/23 Status: Ordered Problems Active Problems Problem Classification Problem Date Documented Date Episodic/Chronic Acute bronchitis (16 sources) Acute bronchiolitis 06-09-2019 Episodic Anxiety disorders (16 sources) Mixed anxiety and depressive disorder; Translations: [Anxiety] 06-08-2020 Chronic Asthma (16 sources) Allergic asthma 06-09-2019 Chronic Cancer of cervix (18 sources) Low grade squamous intraepithelial lesion on cervical Papanicolaou smear; Translations: [Low grade squamous intraepithelial lesion on cytologic smear of cervix (LGSIL)] Onset: 11-17-2023 07-31-2020 Episodic Cardiac and circulatory congenital anomalies (16 sources) Patent foramen ovale 10-29-2020 Chronic Cardiac dysrhythmias (16 sources) Ventricular premature beats 08-16-2020 Chronic Chronic obstructive pulmonary disease and bronchiectasis (5 sources) Bronchitis 04-29-2023 Episodic Esophageal disorders (16 sources) Gastroesophageal reflux disease 12-13-2019 Chronic Genitourinary symptoms and ill-defined conditions (16 sources) Urge incontinence of urine 12-13-2019 Chronic Immunizations and screening for infectious disease (3 sources) Exposure to sexually transmissible disorder; Translations: [Contact with and (suspected) exposure to infections with a predominantly sexual mode of transmission] Onset: 12-01-2023 Episodic Inflammatory diseases of female pelvic organs (2 sources) Acute vaginitis; Translations: [Acute vaginitis] Onset: 11-17-2023 Episodic Malaise and fatigue (14 sources) Fatigue 12-25-2021 Episodic Menopausal disorders (2 sources) Postmenopausal bleeding; Translations: [Postmenopausal bleeding] Onset: 02-01-2024 Chronic Mood disorders (10 sources) Recurrent major depression 11-11-2022 Chronic Osteoarthritis (10 sources) Osteoarthritis of right knee joint 11-11-2022 Chronic Other and ill-defined heart disease (16 sources) Atrial septal aneurysm 09-13-2020 Chronic Other lower respiratory disease (16 sources) Cough 06-09-2019 Episodic Other lower respiratory disease (16 sources) Dyspnea on exertion 06-09-2019 Episodic Other lower respiratory disease (16 sources) H/O: pneumonia 06-09-2019 Episodic Other lower respiratory disease (1 source) Hemoptysis; Translations: [Hemoptysis] Onset: 04-12-2023 Episodic Other screening for suspected conditions (not mental disorders or infectious disease) (2 sources) Abnormal findings on diagnostic imaging of other specified body structures; Translations: [Abnormal findings on diagnostic imaging of other specified body structures] Onset: 02-01-2024 Chronic Other screening for suspected conditions (not mental disorders or infectious disease) (2 sources) Encounter for other screening for malignant neoplasm of breast; Translations: [Encounter for other screening for malignant neoplasm of breast] Onset: 11-17-2023 Episodic Unclassified (1 source) Unknown / UNK(Unknown) Onset: 11-20-2016 Unclassified (20 sources) Patient encounter status 07-17-2021 Viral infection (2 sources) Herpesviral infection of urogenital system, unspecified; Translations: [Herpesviral infection of urogenital system, unspecified] Onset: 11-17-2023 Chronic Past or Other Problems Problem Classification Problem Date Documented Da te Episodic/Chronic Spondylosis; intervertebral disc disorders; other back problems (1 source) Backache Onset: 11-20-2016 Episodic Results Test Name Value Interpretation Reference Range Facility Final Surgical Pathology Rep cici 02-03-2024 Final Surgical Pathology Report . Pathology Reports Accession: Collected Date/Time: Received Date/Time: Pathologist: [id number] 02/01/2024 11:35 EDT 02/02/2024 09:42 EDT CALEB FRIAS MD Final Surgical Pathology Report DIAGNOSIS: ENDOMETRIUM, BIOPSY: - FRAGMENTS OF PROLIFERATIVE ENDOMETRIUM WITHOUT ATYPIA OR MALIGNANCY CLINICAL INFORMATION: THICKENED ENDOMETRIUM, PMB PROCEDURE: EMB PREOPERATIVE DIAGNOSIS: THICKENED ENDOMETRIUM, PMB POSTOPERATIVE DIAGNOSIS: THICKENED ENDOMETRIUM, PMB SPECIMEN: A ENDOMETRIAL GROSS DESCRIPTION: All parts labelled with patient name and [id number] Received in formalin labeled undesignated are multiple waite-pink and hemorrhagic tissue fragments aggregating 1.8 x 0.7 x 0.2 cm. TS-1 Glory Jennings, [employer]/ Dr. Caleb Frias, Pathologist Performed by Glory Jennings MICROSCOPIC DESCRIPTION: The microscopic examination is performed, except in the case of Gross Only. Electronically Signed by Pathology Report verified by [facility] CALEB FRIAS Sign out Date: 02/03/2024 13:22 Performing Lab: [facility], [address] [place] [address] Pathology Dept Disclaimer If ancillary studies were utilized, the following Laboratory Developed Test (LDT) disclaimer will apply: Under CLIA requirements, [facility] Pathology Laboratory is qualified to perform high complexity testing. For all ancillary stains, positive and negative controls stain appropriately. Performance characteristics of immunohistochemical and chromogenic in-situ hybridization tests have been determined by [facility] Pathology Laboratory. These tests are used for clinical purposes, They should not be regarded as investigational or for research. Normal [facility] [id number] 01-09-2024 HSV 1 IgG Type Spec 52.40 Index High 0.00-0.90 [facility]ly [facility] ([place]) Comment on above: Result Comment: Nega tive <0.91 Equivocal 0.91 - 1.09 Positive >1.09 Note: Negative indicates no antibodies detected to HSV-1. Equivocal may suggest early infection. If clinically appropriate, retest at later date. Positive indicates antibodies detected to HSV-1. Performed By: #### 1 [id number] #### [address] [address] HSV 2 IgG Type Spec <0.91 Normal 0.00-0.90 Formerly [facility] ([place]) Comment on above: Result Comment: Nega tive <0.91 Equivocal 0.91 - 1.09 Positive >1.09 HSV-2 Antibody Interpretation: Current guidelines and recommendations do not recommend routine screening for HSV-2 in asymptomatic individuals, including those that are . A negative antibody result indicates no detectable antibodies to HSV-2 were found. If recent exposure is suspected, retest in 4 to 6 weeks. Equivocal samples should be retested in 4 to 6 weeks. A positive result indicates the presence of detectable IgG antibody to HSV-2. FALSE POSITIVE RESULTS MAY OCCUR. Repeat testing, or testing by a different method, may be indicated in some settings (e.g. patients with low likelihood of HSV infection). If clinically appropriate, retest 4 to 6 weeks later. HSV-2 IgG antibody testing results should be clinically correlated. Performed At: [address] [id number] Frank Mendes PhD Ph:[phone] Performed By: #### 1 [id number] #### [address] 12-02-2023 C. trachomatis Interp Normal See CT Interp N [facility] ([place]) Comment on above: Result Comment: C. t rachomatis DNA not detected. Specimen is presumptive negative for C. trachomatis. A negative result does not preclude C. trachomatis infection because results depend on adequate specimen collection, absence of inhibitors, and sufficient DNA to be detected. See CT Interp N Performed By: #### M G, ESR, PBNP, GFR, ADIFF, PRO, ANEU, CMP, CRP, CBC #### [place] [address] C.trachomatis PCR Negative Normal Negative [facility] ([place]) Comment on above: Result Comment: Mole cular (PCR) assay performed on the Janiya Sofie 4800 system. Performed By: #### M G, ESR, PBNP, GFR, ADIFF, PRO, ANEU, CMP, CRP, CBC #### [place] [id number] Chlam Source Cervix Normal [facility] ([place]) Comment on above: Performed By: #### M G, ESR, PBNP, GFR, ADIFF, PRO, ANEU, CMP, CRP, CBC #### [address] [address] [id number] 12-02-2023 GC PCR Source Cervix Normal [facility] ([place]) Comment on above: Performed By: #### M G, ESR, PBNP, GFR, ADIFF, PRO, ANEU, CMP, CRP, CBC #### [address] [address] N. gonorrhoeae (PCR) Negative Normal Negative [facility] ([place]) Comment on above: Result Comment: Mole cular (PCR) assay performed on the Jan[employer] Sofie 4800 System. Performed By: #### M G, ESR, PBNP, GFR, ADIFF, PRO, ANEU, CMP, CRP, CBC #### [address] [address] N. gonorrhoeae Interp Normal See NG Interp N [facility] ([place]) Comment on above: Result Comment: N. g onorrhoeae DNA not detected. Specimen is presumptive negative for N. gonorrhoeae. A negative result does not preclude Neisseria gonorrhoeae infection because results depend on adequate specimen collection, absence of inhibitors, and sufficient DNA to be detected. See NG Interp N Performed By: #### M G, ESR, PBNP, GFR, ADIFF, PRO, ANEU, CMP, CRP, CBC #### [address] [address] LABORATORYOrdered By: Delphine Herbert on 12-01-2023 C. trachomatis DNA VALERIO+probe Ql (Unsp spec) Negative 2 (12/01/23 5:17 PM) Normal Negative [facility] Comment on above: Interpretive Data: M betseycular (PCR) assay performed on the Janiya Sofie 4800 system. C. trachomatis DNA VALERIO+probe Ql (Unsp spec) C. trachomatis DNA not detected. Specimen is presumptive negative forC. trachomatis.A negative result does not preclude C. trachomatis infection becauseresults depend on adequate specimen collection, absence of inhibitors,and sufficient DNA to be detected. Normal See CT Interp N AH Auto Viro/Sero SS N. gonorrhoeae DNA VALERIO+probe Ql (Unsp spec) Negative 1 (12/01/23 5:17 PM) Normal Negative AH [facility]Sero SS Comment on above: Interpretive Data: Romeo madison (PCR) assay performed on the Janiya Sofie 4800 System. N. gonorrhoeae DNA VALERIO+probe Ql (Unsp spec) N. gonorrhoeae DNA not detected. Specimen is presumptive negative forN. gonorrhoeae. A negative result does not preclude Neisseria gonorrhoeaeinfection because results depend on adequate specimen collection, absenceof inhibitors, and sufficient DNA to be detected. Normal See NG Interp N AH [facility] Laboratory - Specimen inform ationOrdered By: Delphine Herbert on 12-01-2023 Specimen source Nom (Unsp spec) Cervix (12/01/23 5:17 PM) Normal AH Auto Viro/Sero SS MA MAMMOGRAM SCREENING BILAT ERAL W/TOMOon 11-24-2023 MA MAMMOGRAM SCREENING BILATERAL W/[facility] ORIGINAL FROM: [place] [phone] PROCEDURE FOR: JAKE ELIZABETH [facility] [place] [address] Home: PID#: [id number] Exam#: [id number] : 1970 Age: 53 TO: TARAH BHATT MD [address] [facility] [address] [place] [address] Fax: NO FAX EXAMINATION: SCREENING DIGITAL BILATERAL MAMMOGRAM WITH TOMOSYNTHESIS, 11/24/2023 7:43 am TECHNIQUE: Screening mammography of the bilateral breasts was performed with tomosynthesis. 2D standard and 3D tomosynthesis combination imaging performed through both breasts in the MLO and CC projection. Computer aided detection was utilized in the interpretation of this exam. COMPARISON: Mammograms 10/23/2022, 07/25/2021, 07/06/2020, and 04/22/2019. HISTORY: Breast cancer screening FINDINGS: BREAST DENSITY: Scattered fibroglandular tissue There are no significant masses or calcifications. IMPRESSION: No mammographic evidence of malignancy. Continued screening with annual mammograms is recommended. Tyrer Cuzick risk calculations, generated with the history provided, report this patient's 10 year risk and lifetime risk for developing breast cancer at 2.3% and 9.3%, respectively. Based on this assessment tool, if the patient's calculated lifetime risk is below 20%, then the patient is considered at average risk for developing breast cancer. If the patient's calculated lifetime risk is at or above 20%, then the patient is considered high risk for developing breast cancer and may be a candidate for supplemental breast MRI screening in addition to annual mammographic screening per the [employer]. I have personally reviewed the images of this examination and agree with the resident's findings and interpretation. BIRADS: MAMMOGRAM BI-RADS: 1: Negative RECALL: 1 year screening RECALL TYPE: mammo LETTER SENT: Normal BI-RADS 1 and 2 Interpreted by: Yoly Weinstein Preliminary Report By: Mary Pearl Electronically signed By Yoly Weinstein Dictated Date: 11/24/2023 8:46:13 AM Prelim Date: 11/24/2023 4:13:29 PM Sign Date: 11/24/2023 4:13:29 PM Ordering Provider: TARAH BHATT copy to: JULIENNE FAJARDO APRN [employer]NAGER [employer], ph: [phone], fax: NO FAX Sand Mixer: JAIME SKINNER (R)(M) letter sent: Normal BI-RADS 1 and 2 Mammogram BI-RADS: 1 Negative Normal [facility] ([place]) US PELVIS NON-OB W/TRANSVAGI NALon 11-24-2023 US PELVIS NON-OB W/TRANSVAGINAL ORIGINAL EXAMINATION: TRANSVAGINAL PELVIC ULTRASOUND 11/24/2023 TECHNIQUE: Transvaginal pelvic ultrasound was performed. COMPARISON: None HISTORY: ORDERING SYSTEM PROVIDED HISTORY: Reason for Exam: irregular bleeding FINDINGS: Measurements: Uterus: 9.6 x 5.1 x 3.8 cm Endometrial stripe: 6.2 mm Right Ovary:2.7 x 2.4 x 1.5 cm Left Ovary: 3.1 x 3.2 x 1.7 cm Ultrasound Findings: Uterus: Uterus demonstrates normal myometrial echotexture. Endometrial stripe: Endometrial stripe is within normal limits. Right Ovary: Right ovary is within normal limits. Left Ovary: Left ovary is within normal limits. Free Fluid: No evidence of free fluid. IMPRESSION: Unremarkable pelvic ultrasound. Interpreted by: Nas Velasco DO Preliminary Report By: Nas Velasco DO Electronically signed By Nas Velasco DO Dictated Date: 11/24/2023 1:41:43 PM Prelim Date: 11/24/2023 1:51:37 PM Sign Date: 11/24/2023 1:51:37 PM Ordering Provider: TARAH Cruz [facility]) HSVABon 11-20-2023 HSV IgG 1 Qualitative Positive Abnormal Negative [facility]) Comment on above: Result Comment: Perf ormed By: [facility] [employer] [facility] [place] [address] Simulation Technician: Nathaniel Gaffney III, M.D. CLIA#: [id number] Performed By: #### M G, ESR, PBNP, GFR, ADIFF, PRO, ANEU, CMP, CRP, CBC #### [place] [id number] HSV IgG 2 Qualitative Negative Normal Negative [facility]) Comment on above: Result Comment: Perf ormed By: [facility] [employer] [facility] [place] [address] Simulation Technician: Nathaniel Gaffney III, M.D. CLIA#: [id number] Performed By: #### M G, ESR, PBNP, GFR, ADIFF, PRO, ANEU, CMP, CRP, CBC #### [address] [address] HSV IgM Qualitative Positive Abnormal Negative [facility]) Comment on above: Result Comment: Perf ormed By: [facility] [employer] [facility] [place] [address] Simulation Technician: Nathaniel Gaffney III, M.D. CLIA#: [id number] Performed By: #### M G, ESR, PBNP, GFR, ADIFF, PRO, ANEU, CMP, CRP, CBC #### [address] [address] HSV Serological Interpretation See Below Normal [facility] ([place]) Comment on above: Result Comment: In t he presence of typical herpes simplex lesion(s), these results suggest one of the following: recent primary HSV-1 or HSV-2 infection, or HSV-1 reinfection, or HSV-1 reactivation. False positive HSV IgM results are common. HSV PCR is strongly recommended, if feasible. Otherwise, repeat serology using both HSV-1 IgG and HSV-2 IgG after 4-6 weeks is recommended to look for HSV-2 IgG seroconversion. Performed By: [facility] [address] [place] [address] Simulation Technician: Nathaniel Gaffney III, M.D. CLIA#: [id number] Performed By: #### M G, ESR, PBNP, GFR, ADIFF, PRO, ANEU, CMP, CRP, CBC #### [place] [address] CTPCRon 11-19-2023 C. trachomatis Interp Normal [facility] ([place]) Comment on above: Result Comment: CTPC R assay was repeated on specimen. Unable to obtain a valid test result. This may be due to specimen integrity, improper collection technique or other unknown cause. Recommend repeat testing. See CT Interp I Performed By: #### M G, ESR, PBNP, GFR, ADIFF, PRO, ANEU, CMP, CRP, CBC #### [place] [address] C.trachomatis PCR Failed Normal Negative [facility] ([place]) Comment on above: Result Comment: Lydia rene (PCR) assay performed on the Janiya Sofie 4800 system. Performed By: #### M G, ESR, PBNP, GFR, ADIFF, PRO, ANEU, CMP, CRP, CBC #### [address] [address] [employer] [facility] ([place]) Comment on above: Performed By: #### M G, ESR, PBNP, GFR, ADIFF, PRO, ANEU, CMP, CRP, CBC #### [place] [address] [id number] 11-19-2023 GC PCR Source [employer] [facility] ([place]) Comment on above: Performed By: #### M G, ESR, PBNP, GFR, ADIFF, PRO, ANEU, CMP, CRP, CBC #### [address] [address] N. gonorrhoeae (PCR) Failed Normal Negative [facility] ([place]) Comment on above: Result Comment: Mole cular (PCR) assay performed on the Janiya Sofie 4800 System. Performed By: #### M G, ESR, PBNP, GFR, ADIFF, PRO, ANEU, CMP, CRP, CBC #### [place] [id number] [place], [place] [address] N. gonorrhoeae Interp Normal [facility] ([place]) Comment on above: Result Comment: NGPC R assay was repeated on specimen. Unable to obtain a valid test result. This may be due to specimen integrity, improper collection technique or other unknown cause. Recommend repeat testing. See NG Interp I Performed By: #### M G, ESR, PBNP, GFR, ADIFF, PRO, ANEU, CMP, CRP, CBC #### [address] [address] RPRon 11-19-2023 Reagin Ab RPR Ql (S) Non-Reactive Normal Non-Reactive [facility] ([place]) Comment on above: Result Comment: The RPR test is a non-treponemal assay useful as an aid in the diagnosis of primary and secondary syphilis. It converts to positive generally within 2 weeks after the appearance of a lesion. This test is also useful for monitoring response to antibiotic therapy. A positive RPR screening test will be followed by the FTA ABS test. False positive RPR tests may occur in 1) patients with underlying autoimmune disorders, 2) elderly patients, 3) , and 4) other conditions with abnormal serum globulins. Performed By: #### M G, ESR, PBNP, GFR, ADIFF, PRO, ANEU, CMP, CRP, CBC #### [address] [address] E2on 11-18-2023 Estradiol Level 13.99 pg/mL Normal [facility] ([place]) Comment on above: Result Comment: No te - New Reference Range in effect 19 Adult Female E2 Reference Ranges: Follicular phase 19.5 - 144.2 pg/mL Midcycle 63.9 - 356.7 pg/mL Luteal phase 55.8 - 214.2 pg/mL Post menopausal 0 - 33.2 pg/mL Performed By: #### M G, ESR, PBNP, GFR, ADIFF, PRO, ANEU, CMP, CRP, CBC #### [place] [id number] FSHon 11-18-2023 FSH 36.8 mIU/mL Normal [facility] ([place]) Comment on above: Result Comment: Adul t Female FSH Reference Ranges (04/17/99): Follicular phase 2.5 - 10.2 mIU/mL Midcycle phase 3.4 - 33.4 mIU/mL Luteal phase 1.5 - 9.1 mIU/mL Post menopausal 23.0 -116.3 mIU/mL Adult Male: 1.4 - 18.1 mIU/mL Performed By: #### M G, ESR, PBNP, GFR, ADIFF, PRO, ANEU, CMP, CRP, CBC #### [place] [address] HCVon 11-18-2023 Hep C Ab Non-Reactive Normal Non-Reactive [facility] ([place]) Comment on above: Performed By: #### M G, ESR, PBNP, GFR, ADIFF, PRO, ANEU, CMP, CRP, CBC #### [place] [id number] Hep C Ab Int Normal [facility] ([place]) Comment on above: Result Comment: Nonr eactive: Samples with a value < 0.80 are considered nonreactive (negative) for antibodies to HCV. A negative test result does not exclude the possibility of exposure to or infection with HCV. HCV antibodies may be undetectable in some stages of the infection and in some clinical conditions. See Interp Performed By: #### M G, ESR, PBNP, GFR, ADIFF, PRO, ANEU, CMP, CRP, CBC #### [place] [id number] HIVRPon 11-18-2023 HIV p24 Antigen Non-Reactive Normal Non-Reactive [facility] ([place]) Comment on above: Result Comment: Dete ction of p24 may be inhibited by biotin in the sample, causing false negative results in acute infection. Therefore do not test samples from patients who are taking biotin. Performed By: #### M G, ESR, PBNP, GFR, ADIFF, PRO, ANEU, CMP, CRP, CBC #### [place] [address] HIV P24 Int Non-Reactive Invalid Interpretation Code [facility] ([place]) Comment on above: Performed By: #### M G, ESR, PBNP, GFR, ADIFF, PRO, ANEU, CMP, CRP, CBC #### [place] [address] Rapid HIV 1/2 Antibody Non-Reactive Normal Non-Reactive [facility] ([place]) Comment on above: Performed By: #### M G, ESR, PBNP, GFR, ADIFF, PRO, ANEU, CMP, CRP, CBC #### [place] [id number] [place] [address] RHIV 1/2 Ab Int Non-Reactive Invalid Interpretation Code [facility]) Comment on above: Performed By: #### M G, ESR, PBNP, GFR, ADIFF, PRO, ANEU, CMP, CRP, CBC #### [place] [address] LABORATORYOrdered By: Albert acosta on 11-18-2023 HIV 1 p24 Ab Ql (S) Non-Reactive 4 (11/18/23 9:21 AM) Normal Non-Reactive AO Rapid Testing Comment on above: Interpretive Data: D etection of p24 may be inhibited by biotin in the sample, causing false negative results in acute infection. Therefore do not test samples from patients who are taking biotin. HIV 1 p24 Ab Ql (S) Non-Reactive Invalid Interpretation Code AO Rapid Testing SS HIV 1+2 Ab IA Ql Non-Reactive Invalid Interpretation Code AO Rapid Testing SS HIV 1+2 Ab IA.rapid Ql (Unsp spec) Non-Reactive (11/18/23 9:21 AM) Normal Non-Reactive AO Rapid Testing SS LABORATORYOrdered By: SYSTEM SYSTEM on 11-18-2023 E2 [Mass/Vol] 13.99 pg/mL Invalid Interpretation Code ADM SS Comment on above: Interpretive Data: * *Note - New Reference Range in effect 19 Adult Female E2 Reference Ranges: Follicular phase 19.5 - 144.2 pg/mL Midcycle 63.9 - 356.7 pg/mL Luteal phase 55.8 - 214.2 pg/mL Post menopausal 0 - 33.2 pg/mL Follitropin Qn 36.8 m[IU]/mL Invalid Interpretation Code ADM SS Comment on above: Interpretive Data: A dult Female FSH Reference Ranges (04/17/99): Follicular phase 2.5 - 10.2 mIU/mL Midcycle phase 3.4 - 33.4 mIU/mL Luteal phase 1.5 - 9.1 mIU/mL Post menopausal 23.0 -116.3 mIU/mL Adult Male: 1.4 - 18.1 mIU/mL Lutropin Qn 24.0 m[IU]/mL Invalid Interpretation Code ADM SS Comment on above: Interpretive Data: * *Note - New Reference Range in effect 19 Adult Female LH Reference Ranges: Follicular phase 1.9 - 12.5 mIU/mL Midcycle phase 8.7 - 76.3 mIU/mL Luteal phase 0.5 - 16.9 mIU/mL Post menopausal 5.0 - 55.2 mIU/mL LABORATORYOrdered By: Delores Golden on 11-18-2023 HCV Ab IA Ql Non-Reactive (11/18/23 9:20 AM) Normal Non-Reactive [facility] HCV Ab IA Ql Nonreactive: Samples with a value < 0.80 are considered nonreactive (negative) for antibodies to HCV.A negative test result does not exclude the possibility of exposure to or infection with HCV. HCV antibodies may be undetectable in some stages of the infection and in some clinical conditions. Invalid Interpretation Code Chemistry S LHon 11-18-2023 LH 24.0 mIU/mL Normal [facility] ([place]) Comment on above: Result Comment: No te - New Reference Range in effect 19 Adult Female LH Reference Ranges: Follicular phase 1.9 - 12.5 mIU/mL Midcycle phase 8.7 - 76.3 mIU/mL Luteal phase 0.5 - 16.9 mIU/mL Post menopausal 5.0 - 55.2 mIU/mL Performed By: #### M G, ESR, PBNP, GFR, ADIFF, PRO, ANEU, CMP, CRP, CBC #### [place] [id number] [place], [place] [address] LABORATORYOrdered By: Nell Maynard on 11-17-2023 C. trachomatis DNA VALERIO+probe Ql (Unsp spec) Failed 2 (11/17/23 3:57 PM) Normal Negative Auto Viro/Sero SS Comment on above: Interpretive Data: M olecular (PCR) assay performed on the Janiya Sofie 4800 system. C. trachomatis DNA VALERIO+probe Ql (Unsp spec) CTPCR assay was repeated on specimen. Unable to obtain a valid testresult. This may be due to specimen integrity, improper collectiontechnique or other unknown cause. Recommend repeat testing. Normal Auto Viro/Sero SS N. gonorrhoeae DNA VALERIO+probe Ql (Unsp spec) Failed 1 (11/17/23 3:57 PM) Normal Negative Auto Viro/Sero SS Comment on above: Interpretive Data: M olecular (PCR) assay performed on the Janiya Sofie 4800 System. N. gonorrhoeae DNA VALERIO+probe Ql (Unsp spec) NGPCR assay was repeated on specimen. Unable to obtain a valid testresult. This may be due to specimen integrity, improper collectiontechnique or other unknown cause. Recommend repeat testing. Normal Auto Viro/Sero SS Laboratory - Specimen inform ationOrdered By: Carleen Maynard on 11-17-2023 Specimen source Nom (Unsp spec) Cervix (11/17/23 3:57 PM) Normal Auto Viro/Sero SS No Panel InformationOrdered By: Phi Bravo on 11-17-2023 Affirm Pathogens DNA Direct Probe Gardnerella vaginalis DNA Probe Positive Trichomonas vaginalis DNA Probe Negative Tracy species DNA Probe Negative [facility] .Auto Diffon 06-10-2023 Basophil, Absolute 0.0 10 3/mcL Normal 0.0-0.2 [facility] ([place]) Comment on above: Performed By: #### M G, ESR, PBNP, GFR, ADIFF, PRO, ANEU, CMP, CRP, CBC #### [place] [address] [place] [address] Basophils/100 WBC (Bld) 0.5 % Normal 0.0-2.5 [facility] ([place]) Comment on above: Performed By: #### M G, ESR, PBNP, GFR, ADIFF, PRO, ANEU, CMP, CRP, CBC #### [address] [address] Eosinophil, Absolute 0.2 10 3/mcL Normal 0.0-0.4 [facility] ([place]) Comment on above: Performed By: #### M G, ESR, PBNP, GFR, ADIFF, PRO, ANEU, CMP, CRP, CBC #### [address] [address] Eosinophils/100 WBC (Bld) 3.4 % Normal 0.0-7.0 [facility] ([place]) Comment on above: Performed By: #### M G, ESR, PBNP, GFR, ADIFF, PRO, ANEU, CMP, CRP, CBC #### [address] [address] Lymphocyte, Absolute 2.2 10 3/mcL Normal 0.8-3.9 [facility] ([place]) Comment on above: Performed By: #### M G, ESR, PBNP, GFR, ADIFF, PRO, ANEU, CMP, CRP, CBC #### [address] [address] Lymphocytes/100 WBC (Bld) 30.5 % Normal 10.0-50.0 [facility] ([place]) Comment on above: Performed By: #### M G, ESR, PBNP, GFR, ADIFF, PRO, ANEU, CMP, CRP, CBC #### [address] [address] Monocyte, Absolute 0.5 10 3/mcL Normal 0.2-1.0 [facility] ([place]) Comment on above: Performed By: #### M G, ESR, PBNP, GFR, ADIFF, PRO, ANEU, CMP, CRP, CBC #### [address] [address] Monocytes/100 WBC (Bld) 6.7 % Normal 1.7-13.0 [facility] ([place]) Comment on above: Performed By: #### M G, ESR, PBNP, GFR, ADIFF, PRO, ANEU, CMP, CRP, CBC #### [address] [address] Neutrophils/100 WBC (Bld) 58.9 % Normal 37.0-80.0 [facility] ([place]) Comment on above: Performed By: #### M G, ESR, PBNP, GFR, ADIFF, PRO, ANEU, CMP, CRP, CBC #### [address] [address] .GFRon 06-10-2023 GFR 96 ml/min/1.73sqm Normal [facility] ([place]) Comment on above: Result Comment: GFR Population mean for , Non- Americans Ages 20-29 = 116 mL/min/1.73 sq.m. Ages 30-39 = 107 mL/min/1.73 sq.m. Ages 40-49 = 99 mL/min/1.73 sq.m. Ages 50-59 = 93 mL/min/1.73 sq.m. Ages 60-69 = 85 mL/min/1.73 sq.m. Ages 70+ = 75 mL/min/1.73 sq.m. Chronic Kidney Disease: Less than 60 mL/min/1.73 square meters End Stage Renal Disease: Less than 15 mL/min/1.73 square meters Performed By: #### M G, ESR, PBNP, GFR, ADIFF, PRO, ANEU, CMP, CRP, CBC #### [address] [address] GFR Non- 79 ml/min/1.73sqm Normal [facility] ([place]) Comment on above: Result Comment: GFR Population mean for , Non- Americans Ages 20-29 = 116 mL/min/1.73 sq.m. Ages 30-39 = 107 mL/min/1.73 sq.m. Ages 40-49 = 99 mL/min/1.73 sq.m. Ages 50-59 = 93 mL/min/1.73 sq.m. Ages 60-69 = 85 mL/min/1.73 sq.m. Ages 70+ = 75 mL/min/1.73 sq.m. Chronic Kidney Disease: Less than 60 mL/min/1.73 square meters End Stage Renal Disease: Less than 15 mL/min/1.73 square meters Performed By: #### M G, ESR, PBNP, GFR, ADIFF, PRO, ANEU, CMP, CRP, CBC #### [place] [id number] .NEUABSon 06-10-2023 Neutrophil, Absolute 4.2 10 3/mcL Normal 2.9-6.2 [facility] ([place]) Comment on above: Performed By: #### M G, ESR, PBNP, GFR, ADIFF, PRO, ANEU, CMP, CRP, CBC #### [place] [address] CBCon 06-10-2023 Erythrocyte distribution width (RBC) [Ratio] 14.3 % Normal 11.5-14.5 [facility] ([place]) Comment on above: Performed By: #### M G, ESR, PBNP, GFR, ADIFF, PRO, ANEU, CMP, CRP, CBC #### [place] [address] Hematocrit (Bld) [Volume fraction] 40.1 % Normal 37.0-47.0 [facility] ([place]) Comment on above: Performed By: #### M G, ESR, PBNP, GFR, ADIFF, PRO, ANEU, CMP, CRP, CBC #### [place] [id number] Hgb 13.9 G/dL Normal 12.0-16.0 [facility] ([place]) Comment on above: Performed By: #### M G, ESR, PBNP, GFR, ADIFF, PRO, ANEU, CMP, CRP, CBC #### [place] [id number] MCH (RBC) [Entitic mass] 31.7 pg High 27.0-31.2 [facility] ([place]) Comment on above: Performed By: #### M G, ESR, PBNP, GFR, ADIFF, PRO, ANEU, CMP, CRP, CBC #### [place] [address] MCHC 34.6 G/dL Normal 33.0-37.0 [facility] ([place]) Comment on above: Performed By: #### M G, ESR, PBNP, GFR, ADIFF, PRO, ANEU, CMP, CRP, CBC #### [place] [address] MCV (RBC) [Entitic vol] 91.7 fL Normal 80.0-94.0 [facility] ([place]) Comment on above: Performed By: #### M G, ESR, PBNP, GFR, ADIFF, PRO, ANEU, CMP, CRP, CBC #### [place] [address] Platelet 306 10 3/mcL Normal 130-400 [facility] ([place]) Comment on above: Performed By: #### M G, ESR, PBNP, GFR, ADIFF, PRO, ANEU, CMP, CRP, CBC #### [place] [address] Platelet mean volume (Bld) [Entitic vol] 8.4 fL Normal 7.4-10.4 [facility] ([place]) Comment on above: Performed By: #### M G, ESR, PBNP, GFR, ADIFF, PRO, ANEU, CMP, CRP, CBC #### [place] [address] RBC 4.37 10 6/mcL Normal 4.20-5.40 [facility] ([place]) Comment on above: Performed By: #### M G, ESR, PBNP, GFR, ADIFF, PRO, ANEU, CMP, CRP, CBC #### [place] [address] WBC 7.2 10 3/mcL Normal 4.6-10.8 [facility] ([place]) Comment on above: Performed By: #### M G, ESR, PBNP, GFR, ADIFF, PRO, ANEU, CMP, CRP, CBC #### [address] [address] CMPon 06-10-2023 Albumin Level 3.8 G/dL Normal 3.5-5.0 [facility] ([place]) Comment on above: Performed By: #### M G, ESR, PBNP, GFR, ADIFF, PRO, ANEU, CMP, CRP, CBC #### [address] [address] Albumin/Globulin [Mass ratio] 1.1 {ratio} Normal 1.1-2.5 [facility] ([place]) Comment on above: Performed By: #### M G, ESR, PBNP, GFR, ADIFF, PRO, ANEU, CMP, CRP, CBC #### [address] [address] ALP [Catalytic activity/Vol] 90 U/L Normal 40-135 [facility] ([place]) Comment on above: Performed By: #### M G, ESR, PBNP, GFR, ADIFF, PRO, ANEU, CMP, CRP, CBC #### [address] [address] ALT [Catalytic activity/Vol] 40 U/L Normal 14-59 [facility] ([place]) Comment on above: Performed By: #### M G, ESR, PBNP, GFR, ADIFF, PRO, ANEU, CMP, CRP, CBC #### [address] [address] AST [Catalytic activity/Vol] 16 U/L Normal 10-40 [facility] ([place]) Comment on above: Performed By: #### M G, ESR, PBNP, GFR, ADIFF, PRO, ANEU, CMP, CRP, CBC #### [address] [address] Bili Total 0.5 mg/dL Normal 0.2-1.0 [facility] ([place]) Comment on above: Result Comment: Use of this assay is not recommended for patients undergoing treatment with eltrombopag due to the potential for falsely elevated results. Performed By: #### M G, ESR, PBNP, GFR, ADIFF, PRO, ANEU, CMP, CRP, CBC #### [address] [address] BUN/Creatinine Ratio 29 ratio High 7-27 [facility] ([place]) Comment on above: Performed By: #### M G, ESR, PBNP, GFR, ADIFF, PRO, ANEU, CMP, CRP, CBC #### [address] [address] Calcium [Mass/Vol] 9.6 mg/dL Normal 8.4-10.2 [facility] ([place]) Comment on above: Performed By: #### M G, ESR, PBNP, GFR, ADIFF, PRO, ANEU, CMP, CRP, CBC #### [place] [address] Chloride [Moles/Vol] 106 mmol/L Normal 98-107 [facility] ([place]) Comment on above: Performed By: #### M G, ESR, PBNP, GFR, ADIFF, PRO, ANEU, CMP, CRP, CBC #### [address] [address] CO2 [Moles/Vol] 30 mmol/L High 22-29 [facility] ([place]) Comment on above: Performed By: #### M G, ESR, PBNP, GFR, ADIFF, PRO, ANEU, CMP, CRP, CBC #### [address] [address] Creatinine [Mass/Vol] 0.77 mg/dL Normal 0.55-1.02 [facility] ([place]) Comment on above: Performed By: #### M G, ESR, PBNP, GFR, ADIFF, PRO, ANEU, CMP, CRP, CBC #### [address] [address] Electrolyte Balance 3.0 mEq/L Low 4.0-15.0 [facility] ([place]) Comment on above: Performed By: #### M G, ESR, PBNP, GFR, ADIFF, PRO, ANEU, CMP, CRP, CBC #### [place] [address] Globulin 3.4 G/dL Normal [facility] ([place]) Comment on above: Performed By: #### M G, ESR, PBNP, GFR, ADIFF, PRO, ANEU, CMP, CRP, CBC #### [address] [address] Glucose [Mass/Vol] 102 mg/dL Normal 70-105 [facility] ([place]) Comment on above: Performed By: #### M G, ESR, PBNP, GFR, ADIFF, PRO, ANEU, CMP, CRP, CBC #### [address] [address] Potassium [Moles/Vol] 4.9 mmol/L Normal 3.5-5.1 [facility] ([place]) Comment on above: Performed By: #### M G, ESR, PBNP, GFR, ADIFF, PRO, ANEU, CMP, CRP, CBC #### [address] [address] Sodium [Moles/Vol] 139 mmol/L Normal 136-145 [facility] ([place]) Comment on above: Performed By: #### M G, ESR, PBNP, GFR, ADIFF, PRO, ANEU, CMP, CRP, CBC #### [address] [address] Total Protein 7.2 G/dL Normal 6.4-8.2 [facility] ([place]) Comment on above: Performed By: #### M G, ESR, PBNP, GFR, ADIFF, PRO, ANEU, CMP, CRP, CBC #### [address] [address] Urea nitrogen [Mass/Vol] 22 mg/dL High 7-18 [facility] ([place]) Comment on above: Performed By: #### M G, ESR, PBNP, GFR, ADIFF, PRO, ANEU, CMP, CRP, CBC #### [address] [address] CRPon 06-10-2023 C-Reactive Protein 0.6 mg/dL High 0.0-0.3 [facility] ([place]) Comment on above: Performed By: #### M G, ESR, PBNP, GFR, ADIFF, PRO, ANEU, CMP, CRP, CBC #### [place] [address] [place], [place] [address] ESRon 06-10-2023 Erythrocyte Sed Rate 9 mm/hr Normal 0-30 [facility] ([place]) Comment on above: Performed By: #### M G, ESR, PBNP, GFR, ADIFF, PRO, ANEU, CMP, CRP, CBC #### [place] [id number] [place], [place] [address] LABORATORYOrdered By: SYSTEM SYSTEM on 06-10-2023 Albumin BCP dye [Mass/Vol] 3.8 G/dL Normal 3.5 - 5.0 G/dL AO ADM SS Albumin/Globulin [Mass ratio] 1.1 {ratio} Normal 1.1 - 2.5 ratio AO ADM SS ALP [Catalytic activity/Vol] 90 U/L Normal 40 - 135 U/L AO ADM SS ALT With P-5'-P [Catalytic activity/Vol] 40 U/L Normal 14 - 59 U/L AO ADM SS AST With P-5'-P [Catalytic activity/Vol] 16 U/L Normal 10 - 40 U/L AO ADM SS Basophil, Absolute 0.0 103/mcL Normal 0.0 - 0.2 10^3/mcL AO Workflow SS Basophils/100 WBC (Bld) 0.5 % Normal 0.0 - 2.5 % AO Workflow SS Bilirubin [Mass/Vol] 0.5 mg/dL Normal 0.2 - 1 .0 mg/dL AO ADM SS Comment on above: Interpretive Data: U se of this assay is not recommended for patients undergoing treatment with eltrombopag due to the potential for falsely elevated results. Calcium [Mass/Vol] 9.6 mg/dL Normal 8.4 - 10. 2 mg/dL AO ADM SS Chloride [Moles/Vol] 106 mmol/L Normal 98 - 10 7 mmol/L AO ADM SS CO2 [Moles/Vol] 30 mmol/L High 22 - 29 mmol/L AO ADM SS Creatinine [Mass/Vol] 0.77 mg/dL Normal 0.55 - 1.02 mg/dL AO ADM SS CRP [Mass/Vol] 0.6 mg/dL High 0.0 - 0.3 mg/dL AO ADM SS Electrolyte Balance 3.0 mEq/L Low 4.0 - 15 .0 mEq/L AO ADM SS Eosinophil, Absolute 0.2 103/mcL Normal 0.0 - 0 .4 10^3/mcL AO Workflow SS Eosinophils/100 WBC (Bld) 3.4 % Normal 0.0 - 7.0 % AO Workflow SS Erythrocyte distribution width (RBC) [Ratio] 14.3 % Normal 11.5 - 14.5 % AO Workflow SS GFR/1.73 sq M.predicted among blacks MDRD (S/P/Bld) [Vol rate/Area] 96 ml/min/1.73sqm Invalid Interpretation Code AO Chemistry S Comment on above: Interpretive Data: GFR Population mean for , Non- Americans Ages 20-29 = 116 mL/min/1.73 sq.m. Ages 30-39 = 107 mL/min/1.73 sq.m. Ages 40-49 = 99 mL/min/1.73 sq.m. Ages 50-59 = 93 mL/min/1.73 sq.m. Ages 60-69 = 85 mL/min/1.73 sq.m. Ages 70+ = 75 mL/min/1.73 sq.m. Chronic Kidney Disease: Less than 60 mL/min/1.73 square meters End Stage Renal Disease: Less than 15 mL/min/1.73 square meters GFR/1.73 sq M.predicted among non-blacks MDRD (S/P/Bld) [Vol rate/Area] 79 ml/min/1.73sqm Invalid Interpretation Code AO Chemistry S Comment on above: Interpretive Data: GFR Population mean for , Non- Americans Ages 20-29 = 116 mL/min/1.73 sq.m. Ages 30-39 = 107 mL/min/1.73 sq.m. Ages 40-49 = 99 mL/min/1.73 sq.m. Ages 50-59 = 93 mL/min/1.73 sq.m. Ages 60-69 = 85 mL/min/1.73 sq.m. Ages 70+ = 75 mL/min/1.73 sq.m. Chronic Kidney Disease: Less than 60 mL/min/1.73 square meters End Stage Renal Disease: Less than 15 mL/min/1.73 square meters Globulin 3.4 G/dL Invalid Interpretation Code AO ADM SS Glucose [Mass/Vol] 102 mg/dL Normal 70 - 105 mg/dL AO ADM SS Hematocrit (Bld) [Volume fraction] 40.1 % Normal 37.0 - 47.0 % AO Workflow SS Hemoglobin (Bld) [Mass/Vol] 13.9 G/dL Normal 12.0 - 16.0 G/dL AO Workflow SS Lymphocyte, Absolute 2.2 103/mcL Normal 0.8 - 3 .9 10^3/mcL AO Workflow SS Lymphocytes/100 WBC (Bld) 30.5 % Normal 10.0 - 50.0 % AO Workflow SS Magnesium [Mass/Vol] 2.1 mg/dL Normal 1.8 - 2 .4 mg/dL AO ADM SS MCH (RBC) [Entitic mass] 31.7 pg High 27.0 - 31.2 pg AO Workflow SS MCHC 34.6 G/dL Normal 33.0 - 37.0 G/dL AO Workflow SS MCV (RBC) [Entitic vol] 91.7 fL Normal 80.0 - 94.0 fL AO Workflow SS Monocyte, Absolute 0.5 103/mcL Normal 0.2 - 1.0 10^3/mcL AO Workflow SS Monocytes/100 WBC (Bld) 6.7 % Normal 1.7 - 13.0 % AO Workflow SS Natriuretic peptide.B prohormone N-Terminal [Mass/Vol] 125 pg/mL Normal 0 - 125 pg/mL AO ADM SS Comment on above: Interpretive Data: N T-proBNP results of less than 300 pg/mL effectively rules out acute congestive heart failure with 99% negative predictive value. Neutrophil, Absolute 4.2 103/mcL Normal 2.9 - 6 .2 10^3/mcL AO Workflow SS Neutrophils/100 WBC (Bld) 58.9 % Normal 37.0 - 80.0 % AO Workflow SS Platelet mean volume (Bld) [Entitic vol] 8.4 fL Normal 7.4 - 10.4 fL AO Workflow SS Platelets (Bld) [#/Vol] 306 103/mcL Normal 130 - 400 10^3/mcL AO Workflow SS Potassium [Moles/Vol] 4.9 mmol/L Normal 3.5 - 5.1 mmol/L AO ADM SS Protein [Mass/Vol] 7.2 G/dL Normal 6.4 - 8.2 G/dL AO ADM SS RBC (Bld) [#/Vol] 4.37 106/mcL Normal 4.20 - 5.4 0 10^6/mcL AO Workflow SS Sodium [Moles/Vol] 139 mmol/L Normal 136 - 145 mmol/L AO ADM SS Urea nitrogen [Mass/Vol] 22 mg/dL High 7 - 18 mg/dL AO ADM SS Urea nitrogen/Creatinine [Mass ratio] 29 ratio High 7 - 27 ratio AO ADM SS WBC (Bld) [#/Vol] 7.2 103/mcL Normal 4.6 - 10.8 10^3/mcL AO Workflow SS LABORATORYOrdered By: Linh Marc on 06-10-2023 ESR Photometric method (Bld) [Velocity] 9 mm/hr Normal 0 - 30 mm/hr AO Man Heme SS INR Coag (PPP) [Relative time] 1.0 {INR} Invalid Interpretation Code AO HemoHub SS Comment on above: Interpretive Data: [employer] [employer] (CHEST, 1991, 102:[id number]) recommended therapeutic range for oral anticoagulant therapy is: LOW RISK: Prophylaxis of venous thrombosis INR: 2.0-3.0 Treatment of pulmonary embolism 2.0-3.0 Prevention of systemic embolism 2.0-3.0 HIGH RISK: Mechanical prosthetic valves 2.5-3.5 PT Coag (PPP) [Time] 11.7 s Normal 9.0 - 1 4.2 seconds AO HemoHub SS MGon 06-10-2023 Magnesium [Mass/Vol] 2.1 mg/dL Normal 1.8-2.4 [facility] ([place]) Comment on above: Performed By: #### M G, ESR, PBNP, GFR, ADIFF, PRO, ANEU, CMP, CRP, CBC #### [address] [address] PBNPon 06-10-2023 Natriuretic peptide B (Bld) [Mass/Vol] 125 pg/mL Normal 0-125 [facility] ([place]) Comment on above: Result Comment: NT-p roBNP results of less than 300 pg/mL effectively rules out acute congestive heart failure with 99% negative predictive value. Performed By: #### M G, ESR, PBNP, GFR, ADIFF, PRO, ANEU, CMP, CRP, CBC #### [id number] [place], [place] [address] PROon 06-10-2023 PT Coag (PPP) [Time] 11.7 s Normal 9.0-14.2 [facility] ([place]) Comment on above: Performed By: #### M G, ESR, PBNP, GFR, ADIFF, PRO, ANEU, CMP, CRP, CBC #### [id number] [place], [place] [address] PT International Ratio 1.0 Normal [facility] ([place]) Comment on above: Result Comment: [employer] (CHEST, 1992, 102:[id number]) recommended therapeutic range for oral anticoagulant therapy is: LOW RISK: Prophylaxis of venous thrombosis INR: 2.0-3.0 Treatment of pulmonary embolism 2.0-3.0 Prevention of systemic embolism 2.0-3.0 HIGH RISK: Mechanical prosthetic valves 2.5-3.5 Performed By: #### M G, ESR, PBNP, GFR, ADIFF, PRO, ANEU, CMP, CRP, CBC #### [id number] [place], [place] [address] XR CHEST 2 VIEWSon 4 XR CHEST 2 VIEWS ORIGINAL EXAMINATION: TWO XRAY VIEWS OF THE [...] Sign Date: 06/10/2023 2:58:01 PM Ordering Provider: JULIENNE FAJARDO [facility] ([place]) .Auto Diffon 04-12-2023 Basophil, Absolute 0.1 10 3/mcL Normal 0.0-0.2 [facility] ([place]) Comment on above: Performed By: #### M G, ESR, PBNP, GFR, ADIFF, PRO, ANEU, CMP, CRP, CBC #### [address] [address] Basophils/100 WBC (Bld) 0.5 % Normal 0.0-2.5 [facility] ([place]) Comment on above: Performed By: #### M G, ESR, PBNP, GFR, ADIFF, PRO, ANEU, CMP, CRP, CBC #### [address] [address] Eosinophil, Absolute 0.3 10 3/mcL Normal 0.0-0.4 [facility] ([place]) Comment on above: Performed By: #### M G, ESR, PBNP, GFR, ADIFF, PRO, ANEU, CMP, CRP, CBC #### [address] [address] Eosinophils/100 WBC (Bld) 2.6 % Normal 0.0-7.0 [facility] ([place]) Comment on above: Performed By: #### M G, ESR, PBNP, GFR, ADIFF, PRO, ANEU, CMP, CRP, CBC #### [address] [address] Lymphocyte, Absolute 4.1 10 3/mcL High 0.8-3.9 [facility] ([place]) Comment on above: Performed By: #### M G, ESR, PBNP, GFR, ADIFF, PRO, ANEU, CMP, CRP, CBC #### [address] [address] Lymphocytes/100 WBC (Bld) 40.0 % Normal 10.0-50.0 [facility] ([place]) Comment on above: Performed By: #### M G, ESR, PBNP, GFR, ADIFF, PRO, ANEU, CMP, CRP, CBC #### [address] [address] Monocyte, Absolute 0.6 10 3/mcL Normal 0.2-1.0 [facility] ([place]) Comment on above: Performed By: #### M G, ESR, PBNP, GFR, ADIFF, PRO, ANEU, CMP, CRP, CBC #### [address] [address] Monocytes/100 WBC (Bld) 5.6 % Normal 1.7-13.0 [facility] ([place]) Comment on above: Performed By: #### M G, ESR, PBNP, GFR, ADIFF, PRO, ANEU, CMP, CRP, CBC #### [address] [address] Neutrophils/100 WBC (Bld) 51.3 % Normal 37.0-80.0 [facility] ([place]) Comment on above: Performed By: #### M G, ESR, PBNP, GFR, ADIFF, PRO, ANEU, CMP, CRP, CBC #### [address] [address] .GFRon 04-12-2023 GFR 89 ml/min/1.73sqm Normal [facility] ([place]) Comment on above: Result Comment: GFR Population mean for , Non- Americans Ages 20-29 = 116 mL/min/1.73 sq.m. Ages 30-39 = 107 mL/min/1.73 sq.m. Ages 40-49 = 99 mL/min/1.73 sq.m. Ages 50-59 = 93 mL/min/1.73 sq.m. Ages 60-69 = 85 mL/min/1.73 sq.m. Ages 70+ = 75 mL/min/1.73 sq.m. Chronic Kidney Disease: Less than 60 mL/min/1.73 square meters End Stage Renal Disease: Less than 15 mL/min/1.73 square meters Performed By: #### M G, ESR, PBNP, GFR, ADIFF, PRO, ANEU, CMP, CRP, CBC #### [address] [address] GFR Non- 74 ml/min/1.73sqm Normal [facility] ([place]) Comment on above: Result Comment: GFR Population mean for , Non- Americans Ages 20-29 = 116 mL/min/1.73 sq.m. Ages 30-39 = 107 mL/min/1.73 sq.m. Ages 40-49 = 99 mL/min/1.73 sq.m. Ages 50-59 = 93 mL/min/1.73 sq.m. Ages 60-69 = 85 mL/min/1.73 sq.m. Ages 70+ = 75 mL/min/1.73 sq.m. Chronic Kidney Disease: Less than 60 mL/min/1.73 square meters End Stage Renal Disease: Less than 15 mL/min/1.73 square meters Performed By: #### M G, ESR, PBNP, GFR, ADIFF, PRO, ANEU, CMP, CRP, CBC #### [address] [address] .MDWon 04-12-2023 Monocyte Distribution Width 18.93 Normal 0.00-20.00 [facility] ([place]) Comment on above: Result Comment: For ED adult patients suspected of sepsis, MDW<=20.0 does not rule out sepsis or risk of sepsis Performed By: #### M G, ESR, PBNP, GFR, ADIFF, PRO, ANEU, CMP, CRP, CBC #### [address] [address] .Morphon 04-12-2023 Platelet Estimate Normal Normal [facility]) Comment on above: Performed By: #### M G, ESR, PBNP, GFR, ADIFF, PRO, ANEU, CMP, CRP, CBC #### [address] [address] .NEUABSon 04-12-2023 Neutrophil, Absolute 5.3 10 3/mcL Normal 2.9-6.2 [facility] ([place]) Comment on above: Performed By: #### M G, ESR, PBNP, GFR, ADIFF, PRO, ANEU, CMP, CRP, CBC #### [address] [address] BMPon 04-12-2023 BUN/Creatinine Ratio 45 ratio High 7-27 [facility] ([place]) Comment on above: Performed By: #### M G, ESR, PBNP, GFR, ADIFF, PRO, ANEU, CMP, CRP, CBC #### [address] [address] Calcium [Mass/Vol] 8.7 mg/dL Normal 8.4-10.2 [facility] ([place]) Comment on above: Performed By: #### M G, ESR, PBNP, GFR, ADIFF, PRO, ANEU, CMP, CRP, CBC #### [address] [address] Chloride [Moles/Vol] 102 mmol/L Normal 98-107 [facility] ([place]) Comment on above: Performed By: #### M G, ESR, PBNP, GFR, ADIFF, PRO, ANEU, CMP, CRP, CBC #### [address] [address] CO2 [Moles/Vol] 31 mmol/L High 22-29 [facility] ([place]) Comment on above: Performed By: #### M G, ESR, PBNP, GFR, ADIFF, PRO, ANEU, CMP, CRP, CBC #### [address] [address] Creatinine [Mass/Vol] 0.82 mg/dL Normal 0.55-1.02 [facility] ([place]) Comment on above: Performed By: #### M G, ESR, PBNP, GFR, ADIFF, PRO, ANEU, CMP, CRP, CBC #### [address] [address] Electrolyte Balance 8.0 mEq/L Normal 4.0-15.0 [facility] ([place]) Comment on above: Performed By: #### M G, ESR, PBNP, GFR, ADIFF, PRO, ANEU, CMP, CRP, CBC #### [address] [address] Glucose [Mass/Vol] 90 mg/dL Normal 70-105 [facility] ([place]) Comment on above: Performed By: #### M G, ESR, PBNP, GFR, ADIFF, PRO, ANEU, CMP, CRP, CBC #### [address] [address] Potassium [Moles/Vol] 3.8 mmol/L Normal 3.5-5.1 [facility] ([place]) Comment on above: Performed By: #### M G, ESR, PBNP, GFR, ADIFF, PRO, ANEU, CMP, CRP, CBC #### [address] [address] Sodium [Moles/Vol] 141 mmol/L Normal 136-145 [facility] ([place]) Comment on above: Performed By: #### M G, ESR, PBNP, GFR, ADIFF, PRO, ANEU, CMP, CRP, CBC #### [address] [address] Urea nitrogen [Mass/Vol] 37 mg/dL High 7-18 [facility] ([place]) Comment on above: Performed By: #### M G, ESR, PBNP, GFR, ADIFF, PRO, ANEU, CMP, CRP, CBC #### [address] [address] CBCon 04-12-2023 Erythrocyte distribution width (RBC) [Ratio] 14.4 % Normal 11.5-14.5 [facility] ([place]) Comment on above: Performed By: #### M G, ESR, PBNP, GFR, ADIFF, PRO, ANEU, CMP, CRP, CBC #### [address] [address] Hematocrit (Bld) [Volume fraction] 38.7 % Normal 37.0-47.0 [facility] ([place]) Comment on above: Performed By: #### M G, ESR, PBNP, GFR, ADIFF, PRO, ANEU, CMP, CRP, CBC #### [address] [address] Hgb 13.7 G/dL Normal 12.0-16.0 [facility] ([place]) Comment on above: Performed By: #### M G, ESR, PBNP, GFR, ADIFF, PRO, ANEU, CMP, CRP, CBC #### [address] [address] MCH (RBC) [Entitic mass] 33.7 pg High 27.0-31.2 [facility] ([place]) Comment on above: Performed By: #### M G, ESR, PBNP, GFR, ADIFF, PRO, ANEU, CMP, CRP, CBC #### [address] [address] MCHC 35.4 G/dL Normal 33.0-37.0 [facility] ([place]) Comment on above: Performed By: #### M G, ESR, PBNP, GFR, ADIFF, PRO, ANEU, CMP, CRP, CBC #### [address] [address] MCV (RBC) [Entitic vol] 95.4 fL High 80.0-94.0 [facility] ([place]) Comment on above: Performed By: #### M G, ESR, PBNP, GFR, ADIFF, PRO, ANEU, CMP, CRP, CBC #### [address] [address] Platelet 305 10 3/mcL Normal 130-400 [facility] ([place]) Comment on above: Performed By: #### M G, ESR, PBNP, GFR, ADIFF, PRO, ANEU, CMP, CRP, CBC #### [address] [address] Platelet mean volume (Bld) [Entitic vol] 7.8 fL Normal 7.4-10.4 [facility] ([place]) Comment on above: Performed By: #### M G, ESR, PBNP, GFR, ADIFF, PRO, ANEU, CMP, CRP, CBC #### [address] [address] RBC 4.06 10 6/mcL Low 4.20-5.40 [facility] ([place]) Comment on above: Performed By: #### M G, ESR, PBNP, GFR, ADIFF, PRO, ANEU, CMP, CRP, CBC #### [place] [id number] WBC 10.3 10 3/mcL Normal 4.6-10.8 [facility] ([place]) Comment on above: Performed By: #### M G, ESR, PBNP, GFR, ADIFF, PRO, ANEU, CMP, CRP, CBC #### [id number] [place], [place] [address] [id number] 04-12-2023 SARS-CoV-2 (COVID-19) RNA VALERIO+probe Ql (Unsp spec) Negative Normal Negative [facility] ([place]) Comment on above: Performed By: #### M G, ESR, PBNP, GFR, ADIFF, PRO, ANEU, CMP, CRP, CBC #### [address] [place], [place] [address] SARS-CoV-2 (COVID-19) RNA VALERIO+probe Ql (Unsp spec) Normal [facility] ([place]) Comment on above: Result Comment: Nega tive results do not preclude SARS-CoV-2 infection and should not be used as the sole basis for patient management decisions. Negative results must be combined with clinical observations, patient history, and epidemiological information. There is a risk of false negative values resulting from improperly collected, transported, or handled specimens. There is a risk of false negative values due to the presence of sequence variants in the pathogen targets of the assay, procedural errors, amplification inhibitors in specimens, or inadequate numbers of organisms for amplification. JOSE SARS-CoV-2 Assay is a Real-Time reverse-transcriptase polymerase chain reaction (RT-PCR) based qualitative in vitro diagnostic test intended for the qualitative detection of nucleic acid from the SARS-CoV-2 in nasopharyngeal swab specimens collected from individuals suspected of COVID-19 by their healthcare provider. Testing is limited to laboratories certified under the Clinical Laboratory Improvement Amendments of 1988 (CLIA), 42 U.S.C. ?263a, to perform moderate and high complexity tests. COVID-19 Int Performed By: #### M G, ESR, PBNP, GFR, ADIFF, PRO, ANEU, CMP, CRP, CBC #### [id number] [place], [place] [address] CT ANGIOGRAPHY CHEST W/CONTR Jessica 04-12-2023 CT ANGIOGRAPHY CHEST W/CONTRAST ORIGINAL EXAMINATION: CTA OF THE CHEST 04/12/2023 [...] 04/12/2023 6:00:00 AM Ordering Provider: RAY LEAL Normal [facility] ([place]) FLURSBrandon 04-12-2023 Flu A PCR (AO) Negative Normal Negative [facility] ([place]) Comment on above: Result Comment: Posi tive Results: Positive Flu A/B or RSV for by PCR. Positive test results do not rule out bacterial infection or co-infection with other pathogens. Test results should be interpreted in conjunction with other laboratory and clinical data. Negative Results: Negative for by PCR. Negative test results do not preclude influenza virus or RSV infection and should not be used as the sole basis for diagnosis, treatment, or other management decisions. There is a risk of false negative RSV results when at low concentration and in the presence of co-infection with high concentration of influenza A. Invalid Results: An Invalid result (INV) was obtained. The test was repeated with similar results. REPEAT COLLECTION AND TESTING IS RECOMMENDED. The Jose Flu A/B & RSV Assay is a real-time polymerase chain reaction (PCR) based qualitative in vitro diagnostic test for the direct detection and differentiation of influenza A virus, influenza B virus, and respiratory syncytial virus (RSV) nucleic acid in nasopharyngeal swab (MARINE PIPEFITTER HELPER) specimens from patients with signs and symptoms of respiratory infection in conjunction with clinical and laboratory findings. The test is intended for use as an aid in the differential diagnosis of influenza A virus, influenza B virus, and RSV in humans and is not intended to detect influenza C. Performed By: #### M G, ESR, PBNP, GFR, ADIFF, PRO, ANEU, CMP, CRP, CBC #### [id number] [place], [place] [address] Flu B PCR (AO) Negative Normal Negative [facility] ([place]) Comment on above: Result Comment: Posi tive Results: Positive Flu A/B or RSV for by PCR. Positive test results do not rule out bacterial infection or co-infection with other pathogens. Test results should be interpreted in conjunction with other laboratory and clinical data. Negative Results: Negative for by PCR. Negative test results do not preclude influenza virus or RSV infection and should not be used as the sole basis for diagnosis, treatment, or other management decisions. There is a risk of false negative RSV results when at low concentration and in the presence of co-infection with high concentration of influenza A. Invalid Results: An Invalid result (INV) was obtained. The test was repeated with similar results. REPEAT COLLECTION AND TESTING IS RECOMMENDED. The Jose Flu A/B & RSV Assay is a real-time polymerase chain reaction (PCR) based qualitative in vitro diagnostic test for the direct detection and differentiation of influenza A virus, influenza B virus, and respiratory syncytial virus (RSV) nucleic acid in nasopharyngeal swab ([employer]INE [employer] HELPER) specimens from patients with signs and symptoms of respiratory infection in conjunction with clinical and laboratory findings. The test is intended for use as an aid in the differential diagnosis of influenza A virus, influenza B virus, and RSV in humans and is not intended to detect influenza C. Performed By: #### M G, ESR, PBNP, GFR, ADIFF, PRO, ANEU, CMP, CRP, CBC #### [id number] [place], [place] [address] RSV PCR (AO) Negative Normal Negative [facility] ([place]) Comment on above: Result Comment: Posi tive Results: Positive Flu A/B or RSV for by PCR. Positive test results do not rule out bacterial infection or co-infection with other pathogens. Test results should be interpreted in conjunction with other laboratory and clinical data. Negative Results: Negative for by PCR. Negative test results do not preclude influenza virus or RSV infection and should not be used as the sole basis for diagnosis, treatment, or other management decisions. There is a risk of false negative RSV results when at low concentration and in the presence of co-infection with high concentration of influenza A. Invalid Results: An Invalid result (INV) was obtained. The test was repeated with similar results. REPEAT COLLECTION AND TESTING IS RECOMMENDED. The Vimodi Flu A/B & RSV Assay is a real-time polymerase chain reaction (PCR) based qualitative in vitro diagnostic test for the direct detection and differentiation of influenza A virus, influenza B virus, and respiratory syncytial virus (RSV) nucleic acid in nasopharyngeal swab (MARINE [employer]EFITTER HELPER) specimens from patients with signs and symptoms of respiratory infection in conjunction with clinical and laboratory findings. The test is intended for use as an aid in the differential diagnosis of influenza A virus, influenza B virus, and RSV in humans and is not intended to detect influenza C. Performed By: #### M G, ESR, PBNP, GFR, ADIFF, PRO, ANEU, CMP, CRP, CBC #### [place] [place] [address] LABORATORYOrdered By: SYSTEM SYSTEM on 04-12-2023 Basophil, Absolute 0.1 103/mcL Normal 0.0 - 0.2 10^3/mcL AO Workflow SS Basophils/100 WBC (Bld) 0.5 % Normal 0.0 - 2.5 % AO Workflow SS Calcium [Mass/Vol] 8.7 mg/dL Normal 8.4 - 10. 2 mg/dL AO ADM SS Chloride [Moles/Vol] 102 mmol/L Normal 98 - 10 7 mmol/L AO ADM SS CO2 [Moles/Vol] 31 mmol/L High 22 - 29 mmol/L AO ADM SS Creatinine [Mass/Vol] 0.82 mg/dL Normal 0.55 - 1.02 mg/dL AO ADM SS Electrolyte Balance 8.0 mEq/L Normal 4.0 - 15 .0 mEq/L AO ADM SS Eosinophil, Absolute 0.3 103/mcL Normal 0.0 - 0 .4 10^3/mcL AO Workflow SS Eosinophils/100 WBC (Bld) 2.6 % Normal 0.0 - 7.0 % AO Workflow SS Erythrocyte distribution width (RBC) [Ratio] 14.4 % Normal 11.5 - 14.5 % AO Workflow SS GFR/1.73 sq M.predicted among blacks MDRD (S/P/Bld) [Vol rate/Area] 89 ml/min/1.73sqm Invalid Interpretation Code AO Chemistry S Comment on above: Interpretive Data: GFR Population mean for , Non- Americans Ages 20-29 = 116 mL/min/1.73 sq.m. Ages 30-39 = 107 mL/min/1.73 sq.m. Ages 40-49 = 99 mL/min/1.73 sq.m. Ages 50-59 = 93 mL/min/1.73 sq.m. Ages 60-69 = 85 mL/min/1.73 sq.m. Ages 70+ = 75 mL/min/1.73 sq.m. Chronic Kidney Disease: Less than 60 mL/min/1.73 square meters End Stage Renal Disease: Less than 15 mL/min/1.73 square meters GFR/1.73 sq M.predicted among non-blacks MDRD (S/P/Bld) [Vol rate/Area] 74 ml/min/1.73sqm Invalid Interpretation Code AO Chemistry S Comment on above: Interpretive Data: GFR Population mean for , Non- Americans Ages 20-29 = 116 mL/min/1.73 sq.m. Ages 30-39 = 107 mL/min/1.73 sq.m. Ages 40-49 = 99 mL/min/1.73 sq.m. Ages 50-59 = 93 mL/min/1.73 sq.m. Ages 60-69 = 85 mL/min/1.73 sq.m. Ages 70+ = 75 mL/min/1.73 sq.m. Chronic Kidney Disease: Less than 60 mL/min/1.73 square meters End Stage Renal Disease: Less than 15 mL/min/1.73 square meters Glucose [Mass/Vol] 90 mg/dL Normal 70 - 105 mg/dL AO ADM SS Hematocrit (Bld) [Volume fraction] 38.7 % Normal 37.0 - 47.0 % AO Workflow SS Hemoglobin (Bld) [Mass/Vol] 13.7 G/dL Normal 12.0 - 16.0 G/dL AO Workflow SS Lactate [Moles/Vol] 0.7 mmol/L Normal 0.4 - 2. 0 mmol/L AO ADM SS Lymphocyte, Absolute 4.1 103/mcL High 0.8 - 3 .9 10^3/mcL AO Workflow SS Lymphocytes/100 WBC (Bld) 40.0 % Normal 10.0 - 50.0 % AO Workflow SS MCH (RBC) [Entitic mass] 33.7 pg High 27.0 - 31.2 pg AO Workflow SS MCHC 35.4 G/dL Normal 33.0 - 37.0 G/dL AO Workflow SS MCV (RBC) [Entitic vol] 95.4 fL High 80.0 - 94.0 fL AO Workflow SS Monocyte distribution width Auto (Bld) [Entitic vol] 18.93 1 Normal 0.00 - 20.00 AO Workflow SS Comment on above: Result Comment: For ED adult patients suspected of sepsis, MDW<=20.0 does not rule out sepsis or risk of sepsis Monocyte, Absolute 0.6 103/mcL Normal 0.2 - 1.0 10^3/mcL AO Workflow SS Monocytes/100 WBC (Bld) 5.6 % Normal 1.7 - 13.0 % AO Workflow SS Natriuretic peptide.B prohormone N-Terminal [Mass/Vol] 193 pg/mL High 0 - 125 pg/mL AO ADM SS Comment on above: Interpretive Data: N T-proBNP results of less than 300 pg/mL effectively rules out acute congestive heart failure with 99% negative predictive value. Neutrophil, Absolute 5.3 103/mcL Normal 2.9 - 6 .2 10^3/mcL AO Workflow SS Neutrophils/100 WBC (Bld) 51.3 % Normal 37.0 - 80.0 % AO Workflow SS Platelet mean volume (Bld) [Entitic vol] 7.8 fL Normal 7.4 - 10.4 fL AO Workflow SS Platelets (Bld) [#/Vol] 305 103/mcL Normal 130 - 400 10^3/mcL AO Workflow SS Potassium [Moles/Vol] 3.8 mmol/L Normal 3.5 - 5.1 mmol/L AO ADM SS RBC (Bld) [#/Vol] 4.06 106/mcL Low 4.20 - 5.4 0 10^6/mcL AO Workflow SS Sodium [Moles/Vol] 141 mmol/L Normal 136 - 145 mmol/L AO ADM SS Troponin I.cardiac DL <= 0.01 ng/mL [Mass/Vol] 8.5 ng/L Normal 0.0 - 51.4 ng/L AO ADM SS Urea nitrogen [Mass/Vol] 37 mg/dL High 7 - 18 mg/dL AO ADM SS Urea nitrogen/Creatinine [Mass ratio] 45 ratio High 7 - 27 ratio AO ADM SS WBC (Bld) [#/Vol] 10.3 103/mcL Normal 4.6 - 10.8 10^3/mcL AO Workflow SS LABORATORYOrdered By: Alana Short on 04-12-2023 FLUAV RNA VALERIO+probe Ql (Upper resp) Negative 5 (04/12/23 5:06 AM) Normal Negative AO Auto Urine SS Comment on above: Interpretive Data: P ositive Results: Positive Flu A/B or RSV for by PCR. Positive test results do not rule out bacterial infection or co-infection with other pathogens. Test results should be interpreted in conjunction with other laboratory and clinical data. Negative Results: Negative for by PCR. Negative test results do not preclude influenza virus or RSV infection and should not be used as the sole basis for diagnosis, treatment, or other management decisions. There is a risk of false negative RSV results when at low concentration and in the presence of co-infection with high concentration of influenza A. Invalid Results: An Invalid result (INV) was obtained. The test was repeated with similar results. REPEAT COLLECTION AND TESTING IS RECOMMENDED. The Vimodi Flu A/B & RSV Assay is a real-time polymerase chain reaction (PCR) based qualitative in vitro diagnostic test for the direct detection and differentiation of influenza A virus, influenza B virus, and respiratory syncytial virus (RSV) nucleic acid in nasopharyngeal swab ([employer]) specimens from patients with signs and symptoms of respiratory infection in conjunction with clinical and laboratory findings. The test is intended for use as an aid in the differential diagnosis of influenza A virus, influenza B virus, and RSV in humans and is not intended to detect influenza C. FLUBV RNA VALERIO+probe Ql (Upper resp) Negative 6 (04/12/23 5:06 AM) Normal Negative AO Auto Urine SS Comment on above: Interpretive Data: P ositive Results: Positive Flu A/B or RSV for by PCR. Positive test results do not rule out bacterial infection or co-infection with other pathogens. Test results should be interpreted in conjunction with other laboratory and clinical data. Negative Results: Negative for by PCR. Negative test results do not preclude influenza virus or RSV infection and should not be used as the sole basis for diagnosis, treatment, or other management decisions. There is a risk of false negative RSV results when at low concentration and in the presence of co-infection with high concentration of influenza A. Invalid Results: An Invalid result (INV) was obtained. The test was repeated with similar results. REPEAT COLLECTION AND TESTING IS RECOMMENDED. The Vimodi Flu A/B & RSV Assay is a real-time polymerase chain reaction (PCR) based qualitative in vitro diagnostic test for the direct detection and differentiation of influenza A virus, influenza B virus, and respiratory syncytial virus (RSV) nucleic acid in nasopharyngeal swab ([employer]) specimens from patients with signs and symptoms of respiratory infection in conjunction with clinical and laboratory findings. The test is intended for use as an aid in the differential diagnosis of influenza A virus, influenza B virus, and RSV in humans and is not intended to detect influenza C. RSV RNA VALERIO+probe Ql (Upper resp) Negative 7 (04/12/23 5:06 AM) Normal Negative AO Auto Urine SS Comment on above: Interpretive Data: P ositive Results: Positive Flu A/B or RSV for by PCR. Positive test results do not rule out bacterial infection or co-infection with other pathogens. Test results should be interpreted in conjunction with other laboratory and clinical data. Negative Results: Negative for by PCR. Negative test results do not preclude influenza virus or RSV infection and should not be used as the sole basis for diagnosis, treatment, or other management decisions. There is a risk of false negative RSV results when at low concentration and in the presence of co-infection with high concentration of influenza A. Invalid Results: An Invalid result (INV) was obtained. The test was repeated with similar results. REPEAT COLLECTION AND TESTING IS RECOMMENDED. The Vimodi Flu A/B & RSV Assay is a real-time polymerase chain reaction (PCR) based qualitative in vitro diagnostic test for the direct detection and differentiation of influenza A virus, influenza B virus, and respiratory syncytial virus (RSV) nucleic acid in nasopharyngeal swab ([employer]) specimens from patients with signs and symptoms of respiratory infection in conjunction with clinical and laboratory findings. The test is intended for use as an aid in the differential diagnosis of influenza A virus, influenza B virus, and RSV in humans and is not intended to detect influenza C. SARS-CoV-2 (COVID-19) RNA VALERIO+probe Ql (Resp) Negative results do not preclude SARS-CoV-2 infection and should not be used as the sole basis for patient management decisions. Negative results must be combined with clinical observations, patient history, and epidemiological information.There is a risk of false negative values resulting from improperly collected, transported, or handled specimens.There is a risk of false negative values due to the presence of sequence variants in the pathogen targets of the assay, procedural errors, amplification inhibitors in specimens, or inadequate numbers of organisms for amplification.JOSE SARS-CoV-2 Assay is a Real-Time reverse-transcriptase polymerase chain reaction (RT-PCR) based qualitative in vitro diagnostic test intended for the qualitative detection of nucleic acid from the SARS-CoV-2 in nasopharyngeal swab specimens collected from individuals suspected of COVID-19 by their healthcare provider. Testing is limited to laboratories certified under the Clinical Laboratory Improvement Amendments of 1988 (CLIA), 42 U.S.C. 263a, to perform moderate and high complexity tests. Invalid Interpretation Code AO Auto Urine SS LABORATORYOrdered By: Linh Marc on 04-12-2023 Platelet Estimate Normal (04/12/23 5:06 AM) Normal AO Hematology S LACon 04-12-2023 Lactic Acid Lvl 0.7 mmol/L Normal 0.4-2.0 [facility] ([place]) Comment on above: Performed By: #### M G, ESR, PBNP, GFR, ADIFF, PRO, ANEU, CMP, CRP, CBC #### [facility] [address], [place] [address] No Panel Informationon 04-12 Microscopic examination of blood, culture Culture has been received in lab and is no growth to date. Routine cultures are held for 5 days. [facility] Work Phone: PBNPon 04-12-2023 Natriuretic peptide B (Bld) [Mass/Vol] 193 pg/mL High 0-125 [facility] ([place]) Comment on above: Result Comment: NT-p roBNP results of less than 300 pg/mL effectively rules out acute congestive heart failure with 99% negative predictive value. Performed By: #### M G, ESR, PBNP, GFR, ADIFF, PRO, ANEU, CMP, CRP, CBC #### [place] [place] [id number], [place] [address] TROPHSon 04-12-2023 Troponin I High Sensitivity 8.5 ng/L Normal 0.0-51.4 [facility] ([place]) Comment on above: Performed By: #### M G, ESR, PBNP, GFR, ADIFF, PRO, ANEU, CMP, CRP, CBC #### [facility] [address], [place] [address] XR CHEST 2 VIEWSon 3 XR CHEST 2 VIEWS ORIGINAL EXAMINATION: TWO XRAY VIEWS OF THE [...] Sign Date: 04/06/2023 3:27:35 PM Ordering Provider: FELIPA Cruz [facility]) LABORATORYOrdered By: Tico Sandoval on 11-28-2022 HCG ( test) Ql Negative (11/28/22 9:17 AM) Invalid Interpretation Code AO Manual Urine SS test (u) int Not detected Invalid Interpretation Code AO Manual Urine SS LABORATORYOrdered By: Shana Hanson on 11-28-2022 ABO/Rh Interp Positive Invalid Interpretation Code AO BB SS Antibody Screen Gel Negative ABSC (11/28/22 9:16 AM) Invalid Interpretation Code AO BB SS LABORATORYOrdered By: SYSTEM SYSTEM on 11-11-2022 Albumin BCP dye [Mass/Vol] 3.8 G/dL Invalid Interpretation Code 3.5 - 5.0 G/dL AO ADM SS Albumin/Globulin [Mass ratio] 1.2 {ratio} Invalid Interpretation Code 1.1 - 2.5 ratio AO ADM SS ALP [Catalytic activity/Vol] 84 U/L Invalid Interpretation Code 40 - 135 U/L AO ADM SS ALT With P-5'-P [Catalytic activity/Vol] 26 U/L Invalid Interpretation Code 14 - 59 U/L AO ADM SS AST With P-5'-P [Catalytic activity/Vol] 17 U/L Invalid Interpretation Code 10 - 40 U/L AO ADM SS Bilirubin [Mass/Vol] 0.3 mg/dL Invalid Interpretation Code 0.2 - 1.0 mg/dL AO ADM SS Calcium [Mass/Vol] 9.2 mg/dL Invalid Interpretation Code 8.4 - 10.2 mg/dL AO ADM SS Chloride [Moles/Vol] 103 mmol/L Invalid Interpretation Code 98 - 107 mmol/L AO ADM SS CO2 [Moles/Vol] 30 mmol/L Invalid Interpretation Code 22 - 29 mmol/L AO ADM SS Creatinine [Mass/Vol] 0.74 mg/dL Invalid Interpretation Code 0.55 - 1.02 mg/dL AO ADM SS Electrolyte Balance 7.0 mEq/L Invalid Interpretation Code 4.0 - 15.0 mEq/L AO ADM SS GFR/1.73 sq M.predicted among blacks MDRD (S/P/Bld) [Vol rate/Area] 101 ml/min/1.73sqm Invalid Interpretation Code AO Chemistry S GFR/1.73 sq M.predicted among non-blacks MDRD (S/P/Bld) [Vol rate/Area] 83 ml/min/1.73sqm Invalid Interpretation Code AO Chemistry S Globulin 3.2 G/dL Invalid Interpretation Code AO ADM SS Glucose [Mass/Vol] 89 mg/dL Invalid Interpretation Code 70 - 105 mg/dL AO ADM SS Potassium [Moles/Vol] 5.1 mmol/L Invalid Interpretation Code 3.5 - 5.1 mmol/L AO ADM SS Protein [Mass/Vol] 7.0 G/dL Invalid Interpretation Code 6.4 - 8.2 G/dL AO ADM SS Sodium [Moles/Vol] 140 mmol/L Invalid Interpretation Code 136 - 145 mmol/L AO ADM SS Urea nitrogen [Mass/Vol] 23 mg/dL Invalid Interpretation Code 7 - 18 mg/dL AO ADM SS Urea nitrogen/Creatinine [Mass ratio] 31 ratio Invalid Interpretation Code 7 - 27 ratio AO ADM SS LABORATORYOrdered By: Andrea Buck on 11-11-2022 Basophil, Absolute 0.0 103/mcL Invalid Interpretation Code 0.0 - 0.2 10^3/mcL AO Workflow SS Basophils/100 WBC (Bld) 0.6 % Invalid Interpretation Code 0.0 - 2.5 % AO Workflow SS Cholesterol [Mass/Vol] 178 mg/dL Invalid Interpretation Code 0 - 200 mg/dL AO ADM SS Cholesterol in HDL [Mass/Vol] 64 mg/dL Invalid Interpretation Code 40 - 60 mg/dL AO ADM SS Cholesterol in LDL [Mass/Vol] 91 mg/dL Invalid Interpretation Code 0 - 130 mg/dL AO ADM SS Eosinophil, Absolute 0.3 103/mcL Invalid Interpretation Code 0.0 - 0.4 10^3/mcL AO Workflow SS Eosinophils/100 WBC (Bld) 4.2 % Invalid Interpretation Code 0.0 - 7.0 % AO Workflow SS Erythrocyte distribution width (RBC) [Ratio] 13.8 % Invalid Interpretation Code 11.5 - 14.5 % AO Workflow SS Hematocrit (Bld) [Volume fraction] 39.1 % Invalid Interpretation Code 37.0 - 47.0 % AO Workflow SS Hemoglobin (Bld) [Mass/Vol] 12.9 G/dL Invalid Interpretation Code 12.0 - 16.0 G/dL AO Workflow SS Lymphocyte, Absolute 2.6 103/mcL Invalid Interpretation Code 0.8 - 3.9 10^3/mcL AO Workflow SS Lymphocytes/100 WBC (Bld) 34.0 % Invalid Interpretation Code 10.0 - 50.0 % AO Workflow SS MCH (RBC) [Entitic mass] 30.0 pg Invalid Interpretation Code 27.0 - 31.2 pg AO Workflow SS MCHC 33.0 G/dL Invalid Interpretation Code 33.0 - 37.0 G/dL AO Workflow SS MCV (RBC) [Entitic vol] 90.7 fL Invalid Interpretation Code 80.0 - 94.0 fL AO Workflow SS Monocyte, Absolute 0.6 103/mcL Invalid Interpretation Code 0.2 - 1.0 10^3/mcL AO Workflow SS Monocytes/100 WBC (Bld) 7.9 % Invalid Interpretation Code 1.7 - 13.0 % AO Workflow SS Neutrophil, Absolute 4.0 103/mcL Invalid Interpretation Code 2.9 - 6.2 10^3/mcL AO Workflow SS Neutrophils/100 WBC (Bld) 53.3 % Invalid Interpretation Code 37.0 - 80.0 % AO Workflow SS Platelet mean volume (Bld) [Entitic vol] 8.5 fL Invalid Interpretation Code 7.4 - 10.4 fL AO Workflow SS Platelets (Bld) [#/Vol] 209 103/mcL Invalid Interpretation Code 130 - 400 10^3/mcL AO Workflow SS RBC (Bld) [#/Vol] 4.31 106/mcL Invalid Interpretation Code 4.20 - 5.40 10^6/mcL AO Workflow SS Triglyceride [Mass/Vol] 116 mg/dL Invalid Interpretation Code 0 - 150 mg/dL AO ADM SS WBC (Bld) [#/Vol] 7.5 103/mcL Invalid Interpretation Code 4.6 - 10.8 10^3/mcL AO Workflow SS MRI CARD MORPH FUNC WO/W IVC ONon 01-17-2022 MRI CARD MORPH FUNC WO/W IVCON * * *Final Report* * * DATE OF EXAM: Jan 17 2022 10:43AM [facility] 0703 - MRI CARD MORPH FUNC WO/W IVCON / PROCEDURE REASON: I49.3 * * * * Physician Interpretation * * * * EXAM TITLE:MRI CARDIAC VELOCITY FLOW MAP, MRI CARD TriVascular FUNC WO/W IVCON DATE: 01/17/2022 10:43 AM COMPARISON: None. CLINICAL INDICATION/HISTORY: Premature ventricular complexes IMPRESSION: 1. Mild to moderately dilated left ventricle with low normal to mildly decreased systolic function, and a calculated LVEF of 52% 2. Normal sized right ventricle with normal systolic function, and a calculated RVEF of 55% 3. There is uniform nulling of the myocardium on late gadolinium enhancement sequences, arguing against myocarditis, infiltrative, ischemic, hypertrophic cardiomyopathies 4. No significant valvular abnormalities/intracard iac shunting seen. FINDINGS: 1. The left ventricle is mild to moderately dilated in size, with low normal to mildly decreased systolic function. 2. The calculated left ventricular ejection fraction is 52%. There are no regional wall motion abnormalities. 3. T1 mapping of the myocardium indicated a global rincon T1 value of 964 +/- 57 ms (normal values for this scanner 945 - 965 ms, [facility]). Late gadolinium enhancement sequences indicated no evidence of scars involving the left or right ventricles. The T2 value of the rincon myocardium is calculated at 45+/-5 msec ( normal values 40-45 msec). By modified Crenshaw criteria, there is no suggestion of acute/subacute myocarditis. 4. The right ventricle is mildly dilated.,The tricuspid annular excursion is measured at 2.7 cm. The right ventricular ejection fraction is calculated at 55%. No right ventricular free wall aneurysms are seen. No fatty infiltration of the free wall is seen on T2 weighted STIR images. [place], there is no evidence of arrhythmogenic right ventricular cardiomyopathy. 5. No significant valvular abnormalities seen.. There is mild left atrial enlargement ([place] 35 ml/m2). 6. The pericardial thickness is 1 mm. A trivial (physiologic) pericardial effusion is present without changes of tamponade. 7. The great vessels including the aorta, main pulmonary artery, superior and inferior vena cavae and pulmonary veins are within normal limits. The cardiac situs is solitus. The venoatrial, atrioventricular, ventricular arterial connections appear to be concordant. No significant mediastinal lymphadenopathy is seen. 8. Phase velocity mapping sequences did not indicate any intracardiac shunting Qp/Qs ratio 1.05 MEASUREMENTS: A. GREAT VESSELS: I. Aortic root 3.3 cm at the sinuses of Valsalva, 2.3 cm at the sinotubular junction. II. Ascending Aorta 3.2 cm III. Descending Aorta: 2.3 cm IV. Main Pulmonary Artery 2.8 cm V. RIGHT Pulmonary Artery 1.8 cm . Left Pulmonary Artery 2 cm B. LEFT VENTRICLE: I. End Diastolic dimension 5.4 cm II. End systolic dimension 4.3 cm III. LVEF 52 % IV. Anteroseptal wall 1 cm V. Inferolateral wall 0.7 cm C. RIGHT VENTRICLE: I. Major Dimension 9.1 cm II.Minor Dimension 3.5 cm VOLUMES: I. Left Ventricular End systolic Volume index (LVESVI) 48 ml/m2 (10-43) II. Left Ventricular End diastolic Volume index (LVEDVI) 100 ml/m2 (51-110) III. Left Ventricular Stroke Volume index (LVSVI) 52 ml/m2 (20-62) IV. Right Ventricular End Systolic volume index ( RVESVI) 43 ml/m2 (37-127) V. Right Ventricular End Diastolic volume index ( RVEDVI) 95 ml/m2 (45-110) . Right Ventricular Stroke volume index ( RVSVI) 52 ml/m2 (33-77) VII.Cardiac Index 2.5 L/min/m2 (2.5-3.0) Ear Nose And Throat Specialist: ANA Transcribe Date/Time: Jan 23 2022 1:30P Dictated by : JOSE PALM MD This examination was interpreted and the report reviewed and electronically signed by: JOSE PALM MD on Jan 23 2022 2:25PM EST [id number] Normal [facility] MRI CARDIAC VELOCITY FLOW MA Allen 01-17-2022 MRI CARDIAC VELOCITY FLOW MAP * * *Final Report* * * DATE OF EXAM: Jan 17 2022 10:43AM [facility] 0[facility] - MRI CARDIAC VELOCITY FLOW MAP / PROCEDURE REASON: I49.3 * * * * Physician Interpretation * * * * EXAM TITLE:MRI CARDIAC VELOCITY FLOW MAP, MRI CARD MORPH FUNC WO/W IVCON DATE: 01/17/2022 10:43 AM COMPARISON: None. CLINICAL INDICATION/HISTORY: Premature ventricular complexes IMPRESSION: 1. Mild to moderately dilated left ventricle with low normal to mildly decreased systolic function, and a calculated LVEF of 52% 2. Normal sized right ventricle with normal systolic function, and a calculated RVEF of 55% 3. There is uniform nulling of the myocardium on late gadolinium enhancement sequences, arguing against myocarditis, infiltrative, ischemic, hypertrophic cardiomyopathies 4. No significant valvular abnormalities/intracard iac shunting seen. FINDINGS: 1. The left ventricle is mild to moderately dilated in size, with low normal to mildly decreased systolic function. 2. The calculated left ventricular ejection fraction is 52%. There are no regional wall motion abnormalities. 3. T1 mapping of the myocardium indicated a global rincon T1 value of 964 +/- 57 ms (normal values for this scanner 945 - 965 ms, [facility]). Late gadolinium enhancement sequences indicated no evidence of scars involving the left or right ventricles. The T2 value of the rincon myocardium is calculated at 45+/-5 msec ( normal values 40-45 msec). By modified Crenshaw criteria, there is no suggestion of acute/subacute myocarditis. 4. The right ventricle is mildly dilated.,The tricuspid annular excursion is measured at 2.7 cm. The right ventricular ejection fraction is calculated at 55%. No right ventricular free wall aneurysms are seen. No fatty infiltration of the free wall is seen on T2 weighted STIR images. [place], there is no evidence of arrhythmogenic right ventricular cardiomyopathy. 5. No significant valvular abnormalities seen.. There is mild left atrial enlargement ([place] 35 ml/m2). 6. The pericardial thickness is 1 mm. A trivial (physiologic) pericardial effusion is present without changes of tamponade. 7. The great vessels including the aorta, main pulmonary artery, superior and inferior vena cavae and pulmonary veins are within normal limits. The cardiac situs is solitus. The venoatrial, atrioventricular, ventricular arterial connections appear to be concordant. No significant mediastinal lymphadenopathy is seen. 8. Phase velocity mapping sequences did not indicate any intracardiac shunting Qp/Qs ratio 1.05 MEASUREMENTS: A. GREAT VESSELS: I. Aortic root 3.3 cm at the sinuses of Valsalva, 2.3 cm at the sinotubular junction. II. Ascending Aorta 3.2 cm III. Descending Aorta: 2.3 cm IV. Main Pulmonary Artery 2.8 cm V. RIGHT Pulmonary Artery 1.8 cm . Left Pulmonary Artery 2 cm B. LEFT VENTRICLE: I. End Diastolic dimension 5.4 cm II. End systolic dimension 4.3 cm III. LVEF 52 % IV. Anteroseptal wall 1 cm V. Inferolateral wall 0.7 cm C. RIGHT VENTRICLE: I. Major Dimension 9.1 cm II.Minor Dimension 3.5 cm VOLUMES: I. Left Ventricular End systolic Volume index (LVESVI) 48 ml/m2 (10-43) II. Left Ventricular End diastolic Volume index (LVEDVI) 100 ml/m2 (51-110) III. Left Ventricular Stroke Volume index (LVSVI) 52 ml/m2 (20-62) IV. Right Ventricular End Systolic volume index ( RVESVI) 43 ml/m2 (37-127) V. Right Ventricular End Diastolic volume index ( RVEDVI) 95 ml/m2 (45-110) . Right Ventricular Stroke volume index ( RVSVI) 52 ml/m2 (33-77) VII.Cardiac Index 2.5 L/min/m2 (2.5-3.0) Ear Nose And Throat Specialist: ANA Transcribe Date/Time: Jan 23 2022 1:30P Dictated by : JOSE PALM MD This examination was interpreted and the report reviewed and electronically signed by: JOSE PALM MD on Jan 23 2022 2:25PM EST [id number] [facility] CNPNon 01-14-2022 CNPN Telephone (AKI) JAKE ELIZABETH ([id number]) 1970 F Date Time Provider Department 01/14/22 DELLA AVERY During your visit today, we recorded the following information about you: RT Felicity(R) 01/14/2022 2:10 PM Signed Outpatient CMR for Wednesday 01/17. Order in scanned documents. Jose Palm MD 01/15/2022 11:57 PM Signed Hello, Get dark, and bright bloods, make sure U get RV 2 C, RVOT, STIRS of RV2 C, RVOT. Also STIR the 4 C, 2 C, one short axis, inject contrast, and get delayed images at 3 (regular PSIRS), 8 min (fat suppressed PSIRS: SPAIR). Qp, Qs. T1 mapping ( 3 levels), T2 mapping required.You can use the arrhythmia rejection protocol if several PVCs cause blurry images. Thanks, Dr Palm Allergies As of Date: 01/14/2022 (Not on File) Date Reviewed: Never Reviewed Reason for Visit: Orders [681] Problem List As Of Date: 01/14/2022 (None) Encounter Status:Closed by DELLA AVERY on 01/14/22 [facility] LABORATORYOrdered By: Linh Marc on 12-25-2021 Basophil, Absolute 0.1 103/mcL Invalid Interpretation Code 0.0 - 0.2 10^3/mcL AO Workflow SS Basophils/100 WBC (Bld) 0.7 % Invalid Interpretation Code 0.0 - 2.5 % AO Workflow SS Eosinophil, Absolute 0.2 103/mcL Invalid Interpretation Code 0.0 - 0.4 10^3/mcL AO Workflow SS Eosinophils/100 WBC (Bld) 2.1 % Invalid Interpretation Code 0.0 - 7.0 % AO Workflow SS Erythrocyte distribution width (RBC) [Ratio] 13.9 % Invalid Interpretation Code 11.5 - 14.5 % AO Workflow SS Hematocrit (Bld) [Volume fraction] 36.3 % Invalid Interpretation Code 37.0 - 47.0 % AO Workflow SS Hemoglobin (Bld) [Mass/Vol] 12.4 G/dL Invalid Interpretation Code 12.0 - 16.0 G/dL AO Workflow SS Lymphocyte, Absolute 1.8 103/mcL Invalid Interpretation Code 0.8 - 3.9 10^3/mcL AO Workflow SS Lymphocytes/100 WBC (Bld) 24.2 % Invalid Interpretation Code 10.0 - 50.0 % AO Workflow SS MCH (RBC) [Entitic mass] 31.1 pg Invalid Interpretation Code 27.0 - 31.2 pg AO Workflow SS MCHC 34.0 G/dL Invalid Interpretation Code 33.0 - 37.0 G/dL AO Workflow SS MCV (RBC) [Entitic vol] 91.2 fL Invalid Interpretation Code 80.0 - 94.0 fL AO Workflow SS Monocyte, Absolute 0.6 103/mcL Invalid Interpretation Code 0.2 - 1.0 10^3/mcL AO Workflow SS Monocytes/100 WBC (Bld) 7.9 % Invalid Interpretation Code 1.7 - 13.0 % AO Workflow SS Neutrophil, Absolute 4.8 103/mcL Invalid Interpretation Code 2.9 - 6.2 10^3/mcL AO Workflow SS Neutrophils/100 WBC (Bld) 65.1 % Invalid Interpretation Code 37.0 - 80.0 % AO Workflow SS Platelet mean volume (Bld) [Entitic vol] 8.6 fL Invalid Interpretation Code 7.4 - 10.4 fL AO Workflow SS Platelets (Bld) [#/Vol] 446 103/mcL Invalid Interpretation Code 130 - 400 10^3/mcL AO Workflow SS RBC (Bld) [#/Vol] 3.98 106/mcL Invalid Interpretation Code 4.20 - 5.40 10^6/mcL AO Workflow SS WBC 7.3 103/mcL Invalid Interpretation Code 4.6 - 10.8 10^3/mcL AO Workflow SS LABORATORYOrdered By: Samantha armas [place] on 12-25-2021 Cholesterol [Mass/Vol] 204 mg/dL Invalid Interpretation Code 0 - 200 mg/dL AO ADM SS Cholesterol in HDL [Mass/Vol] 35 mg/dL Invalid Interpretation Code 40 - 60 mg/dL AO ADM SS Cholesterol in LDL [Mass/Vol] 143 mg/dL Invalid Interpretation Code 0 - 130 mg/dL AO ADM SS Triglyceride [Mass/Vol] 131 mg/dL Invalid Interpretation Code 0 - 150 mg/dL AO ADM SS TSH Qn 0.58 m[IU]/L Invalid Interpretation Code 0.36 - 3.74 mcIU/mL AO ADM SS Vit. D 25-Hydroxy 77.0 ng/mL Invalid Interpretation Code AO ADM SS LABORATORYOrdered By: SYSTEM SYSTEM on 12-25-2021 Monocyte distribution width Auto (Bld) [Entitic vol] Not Performed 1 *NA* (12/25/21 11:31 AM) Invalid Interpretation Code 0.00 - 20.00 AO Hematology S Comment on above: Result Comment: MDW testing performed only on adult ER patients between the ages of 18-89 years. LABORATORYOrdered By: Yesenia Novoa on 08-20-2021 HPV Interp High Risk HPV Typing : NEGATIVEHPV types 16, 18, 31, 33, 35, 39, 45, 51, 52, 56, 58, 59, 66 and 68 DNA wereundetectable or below the pre-set threshold.The sofie High-Risk HPV DNA Test is not intended for use as a screening device forPap normal women under age 30 and is not intended to substitute for regular Papscreening.The sofie High-Risk HPV DNA Test is designed to augment existing methods for thedetection of cervical disease and should be used in conjunction with clinicalinformation derived from other diagnostic and screening tests, physical examinationsand full medical history in accordance with appropriate patient managementprocedures.NO TE: A negative result does not preclude the presence of HPV infection because resultsdepend on adequate specimen collection, absence of inhibitors and sufficientDNA to be detected. Invalid Interpretation Code See Interp HPVN AH Auto Viro/Sero SS Specimen source Nom (Unsp spec) Cervix (08/20/21 12:13 PM) Invalid Interpretation Code AH Auto Viro/Sero SS CT ABDOMEN/PELVIS W/O CONTRA STon 11-21-2016 CT ABDOMEN/PELVIS W/O CONTRAST ORIGINALCT ABDOMEN/PELVIS W/O CONTRAST CLINICAL STATEMENT: LEFT flank pain COMPARISON: None TECHNIQUE: Axial images were obtained from the lung bases through the pubic symphysis. Coronal reformatted images were generated from the axial dataset. This exam was performed according to our departmental dose optimization program, and includes the following measures where applicable: automated exposure control, adjustment of the mAs and/or kVp according to patient size and/or exam, and an iterative reconstruction algorithm. FINDINGS: The kidneys are symmetric in size. The right kidney and ureter are unremarkable. Several left renal calculi measure up to 5 mm. A 2 mm calculus is present within the urinary bladder adjacent the left ureterovesical junction. There is mild left hydronephrosis. No perinephric stranding. The left ureter is not significantly dilated. The urinary bladder is collapsed. The visualized liver and spleen are unremarkable for noncontrast examination. The noncontrasted pancreas and adrenal glands are normal. The gallbladder is surgically absent. There is no bowel dilation or other evidence of obstruction. The large bowel distal to the hepatic flexure is collapsed. The appendix is unremarkable. There is a approximately 1 cm nodular focus in the fat at the cecum of uncertain etiology, possibly epiploic appendagitis. The uterus and adnexa are within normal limits. There is no free fluid or free air. No adenopathy is identified. There are no suspicious osseous lesions. IMPRESSION: Left nephrolithiasis up to 5 mm, and a punctate bladder calculus adjacent the left ureterovesical junction with mild left hydroureteronephrosis.. I have personally reviewed the images of this examination and agree with the resident's findings and interpretation. Interpreted By: Heidi Zamoranoreliminary Report By: Amanda Leon DOElectronically Signed By: Heidi Zamorano MD Dictated Date: 11/20/2016 11:02:18 PM Prelim Date: 11/20/2016 11:14:17 PM Sign Date: 11/20/2016 11:33:17 PM [facility] on 11-21-2016 [place] [facility] Note Normal [facility] Patient Summary Documentson 11-21-2016 Patient Summary Documents Normal [facility] test (u)on 017 test (u) Negative Normal [facility] Comment on above: Order Comment: CBN Result Comment: HCG not detected. Performed By: #### P REGU ####[address] [address] Urinalysis (AO)on 11-20-2016 Erythrocytes (RBC) 15-25 Abnormal NONE SEEN [facility] Comment on above: Order Comment: CBN Performed By: #### U AO ####[place] [address] [address] Squamous Epi 0-5 Abnormal NONE SEEN [facility] Comment on above: Order Comment: CBN Performed By: #### U AO ####[address] [address] WBC (Leukocytes) NONE SEEN Normal NONE SEEN [facility] Comment on above: Order Comment: CBN Performed By: #### U AO ####[address] [address] Bilirubin (total) SMALL Abnormal NEGATIVE [facility] Comment on above: Order Comment: CBN Performed By: #### U AO ####[address] [address] Glucose mass conc Negative Normal NEGATIVE [facility] Comment on above: Order Comment: CBN Performed By: #### U AO ####[address] [address] Hemoglobin mass conc (Bld) LARGE Abnormal NEG - TRACE [facility] Comment on above: Order Comment: CBN Performed By: #### U AO ####[address] [address] pH of blood 5.5 [pH] Normal 5.0 - 8.0 [facility] Comment on above: Order Comment: CBN Performed By: #### U AO ####[place] [id number] Protein Negative Normal NEG - TRACE [facility] Comment on above: Order Comment: CBN Performed By: #### U AO ####[place] [address] Urine, appearance CLEAR Normal CLEAR [facility] Comment on above: Order Comment: CBN Performed By: #### U AO ####[place] [address] Urine, color YELLOW Normal [facility] Comment on above: Order Comment: CBN Performed By: #### U AO ####[place] [address] Urine, ketones presence TRACE Normal NEGATIVE [facility] Comment on above: Order Comment: CBN Performed By: #### U AO ####[place] [address] Urine, nitrite presence Negative Normal NEGATIVE [facility] Comment on above: Order Comment: CBN Performed By: #### U AO ####[place] [address] Urine, specific gravity >=1.030 Abnormal 1.015-1.025 [facility] Comment on above: Order Comment: CBN Performed By: #### U AO ####[place] [address] Urine, urobilinogen 0.2 {Terri'U}/dL Normal NORMAL [facility] Comment on above: Order Comment: CBN Performed By: #### U AO ####[place] [address] WBC (Leukocytes) Negative Normal NEGATIVE [facility] Comment on above: Order Comment: CBN Performed By: #### U AO ####[place] [address] Specimen type (u) VOID Normal [facility] Comment on above: Order Comment: CBN Performed By: #### U AO ####[facility], [address] [place] [address] Vital Signs Date Time Vital Sign Value Performing Clinician Facility 04-12-2023 05:19-0500 Heart rate 63 /min DR RAY LEAL MD [facility] 04-12-2023 05:19-0500 Respiratory rate 18 /min DR RAY LEAL MD [facility] 04-12-2023 04:41-0500 Body temperature 97.88 [degF] DR RAY LEAL MD [facility] 04-12-2023 04:41-0500 Diastolic Blood Pressure Non-Invasive 92 mm[Hg] DR RAY LEAL MD [facility] 04-12-2023 04:41-0500 Heart rate 64 /min DR RAY LEAL MD [facility] 04-12-2023 04:41-0500 Respiratory rate 20 /min DR RAY LEAL MD [facility] 04-12-2023 04:41-0500 Systolic Blood Pressure Non-Invasive 142 mm[Hg] DR RAY LEAL MD [facility] 11-28-2022 16:05-0400 Diastolic Blood Pressure Non-Invasive [address] FRANKO BENITO MD [facility] 11-28-2022 16:05-0400 Heart rate 73 /min DR FRANKO BENITO MD [facility] 11-28-2022 16:05-0400 Respiratory rate 16 /min DR FRANKO BENITO MD [facility] 11-28-2022 16:05-0400 Systolic Blood Pressure Non-Invasive [address] FRANKO BENITO MD [facility] 11-28-2022 14:02-0400 Diastolic Blood Pressure Non-Invasive [address] FRANKO BENITO MD [facility] 11-28-2022 14:02-0400 Heart rate 67 /min DR FRANKO BENITO MD [facility] 11-28-2022 14:02-0400 Systolic Blood Pressure Non-Invasive [address] FRANKO BENITO MD [facility] 11-28-2022 13:46-0400 Respiratory rate 16 /min DR FRANKO BENITO MD [facility] 11-28-2022 13:30-0400 Diastolic Blood Pressure Non-Invasive [address] FRANKO BEINTO MD [facility] 11-28-2022 13:30-0400 Heart rate 68 /min DR FRANKO BENITO MD [facility] 11-28-2022 13:30-0400 Respiratory rate 21 /min DR FRANKO BENITO MD [facility] 11-28-2022 13:30-0400 Systolic Blood Pressure Non-Invasive [address] FRANKO BENITO MD [facility] 11-28-2022 13:15-0400 Heart rate 62 /min DR FRANKO BENITO MD [facility] 11-28-2022 12:45-0400 Body temperature 96.8 [degF] DR FRANKO BENITO MD [facility] 11-28-2022 12:40-0400 Body temperature 32 [degF] DR FRANKO BENITO MD [facility] 11-28-2022 12:40-0400 Respiratory Rate - Anes 0 br/min DR FRANKO BENITO MD [facility] 11-28-2022 12:35-0400 Respiratory Rate - Anes 17 br/min DR FRANKO BENITO MD [facility] 11-28-2022 12:30-0400 Respiratory Rate - Anes 17 br/min DR FRANKO BENITO MD [facility] 11-28-2022 09:10-0400 Body height 165.[address] FRANKO BENITO MD [facility] 11-28-2022 09:10-0400 Body temperature 98.06 [degF] DR FRANKO BENITO MD [facility] 11-28-2022 09:10-0400 Body weight [address] FRANKO BENITO MD [facility] 11-28-2022 09:10-0400 Heart rate 75 /min DR FRANKO BENITO MD [facility] 11-26-2022 08:29-0400 Body height 165.[address] FRANKO BENITO MD [facility] 11-26-2022 08:29-0400 Body weight [address] FRANKO BENITO MD [facility] 11-26-2022 08:29-0400 Body weight 36.69 kg/m2 DR FRANKO BENITO MD [facility] 11-26-2022 08:29-0400 Diastolic Blood Pressure Non-Invasive [address] FRANKO BENITO MD [facility] 11-26-2022 08:29-0400 Heart rate 68 /min DR FRANKO BENITO MD [facility] 11-26-2022 08:29-0400 Respiratory rate 20 /min DR FRANKO BENITO MD [facility] 11-26-2022 08:29-0400 Systolic Blood Pressure Non-Invasive [address] FRANKO BENITO MD [facility] 01-27-2022 10:50-0400 Body height 167 cm GUERRERO KIM MD [facility] 01-27-2022 10:50-0400 Body temperature 100.04 [degF] GUERRERO KIM MD [facility] 01-27-2022 10:50-0400 Body weight 96 kg GUERRERO KIM MD [facility] 01-27-2022 10:50-0400 Diastolic blood pressure 84 mm[Hg] GUERRERO KIM MD [facility] 01-27-2022 10:50-0400 Heart rate 100 /min GUERRERO KIM MD [facility] 01-27-2022 10:50-0400 Respiratory rate 16 /min GUERRERO KIM MD [facility] 01-27-2022 10:50-0400 Systolic blood pressure 129 mm[Hg] GUERRERO KIM MD [facility] Encounters Encounter Date Encounter Type Care Provider Facility Start: 02-01-2024 End: 02-05-2024 ambulatory LISA SOTO MICROBIOLOGY DIRECTOR-MANAGER [employer]OPMENT Facility:[facility] Start: 01-08-2024 End: 01-08-2024 ambulatory JULIENNE FAJARDO MICROBIOLOGY DIRECTOR-[facility] Facility:B Start: 01-08-2024 End: 01-08-2024 Patient encounter procedure TARAH BHATT MD [facility] Start: 12-01-2023 End: 12-05-2023 ambulatory JULIENNE NAJERAJUSTINE MICROBIOLOGY DIRECTOR-[facility] Facility:B Start: 12-01-2023 End: 12-05-2023 Outreach Lab TARAH BHATT MD [facility] Start: 11-24-2023 End: 11-24-2023 ambulatory UNKNOWN PROVIDER Facility:[facility] Start: 11-18-2023 End: 11-18-2023 ambulatory UNKNOWN PROVIDER Facility:[facility] Start: 11-18-2023 End: 11-18-2023 Patient encounter procedure TARAH BHATT MD [facility] Start: 11-17-2023 End: 11-21-2023 ambulatory UNKNOWN PROVIDER Facility:[facility] Start: 11-17-2023 End: 11-21-2023 Encounter for gynecological examination (general) (routine) without abnormal findings UNKNOWN PROVIDER Facility:[facility] Start: 11-17-2023 End: 11-21-2023 Outreach Lab TARAH BHATT MD [facility] Start: 06-10-2023 End: 06-10-2023 ambulatory JULIENNE FAJARDO MICROBIOLOGY DIRECTOR-[facility] Facility:B Start: 06-10-2023 End: 06-10-2023 Patient encounter procedure JULIENNE FAJARDO MICROBIOLOGY DIRECTOR-[facility] Start: 04-12-2023 End: 04-12-2023 Emergency department patient visit DR RAY LEAL MD [facility] Start: 04-06-2023 End: 04-06-2023 ambulatory JULIENNE FAJARDO [facility] Facility:B Start: 04-06-2023 End: 04-06-2023 Patient encounter procedure FELIPA DONAHUE PA-C [facility] Start: 11-28-2022 End: 11-28-[address] FRANKO BENITO MD [facility] Start: 11-26-2022 End: 11-26-[address] FRANKO BENITO MD [facility] Start: 11-11-2022 End: 11-11-2022 Patient encounter procedure JULIENNE FAJARDO [facility] Start: 11-11-2022 End: 11-11-2022 Well adult monitoring check done JULIENNE FAJARDO [facility] Start: 10-23-2022 End: 10-23-2022 Patient encounter procedure TARAH BHATT MD [facility] Start: 10-14-2022 End: 10-18-2022 Outreach Lab TARAH BHATT MD [facility] Start: 01-27-2022 End: 01-27-2022 Emergency department patient visit GUERRERO KIM MD [facility] Start: 01-17-2022 End: 01-17-2022 Subsequent hospital visit by physician Mri 2 [facility] (I-Stat/1.5t) [facility] Comment on above: Ventricular prematur e depolarization [I49.3] Start: 01-14-2022 Telephone encounter Della Castilloy RT(R ) [facility] Comment on above: Orders Start: 12-25-2021 End: 12-25-2021 Patient encounter procedure JULIENNE FAJARDO MICROBIOLOGY DIRECTOR-MANAGER [employer]EL[employer] [facility] Start: 08-20-2021 End: 08-24-2021 Outreach Lab TARAH BHATT MD [facility] Start: 07-25-2021 End: 07-25-2021 Patient encounter procedure JULIENNE FAJARDO MICROBIOLOGY DIRECTOR-MANAGER [employer] [facility] Start: 11-20-2016 End: 11-21-2016 Emergency department patient visit AKANKSHA JEREZ Facility:[facility] Procedures Date Procedure Procedure Detail Performing Clinician Start: 06-25-2023 Laryngoscopy TARAH SMITH MD Start: 06-25-2023 Radioallergosorbent test TARAH BHATT MD Start: 11-22-2022 Arthroplasty of knee AM LAUREN BHATT MD Comment on above: right Start: 10-02-2020 Transesophageal echocardiography JULIENNE FAJARDO MICROBIOLOGY DIRECTOR-[employer] Comment on above: No evidence of throm bus or vegetation. There is a small shunt through a patent foramen ovale. Arthroscopy of knee with meniscus repair TARAH BHATT MD Cholecystectomy JULIENNE FAJARDO MICROBIOLOGY DIRECTOR-[employer]GER [employer] Decompression of median nerve JULIENNE FAJARDO MICROBIOLOGY DIRECTOR-[employer] Comment on above: damaso Dilation and curettage JULIENNE FAJARDO MICROBIOLOGY DIRECTOR-[employer] Comment on above: x2 Foot repair JULIENNE FAJARDO APR N-[employer]NAGER [employer] Comment on above: screw Ligation of fallopian tube R SILVIANO FAJARDO MICROBIOLOGY DIRECTOR-MANAGER [employer] Plan of Treatment Date Care Activity Detail Author Start: 01-23-2022 Influenza vaccination INFLUENZA (#1) [facility] Start: 01-28-2017 COLOGUARD (FIT-DNA) COLOGUARD (FIT-D NA) [facility] Start: 01-28-2017 Colonoscopy COLONOSCOPY [facility] Start: 01-28-2017 COLORECTAL CANCER SCREENING COLORECTAL CANCER SCREENING [facility] Start: 01-28-[address] COLONOGRAPHY [facility] Start: 01-28-2017 DIABETES SCREEN DIABETES SCREEN [facility] Start: 01-28-2017 FECAL OCCULT BLOOD FECAL OCCULT BLOO D [facility] Start: 01-28-2017 LIPID SCREEN LIPID SCREEN [facility] Start: 01-28-2017 SIGMOIDOSCOPY SIGMOIDOSCOPY [facility] Start: 2012 Mammography MAMMOGRAM [facility] Start: 01-28-2002 HPV TESTING HPV TESTING [facility] Start: 01-28-1993 PAP TESTING PAP TESTING [facility] Start: 01-28-1991 Urine microalbumin profile DTAP,TDAP ,TD (1 - Tdap) [facility] Start: 01-28-1990 HEPATITIS C SCREENING HEPATITIS C SC REENING [facility] Start: 01-28-1990 HIV SCREENING HIV SCREENING [facility] Start: 1984 Adult depression scr eening assessment DEPRESSION SCREENING [facility] Start: 1972 COVID-19 VACCINE (#1) COVID-19 VACCI NE (#1) [facility] Start: 1972 HEPATITIS B (1 of 3 - 3-dose series) HEPATITIS B (1 of 3 - 3-dose series) [facility] Payers Date Payer Category Payer Unknown MMO MMO [employer] [id number] 2021-Present [phone] [address] [place] [address] PPO [id number] 2003 Unknown [id number] 1972 Unknown [id number] 1972 Unknown [id number] 1972 Unknown [id number] 1972 Unknown [id number] 1972 Unknown [id number] 1972 Unknown [id number] 1972 Unknown [id number] 1972 Unknown [id number] 1972 Unknown [id number] Social History Date Type Detail Facility Start: 12-28-2018 Never smoked t obacco (finding) [facility] Sex Assigned At Female [facility] Tobacco smoking status [facility] Tobacco smoking consumption unknown [facility] Start: 1972 Sex Assigned At Not on file C [facility] Start: 01-07-2022 End: 01-17-2022 Exposure to SARS-CoV-2 (event) Not sure [facility] Functional Status Date Assessment Result Facility 04-12-2023 Functional Status Independent [facility] 04-12-2023 Functional Status Standard Safet y ID band on, Allergy Band on, Call device within reach, Bed in low position, Wheels locked, Upper/Half-Length side-rails up, personal items within reach, Bedside Cart Locked, Visitor at bedside [facility] 11-28-2022 [facility] Functional Status Repositions se lf, Resting [facility] 11-28-2022 Functional Status ice on [facility] 11-28-2022 Functional Status NPO Status Maintained A [facility] 11-28-2022 Functional Status [facility] 11-26-2022 Functional Status Sensory Deficits None [facility] 01-27-2022 Functional Status ID band on, Allergy Band on, Call device within reach, Bed in low position, Wheels locked, personal items within reach [facility] Mental Status Date Assessment Result Facility 04-12-2023 Mental Status Orientation Oriented x 4 [facility] 04-12-2023 Mental Status [facility] 11-28-2022 Mental Status Oriented x 4 [facility] 11-28-2022 Mental Status Orientation Asse ssment Oriented x 4 [facility] 01-27-2022 Mental Status Oriented x 4 [facility] Clinical Notes 01-14-2022 to 11-18-2023 RadiologyTelephone Encounter - RT Felicity(R) - 01/14/2022 2:08 PM EDTLaboratoryLaboratoryLaboratoryLaboratoryRadiologyLaboratoryRadiologyRadiology RadiologyLaboratoryRadiologyLaboratoryRadiology Note Date & Type Note Facility 11-18-2023 Note . MICRO - Microbiology PROCEDURE: Affirm Pathogens DNA Direct Probe [*1] SOURCE: Vaginal Fluid BODY SITE: Vagina COLLECTED DATE/TIME: 11/17/2023 15:57 EDT RECEIVED DATE/TIME: 11/17/2023 20:51 EDT START DATE/TIME: 11/17/2023 20:52 EDT FREE TEXT SOURCE: FINAL REPORTS Final Report [] Verified Date/Time/Personnel: 11/18/2023 12:46 EDT Gardnerella vaginalis DNA Probe Positive Trichomonas vaginalis DNA Probe Negative Tracy species DNA Probe Negative Performing Locations *1: This test was performed at: [facility], [address] [place] [address], [facility] , [facility] 06-10-2023 Note ORIGINAL EXAMINATION: TWO XRAY VIEWS [...] Sign Date: 06/10/2023 2:58:01 PM Ordering Provider: JULIENNE [facility] 04-17-2023 Note . MICRO - Microbiology PROCEDURE: Blood [...] Locations *1: This test was performed at: [facility], [address] [place] [address], [id number] , [facility] 04-17-2023 Note . MICRO - Microbiology PROCEDURE: Blood [...] Locations *1: This test was performed at: [facility], [address] [place] [address], [id number] , [facility] 04-12-2023 Hospital Discharg e instructions Patient Education [...] be told to take ibuprofen or other yuaw-ewu-bliiebl medicines. These help relieve inflammation in your [...] or within 3 days of taking antibiotics [phone] [employer]. [address] [place], [place] [id number]. All rights reserved. This information is not [...] will help loosen secretions in the lungs. Aulu-doc-asqqjvp cough medicines that contain dextromethorphan may help [...] losing consciousness Rapid heartbeat Weakness or dizziness [phone] [employer]. [address] [place] [address]. All rights reserved. This information is not intended as a substitute for professional medical care. Always follow your healthcare professional's instructions. Follow Up Care 04/12/2023 04:34:10 With:JULIENNE FAJARDO Address: [address] [place] [phone] When:2-4 days Comments:Return to ED if symptoms worsen [facility] 04-12-2023 Note Discharge Instructions Thank you for allowing [place] to assist you with your healthcare needs. [...] Return to ED if symptoms worsen Where: [address] [place] [phone] Allergies Cashews (Difficulty swallowing) sulfamethoxazole (Rash) Medications [...] be told to take ibuprofen or other qbms-gbj-xuoezvu medicines. These help relieve inflammation in your [...] or within 3 days of taking antibiotics [phone] [employer]. [address] [place] [address]. All rights reserved. This information is not [...] will help loosen secretions in the lungs. Wwbm-nat-uznmdqw cough medicines that contain dextromethorphan may help [...] losing consciousness Rapid heartbeat Weakness or dizziness [phone] [employer]. [address] [place] [address]. All rights reserved. This information is not intended as a substitute for professional medical care. Always follow your healthcare professional's instructions. Additional Information VACCINATE! IT SAVES LIVES! Members of the community who have not yet received the COVID-19 vaccine and would like to receive it can visit one of [facility] vaccine clinics. There are many vaccine clinic locations within the [facility]. For locations and available times, please visit [email or web address] It is important to note that some COVID mobile vaccine clinics are held outdoors and may be canceled in rainy or stormy conditions. To learn more about pediatric vaccinations (ages 5-11), we invite you to visit the [facility] webpage. [email or web address] To learn more about the COVID-19 vaccine, we invite you to visit the CDC website for a list of frequently asked questions. https://www.cdc.gov/coronavirus/ 2019-ncov/vaccines/faq.html [facility] Access Instructions: Stay connected with your healthcare team and access your personal medical information anytime with the [facility] Portal. If you would like a full copy of your medical records please contact the [facility] Medical Records Department Thursday through Thursday between 8a.m. and 4:30p.m. Please follow the directions below to access the portal: 1.Access the email account you provided upon registration to the hospital.2.Look for an invitation email from [facility].3.Open the email and access the invitation link: Accept Invitation to [facility]4.Fill in the required zapien to create your account. Sign into [email or web address] with your username and password that you [...] you will allow to register on the [facility] Patient Portal for access to your information. You can also access the [facility] Patient Portal on the castaclip kj. Simply click on Health Records under Health Data and then click on the [place] logo. HOW TO SAFELY DISPOSE OF PRESCRIPTION [...] Call your local pharmacy or go to http://S[employer].Vascular Closure/0K1Ee1v to find one close to you.3.Make use of household items: Use cat litter or old coffee grounds to dispose medications if other options are not available. Mix your drugs with these household products, seal them in an airtight container and throw it into the garbage. Call [facility]: [phone] to be sure your drugs can be [...] aware that I should contact my doctor. 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 Signature: Date/Time: Relationship to Patient: Witness Name/Signature: Date/Time: [facility] 04-12-2023 Note ORIGINAL EXAMINATION: CTA OF THE [...] By: Rubio Lara MD Electronically signed By uRbio Lara MD Dictated Date: 04/12/2023 5:58:00 AM Prelim Date: 04/12/2023 6:00:00 AM Sign Date: 04/12/2023 6:00:00 AM Ordering Provider: RAY LEAL [facility] 04-12-2023 Note Sinus rhythm Short AR interval Nonspecific intraventricular conduction delay Artifact in lead(s) I,II,III,aVR,aVL,aVF,V1,V3,V4 and baseline wander in lead(s) V1,V2,V3,V6 Electronic Signature: MD RAY LEAL MD 04/12/2023 06:32:43 [facility] 04-12-2023 SARS-CoV-2 (COVID-19) RNA VALERIO+probe Ql (Nph) [...] Sign Date: 04/06/2023 3:27:35 PM Ordering Provider: FELIPA DONAHUE [facility] 11-28-2022 Hospital Discharg e instructions Patient Education 11/28/2022 14:30:57 Monitored Anesthesia [...] before eating solid foods. General instructions Take jsrr-hvu-qzgyjfb and prescription medicines only as told by [...] 08/31/2016 Document Revised: 08/09/2018 Document Reviewed: 08/31/2016 [employer] Patient Education [employer]. 11/28/2022 14:30:45 Partial Knee Replacement, Care After [...] Follow these instructions at home: Medicines Take kdbl-tse-ojhxamk and prescription medicines only as told by [...] to keep your urine pale yellow. ?Take gvsy-sey-hhkbkak or prescription medicines. ?Eat foods that are [...] and water are not available, use hand motor racer. ?Change your dressing as told by your [...] Document Reviewed: 06/01/2019 Elsevier Patient Education 2020 Elsevier Inc. Follow Up Care 11/17/2022 10:32:34 With:FRANKO BENITO MD Address: [address] [place] [address] [address] [facility] & [place] [address] [phone] When:12/12/2022 09:15:00 Comments:Follow-up as scheduled with Sam Boone PA-C [facility] 11-28-2022 Summary of episod e note Discharge Instructions Thank you for allowing [place] to assist you with your healthcare needs. The following is important discharge information regarding your hospital visit. Your Care Team JULIENNE FAJARDO Your Diagnosis Partial Right Knee Replacement What to do next Instructions From Your Doctor See Instruction Sheet Scheduled Follow-Up Appointments App[facility]22 09:00 AM EDT JULIENNE FAJARDO [address] [id number] Follow Up Appointments Follow Up with FRANKO BENITO MD When 12/12/2022 09:15 AM EDT Why: Follow-up as scheduled with Sam Boone PA-C Where: [address] [place] [address] [address] [facility] [place] [address] [phone] Allergies Cashews (Difficulty swallowing) sulfamethoxazole (Rash) Medications [...] before eating solid foods. General instructions Take pgwz-biu-etddgqi and prescription medicines only as told by [...] 08/31/2016 Document Revised: 08/09/2018 Document Reviewed: 08/31/2016 [employer] Patient Education 2020 [employer]. Partial Knee Replacement, Care After This sheet [...] Follow these instructions at home: Medicines Take aqcy-hks-xkohhln and prescription medicines only as told by [...] keep your urine pale yellow. ? Take gfkl-iuo-axfhodi or prescription medicines. ? Eat foods that [...] and water are not available, use hand motor racer. ? Change your dressing as told by [...] Document Reviewed: 06/01/2019 Elsevier Patient Education 2020 [employer]. Additional Information VACCINATE! IT SAVES LIVES! Members of the community who have not yet received the COVID-19 vaccine and would like to receive it can visit one of [facility] vaccine clinics. There are many vaccine clinic locations within the [facility]. For locations and available times, please visit [email or web address].o hio.gov/. It is important to note that some COVID mobile vaccine clinics are held outdoors and may be canceled in rainy or stormy conditions. To learn more about pediatric vaccinations (ages 5-11), we invite you to visit the [facility] webpage. https://www.Passworkss.org/p ages/9966-Poyrd-Seibyrxfhog-Freq muugmm-Frvff-Ixioerqsh.html To learn more about the COVID-19 vaccine, we invite you to visit the CDC website for a list of frequently asked questions.https://www.cdc.gov/co ronavirus/2019-ncov/vaccines/faq .html [facility] Patient Portal Access Instructions: Stay connected with your healthcare team and access your personal medical information anytime with the [facility] Patient Portal. Please follow the directions below to create your [facility] account: 1.Access the email account you provided upon registration to the hospital/physician office.2.Look for an invitation email from [facility].3.Open the email and access the invitation link: Accept Invitation to [facility].4.Fill in the required zapien to create your account. To access your account, visit [email or web address]. Click the blue button labeled Access Patient [...] you will allow to register on the [facility] Patient Portal for access to your information. You can also access the [facility] Patient Portal on the [place] Anywhere kj. Simply click on Patient Portal and then log into your account. If you would like to receive a full copy of your medical records, please contact the [facility] Medical Records Department by calling [phone], Thursday through Thursday between 8 a.m. and [...] Call your local pharmacy or go to http://Coaxis/9M3Un7p to find one close to you.3.Make use of household items: Use cat litter or old coffee grounds to dispose medications if other options are not available. Mix your drugs with these household products, seal them in an airtight container and throw it into the garbage. Call [facility]: [phone] to be sure your drugs can be [...] been reviewed and explained to me and I,SANDRO JAKE E understand my current condition and have read and understand these discharge instructions. I have received a written copy of the plan/instructions. If I have questions, I am aware that I should contact my doctor. 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 Signature: Date/Time: Relationship to Patient: Witness Name/Signature: Date/Time: [facility] 11-28-2022 Note ORIGINAL EXAMINATION: TWO [...] Date: 11/28/2022 1:25:39 PM Ordering Provider: FRANKO BENITO [facility] 11-28-2022 Note ORIGINAL EXAMINATION: TWO [...] Date: 11/28/2022 1:25:39 PM Ordering Provider: FRANKO BENITO [facility] 11-28-2022 Anesthesiology Consult note Patient: JAKE JO Age: 52 years Sex: Female : 1970 Associated Diagnoses: None Author: QUAGN BOURNE Assessment Postanesthesia assessment Vitals: Reviewed Results: [...] by QUANG BOURNE on 11/28/2022 12:47 PM [facility] 11-28-2022 Anesthesiology Consult note Patient: [...] list: Medical Acute bronchiolitis / SNOMED CT 79911616 / Confirmed Asthma due to seasonal allergies / SNOMED CT 4238574876 / Confirmed Anxiety / SNOMED CT 77832898 / Confirmed Atrial septal aneurysm / SNOMED CT 020943830 / Confirmed Cough in adult / SNOMED CT 62712367 / Confirmed SOB (shortness of breath) on exertion / SNOMED CT 302253770 / Confirmed Fatigue / SNOMED CT 805465190 / Confirmed GERD (gastroesophageal reflux disease) / SNOMED CT 879823996 / Confirmed History of pneumonia / SNOMED CT 726513921 / Confirmed LGSIL on Pap smear of cervix / SNOMED CT 8002576825 / Confirmed Osteoarthritis of right knee / SNOMED CT 4664066648 / Confirmed PFO (patent foramen ovale) / SNOMED CT 011271303 / Confirmed Screening for colon cancer / SNOMED CT 597135377 / Confirmed Screening for cardiovascular condition / SNOMED CT 838466811 / Confirmed Pre-op exam / SNOMED CT 121350719 / Confirmed Major depression, recurrent, chronic / SNOMED CT 440167690 / Confirmed Urge incontinence of urine / SNOMED CT 646997860 / Confirmed PVCs (premature ventricular contractions) / SNOMED CT 49847456 / Confirmed, Active Problems (18) Acute bronchiolitis [...] of urine Histories Past Medical History: Resolved (773734773): Resolved. Screening for breast cancer (851245547): Resolved., extreme anxiety and panic attacks. PFO, atrial septal aneurysm being followed by cardiology, Family History: Heart disease Mother (Loyda Sifuentes) Grandparent (mat, gma) Father (Quan Muse) Arthritis Mother (Loyda Sifuentes) Alcohol abuse Father (Quan Muse) Hepatitis Grandparent (mat, gma) Cancer Grandparent (mat, gpa) Procedure history: Transesophageal echocardiogram (4371180118) on 10/02/2020 at 50 Years. Comments: 10/19/2020 14:46 TOMT Jake Melara MA (ABR-OE) No evidence of thrombus or vegetation. There is a small shunt through a patent foramen ovale. Cholecystectomy (77016100). Tubal ligation (392197870). Dilation and curettage (82995245). Comments: 12/28/2018 11:37 La Collins LPN x2 Foot repair (743652137). Comments: 12/28/2018 11:38 La Collins LPN screw Carpal tunnel release (497694052). Comments: 12/28/2018 11:38 La Collins LPN damaso Arthroscopic repair of meniscus (7581648781). Social History Social & Psychosocial Habits Alcohol 04/30/2018Risk Assessment: Denies Alcohol Use 08/20/2021 Use: Current Frequency: 1-2 times per week Comment: Moderate-4 weekly - 12/28/2018 06:38 - Randy Russelldonn RANGEL; Hasn't drank in a couple months - 12/13/2019 08:08 - Drew Ladonn RANGEL; Has drank since September 2019 - 12/27/2019 09:46 - DrewRandydonn RANGEL; Still has not drank alcohol - 07/31/2020 13:32 - La Russell LPN; very occ - 07/17/2021 15:40 - Drew Ladonn RANGEL Substance Abuse 04/30/2018Risk Assessment: Denies Substance Abuse 12/28/2018 Use: Never Tobacco 04/30/2018Risk Assessment: Denies Tobacco Use 12/28/2018 Tobacco Use: Never (less than 100 in l Home/Environment 11/26/2022 Domestic Concerns None Living situation: Home/Independent 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 Lives In Single level home Current [...] Resp Rate 14 br/min (NOV 28 09:10) OZY057 mmHg (NOV 28 09:10) DBP82 mmHg (NOV 28 09:10) Measurements from flowsheet : Measurements 11/28/2022 9:10 EDT Height 165.1 cm Admission Weight 100 kg [place] Body Weight 57.00 kg Body Mass Index [...] Height 165.1 cm Admission Weight 100 kg [place] Body Weight 57.00 kg Body Mass Index [...] no difficulties Skin Temperature Warm Skin Description [place], Normal for ethnicity, Dry Skin Moisture General Dry IV Present Present Extremity Movement Equal Characteristics of Speech Clear Level of Consciousness Alert Strength All Extremities Strong Affect/Behavior Appropriate Orientation Oriented x 4 Infectious Disease Symptoms Patient states no symptoms Allergies Yes 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 Assessment and Plan [place] Society of Anesthesiologists (ASA) physical status classification: Class III. Anesthetic Preoperative Plan Premedication: intravenous. Anesthetic technique: Spinal. Induction: intravenously. Regional: Spinal, Adductor Canal Block. Postoperative pain management: Per surgeon. Risks discussed: nausea, vomiting, headache, sore throat, dental injury, hypotension, allergic reaction, serious complications. Informed consent: signed by patient. Digitally Signed by QUANG BOURNE on 11/28/2022 10:24 AM [facility] 09-19-2022 Evaluation + Plan note Future Scheduled TestsMA Mammo Screening Bilateral w/ Herberth 09/19/22 [facility] 01-27-2022 Hospital Discharg e instructions Patient Education [...] loosen secretions in the nose and lungs. Auau-abf-muxrblc cold medicines will not shorten the length of time you re sick, but they may be helpful for the following symptoms: cough, sore throat, and nasal and sinus congestion. If you take prescription medicines, ask your healthcare provider or pharmacist which jpco-wcw-kfsbxlc medicines are safe to use. (Note: Don't [...] it goes along with a muffled voice [phone] [employer]. [address] [place] [address]. All rights reserved. This information is not intended as a substitute for professional medical care. Always follow your healthcare professional's instructions. Follow Up Care 01/27/2022 10:46:34 With:JULIENNE FAJARDO Address: [address] [place] [address] [place] [address]- [phone] When:Within 1 Week(s) Comments:Follow-up as needed if your symptoms or not improving.Push fluids, vaporizer at bedside.Use Tylenol, Advil or Aleve for fever and discomfort as needed.Continue yyxg-fxt-gpfhxjq decongestants for symptomatic relief.Use antibiotic (Z-Lisa) as prescribed.Return to the ED if symptoms worsen. [facility] 01-27-2022 Note Discharge Instructions Thank you for allowing [place] to assist you with your healthcare needs. [...] for fever and discomfort as needed. Continue zsgg-fwn-htrvtli decongestants for symptomatic relief. Use antibiotic (Z-Lisa) as prescribed. Return to the ED if symptoms worsen. Where: [address] [facility] [place] [address] [phone] Allergies Cashews (Difficulty swallowing) sulfamethoxazole (Rash) Medications [...] or retail pharmacies. Medication Leaflets azithromycin (oral/injection) (a BERNIE montilla MYE sin) Azithromycin 3 Day Dose Pack, Azithromycin 5 [...] may report side effects to FDA at [phone]-[phone]. What other drugs will affect azithromycin? Tell your doctor about all your other medicines, especially: colchicine; digoxin; nelfinavir; phenytoin; an antacid that contains aluminum or magnesium--Acid Gone, Gaviscon, Gelusil, Maalox, Milk of Magnesia, Mylanta, Pepcid Complete, Rolaids, Rulox, and others; or a blood thinner--warfarin, Coumadin, Jantoven. This list is not complete. Other drugs may affect azithromycin, including prescription and blle-kgr-wwudmnr medicines, vitamins, and herbal products. Not all [...] to ensure that the information provided by [employer]. ('Veri[employer]weet[employer]') is accurate, up-to-date, and complete, but no guarantee is made to that effect. Drug information contained herein may be time sensitive. [employer] information has been compiled for use by healthcare practitioners and consumers in the [place] and therefore [employer] does not warrant that uses outside of the [place] are appropriate, unless specifically indicated otherwise. [employer] drug information does not endorse drugs, diagnose patients or recommend therapy. [employer] drug information is an informational resource designed [...] effective or appropriate for any given patient. [employer] does not assume any responsibility for any aspect of healthcare administered with the aid of information [employer] provides. The information contained herein is not intended to cover all possible uses, directions, precautions, warnings, drug interactions, allergic reactions, or adverse effects. If you have questions about the drugs you are taking, check with your doctor, nurse or pharmacist. Copyright 4720-4031 [employer]. Version: 18.01. Revision Date: 09/23/2018. Education Materials [...] loosen secretions in the nose and lungs. Czkg-jud-csoozrl cold medicines will not shorten the length of time you re sick, but they may be helpful for the following symptoms: cough, sore throat, and nasal and sinus congestion. If you take prescription medicines, ask your healthcare provider or pharmacist which nojt-fph-ekkoqqn medicines are safe to use. (Note: Don't [...] it goes along with a muffled voice [phone] [employer]. [address] [place] [address], [place] [address]. All rights reserved. This information is not intended as a substitute for professional medical care. Always follow your healthcare professional's instructions. Additional Information VACCINATE! IT SAVES LIVES! Members of the community who have not yet received the COVID-19 vaccine and would like to receive it can visit one of [facility] vaccine clinics. There are many vaccine clinic locations within the [facility]. For locations and available times, please visit www.gettheshot.coronavirus.[place]. org. It is important to note that some COVID mobile vaccine clinics are held outdoors and may be canceled in rainy or stormy conditions. To learn more about pediatric vaccinations (ages 5-11), we invite you to visit the [facility] webpage. https://www.[facility].org/p ages/1136-Nbxoj-Snagjijonzz-Freq atrlwv-Vjajj-Escabgofo.html To learn more about the COVID-19 vaccine, we invite you to visit the [place] website for a list of frequently asked questions. https://fre[place].Anulex/assets/Patie awt-pnn-Qhfdafnb/ijqps-Xhldbfh-O requently_Asked-Questions.pdf [place] [facility] Patient Portal Access Instructions: Stay connected with your healthcare team and access your personal medical information anytime with the [place] [facility] Patient Portal. If you would like a full copy of your medical records please contact the [facility] Medical Records Department Thursday through Thursday between 8a.m. and 4:30p.m. Please follow the directions below to access the portal: 1.Access the email account you provided upon registration to the [facility].2.Look for an invitation email from [facility].3.Open the email and access the invitation link: Accept Invitation to [facility]4.Fill in the required zapien to create your account. Sign into [email or web address] with your username and password that you [...] you will allow to register on the [facility] Patient Portal for access to your information. You can also access the [facility] Patient Portal on the castaclip kj. Simply click on Health Records under Health Data and then click on the [employer] logo. HOW TO SAFELY DISPOSE OF PRESCRIPTION [...] Call your local pharmacy or go to http://[employer].Vascular Closure/6P8Rw7t to find one close to you.3.Make use of household items: Use cat litter or old coffee grounds to dispose medications if other options are not available. Mix your drugs with these household products, seal them in an airtight container and throw it into the garbage. Call [facility]: [phone] to be sure your drugs can be [...] aware that I should contact my doctor. 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 Order in scanned documents. documented in this encounter [facility] Evaluation + Plan note Future Appointments Appointment Date:08/05/2021 03:30:00 PM Scheduled Provider:LINDSAY AYALA MD Location:[facility] Appointment Type:CARMEN FONDANT MACHINE OPERATOR Appointment Date:08/13/2021 03:30:00 PM Scheduled Provider:TARAH BHATT MD Location:[facility] Appointment Type:WH OV Appointment Date:12/24/2021 10:00:00 AM Scheduled Provider:JULIENNE FAJARDO APRN-NILSA Location:[facility] Appointment Type:PC OV Appointment Date:04/28/2022 03:30:00 PM Scheduled Provider:KANDY HERRERA Location:[facility] Appointment Type:CV OV Future Scheduled TestsPathology Staining Machine Operator Request 02/14/21 [facility] Evaluation + Plan note Future Appointments Appointment Date:12/24/2021 10:00:00 AM Scheduled Provider:JULIENNE FAJARDO Location:[facility] Appointment Type:PC OV Appointment Date:04/28/2022 03:30:00 PM Scheduled Provider:KANDY HERRERA Location:[facility] Appointment Type:CV OV Future Scheduled TestsPathology Staining Machine Operator Request 02/14/21 [facility] Evaluation + Plan note Future Appointments Appointment Date:04/28/2022 03:30:00 PM Scheduled Provider:KANDY HERRERA Location:[facility] Appointment Type:CV OV Appointment Date:07/24/2022 03:30:00 PM Scheduled Provider:JULIENNE FAJARDO Location:[facility] Appointment Type:PC OV Future Scheduled TestsPathology Staining Machine Operator Request 02/14/21 [facility] Evaluation + Plan note Future Appointments Appointment Date:11/03/2022 09:30:00 AM Scheduled Provider: Location:[facility] Appointment Type:CT Knee w/o Contrast Right Appointment Date:11/11/2022 09:00:00 AM Scheduled Provider:ABEBA MIDDLETON Location:[facility] Appointment Type:PC OV Pre Op Appointment Date:12/04/2022 09:00:00 AM Scheduled Provider:JULIENNE FAJARDO Location:[facility] Appointment Type:PC Wellness Annual Future Scheduled TestsComplete Blood Count 11/29/22Lipid Profile 11/29/22Complete Metabolic Panel 11/29/22MA Mammo Screening Bilateral w/ Herberth 10/14/22MA Mammo Screening Bilateral w/ Herberth 09/19/22CT Knee w/o Contrast Right 11/03/22 [facility] Evaluation + Plan note Future Appointments Appointment Date:11/03/2022 09:30:00 AM Scheduled Provider: Location:[facility] Appointment Type:CT Knee w/o Contrast Right Appointment Date:11/11/2022 09:00:00 AM Scheduled Provider:ABEBA MIDDLETON Location:[facility] Appointment Type:PC OV Pre Op Appointment Date:12/04/2022 09:00:00 AM Scheduled Provider:JULIENNE FAJARDO Location:[facility] Appointment Type:PC Wellness Annual Future Scheduled TestsComplete Blood Count 11/29/22Lipid Profile 11/29/22Complete Metabolic Panel 11/29/22MA Mammo Screening Bilateral w/ Herberth 09/19/22CT Knee w/o Contrast Right 11/03/22 [facility] Evaluation + Plan note Future Appointments Appointment Date:12/04/2022 09:00:00 AM Scheduled Provider:JULIENNE FAJARDO Location:[facility] Appointment Type:PC Wellness Annual Future Scheduled TestsMA Mammo Screening Bilateral w/ Herberth 09/19/22 [facility] [facility] note Future Appointments Appointment Date:07/01/2023 03:30:00 PM Scheduled Provider:JULIENNE FAJARDO Location:[facility] Appointment Type:PC OV Future Scheduled TestsMA Mammo Screening Bilateral w/ [place] 09/19/22 [facility] Evaluation + Plan note Future Appointments Appointment Date:12/01/2023 01:45:00 PM Scheduled Provider:TARAH BHATT MD Location: [place] Appointment Type: OV Diagnostic Tests PendingHSV IgM Ab, with HSV IgG1,2 Reflex 11/18/23Rapid Plasma Reagin Test 11/18/23 Future Scheduled TestsHIV 1/2 Ab 11/17/23[facility] Mammo Screening Bilateral w/ [place] 11/12/23MA Mammo Screening Bilateral w/ [place] 11/17/23US Pelvis Non-OB W/Transvaginal 11/17/23 [facility] Evaluation + Plan note Future Appointments Appointment Date:11/24/2023 07:30:00 AM Scheduled Provider: Location:[facility] Appointment Type:US Pelvis Non-OB W/Transvaginal Appointment Date:12/01/2023 01:45:00 PM Scheduled Provider:TARAH BHATT MD Location: [place] Appointment Type: OV Future Scheduled TestsHIV 1/2 Ab 11/17/23MA Mammo Screening Bilateral w/ [place] 11/12/23MA Mammo Screening Bilateral w/ [place] 11/17/23US Pelvis Non-OB W/Transvaginal 11/24/23 [facility] Evaluation + Plan note Future Appointments Appointment Date:03/01/2024 03:30:00 PM Scheduled Provider:TARAH BHATT MD Location: [place] Appointment Type: OV Future Scheduled TestsHSV 1 and 2 Ab, IgG 12/01/23IV 1/2 Ab 11/17/23MA Mammo Screening Bilateral w/ [place] 11/12/23 [facility] Evaluation + Plan note Future Appointments Appointment Date:03/01/2024 03:30:00 PM Scheduled Provider:TARAH BHATT MD Location:[facility] Appointment Type: OV Diagnostic Tests PendingHSV 1 and 2 Ab, IgG 01/08/24 Future Scheduled TestsMA Mammo Screening Bilateral w/ [place] 11/12/23 [facility] Hospital course Narrative No data available for this section [facility] Hospital Discharge instructions No data available for this section [facility] Progress note No data available for this section [facility] Reason for visit Narrative Specialty Diagnoses / Procedures Referred By Contac t Referred To Contact [facility] Diagnoses Ventricular premature depolarization i49.3 Procedures CARDIAC MRI W/WO CONTRAST & FURTHER SEQ MRI WWO CARD [address] [place] [address] [facility] [place] [address] Referral ID Status Reason Start Date Expiration Date Visits Re quested Visits Authorized [id number] Closed 01/08/2022 02/22/2022 1 1 [facility] Summary Purpose Family History No Family History Records FoundNo Family History Records Found No data available for this section No data available for this section No data available for this section No data available for this section No data available for this section No data available for this section No data available for this section No Family History Records FoundNo Family History Records Found Advance Directives No Advanced Directives Records FoundNo Advanced Directives Records FoundNo Advanced Directives Records FoundNo Advanced Directives Records Found Additional Source Comments INFORMATION SOURCE (unrecogn ized section and content) DATE CREATED AUTHOR 11/18/2017 [facility] DATE CREATED AUTHOR AUTHOR'S ORGANIZ ATION 01/24/2022 [facility] DATE CREATED AUTHOR AUTHOR'S ORGANIZ ATION 01/10/2024 [facility] ([place]) DATE CREATED AUTHOR AUTHOR'S ORGANIZ ATION 02/08/2024 [facility] Care Team (unrecognized sect ion and content) Personnel Name: JULIENNE FAJARDO Address: [address] [place] [address]- Care Team Personnel Name: JULIENNE FAJARDO Position: P4 Advanced Publications Editor Member Role: Primary Care Physician Address: Address: [address] [place] [address]- Name: JAVIER KANDYKristin MEEKS Position: P4 Advanced Publications Editor Member Role: Mines Safety Engineer Address: Address: [address] [place] [address] [address] [facility] [place] [address]- Name: DO HEIDI JACKMAN DO Position: P3 Physician - Orthopedics Member Role: Orthopaedist Address: Address: [address] [place] [address] [address] [place] [address] Name: TARAH BHATT MD Position: P4 DATA PROCESSING CONSULTANT Provider Member Role: OBGYN Address: Address: [address] [facility] [address] [place] [address]- [place] Name: COSTA MCBRIDEMANAGER MARKET DEVELOPMENT Member Role: Die Cutter Address: Address: [address] [facility] [address] [place] [address] [place] Name: LAMINE SANDOVAL MD Member Role: Psychiatrist Address: Address: [address] [facility] [address] [place] [address]- Care Team Related Persons Name: ELOISA ELIZABETH Address: Home [address] [place], [place] [id number] [place] Name: LOYDA SIFUENTES Name: RADHA MARSHALL Name: HEIDI JO Name: HEIDI JO Care Team Personnel Name: JULIENNE FAJARDO APRN-MANAGER MARKET DEVELOPMENT Position: P4 Advanced Publications Editor Member Role: Primary Care Physician Address: Address: [address] [place] [address]- Name: KANDY HERRERA APRN-MANAGER MARKET DEVELOPMENT Position: P4 Advanced Publications Editor Member Role: Mines Safety Engineer Address: Address: [address] [place] [address] [address] [facility] [place] [address]- [place] Name: DO HEIDI JACKMAN DO Position: P3 Physician - Orthopedics Member Role: Orthopaedist Address: Address: [address] [place] [address] [address] [place] [address] [place] Name: TARAH BHATT MD Position: P4 DATA PROCESSING CONSULTANT Provider Member Role: OBGYN Address: Address: [address] [place] [address] [address] [place] [address]- [place] Name: COSTA MCBRIDEMANAGER MARKET DEVELOPMENT Member Role: Die Cutter Address: Address: [address] [facility] [address] [place] [address] [place] Name: LAMINE SANDOVAL MD Member Role: Psychiatrist Address: Address: [address] [facility] [address] [place] [address]- [place] Care Team Related Persons Name: ELOISA ELIZABETH Address: Home [address] [place], [place] [id number] [place] Name: LOYDA SIFUENTES Name: RADHA MARSHALL Name: HEIDI JO Name: HEIDI JO Care Team Personnel Name: JULIENNE FAJARDO Position: P4 Advanced Publications Editor Member Role: Primary Care Physician Address: Address: [address] [place] [address]- Name: KANDY HERRERA Position: P4 Advanced Publications Editor Member Role: Mines Safety Engineer Address: Address: [address] [place] [address] [address] [place] [address]- Name: DO HEIDI JACKMAN DO Position: P3 Physician - Orthopedics Member Role: Orthopaedist Address: Address: [address] [place] [place] [address] [address] [place] [address] [place] Name: TARAH BHATT MD Position: P4 DATA PROCESSING CONSULTANT Provider Member Role: OBGYN Address: Address: [address] [place] [address] [place] [address]- Name: COSTA MCBRIDE APRN-MANAGER MARKET DEVELOPMENT Member Role: Die Cutter Address: Address: [address] [facility] [address] [place] [address] Name: LAMINE SANDOVAL MD Member Role: Psychiatrist Address: Address: [address] [facility] [address] [place] [address]- Care Team Related Persons Name: ALLY ELIZABETH Name: ELOISA ELIZABETH Address: Home [address] [place] [phone] [place] Name: LOYDA SIFUENTES Name: RADHA MARSHALL Name: HEIDI JO Care Team Personnel Name: JULIENNE FAJARDO Position: P4 Advanced Publications Editor Member Role: Primary Care Physician Address: Address: [address] [place] [address]- Name: KANDY HERRERA APRN-MANAGER MARKET DEVELOPMENT Position: P4 Advanced Publications Editor Member Role: Mines Safety Engineer Address: Address: [address] [place] [address] [address] [place] [address]- Name: DO HEIDI JACKMAN DO Position: P3 Physician - Orthopedics Member Role: Orthopaedist Address: Address: [address] [address] [address] [place] [address] [place] Name: TARAH BHATT MD Position: P4 DATA PROCESSING CONSULTANT Provider Member Role: OBGYN Address: Address: [address] [facility] [address] [place] [address]- Name: COSTA MCBRIDEMANAGER MARKET DEVELOPMENT Member Role: Die Cutter Address: Address: [address] [facility] [address] [place] [address] [place] Name: LAMINE SANDOVAL MD Member Role: Psychiatrist Address: Address: [address] [facility] 100 [place] [address]- Care Team Related Persons Name: ALLY ELIZABETH Name: ELOISA ELIZABETH Address: Home [address] [place], [place] [phone] [place] Name: LOYDA SIFUENTES Name: RADHA MARSHALL Name: HEIDI JO Care Team Personnel Name: JULIENNE FAJARDO APRN-MANAGER MARKET DEVELOPMENT Position: P4 Advanced Publications Editor Member Role: Primary Care Physician Address: Address: [address] [place] [address]- Name: KANDY HERRERA APRN-MANAGER MARKET DEVELOPMENT Position: P4 Advanced Publications Editor Member Role: Mines Safety Engineer Address: Address: [address] [place] [address] [address] [facility] [place] [address]- [place] Name: DO HEIDI JACKMAN DO Position: P3 Physician - Orthopedics Member Role: Orthopaedist Address: Address: [address] [place] [place] [address] [address] [place] [address] [place] Name: TARAH BHATT MD Position: P4 DATA PROCESSING CONSULTANT Provider Member Role: OBGYN Address: Address: [address] [place] [address] [address] [place] [address]- Name: COSTA MCBRIDE APRN-MANAGER MARKET DEVELOPMENT Member Role: Die Cutter Address: Address: [address] [facility] [address] [place] [address] [place] Name: LAMINE SANDOVAL MD Member Role: Psychiatrist Address: Address: [address] [facility] 100 [place] [address]- Care Team Related Persons Name: ALLY ELIZABETH Name: ELOISA ELIZABETH Address: Home [address] [place], [place] [phone] [place] Name: LOYDA SIFUENTES Name: RADHA MARSHALL Name: HEIDI JO Care Team Personnel Name: JULIENNE FAJARDO Position: P4 Advanced Publications Editor Member Role: Primary Care Physician Address: Address: [address] [place] [address]- Name: KANDY HERRERA APRN-MANAGER MARKET DEVELOPMENT Position: P4 Advanced Publications Editor Member Role: Mines Safety Engineer Address: Address: [address] [place] [address] [address] [place] [address]- [place] Name: DO HEIDI JACKMAN DO Position: P3 Physician - Orthopedics Member Role: Orthopaedist Address: Address: [address] [place] [address] [address] [place] [address] [place] Name: TARAH BHATT MD Position: P4 DATA PROCESSING CONSULTANT Provider Member Role: OBGYN Address: Address: [address] [place] [address] 101 [facility] [place] [address]- Name: COSTA MCBRIDE APRN-MANAGER MARKET DEVELOPMENT Member Role: Die Cutter Address: Address: [address] [facility] [address] [place] [address] [place] Name: LAMINE SANDOVAL MD Member Role: Psychiatrist Address: Address: [address] [facility] [address] [place] [address]- Care Team Related Persons Name: ALLY ELIZABETH Name: ELOISA ELIZABETH Address: Home [address] [place], [place] [phone] [place] Name: RADHA MARSHALL Care Team Personnel Name: JULIENNE FAJARDOMANAGER MARKET DEVELOPMENT Position: P4 Advanced Publications Editor Member Role: Primary Care Physician Address: Address: [address] [place] [address]- Name: KANDY HERRERA APRN-MANAGER MARKET DEVELOPMENT Position: P4 Advanced Publications Editor Member Role: Mines Safety Engineer Address: Address: [address] [place] [address] [address] [place] [address]- [place] Name: DO HEIDI JACKMAN DO Position: P3 Physician - Orthopedics Member Role: Orthopaedist Address: Address: [address] [place] [address] [address] [place] [address] [place] Name: TARAH BHATT MD Position: P4 DATA PROCESSING CONSULTANT Provider Member Role: OBGYN Address: Address: [address] [facility] [address] [place] [address]- [place] Name: COSTA MCBRIDE Member Role: Die Cutter Address: Address: [address] [facility] [address] [place] [address] [place] Name: LAMINE SANDOVAL MD Member Role: Psychiatrist Address: Address: [address] [facility] [address] [place] [address]- Care Team Related Persons Name: GLENN ALLY Name: ELOISA ELIZABETH Address: Home [address] [place], [place] [phone] [place] Name: RADHA MARSHALL Care Team Personnel Name: JULIENNE FAJARDO Position: P4 Advanced Publications Editor Member Role: Primary Care Physician Address: Address: [address] [place] [address]- Name: KANDY HERRERA APRN-MANAGER MARKET DEVELOPMENT Position: P4 Advanced Publications Editor Member Role: Mines Safety Engineer Address: Address: [address] [place] [address] [address] [facility] [place] [address]- [place] Name: DO HEIDI JACKMAN DO Position: P3 Physician - Orthopedics Member Role: Orthopaedist Address: Address: [address] [place] [place] [address] [address] [place] [address] [place] Name: TARAH BHATT MD Position: P4 DATA PROCESSING CONSULTANT Provider Member Role: OBGYN Address: Address: [address] [place] [address] [address] [place] [address]- Name: COSTA MCBRIDE Member Role: Die Cutter Address: Address: [address] [facility] [address] [place] [address] [place] Name: LAMINE SANDOVAL MD Member Role: Psychiatrist Address: Address: [address] [facility] [address] [place] [address]- Care Team Related Persons Name: GLENN ALLY Name: ELOISA ELIZABETH Address: Home [address] [place], [place] [phone] [place] Name: RADHA MARSHALL Care Team Personnel Name: JULIENNE FAJARDO Position: P4 Advanced Publications Editor Member Role: Primary Care Physician Address: Address: [address] [facility] [place] [address]- Name: KANDY HERRERA APRN-MANAGER MARKET DEVELOPMENT Position: P4 Advanced Publications Editor Member Role: Mines Safety Engineer Address: Address: [address] [place] [address] [address] [place] [address]- [place] Name: KIKEAPIC , DO HEIDI WEI Member Role: Orthopaedist Address: Address: [address] [place] [place] [address] [address] [place] [address] [place] Name: TARAH BHATT MD Position: P4 DATA PROCESSING CONSULTANT Provider Member Role: OBGYN Address: Address: [address] [place] [address]- Name: SHANNAN STREETER MD Member Role: Warehouse Analyst Address: Address: [address] [place] [address]- Name: COSTA MCBRIDE APRN-MANAGER MARKET DEVELOPMENT Member Role: Die Cutter Address: Address: [address] [facility] [address] [place] [address] [place] Name: LAMINE SANDOVAL MD Member Role: Psychiatrist Address: Address: [address] [facility] [address] [place] [address]- Care Team Related Persons Name: ALLY ELIZABETH Name: ELOISA ELIZABETH Address: Home [address] [place], [place] [phone] [place] Address: [facility] [address] [place], [place] [phone] Name: RADHA MARSHALL Care Team Personnel Name: JULIENNE FAJARDO APRN-MANAGER MARKET DEVELOPMENT Position: P4 Advanced Publications Editor Member Role: Primary Care Physician Address: Address: [address] [facility] [place] [address]- [place] Name: KANDY HERRERA APRN-MANAGER MARKET DEVELOPMENT Position: P4 Advanced Publications Editor Member Role: Mines Safety Engineer Address: Address: [address] [place] [address] [address] [place] [address]- [place] Name: KIKEAPIC , DO HEIDI WEI Member Role: Orthopaedist Address: Address: [address] [place] [address] [address] [place] [address] [place] Name: TARAH BHATT MD Position: P4 DATA PROCESSING CONSULTANT Provider Member Role: OBGYN Address: Address: [address] [facility] [address] [place] [address]- [place] Name: SHANNAN STREETER MD Member Role: Warehouse Analyst Address: Address: [address] [place] [address]- [place] Name: COSTA MCBRIDE APRN-MANAGER MARKET DEVELOPMENT Member Role: Die Cutter Address: Address: [address] [facility] [address] [place] [address] [place] Name: LAMINE SANDOVAL MD Member Role: Psychiatrist Address: Address: [address] [facility] [address] [place] [address]- [place] Care Team Related Persons Name: ALLY ELIZABETH Name: ELOISA ELIZABETH Address: Home [address] [place], [place] [phone] [place] Address: [facility] [address] [place], [place] [phone] Name: RADHA MARSHALL Care Team Personnel Name: JULIENNE FAJARDO MICROBIOLOGY DIRECTOR-MANAGER MARKET DEVELOPMENT Position: P4 Advanced Publications Editor Member Role: Primary Care Physician Address: Address: [address] [place] [address]- [place] Name: KANDY HERRERA MICROBIOLOGY DIRECTOR-MANAGER MARKET DEVELOPMENT Position: P4 Advanced Publications Editor Member Role: Mines Safety Engineer Address: Address: [address] [place] [address] [address] [facility] [place] [address]- [place] Name: GASPER , DO HEIDI DO Member Role: Orthopaedist Address: Address: [address] [place] [address] [address] [place] [address] [place] Name: TARAH BHATT MD Position: P4 DATA PROCESSING CONSULTANT Provider Member Role: OBGYN Address: Address: [address] [facility] [address] [place] [address]- [place] Name: SHANNAN STREETER MD Member Role: Warehouse Analyst Address: Address: [address] [place] [address]- [place] Name: COSTA MCBRIDE APRN-MANAGER MARKET DEVELOPMENT Member Role: Die Cutter Address: Address: [address] [facility] [address] [place] [address] [place] Name: LAMINE SANDOVAL MD Member Role: Psychiatrist Address: Address: [address] [place] [address]- Care Team Related Persons Name: GLENN ALLY Name: ELOISA ELIZABETH Address: Home [address] [place], [place] [phone] [place] Address: Temporary [address] [place], [place] [phone] Name: RADHA MARSHALL Care Team Personnel Name: JULIENNE FAJARDO APRN-MANAGER MARKET DEVELOPMENT Position: P4 Advanced Publications Editor Member Role: Primary Care Physician Address: Address: [address] [place] [address]- Name: KANDY HERRERA MICROBIOLOGY DIRECTOR-MANAGER MARKET DEVELOPMENT Position: P4 Advanced Publications Editor Member Role: Mines Safety Engineer Address: Address: [address] [place] [address] [address] [facility] [place] [address]- Name: GASPER , DO HEIDI DO Member Role: Orthopaedist Address: Address: [address] [place] [address] [address] [place] [address] [place] Name: TARAH BHATT MD Position: P4 DATA PROCESSING CONSULTANT Provider Member Role: OBGYN Address: Address: [address] [facility] [address] [facility] [address]- Name: SHANNAN STREETER MD Member Role: Warehouse Analyst Address: Address: [address] [place] [address]- Name: COSTA MCBRIDE APRN-MANAGER MARKET DEVELOPMENT Member Role: Die Cutter Address: Address: [address] [facility] [address] [place] [address] [place] Name: LAMINE SANDOVAL MD Member Role: Psychiatrist Address: Address: [address] [place] [address]- Care Team Related Persons Name: GLENNALLY ALONZO Name: ELOISA ELIZABETH Address: Home [address] [place], [place] [phone] [place] Address: Temporary [address] [place] [phone] Name: RADHA MARSHALL Care Team (unrecognized sect ion and content) Care Team Personnel Name: JULIENNE FAJARDO APRN-MANAGER MARKET DEVELOPMENT Position: P4 Advanced Practice Nurse Med Service: Active Provider Member Role: Primary Care Physician Address: Address: [address] [place] [address]- Name: KANDY HERRERA Position: P4 Advanced Practice Nurse Med Service: Active Provider Member Role: Mines Safety Engineer Address: Address: [address] [place] [address] [address] [place] [address]- Name: DO HEIDI JACKMAN DO Position: P3 Physician - Orthopedics Med Service: Admitting Member Role: Orthopaedist Address: Address: [address] [place], [place] [address] [place] Name: TARAH BHATT MD Position: P4 DATA PROCESSING CONSULTANT Provider Med Service: Active Provider Member Role: OBGYN Address: Address: [address] [place] [address]- Name: LAMINE SANDOVAL MD Med Service: Psychiatry Member Role: Psychiatrist Address: Address: [address] [place] [address] [place], [place] [address] Care Team Related Persons Name: ELOISA ELIZABETH Address: [address] [phone] [place] Name: LOYDA SIFUENTES Name: RADHA MARSHALL Name: HEIDI JO Name: HEIDI JO Care Team Personnel Name: JULIENNE FAJARDO Position: P4 Advanced Practice Nurse Member Role: Primary Care Physician Address: Address: [address] [place] [address]- Name: KANDY HERRERA Position: P4 Advanced Practice Nurse Address: Address: [address] [place] [address] [address] [place] [address] [place] Name: DO HEIDI JACKMAN DO Position: P3 Physician - Orthopedics Address: Address: [address] [place] [address] [place] Name: TARAH BHATT MD Position: P4 DATA PROCESSING CONSULTANT Provider Address: Address: [address] [place] [address]- Name: LAMINE SANDOVAL MD Address: Address: [address] [place] [address] [place] [address]- Name: GUERRERO KIM MD Position: ED Physician Member Role: ED Physician Address: Address: [facility] [address] [place] [address]- Name: JELANI Wolff Position: AO RN Member Role: ED RN Care Team Related Persons Name: ELOISA ELIZABETH Address: Home [address] [place], [place] [phone] Name: LOYDA SIFUENTES Name: RADHA MARSHALL Name: JOHEIDI Evans Name: JO, HEIDI Source Comments (unrecognize d section and content) In the event this informatio n is protected by the Federal Confidentiality of Alcohol and Drug Abuse Patient Records regulations: The Federal rules restrict any use of the information to criminally investigate or prosecute any alcohol or drug abuse patient.[facility] the event this information is protected by the Federal Confidentiality of Alcohol and Drug Abuse Patient Records regulations: The Federal rules restrict any use of the information to criminally investigate or prosecute any alcohol or drug abuse patient.[facility] Reason for Visit (unrecogniz ed section and content) Reason Comments Orders FOR RECORDS PERTAINING TO PATIENTS WHO ARE [...] BE BASED ON THE PRIMARY CLINICAL RECORDS. [facility]. provides no warranty or guarantee of the accuracy or completeness of information in this document.
[2024-03-17 13:36] LABS: Vitamin D,25 Hydroxy 40.6 ng/mL
[2024-03-17 18:11] LABS: AST(SGOT) 18 U/L (15-37); Alanine Aminotransfer ALT/SGPT 27 U/L (13-56); Albumin, Serum 3.9 g/dL (3.2-5.0); Alkaline Phosphatase 92 U/L (45-117); Anion Gap 6 (5-15); BUN 28 mg/dL (7-18); Calcium,Total 9.2 mg/dL (8.5-10.1); Chloride 107 mmol/L (98-107); Cholesterol 201 mg/dL (200); EST Glomerular Filtration Rate 80 mL/min (>60); Est Glom Filt Rate - Afr Amer 97 mL/min (>60); Globulin 4.1 g/dL (2.2-4.2); Glucose 105 mg/dL (74-106); High Density Lipoprotein 68 mg/dL; Potassium 4.6 mmol/L (3.5-5.1); Sodium Level 140 mmol/L (136-145); Thyroid Stim Hormone (TSH) 0.838 uIU/mL (0.358-3.740); Triglycerides 134 mg/dL; Very Low Density Lipoprotein 27 mg/dL (5-40)
== END | disposition home or self-care (01) ==
LOC: LAB 12:01
PROVIDERS: PCP Nurse Practitioner Primary Care; Referring Provider Nurse Practitioner Gerontology; Visit Provider Nurse Practitioner Gerontology
DX: E78.5 Hyperlipidemia, unspecified (principal); I49.3 Ventricular premature depolarization; R53.83 Other fatigue; E55.9 Vitamin D deficiency, unspecified
CPT/HCPCS: 36415; 80053; 80061; 82306; 84443; 85025

== ENCOUNTER → 2024-04-20 | Outpatient (CLI) | payer OTHER, SELFPAY | END | disposition home or self-care (01) | LOC: PSN 08:50 | PROVIDERS: PCP Nurse Practitioner Primary Care; Referring Provider Nurse Practitioner Gerontology; Visit Provider Nurse Practitioner Gerontology | DX: R00.2 Palpitations (principal); I49.3 Ventricular premature depolarization | CPT/HCPCS: 93225; 93226 ==

== ENCOUNTER → 2024-05-31 | Outpatient (CLI) | payer OTHER, SELFPAY | END | disposition home or self-care (01) | LOC: PSN 12:09 | PROVIDERS: PCP Nurse Practitioner Primary Care; Referring Provider Nurse Practitioner Family; Visit Provider Nurse Practitioner Family | DX: R94.31 Abnormal electrocardiogram [ECG] [EKG] (principal); I49.3 Ventricular premature depolarization | CPT/HCPCS: 93225; 93226 ==

== ENCOUNTER → 2024-06-01 | Outpatient (CLI) | payer OTHER, SELFPAY ==
--- NOTE | 2024-06-01 13:04 | ECHOD_ITS ---
Reason For Study: PVC [place] Procedure This was a 2D Doppler, Color Flow transthoracic echocardiogram. Exam performed in department. Left Ventricle Normal LV size. Left ventricular systolic function is lower limits of normal. The left ventricular ejection fraction is 50 %. Stage 1 diastolic dysfunction. There is borderline global hypokinesis of the left ventricle. Right Ventricle Normal RV size. Normal systolic function. Atria Normal left atrium. Normal right atrium. Mitral Valve Normal mitral valve. Tricuspid Valve Normal tricuspid valve. Aortic Valve Trisinus/trileaflet aortic valve. Pulmonic Valve Normal pulmonic valve. Great Vessels Normal aortic root. Pericardium/Pleural No pericardial effusion. MMode/2D Measurements & Calculations LVIDd: 4.8 cm IVSd: 1.2 cm Ao root diam: 3.1 cm LVIDs: 3.3 cm LVPWd: 0.96 cm RVDd: 3.6 cm FS: 31.9 % LAV(MOD-bp): 75.1 ml LVAd ap4: 36.1 cm2 SV(MOD-sp4): 61.4 ml LAV(MOD-bp) Indexed: 35.4 ml/m2 LVLd ap4: 9.1 cm SI(MOD-sp4): 28.9 ml/m2 LAV(MOD-sp2): 77.2 ml EDV(MOD-sp4): 119.4 ml LAV(MOD-sp4): 58.9 ml EDV(sp4-el): 121.8 ml LVAs ap4: 23.2 cm2 LVLs ap4: 7.8 cm ESV(MOD-sp4): 58.0 ml ESV(sp4-el): 58.2 ml EF(MOD-sp4): 51.4 % EF(sp4-el): 52.2 % SV(sp4-el): 63.6 ml LA A4 area: 21.5 cm2 LA dimension(2D): 3.9 cm RA A4 area: 16.8 cm2 TAPSE: 3.0 cm Time Measurements MV dec time: 0.21 sec Doppler Measurements & Calculations MV E max nael: 66.8 cm/sec Lat Peak E' Nael: 7.9 cm/sec Med Peak E' Nael: 8.9 cm/sec MV A max nael: 89.2 cm/sec E/E' lat: 8.4 E/E' med: 7.5 MV E/A: 0.75 MV V2 max: 97.9 cm/sec MV P1/2t max nael: 78.0 cm/sec Ao V2 max: 171.6 cm/sec MV max P.8 mmHg MV P1/2t: 69.7 msec Ao max P.8 mmHg MV V2 mean: 59.1 cm/sec Ao V2 mean: 126.2 cm/sec MV mean P.6 mmHg MV dec slope: 328.0 cm/sec2 Ao mean P.0 mmHg MV V2 VTI: 29.7 cm MVA(P1/2t): 3.2 cm2 Ao V2 VTI: 35.2 cm AV (velocity ratio): 0.75 LV V1 max: 120.4 cm/sec PA V2 max: 113.8 cm/sec LV V1 max P.8 mmHg PA V2 mean: 88.5 cm/sec LV V1 mean P.6 mmHg LV V1 mean: 90.7 cm/sec LV V1 VTI: 26.5 cm ECHO/Echo Complete Interpretation Summary Normal LV size. Left ventricular systolic function is lower limits of normal. The left ventricular ejection fraction is 50 %. Stage 1 diastolic dysfunction. Ordering Physician: Steffen Marie Referring Physician: Steffen Marie Performed By: Mihir Mckeon RCS
== END | disposition home or self-care (01) ==
LOC: CVS 13:03
PROVIDERS: PCP Nurse Practitioner Primary Care; Referring Provider Nurse Practitioner Family; Visit Provider Nurse Practitioner Family
DX: R94.31 Abnormal electrocardiogram [ECG] [EKG] (principal); I49.3 Ventricular premature depolarization
CPT/HCPCS: 93306

== ENCOUNTER → 2024-07-07 | Outpatient (CLI) | payer OTHER, SELFPAY ==
--- NOTE | 2024-07-07 12:38 | STRESSREP ---
Stress Test Report Exercise stress test. 54-year-old lady with a history of premature ventricular complexes. Stress protocol: Resting EKG demonstrates normal sinus rhythm with a rate of 71 with premature ventricular complexes. Resting blood pressure is 138/80 mmHg. The patient exercised according to the regular [facility] protocol for a total duration of 6 minutes and 14 seconds attaining a maximum heart rate of 144 bpm which was 85% of maximum predicted heart rate; the maximum workload was 7.6 metabolic equivalents. At rest there were no ST or T wave changes noted to suggest ischemia, but premature ventricular complexes were noted which dissipated on exercise and during recovery reappeared but at a much less frequency. And at peak exercise upsloping ST changes only were noted which did not meet the criteria for ischemia. No clinical angina was noted the test was terminated due to the target heart rate being achieved/fatigue. The peak blood pressure was 220/92 mmHg. Rate-pressure product was 31,000. No sustained arrhythmias were noted. Conclusion: Stress test with reduced frequency of premature ventricular complexes during exercise.
== END | disposition home or self-care (01) ==
LOC: CVS 09:56
PROVIDERS: PCP Nurse Practitioner Primary Care; Referring Provider Internal Medicine Cardiovascular Disease; Visit Provider Internal Medicine Cardiovascular Disease
DX: I49.3 Ventricular premature depolarization (principal)
CPT/HCPCS: 93017

== ENCOUNTER → 2024-08-01 | Outpatient (CLI) | payer OTHER, SELFPAY | END | disposition home or self-care (01) | LOC: PSN 07:08 | PROVIDERS: PCP Nurse Practitioner Primary Care; Referring Provider Internal Medicine Cardiovascular Disease; Visit Provider Internal Medicine Cardiovascular Disease | DX: I49.3 Ventricular premature depolarization (principal) | CPT/HCPCS: 93225; 93226 ==

== ENCOUNTER → 2024-11-15 | Outpatient (CLI) | payer OTHER, SELFPAY ==
[2024-11-15 13:20] LABS: ALB/GLOB Ratio 1.6 RATIO (0.9-2.4); AST(SGOT) 17 U/L (<=31); Alanine Aminotransfer ALT/SGPT 17 U/L (<=34); Albumin, Serum 4.3 g/dL (3.5-5.0); Alkaline Phosphatase 100 U/L (35-104); Anion Gap 10 (5-15); BUN 26 mg/dL (4-19); BUN/Creat Ratio 35.3 RATIO (10-20); Calcium,Total 9.7 mg/dL (7.6-11.0); Carbon Dioxide 26.2 mmol/L (21.0-32.0); Chloride 104 mmol/L (98-108); Creatinine, Serum 0.75 mg/dL (0.70-1.20); EST Glomerular Filtration Rate 96 (>60); Globulin 2.8 g/dL (2.2-4.2); Glucose 93 mg/dL (70-99); Potassium 4.7 mmol/L (3.3-5.1); Protein, Total 7.1 g/dL (5.9-8.4); Sodium Level 140 mmol/L (133-145); Total Bilirubin 0.41 mg/dL (0.00-1.30)
--- OUTSIDE RECORDS SUMMARY | 2024-11-15 22:12 | XMS RPT_ITS | CCD ---
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 Elder Kang Attending Provider [phone] Unavailable Primary Care Provider Unavailabl e Scotty STEAM BOILER FIREMAN, STEAM BOILER FIREMAN-C Julienne Primary Care Provider [phone] Tena Solis Attending Provider Unavailable Dr. Zev Melchor Attending Provider [phone] Heidi Jackman Referring Provider Scotty STEAM BOILER FIREMAN, STEAM BOILER FIREMAN-C Julienne Referring Provider [phone] Wu STEAM BOILER FIREMAN, STEAM BOILER FIREMAN-C Lilia Attending Provider Alexandrtes STEAM BOILER FIREMAN, STEAM BOILER FIREMAN-C Julienne Primary Care Provider [phone] Scotty STEAM BOILER FIREMAN, STEAM BOILER FIREMAN-C Julienne Referring Provider [phone] Ajay STEAM BOILER FIREMAN, STEAM BOILER FIREMAN-C Summer Attending Provider Wu STEAM BOILER FIREMAN, STEAM BOILER FIREMAN-C Lilia Attending Provider Scotty STEAM BOILER FIREMAN, STEAM BOILER FIREMAN-C Julienne Primary Care Provider [phone] Scotty STEAM BOILER FIREMAN, STEAM BOILER FIREMAN-C Julienne Referring Provider [phone] Dr. Elder Kang Attending Provider [phone] Trace Mehta Attending Provider [phone] Trace Mehta Referring Provider Dr. Trace Mehta Other Provider Dr. Danie Menchaca Attending Provider Ajay STEAM BOILER FIREMAN, STEAM BOILER FIREMAN-C Summer Attending Provider [phone] BALTES DIRECTOR OF CAREER RESOURCES-INSURANCE PLAN SPECIALIST, JULIENNE Attending Unavailabl e BALTES DIRECTOR OF CAREER RESOURCES-INSURANCE PLAN SPECIALIST, JULIENNE Primary Care Unavailabl e BALTES DIRECTOR OF CAREER RESOURCES-INSURANCE PLAN SPECIALIST, JULIENNE Primary Care Unavailabl e GODFREY DONG, FELIPA Attending Unavailab le BALTES DIRECTOR OF CAREER RESOURCES-INSURANCE PLAN SPECIALIST, JULIENNE Primary Care Unavailabl e PROVIDER, UNKNOWN Attending Unavailable BALTES DIRECTOR OF CAREER RESOURCES-INSURANCE PLAN SPECIALIST, JULIENNE Primary Care Unavailabl e PROVIDER, UNKNOWN Attending Unavailable PROVIDER, UNKNOWN Attending Unavailable BALTES DIRECTOR OF CAREER RESOURCES-INSURANCE PLAN SPECIALIST, JULIENNE Primary Care Unavailabl e BALTES DIRECTOR OF CAREER RESOURCES-INSURANCE PLAN SPECIALIST, JULIENNE Primary Care Unavailabl e MEL [place], DR RAY Reyes Attending Antia villa PROVIDER, UNKNOWN Attending Unavailable BALTES DIRECTOR OF CAREER RESOURCES-INSURANCE PLAN SPECIALIST, JULIENNE Primary Care Unavailabl e PROVIDER, UNKNOWN Attending Unavailable BALTES DIRECTOR OF CAREER RESOURCES-INSURANCE PLAN SPECIALIST, JULIENNE Primary Care Unavailabl e Roof STEAM BOILER FIREMAN, Martin H Attending Unavailable Baltes STEAM BOILER FIREMAN, Julienne Primary Care Unavailable Baltes STEAM BOILER FIREMAN, Julienne Referring Unavailable Washburn STEAM BOILER FIREMAN, Lilia Attending Unavailable Baltes STEAM BOILER FIREMAN, Julienne Referring Unavailable Baltes STEAM BOILER FIREMAN, Julienne Primary Care Unavailable Roof STEAM BOILER FIREMAN, Martin H Referring Unavailable Roof STEAM BOILER FIREMAN, Martin H Attending Unavailable Baltes STEAM BOILER FIREMAN, Julienne Primary Care Unavailable Pearl, Elder Attending Unavailable FURFARI, G1 Consulting Unavailable Baltes STEAM BOILER FIREMAN, Julienne Primary Care Unavailable Pearl, Medford Referring Unavailable Baltes STEAM BOILER FIREMAN, Julienne Primary Care Unavailable Pearl, Elder Attending Unavailable Pearl, Elder Referring Unavailable Washburn STEAM BOILER FIREMAN, Lilia Referring Unavailable [place]burn STEAM BOILER FIREMAN, Lilia Attending Unavailable Baltes STEAM BOILER FIREMAN, Julienne Primary Care Unavailable [place]burn STEAM BOILER FIREMAN, Lilia Referring Unavailable Washburn STEAM BOILER FIREMAN, Lilia Attending Unavailable Baltes STEAM BOILER FIREMAN, Julienne Primary Care Unavailable Roof STEAM BOILER FIREMAN, Martin H Referring Unavailable Roof STEAM BOILER FIREMAN, Martin H Attending Unavailable Baltes STEAM BOILER FIREMAN, Julienne Primary Care Unavailable FURFARI, G1 Consulting Unavailable Pearl, Elder Attending Unavailable Baltes STEAM BOILER FIREMAN, Julienne Primary Care Unavailable Pearl, Medford Referring Unavailable Pearl, Medford Consulting Unavailable Nagajothi, Nagapradee Attending Unavailabl e Baltes STEAM BOILER FIREMAN, Julienne Primary Care Unavailable Pearl, Medford Referring Unavailable Washburn STEAM BOILER FIREMAN, Lilia Referring Unavailable Nagajothi, Nagapradee Attending Unavailabl e Baltes STEAM BOILER FIREMAN, Julienne Primary Care Unavailable Pearl, Medford Attending Unavailable Baltes STEAM BOILER FIREMAN, Julienne Primary Care Unavailable Pearl, Medford Attending Unavailable Roof STEAM BOILER FIREMAN, Martin H Referring Unavailable Baltes STEAM BOILER FIREMAN, Julienne Primary Care Unavailable Baltes STEAM BOILER FIREMAN-C, Julienne Primary Care Provider [phone] Wu PHAN-Lexus, Lilia Attending Provider [phone] Wu STEAM BOILER FIREMAN-C, Lilia Referring Provider [phone] Cee AUSTIN, Dr. Sidhu Attending Provider Roof STEAM BOILER FIREMAN-C, Martin Hunt Attending Provider [phone] Roof STEAM BOILER FIREMAN-C, Martin Hunt Referring Provider [phone] Pearl [place], Dr. Friedman Attending Provider [phone] Pearl [place], Dr. Friedman Referring Provider [phone] NADEGE ROSA Other Provider Pearl AUSTIN, Dr. Friedman Other Provider WILIAN, MARTIN Referring Unavailable JAMAL ROSA Attending Unavailable RADHA CARRENO Referring Unavailable BALTES DIRECTOR OF CAREER RESOURCES-INSURANCE PLAN SPECIALIST, JULIENNE Attending Unavailabl e BALTES DIRECTOR OF CAREER RESOURCES-INSURANCE PLAN SPECIALIST, JULIENNE Primary Care Unavailabl e SOTO DIRECTOR OF CAREER RESOURCES-INSURANCE PLAN SPECIALIST, LISA Attending Unavail able BALTES DIRECTOR OF CAREER RESOURCES-INSURANCE PLAN SPECIALIST, JULIENNE Primary Care Unavailabl e Baltes STEAM BOILER FIREMAN-C, Julienne Primary Care Provider [phone] Cee AUSTIN, Dr. Sidhu Attending Provider Dr. Elder Kang MD Referring Provider [phone] Dr. Elder Kang MD Attending Provider [phone] Baltes STEAM BOILER FIREMAN-C, Julienne Referring Provider Roof STEAM BOILER FIREMAN-C, Martin Hunt Attending Provider [phone] Allergy Classification Reported Allergen(s) Allergy Type Date of Onset Reaction(s) Facility (17 sources) Cashew nut Food allergy Difficulty swallowing [facility] (17 sources) Sulfamethoxazole ; Translations: [sulfamethoxazol e] Drug Allergy Rash [facility] (9 sources) cashew nut allergenic extract Drug Allergy 2 Anaphylaxis [facility] (10 sources) Sulfonamides (Antibiotic); Translations: [Sulfa (Sulfonamide Antibiotics)] Allergy to substance 2 Rash [facility] (10 sources) cat dander; Translations: [cat dander] Allergy to substance 2 Itching [facility] (1 source) cashew nut allergenic extract Drug Allergy 5 [facility] Repository Medications Current Medications Medication Drug Class(es) Dates Sig (Normalized) Sig (Original) amoxicillin 500 mg oral capsule (1 source) Penicillin-class Antibacterial Start: 08-17-2024 take 4 capsules by mouth every hour as needed Amoxicillin 500 mg capsule Active 2000 mg PO .COMPLEX as needed August 17, 2024 12:00am 2,000 mg orally 1 hour prior to dental visit PRN; aspirin 81 mg oral tablet (20 sources) Platelet Aggregation Inhibitor, Nonsteroidal Anti-inflammatory Drug Start: 03-03-2021 take 1 tablet by mouth once daily Aspirin 81 mg Tablet Active 81 mg PO DAILY March 03, 2021 12:00am Start: 12-06-2020 aspirin 81 mg oral delayed [...] 0 Refill(s), 04/11/23 6:47:00 PM EST, Pharmacy: [facility]/pharmacy #[id number], Community acquired pneumonia, 166, cm, 04/06/23 8:01:00 [...] mg/ml oral solution (1 source) Phenothiazine, Uncompetitive B-xhjmio-T-aspartate Receptor Antagonist, Sigma-1 Agonist Start: 04-10-2023 End: 04-17-2023 take 1 dose by mouth every six hours as needed for cough dextromethorphan -promethazine 15 mg-6.25 mg/5 mL oral syrup Dose = 5 mL, Oral, q6h, PRN for cough, # 120 mL, 0 Refill(s), Pharmacy: [facility]/pharmacy #[id number], 166, cm, 04/10/23 15:01:00 EST, [...] 0 Refill(s), 04/20/23 3:30:00 PM EST, Pharmacy: [facility]/pharmacy #[id number], 166, cm, 04/10/23 15:01:00 EST, Height, 106.6, kg, 04/10/23 15:01:00 EST, Dosing Weight Start Date: 04/10/23 Stop Date: 04/20/23 Status: Ordered flecainide acetate 100 mg oral tablet (2 sources) Antiarrhythmic Start: 07-07-2024 take 1 tablet by mouth every twelve hours Flecainide 100 mg tablet Active 100 mg PO Q12H 60 July 07, 2024 1:00am Glucosamine-Chondroit- Vit C-Mn (Glucosamine Chondroitin Maxstr) 500-400 mg capsule (9 sources) Start: 10-08-2021 Glucosamine-Felipe droit-Vit C-Mn (Glucosamine Chondroitin Maxstr) 500-400 mg capsule Active CAP PO October 08, 2021 9:26pm Start: 10-08-2021 End: 08-19-2022 Amuviyiwdts-Yyrowqmoa-Ftv C- Mn (Glucosamine Chondroitin Maxstr) 500-400 mg capsule Discontinued NMA PO October 08, 2021 12:00am August 19, 2022 9:04am Start: 10-08-2021 End: 08-19-2022 Tfmmmpejpwm-Gozkmcqtg-Qvu C- Mn (Glucosamine Chondroitin Maxstr) 500-400 mg capsule Discontinued CAP PO October 07, 2021 11:00pm August 19, 2022 8:04am Start: 10-08-2021 End: 08-19-2022 Kpkpfbgaobs-Nytleamjk-Urq C- Mn (Glucosamine Chondroitin Maxstr) 500-400 mg capsule Discontinued CAP PO October 08, 2021 12:00am August 19, 2022 9:04am Start: 10-08-2021 Glucosamine-Ch ondroit-Vit C-Mn (Glucosamine Chondroitin Maxstr) 500-400 mg capsule Active CAP PO October 07, 2021 11:00pm imiquimod 50 mg/ml topical cream (2 sources) Start: 11-17-2023 imiquimod 5% t opical cream APPLY TO AFFECTED AREA OF LABIA ON THU, THU, AND FRIDAYS AT NIGHT INTIL RESOLVED, WASH HANDS AFTER Start Date: 11/17/23 Status: Ordered Lopressor 25mg--USE metoprolol tartrate 25 mg oral tablet (3 sources) Start: 07-19-2021 Lopressor 25mg --USE metoprolol tartrate 25 mg oral tablet Dose : 25 mg = 1 tab(s), Oral, qDay, # 90 tab(s), 3 Refill(s), Pharmacy: [facility], 167.6, cm, 07/17/21 15:33:00 EST, Height, kg, 07/17/21 15:33:00 EST, Dosing Weight Start Date: 07/19/21 Status: Ordered loratadine 10 mg oral tablet (6 sources) Start: 08-17-2024 take 1 tablet by mouth once daily Loratadine (Claritin) 10 mg tablet Active 10 mg PO daily August 17, 2024 12:00am Start: 08-14-2023 Claritin 10 mg oral tablet Dose : 10 mg = 1 tab(s), Oral, qDay Start Date: 08/14/23 Status: Ordered melatonin 10 mg oral tablet (6 sources) Start: 06-10-2023 take 2-3 tablets by [...] 0 Refill(s), 04/12/23 8:31:00 AM EST, Pharmacy: [facility]/pharmacy #[id number], Cough Shortness of breath, 166, cm, 04/06/23 8:01:00 EST, Height, kg, 04/06/23 8:01:00 EST, Dosing Weight Start Date: 04/06/23 Stop Date: 04/12/23 Status: Ordered metoprolol tartrate 50 mg oral tablet (20 sources) beta-Adrenergic Wan Start: 08-12-2024 End: 09-06-2024 take 1 tablet by mouth twice daily Metoprolol Tartrate 50 mg tablet Active 50 mg PO TWICE A DAY 180 September 06, 2024 7:51am Start: 07-07-2024 End: 08-12-2024 take 1 tablet by mouth twice daily Metoprolol Tartrate 25 mg tablet Discontinued 25 mg PO TWICE A DAY 180 July 07, 2024 1:00am August 12, 2024 5:42pm Start: 03-17-2024 End: 04-26-2024 take 1 tablet by mouth every twenty-four hours at bedtime Metoprolol Succinate 50 mg tablet extended release 24 hr Discontinued 50 mg PO AT BEDTIME March 17, 2024 11:52am April 26, 2024 12:13pm Start: 10-14-2022 metoprolol suc cinate 25 mg oral TABLET extended release Dose : 50 mg = 2 tab(s), Oral, qDay, 0 Refill(s) Start Date: 10/14/22 Status: Ordered Start: 04-23-2022 End: 03-17-2024 take 2 tablets by mouth once daily at bedtime Metoprolol Tartrate 25 mg tablet Discontinued 50 mg PO .COMPLEX February 24, 2024 12:59pm March 17, 2024 11:51am 50 mg orally qhs Start: 04-23-2022 End: 03-25-2023 take 50 mg by mouth once daily at bedtime Metoprolol Tartrate Discontinued 50 MG PO .COMPLEX March 19, 2023 8:14am March 25, 2023 2:03pm 50 mg orally qhs Start: 04-23-2022 End: 04-23-2022 take 1 tablet by mouth at bedtime Metoprolol Tartrate 25 mg tablet Discontinued 25 mg PO AT BEDTIME April 23, 2022 4:30pm April 23, 2022 6:11pm Start: 10-09-2021 End: 04-23-2022 Metoprolol Tartrate 25 mg ta blet Discontinued 12.5 mg PO TWICE A DAY October 09, 2021 11:37am April 23, 2022 4:31pm Start: 10-09-2021 End: 04-23-2022 take 12.5 mg by mouth twice daily Metoprolol Tartrate Discontinued 12.5 MG PO TWICE A DAY October 09, 2021 10:37am April 23, 2022 3:31pm Start: 10-09-2021 End: 10-09-2021 take 1 tablet by mouth at bedtime Metoprolol Tartrate 25 mg tablet Discontinued 25 mg PO AT BEDTIME October 09, 2021 12:00am October 09, 2021 11:38am Start: 07-19-2021 Lopressor 25mg --USE metoprolol tartrate 25 mg oral tablet Dose : 25 mg = 1 tab(s), Oral, qDay, # 90 tab(s), 3 Refill(s), Pharmacy: [facility], 167.6, cm, 07/17/21 15:33:00 EST, Height, kg, 07/17/21 15:33:00 EST, Dosing Weight Start Date: 07/19/21 Status: Ordered metroNIDAZOLE 500 mg oral tablet (2 sources) Nitroimidazole Antimicrobial Start: 11-18-2023 End: 11-25-2023 metroNIDAZOLE 500 mg oral tablet Dose : 500 mg = 1 tab(s), Oral, q12h, X 7 day(s), # 14 tab(s), 0 Refill(s), 11/25/23 4:11:00 PM EDT, Pharmacy: [facility]/pharmacy #[id number], 166, cm, 11/17/23 11:11:00 EDT, Height, 102.5, kg, 11/17/23 11:11:00 EDT, Dosing Weight Start Date: 11/18/23 Stop Date: 11/25/23 Status: Ordered Multivitamin preparation (3 sources) Start: 08-19-2022 take 1 tablet by mouth once daily Multivitamin Active 1 TABLET PO DAILY August 18, 2022 11:00pm Start: 08-19-2022 take 1 tablet by forest th once daily Multivitamin Active 1 TABLET PO DAILY August 19, 2022 12:00am Multivitamin tablet (2 sources) Start: 08-19-2022 Multivitamin tablet Active 1 {tbl} PO DAILY August 19, 2022 12:00am One-A-Day Women oral tablet (17 sources) Start: 06-02-2019 take 1 tablet by [...] stop, # 30 cap(s), 0 Refill(s), Pharmacy: [facility]/pharmacy #[id number], 166, cm, 04/10/23 15:01:00 EST, Height, kg, 04/10/23 15:01:00 EST, Dosing Weight Start Date: 04/10/23 Status: Ordered 24 hr venlafaxine 150 mg extended release oral capsule (20 sources) Serotonin and Norepinephrine Reuptake Inhibitor Start: 04-23-2022 End: 11-15-2024 take 1 capsule by mouth every twenty-four hours at bedtime Venlafaxine 150 mg capsule,extended release 24hr Active 300 mg PO AT BEDTIME November 15, 2024 11:39am Start: 03-03-2021 End: 04-23-2022 take 1 capsule by mouth once daily Venlafaxine 150 mg capsule,extended release 24hr Discontinued 150 mg PO DAILY March 03, 2021 12:00am April 23, 2022 4:31pm Start: 08-14-2020 venlafaxine 75 mg oral capsule, [...] inhalation solution (20 sources) beta2-Adrenergic Agonist Start: 06-11-2023 End: 11-15-2024 take 1 mg by inhalation every six hours as needed for wheezing Albuterol Sulfate 2.5 mg /3 mL (0.083 %) solution for nebulization Discontinued mg INHALATION EVERY 6 HOURS as needed for shortness of breath or wheezing June 11, 2023 1:00am November 15, 2024 11:38am Start: 04-28-2023 take 1 capsule by in halation every six hours as needed albuterol 2.5 mg/3 mL (0.083%) inhalation solution Dose : 2.5 mg = 3 mL, Inhalation, q6h, PRN as needed for wheezing, # 60 EA, 0 Refill(s), Pharmacy: [id number], Wheezing CAP (community acquired pneumonia), 166, cm, 04/10/23 15:01:00 EST, Height, kg, 04/10/23 15:01:00 EST, Dosing Weight Start Date: 04/28/23 Status: Ordered Start: 04-06-2023 take 2 puff(s) by in halation four times daily as needed for wheezing ProAir HFA MDI (90 mcg/inh) inhalation aerosol 2 puff(s), Inhalation, QID, PRN as needed for wheezing, EA=8.5 gr unit, # 3 EA, 3 Refill(s), Pharmacy: [facility], Cough Shortness of breath, 166, cm, 04/06/23 8:01:00 EST, Height, kg, 04/06/23 8:01:00 EST, Dosing Weight Start Date: 04/06/23 Status: Ordered Start: 02-04-2022 take 2 puff(s) by in halation four times daily as needed for wheezing ProAir HFA MDI (90 mcg/inh) inhalation aerosol 2 puff(s), Inhalation, QID, PRN as needed for wheezing, EA=8.5 gr unit, # 3 EA, 3 Refill(s), [facility], Cough Shortness of breath, 167, cm, 01/27/22 11:05:00 EDT, Height, kg, 01/27/22 11:05:00 EDT, Dosing Weight Start Date: 02/04/22 Status: Ordered Start: 01-16-2021 take 2 puff(s) by in halation four times daily as needed for wheezing ProAir HFA MDI (90 mcg/inh) inhalation aerosol 2 puff(s), Inhalation, QID, PRN as needed for wheezing, EA=8.5 gr unit, # 3 EA, 3 Refill(s), Pharmacy: [facility], Cough Shortness of breath, 166.37, cm, 12/20/20 14:03:00 EDT, Height, kg, 12/20/20 14:03:00 EDT, Dosing Weight Start Date: 01/16/21 Status: Ordered Start: 01-16-2021 take 2 puff(s) by in halation four times daily as needed for wheezing ProAir HFA MDI (90 mcg/inh) inhalation aerosol 2 puff(s), Inhalation, QID, PRN as needed for wheezing, EA=8.5 gr unit, # 3 EA, 3 Refill(s), Pharmacy: [facility], Cough Shortness of breath, 166.37, cm, 12/20/20 14:03:00 EDT, Height, kg, 12/20/20 14:03:00 EDT, Dosing Weight Start Date: 01/16/21 Status: Ordered Start: 01-14-2019 Albuterol Sulf ate 8.5 GM HFA aerosol inhaler Active 8.5 g IH NEEDED as needed for Bronchodialation January 14, 2019 12:00am Start: 01-14-2019 Albuterol Sulf ate Active 8.5 GM IH NEEDED January 13, 2019 11:00pm ALPRAZolam 1 mg oral tablet (20 sources) Benzodiazepine Start: 07-03-2020 End: 03-17-2024 take 1 tablet by mouth at bedtime Alprazolam 1 mg tablet Discontinued 1 mg PO AT BEDTIME March 19, 2023 9:19am March 17, 2024 11:30am fluticasone propionate 0.05 mg/actuat metered dose nasal spray (10 sources) Corticosteroid Start: 06-11-2023 End: 03-17-2024 Fluticasone Propionate 50 mcg/actuation spray,suspension Discontinued 1 NMA INTRANASAL TWICE A DAY June 11, 2023 1:00am March 17, 2024 11:36am Start: 06-11-2023 Fluticasone Pr opionate Active 1 SPRAY INTRANASAL TWICE A DAY June 11, 2023 12:00am Start: 05-08-2023 End: 06-07-2023 take 50 ug nasal route twice daily Flonase 50 mcg/inh nasal spray 50 mcg Dose = 1 spray(s), Nostril, each, BID, # 16 gram(s), 0 Refill(s), Pharmacy: [facility]/pharmacy #[id number], Allergic rhinitis, 166, cm, 04/29/23 15:43:00 EST, Height, kg, 05/08/23 12:59:00 EST, Dosing Weight Start Date: 05/08/23 Stop Date: 06/07/23 Status: Ordered omeprazole 20 mg delayed release oral capsule (7 sources) Proton Pump Inhibitor Start: 03-17-2024 End: 08-17-2024 take 2 capsules by mouth once daily Omeprazole 20 mg capsule,delayed release(DR/EC) Discontinued 40 mg PO daily March 17, 2024 12:00am August 17, 2024 11:33am Start: 08-14-2023 omeprazole 40 mg oral delayed release capsule Dose : 40 mg = 1 cap(s), Oral, qDay, 0 Refill(s) Start Date: 08/14/23 Status: Ordered oxyCODONE hydrochloride 5 mg oral tablet (9 sources) Opioid Agonist Start: 03-03-2021 End: 10-08-2021 take 5-10 mg by mouth every four hours as needed for pain Oxycodone 5 mg tablet Discontinued 5 - 10 mg PO EVERY 4 HOURS NEEDED as needed for Pain March 03, 2021 12:00am October 08, 2021 9:27pm 24 hr tolterodine tartrate 4 mg extended release oral capsule (20 sources) Cholinergic Muscarinic Antagonist Start: 04-23-2022 End: 03-17-2024 take 1 capsule by mouth every twenty-four hours at bedtime Tolterodine 4 mg capsule,extended release 24hr Discontinued 4 mg PO AT BEDTIME April 23, 2022 4:30pm March 17, 2024 11:30am Start: 01-14-2019 End: 04-23-2022 take 1 capsule by mouth once daily Tolterodine 4 MG capsule,extended release 24hr Discontinued 4 mg PO DAILY January 14, 2019 12:00am April 23, 2022 4:31pm valACYclovir 1000 mg oral tablet (2 sources) Herpesvirus Nucleoside Analog DNA Polymerase Inhibitor, Herpes Simplex Virus Nucleoside Analog DNA Polymerase Inhibitor, Herpes Zoster Virus Nucleoside Analog DNA Polymerase Inhibitor Start: 11-17-2023 End: 11-22-2023 Valtrex 1 g oral tablet Dose : 1 gram(s) = 1 tab(s), Oral, BID, X 5 day(s), # 10 tab(s), 0 Refill(s), 11/22/23 12:15:00 PM EDT, Pharmacy: [facility]/pharmacy #[id number], Well woman exam STD exposure, 166, cm, 11/17/23 11:11:00 EDT, Height, 102.5, kg, 11/17/23 11:11:00 EDT, Dosing Weight Start Date: 11/17/23 Stop Date: 11/22/23 Status: Ordered verapamil hydrochloride 120 mg extended release oral tablet (6 sources) Calcium Channel Wan Start: 04-26-2024 End: 07-07-2024 take 1 tablet by mouth once daily Verapamil 120 mg tablet extended release Discontinued 120 mg PO daily 90 May 19, 2024 9:37am May 19, 2024 1:55pm Problems Active Problems Problem Classification Problem Date Documented Date Episodic/Chronic Acute bronchitis (17 sources) Acute bronchiolitis 06-09-2019 Episodic Administrative/socia l admission (1 source) Persons encountering health services in other specified circumstances; Translations: [Lack of adequate sleep] 06-04-2022 Episodic Anxiety disorders (17 sources) Mixed anxiety and depressive disorder; Translations: [Anxiety] 06-08-2020 Chronic Asthma (20 sources) Allergic asthma; Translations: [Asthma] 06-09-2019 Chronic Cancer of cervix (19 sources) Low grade squamous intraepithelial lesion on cervical Papanicolaou smear; Translations: [Low grade squamous intraepithelial lesion on cytologic smear of cervix (LGSIL)] Onset: 11-17-2023 07-31-2020 Episodic Cardiac and circulatory congenital anomalies (20 sources) Patent foramen ovale; Translations: [Atrial septal defect] 10-29-2020 Chronic Cardiac dysrhythmias (20 sources) Ventricular premature beats; Translations: [Multiple premature ventricular complexes] Onset: 07-04-2024 08-16-2020 Chronic Cardiac dysrhythmias (1 source) Palpitations; Translations: [Palpitations] Onset: 05-19-2024 Episodic Chronic obstructive pulmonary disease and bronchiectasis (6 sources) Bronchitis 04-29-2023 Episodic Disorders of lipid metabolism (1 source) Hyperlipidemia, unspecified; Translations: [Hyperlipidemia, unspecified] Onset: 04-08-2024 Chronic Esophageal disorders (17 sources) Gastroesophageal reflux disease 12-13-2019 Chronic Genitourinary symptoms and ill-defined conditions (17 sources) Urge incontinence of urine 12-13-2019 Chronic Immunizations and screening for infectious disease (3 sources) Exposure to sexually transmissible disorder; Translations: [Contact with and (suspected) exposure to infections with a predominantly sexual mode of transmission] Onset: 12-01-2023 Episodic Inflammatory diseases of female pelvic organs (2 sources) Acute vaginitis; Translations: [Acute vaginitis] Onset: 11-17-2023 Episodic Malaise and fatigue (18 sources) Fatigue; Translations: [Other fatigue] Onset: 03-21-2024 12-25-2021 Episodic Menopausal disorders (2 sources) Postmenopausal bleeding; Translations: [Postmenopausal bleeding] Onset: 02-01-2024 Chronic Mood disorders (11 sources) Recurrent major depression 11-11-2022 Chronic Nonspecific chest pain (9 sources) Chest pain; Translations: [Chest pain, unspecified] 10-08-2021 Episodic Nutritional deficiencies (1 source) Vitamin D deficiency, unspecified; Translations: [Vitamin D deficiency, unspecified] Onset: 03-21-2024 Chronic Osteoarthritis (11 sources) Osteoarthritis of right knee joint 11-11-2022 Chronic Other and ill-defined heart disease (17 sources) Atrial septal aneurysm 09-13-2020 Chronic Other circulatory disease (9 sources) Elevated blood-pressure reading without diagnosis of hypertension; Translations: [Elevated blood-pressure reading, without diagnosis of hypertension] 10-08-2021 Episodic Other lower respiratory disease (17 sources) Cough 06-09-2019 Episodic Other lower respiratory disease (17 sources) Dyspnea on exertion 06-09-2019 Episodic Other lower respiratory disease (17 sources) H/O: pneumonia 06-09-2019 Episodic Other lower respiratory disease (1 source) Hemoptysis; Translations: [Hemoptysis] Onset: 04-12-2023 Episodic Other lower respiratory disease (6 sources) Chronic cough; Translations: [Chronic cough] 06-16-2023 Episodic Other nervous system disorders (9 sources) Other acute postprocedural pain; Translations: [Acute postoperative pain of right knee] 03-12-2021 Episodic Other nutritional; endocrine; and metabolic disorders (11 sources) Obesity; Translations: [Obesity, unspecified] 10-08-2021 Chronic Other nutritional; endocrine; and metabolic disorders (1 source) Obesity, unspecified; Translations: [Obesity, unspecified] 06-04-2022 Chronic Other nutritional; endocrine; and metabolic disorders (4 sources) Body mass index 30+ - obesity; Translations: [Body mass index (BMI) 38.0-38.9, adult] 06-11-2023 Chronic Other screening for suspected conditions (not mental disorders or infectious disease) (2 sources) Abnormal findings on diagnostic imaging of other specified body structures; Translations: [Abnormal findings on diagnostic imaging of other specified body structures] Onset: 02-01-2024 Chronic Other screening for suspected conditions (not mental disorders or infectious disease) (3 sources) Encounter for other screening for malignant neoplasm of breast; Translations: [Abnormal electrocardiogram [ECG] [EKG]] Onset: 11-17-2023 Episodic Residual codes; unclassified (6 sources) Hypersomnia; Translations: [Hypersomnia, unspecified] 04-23-2022 Chronic Residual codes; unclassified (1 source) Hypersomnia, unspecified; Translations: [Hypersomnia, unspecified] Chronic Unclassified (1 source) Unknown / UNK(Unknown) [...] Test Name Value Interpretation Reference Range Facility Cardiology Visit Reporton Cardiology Visit Report [facility] [address] [place] [address] OFFICE VISIT Date of Service: 08/17/24 MR#: [id number] Acct: [id number] Name: JAKE ELIZABETH Rep #: [id number] : 1970 Provider: JOCELIN moreno Age/Sex: 54/F Location[facility] Status: Signed HPI HPI History of Present Illness Details: This is a 54-year-old lady who presents to the office today for a cardiovascular follow up visit. She has no previous cardiac history who has been having problems with palpitations and premature ventricular complexes. She is also had mildly elevated blood pressure. As part of her work-up she underwent a pharmacologic stress test in December 2018 which was normal. 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 There was a small shunt through a PFO noted on a follow-up DARIEL. A previous Holter monitor in 2016 had demonstrated occasional PVCs only. Her EKG at her last office visit demonstrated sinus rhythm with a rate of 85 bpm and frequent premature ventricular complexes in a pattern of ventricular trigeminy. She also had a cardiac MRI which demonstrated an ejection fraction of 52% and a right ventricular ejection fraction of 55% there was no significant intracardiac shunting seen. A Holter monitor from August of this year demonstrated 16% of total QRS ventricular ectopic beats noted. Holter monitor in March 2024 showed PVC burden 19.2%. Repeat Holter monitor in May 2024 showed PVC burden 36.3%. She trialed both metoprolol and verapamil for PVC suppression. There was no significant improvement. She was seen with [facility] electrophysiology team, Dr. Rosa on 07/04/2024. Due to risk of heart block during ablation procedure, it was recommended to focus on antiarrhythmic drug therapy. Her verapamil was discontinued and she resumed on metoprolol. She was started on flecainide 100 mg p.o. twice daily. Stress test on 07/07/2024 was negative for ischemia and noted to have reduced frequency of PVCs during exercise. 24-hour Holter monitor on 08/01/2024 showed ventricular ectopy 28.3% with an average heart of 68 bpm. She denies chest, arm, jaw, or neck discomfort. She denies palpitations. She denies bilateral lower extremity edema. She denies claudication. She states shortness of breath with activity in cold weather. She denies shortness of breath at rest, orthopnea, or PND. She denies chronic cough. She denies significant, sudden weight gain. She denies lightheadedness, dizziness, near-syncope, or syncope. She denies blood in urine, blood in stool, or epistaxis. He denies fever with chills. She denies myalgia. She states fatigue that is improving. Her exercise level has remained stable. 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 Is patient in pain?: No Allergies cashew nut Allergy (Verified 08/17/24 11:30) Anaphylaxis cat dander Allergy (Verified 08/17/24 11:30) Itching Sulfa (Sulfonamide Antibiotics) Allergy (Verified 08/17/24 11:30) Rash Medications ???Medication ???Instructions ???Recorded ???Confirmed ???Type albuterol sulfate 90 mcg/actuation 8.5 g IH PRN PRN Bronchodialatio n 01/14/19 08/17/24 History aerosol inhaler aspirin 81 mg tablet 81 mg PO DAILY 03/03/21 08/17/24 H istory venlafaxine 150 mg 150 mg PO QHS 04/23/22 08/17/24 Hi story capsule,extended release 24 hr multivitamin 1 tab PO DAILY 08/19/22 08/17/24 H istory albuterol sulfate 2.5 mg/3 mL mg inhalation Q6H PRN shortness of 06/11/23 08/17/24 History (0.083 %) solution for nebulization breath or wheezing flecainide 100 mg tablet 100 mg PO Q12H #60 tabs 07/07/24 0 08/17/24 Rx metoprolol tartrate 50 mg tablet 50 mg PO BID #60 tabs 08/12/24 Rx amoxicillin 500 mg capsule 2,000 mg PO .COMPLEX PRN 08/17/24 08/17/24 History loratadine 10 mg tablet (Claritin) 10 mg PO QDAY 08/17/24 08/17/24 History Ejection fraction %: 50 Have you fallen in the past year?: No PFSH Medical History (Updated 08/17/24 @ 12:09 by Martin Marie NP, [employer]-C) History of transesophageal echocardiography (DARIEL) Urge incontinence of urine SOB (shortness of breath) on exertion Osteoarthritis of right knee Major depressive disorder LGSIL on Pap smear of cervix GERD (gastroesophageal reflux disease) Fatigue Community acquired pneumonia Cough Bronchitis Multiple premature ventricular complexes Patent foramen ovale Anxiety and depression Obesity Elevated blood pressure reading without diagnosis of hypertension Atrial septum primum defect (more content not included)... Normal [facility] Stress Reporton 07-07-2024 Stress Report [facility] [address] [place] [address] MR#: [id number] Acct: [id number] Name: JAKE ELIZABETH Rep #: [id number] : 1970 54 From: Elder Kang MD Primary Care: JOCEILN La Status: RE G CLI Referring Dr: Elder Kang MD Sex: F C Stress Test Report Exercise stress test. 54-year-old lady with a history of premature ventricular complexes. Stress protocol: Resting EKG demonstrates normal sinus rhythm with a rate of 71 with premature ventricular complexes. Resting blood pressure is 138/80 mmHg. The patient exercised according to the regular [facility] protocol for a total duration of 6 minutes and 14 seconds attaining a maximum heart rate of 144 bpm which was 85% of maximum predicted heart rate; the maximum workload was 7.6 metabolic equivalents. At rest there were no ST or T wave changes noted to suggest ischemia, but premature ventricular complexes were noted which dissipated on exercise and during recovery reappeared but at a much less frequency. And at peak exercise upsloping ST changes only were noted which did not meet the criteria for ischemia. No clinical angina was noted the test was terminated due to the target heart rate being achieved/fatigue. The peak blood pressure was 220/92 mmHg. Rate-pressure product was 31,000. No sustained arrhythmias were noted. Conclusion: Stress test with reduced frequency of premature ventricular complexes during exercise. 07/07/24 1426 Date Elder Knag MD CC: JOCELIN Fajardo; Dr. Elder Kang MD Date Dictated: 07/07/24 1238 Date Transcribed: 07/07/241237 Assistant Gm Of Content & Delivery: CO Signed Normal [facility] Echo Completeon 06-01-2024 Echo Complete [facility] [place] [address] [place] [address] Echo Complete 06/01/24 1310 MR#: [id number] Acct: [id number] Name: JAKE ELIZABETH Rep #: [id number] : 1970 54 From: Elder Kang MD Attending Dr: JOCELIN Peoples Status: REG CLI Ordering Dr: Martin Marie NP Date: 06/01/24 Location: [facility] Sex: F C Admitted: Reason For Study: PVC [place] Procedure This was a 2D Doppler, Color Flow transthoracic echocardiogram. Exam performed in department. Left Ventricle Normal LV size. Left ventricular systolic function is lower limits of normal. The left ventricular ejection fraction is 50 %. Stage 1 diastolic dysfunction. There is borderline global hypokinesis of the left ventricle. Right Ventricle Normal RV size. Normal systolic function. Atria Normal left atrium. Normal right atrium. Mitral Valve Normal mitral valve. Tricuspid Valve Normal tricuspid valve. Aortic Valve Trisinus/trileaflet aortic valve. Pulmonic Valve Normal pulmonic valve. Great Vessels Normal aortic root. Pericardium/Pleural No pericardial effusion. MMode/2D Measurements Calculations LVIDd: 4.8 cm IVSd: 1.2 cm Ao root diam: 3.1 cm LVIDs: 3.3 cm LVPWd: 0.96 cm RVDd: 3.6 cm FS: 31.9 % LAV(MOD-bp): 75.1 ml LVAd ap4: 36.1 cm2 SV(MOD-sp4): 61.4 ml LAV(MOD-bp) Indexed: 35.4 ml/m2 LVLd ap4: 9.1 cm SI(MOD-sp4): 28.9 ml/m2 LAV(MOD-sp2): 77.2 ml EDV(MOD-sp4): 119.4 ml LAV(MOD-sp4): 58.9 ml EDV(sp4-el): 121.8 ml LVAs ap4: 23.2 cm2 LVLs ap4: 7.8 cm ESV(MOD-sp4): 58.0 ml ESV(sp4-el): 58.2 ml EF(MOD-sp4): 51.4 % EF(sp4-el): 52.2 % SV(sp4-el): 63.6 ml LA A4 area: 21.5 cm2 LA dimension(2D): 3.9 cm RA A4 area: 16.8 cm2 TAPSE: 3.0 cm Time Measurements MV dec time: 0.21 sec Doppler Measurements Calculations MV E max heron: 66.8 cm/sec Lat Peak E' Heron: 7.9 cm/sec Med Peak E' Heron: 8.9 cm/sec MV A max heron: 89.2 cm/sec E/E' lat: 8.4 E/E' med: 7.5 MV E/A: 0.75 MV V2 max: 97.9 cm/sec MV P1/2t max heron: 78.0 cm/sec Ao V2 max: 171.6 cm/sec MV max P.8 mmHg MV P1/2t: 69.7 msec Ao max P.8 mmHg MV V2 mean: 59.1 cm/sec Ao V2 mean: 126.2 cm/sec MV mean P.6 mmHg MV dec slope: 328.0 cm/sec2 Ao mean P.0 mmHg MV V2 VTI: 29.7 cm MVA(P1/2t): 3.2 cm2 Ao V2 VTI: 35.2 cm AV (velocity ratio): 0.75 LV V1 max: 120.4 cm/sec PA V2 max: 113.8 cm/sec LV V1 max P.8 mmHg PA V2 mean: 88.5 cm/sec LV V1 mean P.6 mmHg LV V1 mean: 90.7 cm/sec LV V1 VTI: 26.5 cm ECHO/Echo Complete Interpretation Summary Normal LV size. Left ventricular systolic function is lower limits of normal. The left ventricular ejection fraction is 50 %. Stage 1 diastolic dysfunction. Ordering Physician: Martin Marie Referring Physician: Martin Marie Performed By: Mihir Mckeon RCS 06/01/24 1426 Date Elder Kang MD CC: JOCELIN Marie; JOCELIN Fajardo Date Dictated: 06/01/24 1310 Date Transcribed: 06/01/24 1426 Assistant Gm Of Content & Delivery: Signed Normal [facility] CBC W/Diff, Automatedon 10-2 -2023 Absolute Lymph 2.10 X10 3/uL Normal 0.83-4.51 [facility] Comment on above: Performed By: #### L 501.9520, L100.0100, L500.4050, L500.4100, L506.1000 #### [facility] [address] [place], [address] Absolute Neut 5.1 X10 3/uL Normal 2.0-7.7 [facility] Comment on above: Performed By: #### L 501.9520, L100.0100, L500.4050, L500.4100, L506.1000 #### [facility] [address] [place], [address] Basophils/100 WBC (Bld) 0.4 % Normal 0-1 [facility] Comment on above: Performed By: #### L 501.9520, L100.0100, L500.4050, L500.4100, L506.1000 #### [facility] [address] [place], [address] Eosinophils/100 WBC (Bld) 2.6 % Normal 0-5 [facility] Comment on above: Performed By: #### L 501.9520, L100.0100, L500.4050, L500.4100, L506.1000 #### [facility] [address] [place], [address] Erythrocyte distribution width (RBC) [Ratio] 12.8 % Normal 11.6-14.6 [facility] Comment on above: Performed By: #### L 501.9520, L100.0100, L500.4050, L500.4100, L506.1000 #### [facility] [address] [place], [address] Hematocrit (Bld) [Volume fraction] 43.1 % Normal 37-47 [facility] Comment on above: Performed By: #### L 501.9520, L100.0100, L500.4050, L500.4100, L506.1000 #### [facility] [address] [place], [address] Hemoglobin (Bld) [Mass/Vol] 14.0 g/dL Normal 12.0-15.0 [facility] Comment on above: Performed By: #### L 501.9520, L100.0100, L500.4050, L500.4100, L506.1000 #### [facility] [address] [place], [address] IG% 0.400 Normal 0.0-0.9 [facility] Comment on above: Result Comment: IG% - Immature Granulocytes (promyelocytes, myelocytes and metamyelocytes) > 1% indicates that a LEFT SHIFT is Present. Performed By: #### L 501.9520, L100.0100, L500.4050, L500.4100, L506.1000 #### [facility] [address] [place], [address] Lymphocytes/100 WBC (Bld) 26.1 % Normal 19-41 [facility] Comment on above: Performed By: #### L 501.9520, L100.0100, L500.4050, L500.4100, L506.1000 #### [facility] [address] [place], [address] MCH (RBC) [Entitic mass] 30.5 pg Normal 27.0-32.0 [facility] Comment on above: Performed By: #### L 501.9520, L100.0100, L500.4050, L500.4100, L506.1000 #### [facility] [address] [place], [address] MCHC (RBC) [Mass/Vol] 32.5 g/dL Normal 32-36 [facility] Comment on above: Performed By: #### L 501.9520, L100.0100, L500.4050, L500.4100, L506.1000 #### [facility] [address] [place], [address] MCV (RBC) [Entitic vol] 93.9 fL Normal 81-99 [facility] Comment on above: Performed By: #### L 501.9520, L100.0100, L500.4050, L500.4100, L506.1000 #### [facility] [address] [place], [address] Monocytes/100 WBC (Bld) 6.8 % Normal 0-10 [facility] Comment on above: Performed By: #### L 501.9520, L100.0100, L500.4050, L500.4100, L506.1000 #### [facility] [address] [place], [address] Neutrophils/100 WBC (Bld) 63.7 % Normal 47-70 [facility] Comment on above: Performed By: #### L 501.9520, L100.0100, L500.4050, L500.4100, L506.1000 #### [facility] [address] [place], [address] Nucleated RBC (Bld) [#/Vol] 0 10*3/uL Normal 0-5 [facility] Comment on above: Performed By: #### L 501.9520, L100.0100, L500.4050, L500.4100, L506.1000 #### [facility] [address] [place], [address] Platelet mean volume (Bld) [Entitic vol] 10.4 fL Normal 6.2-12.0 [facility] Comment on above: Performed By: #### L 501.9520, L100.0100, L500.4050, L500.4100, L506.1000 #### [facility] [address] [place], [address] Platelets (Bld) [#/Vol] 254 10*3/uL Normal 150-450 [facility] Comment on above: Performed By: #### L 501.9520, L100.0100, L500.4050, L500.4100, L506.1000 #### [facility] [address] [place], [address] RBC (Bld) [#/Vol] 4.59 10*6/uL Normal 4.2-5.4 [facility] Comment on above: Performed By: #### L 501.9520, L100.0100, L500.4050, L500.4100, L506.1000 #### [facility] [address] [place], [address] RDW SD 44.0 fl High 35.1-43.9 [facility] Comment on above: Performed By: #### L 501.9520, L100.0100, L500.4050, L500.4100, L506.1000 #### [facility] [address] [place], [address] WBC (Bld) [#/Vol] 8.1 10*3/uL Normal 4.4-11.0 [facility] Comment on above: Performed By: #### L 501.9520, L100.0100, L500.4050, L500.4100, L506.1000 #### [facility] [address] [place], [address] Cardiology Visit Reporton Cardiology Visit Report [facility] [address] [place], [place] [address] OFFICE VISIT Date of Service: 03/17/24 MR#: [id number] Acct: [id number] Name: JAKE ELIZABETH Rep #: [id number] : 1970 Provider: JOCELIN butler Age/Sex: 54/F [place] [facility] Status: Signed HPI [facility] History of Present Illness Details: This is a 54-year-old lady who presents to the office today for a cardiovascular follow up visit. She has no previous cardiac history who has been having problems with palpitations and premature ventricular complexes. She is also had mildly elevated blood pressure. As part of her work-up she underwent a pharmacologic stress test in December 2018 which was normal. 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 There was a small shunt through a PFO noted on a follow-up DARIEL. A previous Holter monitor in 2016 had demonstrated occasional PVCs only. Her EKG at her last office visit demonstrated sinus rhythm with a rate of 85 bpm and frequent premature ventricular complexes in a pattern of ventricular trigeminy. She also had a cardiac MRI which demonstrated an ejection fraction of 52% and a right ventricular ejection fraction of 55% there was no significant intracardiac shunting seen. A Holter monitor from August of this year demonstrated 16% of total QRS ventricular ectopic beats noted. From a cardiac standpoint, the patient is doing well. She does acknowledge frequent palpitations. She denies chest pain, pressure or heaviness. She denies SOB, Orthopnea, and PND. She does not have bleeding issues; no blood in urine, stool or nosebleeds. She does acknowledge fatigue. She denies any decrease in energy level, myalgias, or claudication. She does not have edema, or sudden weight gain. She denies dizziness, lightheadedness, syncopal or near syncopal episodes, and headaches. 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 Is patient in pain?: No Allergies cashew nut Allergy (Verified 03/21/24 14:10) Anaphylaxis cat dander Allergy (Verified 03/21/24 14:10) Itching Sulfa (Sulfonamide Antibiotics) Allergy (Verified 03/21/24 14:10) Rash Medications ???Medication ???Instructions ???Recorded ???Confirmed ???Type albuterol sulfate 90 mcg/actuation 8.5 g IH PRN PRN Bronchodialation 01/14/19 03/17/24 History aerosol inhaler aspirin 81 mg tablet 81 mg PO DAILY 03/03/21 03/17/24 History venlafaxine 150 mg 150 mg PO QHS 04/23/22 03/17/24 History capsule,extended release 24 hr multivitamin 1 tab PO DAILY 08/19/22 03/17/24 History albuterol sulfate 2.5 mg/3 mL mg inhalation Q6H PRN shortness of 06/11/23 03/17/24 History (0.083 %) solution for nebulization breath or wheezing metoprolol succinate 50 mg 50 mg PO QHS #14 tabs 03/17/24 03/17/24 Rx tablet,extended release 24 hr omeprazole 20 mg capsule,delayed 40 mg PO QDAY 03/17/24 03/17/24 History release PFSH Medical History (Updated 03/17/24 @ 11:50 by Lilia Washburn [employer]MAN, [employer]-C) History of transesophageal echocardiography (DARIEL) Urge incontinence of urine SOB (shortness of breath) on exertion Osteoarthritis of right knee Major depressive disorder LGSIL on Pap smear of cervix GERD (gastroesophageal reflux disease) Fatigue Community acquired pneumonia Cough Bronchitis Multiple premature ventricular complexes Patent foramen ovale Anxiety and depression Obesity Elevated blood pressure reading without diagnosis of hypertension Atrial septum primum defect Seasonal allergies Asthma Surgical History History of tonsillectomy and adenoidectomy History of D C History of tubal ligation History of cholecystectomy History of foot surgery History of knee surgery (11/28/22) Family History Mother Heart disease Father Heart disease CAD (coronary artery disease) stents Social History household members: spouse Smoking Status: Never smoker substance use type: does not use ROS Const Const: Positive for fatigue; Negative for weakness, fever(s), headache(s), chills, frequent falls, weight gain or weight loss Eyes Eyes: Negative for blind spots, loss of peripheral vision, transient loss of vision, blurry vision, change in vision, double vision, floaters or tunnel vision ENT ENT: Negative for (more content not included)... Normal [facility] Comprehensive Metabolic Prof ilon 03-17-2024 Albumin [Mass/Vol] 3.9 g/dL Normal 3.2-5.0 [facility] Comment on above: Performed By: #### L 501.9520, L100.0100, L500.4050, L500.4100, L506.1000 #### [facility] [address] [place], [address] Albumin/Globulin [Mass ratio] 1.0 {ratio} Normal 0.9-2.4 [facility] Comment on above: Performed By: #### L 501.9520, L100.0100, L500.4050, L500.4100, L506.1000 #### [facility] [address] [place], [address] ALK P 92 U/L Normal 45-117 [facility] Comment on above: Performed By: #### L 501.9520, L100.0100, L500.4050, L500.4100, L506.1000 #### [facility] [address] [place], [address] ALT [Catalytic activity/Vol] 27 U/L Normal 13-56 [facility] Comment on above: Performed By: #### L 501.9520, L100.0100, L500.4050, L500.4100, L506.1000 #### [facility] [address] [place], [address] AST [Catalytic activity/Vol] 18 U/L Normal 15-37 [facility] Comment on above: Performed By: #### L 501.9520, L100.0100, L500.4050, L500.4100, L506.1000 #### [facility] [address] [place], [address] Bilirubin [Mass/Vol] 0.50 mg/dL Normal 0.20-1.00 [facility] Comment on above: Result Comment: For patients on eltrombopag therapy, use of Dimension [place] TBIL is not recommended. Performed By: #### L 501.9520, L100.0100, L500.4050, L500.4100, L506.1000 #### [facility] [address] [place], [address] BUN/CRE 35.0 RATIO High 10-20 [facility] Comment on above: Performed By: #### L 501.9520, L100.0100, L500.4050, L500.4100, L506.1000 #### [facility] [address] [place], [address] CA,Total 9.2 mg/dL Normal 8.5-10.1 [facility] Comment on above: Performed By: #### L 501.9520, L100.0100, L500.4050, L500.4100, L506.1000 #### [facility] [address] [place], [address] Chloride [Moles/Vol] 107 mmol/L Normal 98-107 [facility] Comment on above: Performed By: #### L 501.9520, L100.0100, L500.4050, L500.4100, L506.1000 #### [facility] [address] [place], [address] CO2 [Moles/Vol] 27.0 mmol/L Normal 21.0-32.0 [facility] Comment on above: Performed By: #### L 501.9520, L100.0100, L500.4050, L500.4100, L506.1000 #### [facility] [address] [place], [address] Creatinine [Mass/Vol] 0.80 mg/dL Normal 0.55-1.02 [facility] Comment on above: Result Comment: The validity of the calculated GFR GFRAA in patients over 70 years has not been determined. Clinical correlation is essential. Performed By: #### L 501.9520, L100.0100, L500.4050, L500.4100, L506.1000 #### [facility] [address] [place], [address] EST GFR - AA 97 mL/min Normal >60 [facility] Comment on above: Result Comment: Afri can Uzbek GFR Calc Performed By: #### L 501.9520, L100.0100, L500.4050, L500.4100, L506.1000 #### [facility] [address] [place], [address] GAP 6 Normal 5-15 [facility] Comment on above: Performed By: #### L 501.9520, L100.0100, L500.4050, L500.4100, L506.1000 #### [facility] [address] [place], [address] GFR/1.73 sq M.predicted among non-blacks MDRD (S/P/Bld) [Vol rate/Area] 80 mL/min/{1.73_m2} Normal >60 [facility] Comment on above: Result Comment: Non- GFR Calc Performed By: #### L 501.9520, L100.0100, L500.4050, L500.4100, L506.1000 #### [facility] [address] [place], [address] Globulin (S) [Mass/Vol] 4.1 g/dL Normal 2.2-4.2 [facility] Comment on above: Performed By: #### L 501.9520, L100.0100, L500.4050, L500.4100, L506.1000 #### [facility] [address] [place], [address] Glucose [Mass/Vol] 105 mg/dL Normal 74-106 [facility] Comment on above: Result Comment: Fast ing Glucose result from 100 to 125 mg/dL suggests IMPAIRED HOMEOSTASIS per A.D.A. criteria. Performed By: #### L 501.9520, L100.0100, L500.4050, L500.4100, L506.1000 #### [facility] [address] [place], [address] Potassium [Moles/Vol] 4.6 mmol/L Normal 3.5-5.1 [facility] Comment on above: Performed By: #### L 501.9520, L100.0100, L500.4050, L500.4100, L506.1000 #### [facility] [address] [place], [address] Sodium [Moles/Vol] 140 mmol/L Normal 136-145 [facility] Comment on above: Performed By: #### L 501.9520, L100.0100, L500.4050, L500.4100, L506.1000 #### [facility] [address] [place], [address] T PROT 8.0 g/dL Normal 6.4-8.2 [facility] Comment on above: Performed By: #### L 501.9520, L100.0100, L500.4050, L500.4100, L506.1000 #### [facility] [address] [place], [address] Urea nitrogen [Mass/Vol] 28 mg/dL High 7-18 [facility] Comment on above: Performed By: #### L 501.9520, L100.0100, L500.4050, L500.4100, L506.1000 #### [facility] [address] [place], [address] Lipid Profileon 03-17-2024 Cholesterol [Mass/Vol] 201 mg/dL High 200 [facility] Comment on above: Result Comment: <200 mg/dL Desirable 200-240 mg/dL Borderline >240 mg/dL High Risk Performed By: #### L 501.9520, L100.0100, L500.4050, L500.4100, L506.1000 #### [facility] [address] [place], [address] Cholesterol in HDL [Mass/Vol] 68 mg/dL Normal [facility] Comment on above: Result Comment: The drugs N-Acetylcysteine and Metamizole may falsely depress this assay. Reference Range HDL <40 mg/dL Low HDL Cholesterol HDL >or= 60 mg/dL High HDL Cholesterol Performed By: #### L 501.9520, L100.0100, L500.4050, L500.4100, L506.1000 #### [facility] [address] [place], [address] Cholesterol in LDL [Mass/Vol] 106 mg/dL Normal 0-130 [facility] Comment on above: Performed By: #### L 501.9520, L100.0100, L500.4050, L500.4100, L506.1000 #### [facility] [address] [place], [address] Cholesterol in VLDL [Mass/Vol] 27 mg/dL Normal 5-40 [facility] Comment on above: Performed By: #### L 501.9520, L100.0100, L500.4050, L500.4100, L506.1000 #### [facility] [address] [place], [address] Triglyceride [Mass/Vol] 134 mg/dL Normal [facility] Comment on above: Result Comment: The drugs N-Acetylcysteine and Metamizole may falsely depress this assay. Serum Triglycerides Reference Interval Normal <150 mg/dL Borderline high 150 - 199 mg/dL High 200 - 499 mg/dL Very High > or = 500 mg/dL Performed By: #### L 501.9520, L100.0100, L500.4050, L500.4100, L506.1000 #### [facility] [address] [place], [address] Thyroid Stim Hormone (TSH)on 03-17-2024 TSH 0.838 uIU/mL Normal 0.358-3.740 [facility] Comment on above: Performed By: #### L 501.9520, L100.0100, L500.4050, L500.4100, L506.1000 #### [facility] [address] [place], [address] Vitamin D,25 Hydroxyon 03-17 Vitamin D 25-OH 40.6 ng/mL Normal [facility] Comment on above: Result Comment: [place] min D 25(OH) Status Range Deficiency <20 ng/mL (50nmol/L) Insufficiency 20 - 30 ng/mL (50 - 75 nmol/L) Sufficiency 30 - 100 ng/mL (75 - 250 nmol/L) Toxicity >100 ng/mL (>250 nmol/L) Performed By: #### L 501.9520, L100.0100, L500.4050, L500.4100, L506.1000 #### [facility] [address] [place], [address] Final Surgical Pathology Rep cici 02-03-2024 Final Surgical Pathology Report . Pathology Reports Accession: Collected Date/Time: Received Date/Time: Pathologist: [id number] 02/01/2024 11:35 EDT 02/02/2024 09:42 CALEB TRUONG MD Final Surgical Pathology Report DIAGNOSIS: ENDOMETRIUM, BIOPSY: - FRAGMENTS OF PROLIFERATIVE ENDOMETRIUM WITHOUT ATYPIA OR MALIGNANCY CLINICAL INFORMATION: THICKENED ENDOMETRIUM, PMB PROCEDURE: EMB PREOPERATIVE DIAGNOSIS: THICKENED ENDOMETRIUM, PMB POSTOPERATIVE DIAGNOSIS: THICKENED ENDOMETRIUM, PMB SPECIMEN: A ENDOMETRIAL GROSS DESCRIPTION: All parts labelled with patient name and [id number] Received in formalin labeled undesignated are multiple waite-pink and hemorrhagic tissue fragments aggregating 1.8 x 0.7 x 0.2 cm. TS-1 Glory Jennings, Grossing Cafe Helper/ Dr. Caleb Frias, Pathologist Performed by Glory Jennings MICROSCOPIC DESCRIPTION: The microscopic examination is performed, except in the case of Gross Only. Electronically Signed by Pathology Report verified by [facility] CALEB FRIAS Sign out Date: 02/03/2024 13:22 Performing Lab: [facility], [address] [place] [address] Pathology Dept Disclaimer If ancillary studies were utilized, the following Laboratory Developed Test (LDT) disclaimer will apply: Under CLIA requirements, [facility] is qualified to perform high complexity testing. For all ancillary stains, positive and negative controls stain appropriately. Performance characteristics of immunohistochemical and chromogenic in-situ hybridization tests have been determined by [facility]. These tests are used for clinical purposes, They should not be regarded as investigational or for research. Normal [facility] [id number] 01-09-2024 HSV 1 IgG Type Spec 52.40 Index High 0.00-0.90 [facility] ([place]) Comment on above: Result Comment: Nega tive <0.91 Equivocal 0.91 - 1.09 Positive >1.09 Note: Negative indicates no antibodies detected to HSV-1. Equivocal may suggest early infection. If clinically appropriate, retest at later date. Positive indicates antibodies detected to HSV-1. Performed By: #### 1 [id number] #### [address] [place], [place] [address] HSV 2 IgG Type Spec <0.91 Normal 0.00-0.90 [facility] ([place]) Comment on above: Result Comment: Nega tive [...] results should be clinically correlated. Performed At: [address] [id number] Frank Mendes PhD Ph:[phone] Performed By: #### 1 [id number] #### [address] 12-02-2023 C. trachomatis Interp Normal See CT Interp N [facility] ([place]) Comment on above: Result Comment: C. t rachomatis DNA not detected. Specimen is presumptive negative for C. trachomatis. A negative result does not preclude C. trachomatis infection because results depend on adequate specimen collection, absence of inhibitors, and sufficient DNA to be detected. See CT Interp N Performed By: #### M G, ESR, PBNP, GFR, ADIFF, PRO, ANEU, CMP, CRP, CBC #### [place] [address] C.trachomatis PCR Negative Normal Negative [facility] ([place]) Comment on above: Result Comment: Mole cular (PCR) assay performed on the Janiya Sofie 4800 system. Performed By: #### M G, ESR, PBNP, GFR, ADIFF, PRO, ANEU, CMP, CRP, CBC #### [place] [address] Chlam Source Cervix Normal [facility] ([place]) Comment on above: Performed By: #### M G, ESR, PBNP, GFR, ADIFF, PRO, ANEU, CMP, CRP, CBC #### [address] [address] [id number] 12-02-2023 GC PCR Source Cervix Normal [facility] ([place]) Comment on above: Performed By: #### M G, ESR, PBNP, GFR, ADIFF, PRO, ANEU, CMP, CRP, CBC #### [address] [address] N. gonorrhoeae (PCR) Negative Normal Negative [facility] ([place]) Comment on above: Result Comment: Lydia cular (PCR) assay performed on the Janiya Sofie 4800 System. Performed By: #### M G, ESR, PBNP, GFR, ADIFF, PRO, ANEU, CMP, CRP, CBC #### [address] [address] N. gonorrhoeae Interp Normal See NG Interp N [facility] ([place]) Comment on above: Result Comment: N. g onorrhoeae DNA not detected. Specimen is presumptive negative for N. gonorrhoeae. A negative result does not preclude Neisseria gonorrhoeae infection because results depend on adequate specimen collection, absence of inhibitors, and sufficient DNA to be detected. See NG Interp N Performed By: #### M G, ESR, PBNP, GFR, ADIFF, PRO, ANEU, CMP, CRP, CBC #### [address] [address] LABORATORYOrdered By: Delphine Herbert on 12-01-2023 C. [...] be detected. Normal See NG Interp N Auto Viro/Sero SS Laboratory - Specimen inform ationOrdered By: Delphine Herbert on 12-01-2023 Specimen source Nom (Unsp spec) Cervix (12/01/23 5:17 PM) Normal Auto Viro/Sero SS MA MAMMOGRAM SCREENING BILAT ERAL W/TOMOon 11-24-2023 MA MAMMOGRAM SCREENING BILATERAL W/HERBERTH ORIGINAL FROM: [facility] [address] [address] PROCEDURE FOR: JAKE ELIZABETH [address] [place] [id number] Home: PID#: [id number] Exam#: [id number] : 1970 Age: 53 TO: TARAH BHATT MD [address] [address] Fax: NO FAX EXAMINATION: SCREENING DIGITAL BILATERAL [...] Continued screening with annual mammograms is recommended. Benito Townsendck risk calculations, generated with the history provided, [...] addition to annual mammographic screening per the [place] [employer]. I have personally reviewed the [...] TARAH BHATT copy to: JULIENNE FAJARDO APRN [facility], ph: [phone], fax: NO FAX Flower Buncher Or Picker: JAIME SKINNER (R)(M) letter sent: Normal BI-RADS 1 and 2 Mammogram BI-RADS: 1 Negative Normal [facility] ([place]) US PELVIS NON-OB W/TRANSVAGI NALon 11-24-2023 US [...] 11/24/2023 1:51:37 PM Ordering Provider: TARAH Cruz [facility]) HSVABon 11-20-2023 HSV IgG 1 Qualitative Positive Abnormal Negative [facility]) Comment on above: Result Comment: Perf ormed By: [facility] [employer] [address] [place] [address] Human Resources Compensation Analyst: Nathaniel Gaffney III, M.D. CLIA#: [id number] Performed By: #### M G, ESR, PBNP, GFR, ADIFF, PRO, ANEU, CMP, CRP, CBC #### [address] [address] HSV IgG 2 Qualitative Negative Normal Negative [facility]) Comment on above: Result Comment: Perf ormed By: [facility] [employer] [address] [place] [address] Human Resources Compensation Analyst: Nathaniel Gaffney III, M.D. CLIA#: [id number] Performed By: #### M G, ESR, PBNP, GFR, ADIFF, PRO, ANEU, CMP, CRP, CBC #### [address] [address] HSV IgM Qualitative Positive Abnormal Negative [facility]) Comment on above: Result Comment: Perf ormed By: [facility] [employer] [address] [place] [address] Human Resources Compensation Analyst: Nathaniel Gaffney III, M.D. CLIA#: [id number] Performed By: #### M G, ESR, PBNP, GFR, ADIFF, PRO, ANEU, CMP, CRP, CBC #### [address] [address] HSV Serological Interpretation See Below Normal [facility] ([place]) Comment on above: Result Comment: In t [...] look for HSV-2 IgG seroconversion. Performed By: [facility] [employer] [address] [place] [address] Human Resources Compensation Analyst: Nathaniel Gaffney III, M.D. CLIA#: [id number] Performed By: #### M G, ESR, PBNP, GFR, ADIFF, PRO, ANEU, CMP, CRP, CBC #### [address] [address] CTPCRon 11-19-2023 C. trachomatis Interp Normal [facility] ([place]) Comment on above: Result Comment: CTPC R assay was repeated on specimen. Unable to obtain a valid test result. This may be due to specimen integrity, improper collection technique or other unknown cause. Recommend repeat testing. See CT Interp I Performed By: #### M G, ESR, PBNP, GFR, ADIFF, PRO, ANEU, CMP, CRP, CBC #### [address] [address] C.trachomatis PCR Failed Normal Negative [facility] ([place]) Comment on above: Result Comment: Lydia shellar (PCR) assay performed on the Janiya Sofie 4800 system. Performed By: #### M G, ESR, PBNP, GFR, ADIFF, PRO, ANEU, CMP, CRP, CBC #### [address] [address] Chlam Source Cervix Normal [facility] ([place]) Comment on above: Performed By: #### M G, ESR, PBNP, GFR, ADIFF, PRO, ANEU, CMP, CRP, CBC #### [address] [address] [id number] 11-19-2023 GC PCR Source Cervix [facility] ([place]) Comment on above: Performed By: #### M G, ESR, PBNP, GFR, ADIFF, PRO, ANEU, CMP, CRP, CBC #### [address] [address] N. gonorrhoeae (PCR) Failed Normal Negative [facility] ([place]) Comment on above: Result Comment: Mole cular (PCR) assay performed on the Janiya Sofie 4800 System. Performed By: #### M G, ESR, PBNP, GFR, ADIFF, PRO, ANEU, CMP, CRP, CBC #### [address] [place], [place] [address] N. gonorrhoeae Interp Normal [facility] ([place]) Comment on above: Result Comment: NGPC R assay was repeated on specimen. Unable to obtain a valid test result. This may be due to specimen integrity, improper collection technique or other unknown cause. Recommend repeat testing. See NG Interp I Performed By: #### M G, ESR, PBNP, GFR, ADIFF, PRO, ANEU, CMP, CRP, CBC #### [address] [address] RPRon 11-19-2023 Reagin Ab RPR Ql (S) Non-Reactive Normal Non-Reactive [facility] ([place]) Comment on above: Result Comment: The RPR [...] ADIFF, PRO, ANEU, CMP, CRP, CBC #### [address] [place], [place] [address] E2on 11-18-2023 Estradiol Level 13.99 pg/mL Normal [facility] ([place]) Comment on above: Result Comment: No te - New Reference Range in effect 19 Adult Female E2 Reference Ranges: Follicular phase 19.5 - 144.2 pg/mL Midcycle 63.9 - 356.7 pg/mL Luteal phase 55.8 - 214.2 pg/mL Post menopausal 0 - 33.2 pg/mL Performed By: #### M G, ESR, PBNP, GFR, ADIFF, PRO, ANEU, CMP, CRP, CBC #### [place] [id number] FSHon 11-18-2023 FSH 36.8 mIU/mL Normal [facility] ([place]) Comment on above: Result Comment: Adul t Female FSH Reference Ranges (04/17/99): Follicular phase 2.5 - 10.2 mIU/mL Midcycle phase 3.4 - 33.4 mIU/mL Luteal phase 1.5 - 9.1 mIU/mL Post menopausal 23.0 -116.3 mIU/mL Adult Male: 1.4 - 18.1 mIU/mL Performed By: #### M G, ESR, PBNP, GFR, ADIFF, PRO, ANEU, CMP, CRP, CBC #### [place] [address] HCVon 11-18-2023 Hep C Ab Non-Reactive Normal Non-Reactive [facility] ([place]) Comment on above: Performed By: #### M G, ESR, PBNP, GFR, ADIFF, PRO, ANEU, CMP, CRP, CBC #### [place] [address] Hep C Ab Int Normal [facility] ([place]) Comment on above: Result Comment: Nonr eactive: [...] ADIFF, PRO, ANEU, CMP, CRP, CBC #### [place] [id number] HIVRPon 11-18-2023 HIV p24 Antigen Non-Reactive Normal Non-Reactive [facility] ([place]) Comment on above: Result Comment: Dete ction of p24 may be inhibited by biotin in the sample, causing false negative results in acute infection. Therefore do not test samples from patients who are taking biotin. Performed By: #### M G, ESR, PBNP, GFR, ADIFF, PRO, ANEU, CMP, CRP, CBC #### [place] [address] HIV P24 Int Non-Reactive Invalid Interpretation Code [facility] ([place]) Comment on above: Performed By: #### M G, ESR, PBNP, GFR, ADIFF, PRO, ANEU, CMP, CRP, CBC #### [place] [address] Rapid HIV 1/2 Antibody Non-Reactive Normal Non-Reactive [facility] ([place]) Comment on above: Performed By: #### M G, ESR, PBNP, GFR, ADIFF, PRO, ANEU, CMP, CRP, CBC #### [address] [place] [address] RHIV 1/2 Ab Int Non-Reactive Invalid Interpretation Code [facility] ([place]) Comment on above: Performed By: #### M G, ESR, PBNP, GFR, ADIFF, PRO, ANEU, CMP, CRP, CBC #### [place] [address] LABORATORYOrdered By: Albert acosta on 11-18-2023 HIV [...] Non-Reactive AO Rapid Testing SS LABORATORYOrdered By: [employer] on 11-18-2023 E2 [Mass/Vol] 13.99 pg/mL Invalid Interpretation Code AH ADM SS Comment on above: Interpretive Data: [...] Lutropin Qn 24.0 m[IU]/mL Invalid Interpretation Code [facility] Comment on above: Interpretive Data: * *Note - New Reference Range in effect 19 Adult Female LH Reference Ranges: Follicular phase 1.9 - 12.5 mIU/mL Midcycle phase 8.7 - 76.3 mIU/mL Luteal phase 0.5 - 16.9 mIU/mL Post menopausal 5.0 - 55.2 mIU/mL LABORATORYOrdered By: Delores Golden on 11-18-2023 HCV Ab IA Ql Non-Reactive (11/18/23 9:20 AM) Normal Non-Reactive [facility] HCV Ab IA Ql Nonreactive: Samples with a value < 0.80 are considered nonreactive (negative) for antibodies to HCV.A negative test result does not exclude the possibility of exposure to or infection with HCV. HCV antibodies may be undetectable in some stages of the infection and in some clinical conditions. Invalid Interpretation Code Chemistry S LHon 11-18-2023 LH 24.0 mIU/mL Normal [facility] ([place]) Comment on above: Result Comment: No te - New Reference Range in effect 19 Adult Female LH Reference Ranges: Follicular phase 1.9 - 12.5 mIU/mL Midcycle phase 8.7 - 76.3 mIU/mL Luteal phase 0.5 - 16.9 mIU/mL Post menopausal 5.0 - 55.2 mIU/mL Performed By: #### M G, ESR, PBNP, GFR, ADIFF, PRO, ANEU, CMP, CRP, CBC #### [facility] [address] [place], [place] [address] LABORATORYOrdered By: Nell Maynard on 11-17-2023 C. [...] Failed 1 (11/17/23 3:57 PM) Normal Negative AH Auto Viro/Sero SS [...] Probe Negative Tracy species DNA Probe Negative [facility] Absolute lymphocyte countOrd ered By: Trace Mehta on 06-16-2023 Lymphocytes Auto (Unsp spec) [#/Vol] 2.36 10*3/uL 0.83-4.51 [facility] Alternaria alternata IgE ser umOrdered By: Trace Mehta on 06-16-2023 A. alternata IgE Qn (S) <0.10 kU/L Class 0 [facility] Uzbek sycamore IgE serumO rdered By: Trace Mehta on 06-16-2023 [place] IgE Qn (S) <0.10 kU/L Class 0 [facility] Automated lymphocyte count a s percentage of total leukocytesOrdered By: Trace Mehta on 06-16-2023 Lymphocytes/100 WBC Auto (Unsp spec) 36.2 % 19-41 [facility] Basophil percentageOrdered B y: Trace Mehta on 06-16-2023 Basophils/100 WBC (Bld) 0.6 % 0-1 [facility] Eosinophils/100 WBC (Bld) 4.8 % 0-5 [facility] Hemoglobin (Bld) [Mass/Vol] 13.1 g/dL 12.0-15.0 [facility] Monocytes/100 WBC (Bld) 8.6 % 0-10 [facility] Neutrophils (Bld) [#/Vol] 3.2 10*3/uL 2.0-7.7 [facility] Neutrophils/100 WBC (Bld) 49.6 % 47-70 [facility] WBC (Bld) [#/Vol] 6.5 10*3/uL 4.4-11.0 [facility] Determination of erythrocyte mean corpuscular volume (MCV)Ordered By: Trace Mehta on 06-16-2023 MCV (RBC) [Entitic vol] 93.5 fL 81-99 [facility] Erythrocyte distribution wid th ratioOrdered By: Trace Mehta on 06-16-2023 Erythrocyte distribution width (RBC) [Ratio] 13.4 % 11.6-14.6 [facility] Erythrocyte distribution wid th standard deviationOrdered By: Trace Mehta on 06-16-2023 Erythrocyte distribution width (RBC) [Entitic vol] 46.1 fL 35.1-43.9 [facility] Hematocrit Auto (Bld) [Volum e fraction]Ordered By: Trace Mehta on 06-16-2023 Hematocrit (Bld) [Volume fraction] 41.4 % 37-47 [facility] Immature granulocytes/100 WB C Auto (Bld)Ordered By: Trace Mehta on 06-16-2023 Immature granulocytes/100 WBC (Bld) 0.200 % 0.0-0.9 [facility] Comment on above: IG% - Immature Granu locytes (promyelocytes, myelocytes and metamyelocytes) > 1% indicates that a LEFT SHIFT is Present. Laboratory - Hematology and Cell countsOrdered By: Trace Mehta on 06-16-2023 MCH (RBC) [Entitic mass] 29.6 pg 27.0-32.0 [facility] MCHC (RBC) [Mass/Vol] 31.6 g/dL 32-36 [facility] Nucleated RBC/100 WBC (Bld) [Ratio] 0 % 0-5 [facility] Platelets (Bld) [#/Vol] 295 10*3/uL 150-450 [facility] Mountain cedar IgEOrdered By : Trace Mehta on 06-16-2023 Mountain Juniper IgE Qn (S) <0.10 kU/L Class 0 [facility] No Panel InformationOrdered By: Trace Mehta on 06-16-2023 Cat Hair Allergen 4.48 kU/L Class IV [facility] Common Ragweed (Short) Allergen <0.10 kU/L Class 0 [facility] Immunoglobulin E 199 IU/mL 6-495 [facility] Comment on above: Performed at: [facility] [address] [id number] Director: Meka Hinton MD, Phone: [phone] [place] ([place]) Allergen IgE Ab 0.12 kU/L Class 0/I [facility] Mouse Urine Allergen IgE Antibody 0.49 kU/L Class I [facility] Comment on above: Performed at: [facility] [id number] Director: Meka Hinton MD, Phone: [phone] [facility] Comment Comment . [facility] Comment on above: Levels of Specific I gE Class Description of Class ----- < 0.10 0 Negative 0.10 - 0.31 0/I Equivocal/Low 0.32 - 0.55 I Low 0.56 - 1.40 II Moderate 1.41 - 3.90 III High 3.91 - 19.00 IV Very High 19.01 - 100.00 V Very High >100.00 Very High Schaller Tree Allergen <0.10 kU/L Class 0 [facility] Pecan nut IgE serumOrdered B y: Trace Mehta on 06-16-2023 Pecan or Barren Nut IgE Qn (S) 0.15 kU/L Class 0/I [facility] Penicillium notatum IgE seru mOrdered By: Trace Mehta on 06-16-2023 P. notatum IgE Qn (S) <0.10 kU/L Class 0 [facility] Platelet mean volume Alek-Ec ker (Bld) [Entitic vol]Ordered By: Trace Mehta on 06-16-2023 Platelet mean volume (Bld) [Entitic vol] 10.7 fL 6.2-12.0 [facility] RBC Auto (Bld) [#/Vol]Ordere d By: Trace Mehta on 06-16-2023 RBC (Bld) [#/Vol] 4.43 10*6/uL 4.2-5.4 [facility] Rough pigweed specific IgE a ntibody assayOrdered By: Trace Mehta on 06-16-2023 Rough Pigweed IgE Qn (S) <0.10 kU/L Class 0 [facility] Luxembourger thistle IgE serumOrd ered By: Trace Mehta on 06-16-2023 Saltwort IgE Qn (S) <0.10 kU/L Class 0 [facility] Serum Aspergillus fumigatus IgE antibody assay (units/volume)Ordered By: Trace Mehta on 06-16-2023 A. fumigatus IgE Qn (S) <0.10 kU/L Class 0 [facility] Serum Bermuda grass IgE anti body assay (units/volume)Ordered By: Trace Mehta on 06-16-2023 Bermuda grass IgE Qn (S) <0.10 kU/L Class 0 [facility] Serum Cladosporium herbarum IgE antibody assay (units/volume)Ordered By: Trace Mehta on 06-16-2023 C. herbarum IgE Qn (S) <0.10 kU/L Class 0 [facility] Serum Dermatophagoides farin ae specific IgE antibody assay (units/volume)Ordered By: Trace Mehta on 06-16-2023 Uzbek house dust mite IgE Qn (S) 14.10 kU/L Class IV [facility] Serum house dust mi te IgE antibody assay (units/volume)Ordered By: Trace Mehta on 06-16-2023 house dust mite IgE Qn (S) 14.10 kU/L Class IV [facility] Serum Periplaneta americana IgE antibody assay (units/volume)Ordered By: Trace Mehta on 06-16-2023 Uzbek Cockroach IgE Qn (S) 0.15 kU/L Class 0/I [facility] Serum birch specific IgE ant ibody assayOrdered By: Trace Mehta on 06-16-2023 [place] IgE Qn (S) <0.10 kU/L Class 0 [facility] Serum black walnut IgE antib alpa assay (units/volume)Ordered By: Trace Mehta on 06-16-2023 Black [place] IgE Qn (S) <0.10 kU/L Class 0 [facility] Serum cottonwood IgE antibod y assay (units/volume)Ordered By: Trace Mehta on 06-16-2023 [place] IgE Qn (S) <0.10 kU/L Class 0 [facility] Serum dog epithelium IgE ant ibody assay (units/volume)Ordered By: Trace Mehta on 06-16-2023 Dog epithelium IgE Qn (S) 2.00 kU/L Class III [facility] Serum sheep sorrel IgE antib alpa assay (units/volume)Ordered By: Trace Mehta on 06-16-2023 Sheep [place] IgE Qn (S) <0.10 kU/L Class 0 [facility] Serum sommer IgE antibody a ssay (units/volume)Ordered By: Trace Mehta on 06-16-2023 [place] IgE Qn (S) 0.49 kU/L Class I [facility] Serum white cabrera IgE antibody assay (units/volume)Ordered By: Trace Mehta on 06-16-2023 White [place] IgE Qn (S) <0.10 kU/L Class 0 [facility] Serum white elm IgE antibody assay (units/volume)Ordered By: Trace Mehta on 06-16-2023 White [place] IgE Qn (S) <0.10 kU/L Class 0 [facility] Serum white mulberry IgE ant ibody assay (units/volume)Ordered By: Trace Mehta on 06-16-2023 White mulberry IgE Qn (S) <0.10 kU/L Class 0 [facility] .Auto Diffon 06-10-2023 Basophil, Absolute 0.0 10 3/mcL Normal 0.0-0.2 [facility] ([place]) Comment on above: Performed By: #### M G, ESR, PBNP, GFR, ADIFF, PRO, ANEU, CMP, CRP, CBC #### [address] [address] Basophils/100 WBC (Bld) 0.5 % Normal 0.0-2.5 [facility] ([place]) Comment on above: Performed By: #### M G, ESR, PBNP, GFR, ADIFF, PRO, ANEU, CMP, CRP, CBC #### [address] [address] Eosinophil, Absolute 0.2 10 3/mcL Normal 0.0-0.4 [facility] ([place]) Comment on above: Performed By: #### M G, ESR, PBNP, GFR, ADIFF, PRO, ANEU, CMP, CRP, CBC #### [address] [address] Eosinophils/100 WBC (Bld) 3.4 % Normal 0.0-7.0 [facility] ([place]) Comment on above: Performed By: #### M G, ESR, PBNP, GFR, ADIFF, PRO, ANEU, CMP, CRP, CBC #### [address] [address] Lymphocyte, Absolute 2.2 10 3/mcL Normal 0.8-3.9 [facility] ([place]) Comment on above: Performed By: #### M G, ESR, PBNP, GFR, ADIFF, PRO, ANEU, CMP, CRP, CBC #### [address] [address] Lymphocytes/100 WBC (Bld) 30.5 % Normal 10.0-50.0 [facility] ([place]) Comment on above: Performed By: #### M G, ESR, PBNP, GFR, ADIFF, PRO, ANEU, CMP, CRP, CBC #### [address] [address] Monocyte, Absolute 0.5 10 3/mcL Normal 0.2-1.0 [facility] ([place]) Comment on above: Performed By: #### M G, ESR, PBNP, GFR, ADIFF, PRO, ANEU, CMP, CRP, CBC #### [address] [address] Monocytes/100 WBC (Bld) 6.7 % Normal 1.7-13.0 [facility] ([place]) Comment on above: Performed By: #### M G, ESR, PBNP, GFR, ADIFF, PRO, ANEU, CMP, CRP, CBC #### [address] [address] Neutrophils/100 WBC (Bld) 58.9 % Normal 37.0-80.0 [facility] ([place]) Comment on above: Performed By: #### M G, ESR, PBNP, GFR, ADIFF, PRO, ANEU, CMP, CRP, CBC #### [address] [address] .GFRon 06-10-2023 GFR 96 ml/min/1.73sqm Normal [facility] ([place]) Comment on above: Result Comment: GFR Population [...] ADIFF, PRO, ANEU, CMP, CRP, CBC #### [address] [address] GFR Non- 79 ml/min/1.73sqm Normal [facility] ([place]) Comment on above: Result Comment: GFR Population [...] ADIFF, PRO, ANEU, CMP, CRP, CBC #### [address] [address] .NEUABSon 06-10-2023 Neutrophil, Absolute 4.2 10 3/mcL Normal 2.9-6.2 [facility] ([place]) Comment on above: Performed By: #### M G, ESR, PBNP, GFR, ADIFF, PRO, ANEU, CMP, CRP, CBC #### [address] [address] CBCon 06-10-2023 Erythrocyte distribution width (RBC) [Ratio] 14.3 % Normal 11.5-14.5 [facility] ([place]) Comment on above: Performed By: #### M G, ESR, PBNP, GFR, ADIFF, PRO, ANEU, CMP, CRP, CBC #### [address] [address] Hematocrit (Bld) [Volume fraction] 40.1 % Normal 37.0-47.0 [facility] ([place]) Comment on above: Performed By: #### M G, ESR, PBNP, GFR, ADIFF, PRO, ANEU, CMP, CRP, CBC #### [address] [address] Hgb 13.9 G/dL Normal 12.0-16.0 [facility] ([place]) Comment on above: Performed By: #### M G, ESR, PBNP, GFR, ADIFF, PRO, ANEU, CMP, CRP, CBC #### [address] [address] MCH (RBC) [Entitic mass] 31.7 pg High 27.0-31.2 [facility] ([place]) Comment on above: Performed By: #### M G, ESR, PBNP, GFR, ADIFF, PRO, ANEU, CMP, CRP, CBC #### [place] [address] MCHC 34.6 G/dL Normal 33.0-37.0 [facility] ([place]) Comment on above: Performed By: #### M G, ESR, PBNP, GFR, ADIFF, PRO, ANEU, CMP, CRP, CBC #### [address] [address] MCV (RBC) [Entitic vol] 91.7 fL Normal 80.0-94.0 [facility] ([place]) Comment on above: Performed By: #### M G, ESR, PBNP, GFR, ADIFF, PRO, ANEU, CMP, CRP, CBC #### [address] [address] Platelet 306 10 3/mcL Normal 130-400 [facility] ([place]) Comment on above: Performed By: #### M G, ESR, PBNP, GFR, ADIFF, PRO, ANEU, CMP, CRP, CBC #### [address] [address] Platelet mean volume (Bld) [Entitic vol] 8.4 fL Normal 7.4-10.4 [facility] ([place]) Comment on above: Performed By: #### M G, ESR, PBNP, GFR, ADIFF, PRO, ANEU, CMP, CRP, CBC #### [address] [address] RBC 4.37 10 6/mcL Normal 4.20-5.40 [facility] ([place]) Comment on above: Performed By: #### M G, ESR, PBNP, GFR, ADIFF, PRO, ANEU, CMP, CRP, CBC #### [address] [address] WBC 7.2 10 3/mcL Normal 4.6-10.8 [facility] ([place]) Comment on above: Performed By: #### M G, ESR, PBNP, GFR, ADIFF, PRO, ANEU, CMP, CRP, CBC #### [address] [address] CMPon 06-10-2023 Albumin Level 3.8 G/dL Normal 3.5-5.0 [facility] ([place]) Comment on above: Performed By: #### M G, ESR, PBNP, GFR, ADIFF, PRO, ANEU, CMP, CRP, CBC #### [address] [address] Albumin/Globulin [Mass ratio] 1.1 {ratio} Normal 1.1-2.5 [facility] ([place]) Comment on above: Performed By: #### M G, ESR, PBNP, GFR, ADIFF, PRO, ANEU, CMP, CRP, CBC #### [address] [address] ALP [Catalytic activity/Vol] 90 U/L Normal 40-135 [facility] ([place]) Comment on above: Performed By: #### M G, ESR, PBNP, GFR, ADIFF, PRO, ANEU, CMP, CRP, CBC #### [address] [address] ALT [Catalytic activity/Vol] 40 U/L Normal 14-59 [facility] ([place]) Comment on above: Performed By: #### M G, ESR, PBNP, GFR, ADIFF, PRO, ANEU, CMP, CRP, CBC #### [address] [address] AST [Catalytic activity/Vol] 16 U/L Normal 10-40 [facility] ([place]) Comment on above: Performed By: #### M G, ESR, PBNP, GFR, ADIFF, PRO, ANEU, CMP, CRP, CBC #### [address] [address] Bili Total 0.5 mg/dL Normal 0.2-1.0 [facility] ([place]) Comment on above: Result Comment: Use of this assay is not recommended for patients undergoing treatment with eltrombopag due to the potential for falsely elevated results. Performed By: #### M G, ESR, PBNP, GFR, ADIFF, PRO, ANEU, CMP, CRP, CBC #### [address] [address] BUN/Creatinine Ratio 29 ratio High 7-27 [facility] ([place]) Comment on above: Performed By: #### M G, ESR, PBNP, GFR, ADIFF, PRO, ANEU, CMP, CRP, CBC #### [address] [address] Calcium [Mass/Vol] 9.6 mg/dL Normal 8.4-10.2 [facility] ([place]) Comment on above: Performed By: #### M G, ESR, PBNP, GFR, ADIFF, PRO, ANEU, CMP, CRP, CBC #### [address] [address] Chloride [Moles/Vol] 106 mmol/L Normal 98-107 [facility] ([place]) Comment on above: Performed By: #### M G, ESR, PBNP, GFR, ADIFF, PRO, ANEU, CMP, CRP, CBC #### [address] [address] CO2 [Moles/Vol] 30 mmol/L High 22-29 [facility] ([place]) Comment on above: Performed By: #### M G, ESR, PBNP, GFR, ADIFF, PRO, ANEU, CMP, CRP, CBC #### [address] [address] Creatinine [Mass/Vol] 0.77 mg/dL Normal 0.55-1.02 [facility] ([place]) Comment on above: Performed By: #### M G, ESR, PBNP, GFR, ADIFF, PRO, ANEU, CMP, CRP, CBC #### [address] [address] Electrolyte Balance 3.0 mEq/L Low 4.0-15.0 [facility] ([place]) Comment on above: Performed By: #### M G, ESR, PBNP, GFR, ADIFF, PRO, ANEU, CMP, CRP, CBC #### [address] [address] Globulin 3.4 G/dL Normal [facility] ([place]) Comment on above: Performed By: #### M G, ESR, PBNP, GFR, ADIFF, PRO, ANEU, CMP, CRP, CBC #### [address] [address] Glucose [Mass/Vol] 102 mg/dL Normal 70-105 [facility] ([place]) Comment on above: Performed By: #### M G, ESR, PBNP, GFR, ADIFF, PRO, ANEU, CMP, CRP, CBC #### [address] [address] Potassium [Moles/Vol] 4.9 mmol/L Normal 3.5-5.1 [facility] ([place]) Comment on above: Performed By: #### M G, ESR, PBNP, GFR, ADIFF, PRO, ANEU, CMP, CRP, CBC #### [address] [address] Sodium [Moles/Vol] 139 mmol/L Normal 136-145 [facility] ([place]) Comment on above: Performed By: #### M G, ESR, PBNP, GFR, ADIFF, PRO, ANEU, CMP, CRP, CBC #### [address] [address] Total Protein 7.2 G/dL Normal 6.4-8.2 [facility] ([place]) Comment on above: Performed By: #### M G, ESR, PBNP, GFR, ADIFF, PRO, ANEU, CMP, CRP, CBC #### [address] [address] Urea nitrogen [Mass/Vol] 22 mg/dL High 7-18 [facility] ([place]) Comment on above: Performed By: #### M G, ESR, PBNP, GFR, ADIFF, PRO, ANEU, CMP, CRP, CBC #### [address] [address] CRPon 06-10-2023 C-Reactive Protein 0.6 mg/dL High 0.0-0.3 [facility] ([place]) Comment on above: Performed By: #### M G, ESR, PBNP, GFR, ADIFF, PRO, ANEU, CMP, CRP, CBC #### [address] [address] ESRon 06-10-2023 Erythrocyte Sed Rate 9 mm/hr Normal 0-30 [facility] ([place]) Comment on above: Performed By: #### M G, ESR, PBNP, GFR, ADIFF, PRO, ANEU, CMP, CRP, CBC #### [address] [address] LABORATORYOrdered By: SYSTEM SYSTEM on 06-10-2023 Albumin [...] Comment on above: Interpretive Data: [place] [employer] (CHEST, 1991, [id number]) recommended therapeutic range for oral anticoagulant therapy is: LOW RISK: Prophylaxis of venous thrombosis INR: 2.0-3.0 Treatment of pulmonary embolism 2.0-3.0 Prevention of systemic embolism 2.0-3.0 HIGH RISK: Mechanical prosthetic valves 2.5-3.5 PT Coag (PPP) [Time] 11.7 s Normal 9.0 - 1 4.2 seconds AO [employer] SS MGon 06-10-2023 Magnesium [Mass/Vol] 2.1 mg/dL Normal 1.8-2.4 [facility] ([place]) Comment on above: Performed By: #### M G, ESR, PBNP, GFR, ADIFF, PRO, ANEU, CMP, CRP, CBC #### [address] [address] PBNPon 06-10-2023 Natriuretic peptide B (Bld) [Mass/Vol] 125 pg/mL Normal 0-125 [facility] ([place]) Comment on above: Result Comment: NT-p roBNP results of less than 300 pg/mL effectively rules out acute congestive heart failure with 99% negative predictive value. Performed By: #### M G, ESR, PBNP, GFR, ADIFF, PRO, ANEU, CMP, CRP, CBC #### [address] [address] PROon 06-10-2023 PT Coag (PPP) [Time] 11.7 s Normal 9.0-14.2 [facility] ([place]) Comment on above: Performed By: #### M G, ESR, PBNP, GFR, ADIFF, PRO, ANEU, CMP, CRP, CBC #### [address] [address] PT International Ratio 1.0 Normal [facility] ([place]) Comment on above: Result Comment: [employer] (CHEST, 1992, [id number]) recommended therapeutic range for oral anticoagulant therapy is: LOW RISK: Prophylaxis of venous thrombosis INR: 2.0-3.0 Treatment of pulmonary embolism 2.0-3.0 Prevention of systemic embolism 2.0-3.0 HIGH RISK: Mechanical prosthetic valves 2.5-3.5 Performed By: #### M G, ESR, PBNP, GFR, ADIFF, PRO, ANEU, CMP, CRP, CBC #### [address] [address] XR CHEST 2 VIEWSon 4 XR CHEST [...] Date: 06/10/2023 2:58:01 PM Ordering Provider: JULIENNE Cruz [facility] ([place]) .Auto Diffon 04-12-2023 Basophil, Absolute 0.1 10 3/mcL Normal 0.0-0.2 [facility] ([place]) Comment on above: Performed By: #### M G, ESR, PBNP, GFR, ADIFF, PRO, ANEU, CMP, CRP, CBC #### [address] [address] Basophils/100 WBC (Bld) 0.5 % Normal 0.0-2.5 [facility] ([place]) Comment on above: Performed By: #### M G, ESR, PBNP, GFR, ADIFF, PRO, ANEU, CMP, CRP, CBC #### [address] [address] Eosinophil, Absolute 0.3 10 3/mcL Normal 0.0-0.4 [facility] ([place]) Comment on above: Performed By: #### M G, ESR, PBNP, GFR, ADIFF, PRO, ANEU, CMP, CRP, CBC #### [address] [address] Eosinophils/100 WBC (Bld) 2.6 % Normal 0.0-7.0 [facility] ([place]) Comment on above: Performed By: #### M G, ESR, PBNP, GFR, ADIFF, PRO, ANEU, CMP, CRP, CBC #### [address] [address] Lymphocyte, Absolute 4.1 10 3/mcL High 0.8-3.9 [facility] ([place]) Comment on above: Performed By: #### M G, ESR, PBNP, GFR, ADIFF, PRO, ANEU, CMP, CRP, CBC #### [address] [address] Lymphocytes/100 WBC (Bld) 40.0 % Normal 10.0-50.0 [facility] ([place]) Comment on above: Performed By: #### M G, ESR, PBNP, GFR, ADIFF, PRO, ANEU, CMP, CRP, CBC #### [address] [address] Monocyte, Absolute 0.6 10 3/mcL Normal 0.2-1.0 [facility] ([place]) Comment on above: Performed By: #### M G, ESR, PBNP, GFR, ADIFF, PRO, ANEU, CMP, CRP, CBC #### [address] [address] Monocytes/100 WBC (Bld) 5.6 % Normal 1.7-13.0 [facility] ([place]) Comment on above: Performed By: #### M G, ESR, PBNP, GFR, ADIFF, PRO, ANEU, CMP, CRP, CBC #### [address] [address] Neutrophils/100 WBC (Bld) 51.3 % Normal 37.0-80.0 [facility] ([place]) Comment on above: Performed By: #### M G, ESR, PBNP, GFR, ADIFF, PRO, ANEU, CMP, CRP, CBC #### [address] [address] .GFRon 04-12-2023 GFR 89 ml/min/1.73sqm Normal [facility] ([place]) Comment on above: Result Comment: GFR Population [...] ADIFF, PRO, ANEU, CMP, CRP, CBC #### [address] [address] GFR Non- 74 ml/min/1.73sqm Normal [facility] ([place]) Comment on above: Result Comment: GFR Population [...] ADIFF, PRO, ANEU, CMP, CRP, CBC #### [address] [address] .MDWon 04-12-2023 Monocyte Distribution Width 18.93 Normal 0.00-20.00 [facility] ([place]) Comment on above: Result Comment: For ED adult patients suspected of sepsis, MDW<=20.0 does not rule out sepsis or risk of sepsis Performed By: #### M G, ESR, PBNP, GFR, ADIFF, PRO, ANEU, CMP, CRP, CBC #### [address] [address] .Morphon 04-12-2023 Platelet Estimate Normal Normal [facility] ([place]) Comment on above: Performed By: #### M G, ESR, PBNP, GFR, ADIFF, PRO, ANEU, CMP, CRP, CBC #### [address] [address] .NEUABSon 04-12-2023 Neutrophil, Absolute 5.3 10 3/mcL Normal 2.9-6.2 [facility] ([place]) Comment on above: Performed By: #### M G, ESR, PBNP, GFR, ADIFF, PRO, ANEU, CMP, CRP, CBC #### [address] [address] BMPon 04-12-2023 BUN/Creatinine Ratio 45 ratio High 7-27 [facility] ([place] Comment on above: Performed By: #### M G, ESR, PBNP, GFR, ADIFF, PRO, ANEU, CMP, CRP, CBC #### [address] [address] Calcium [Mass/Vol] 8.7 mg/dL Normal 8.4-10.2 [facility] ([place]) Comment on above: Performed By: #### M G, ESR, PBNP, GFR, ADIFF, PRO, ANEU, CMP, CRP, CBC #### [address] [address] Chloride [Moles/Vol] 102 mmol/L Normal 98-107 [facility] ([place]) Comment on above: Performed By: #### M G, ESR, PBNP, GFR, ADIFF, PRO, ANEU, CMP, CRP, CBC #### [address] [address] CO2 [Moles/Vol] 31 mmol/L High 22-29 [facility] ([place]) Comment on above: Performed By: #### M G, ESR, PBNP, GFR, ADIFF, PRO, ANEU, CMP, CRP, CBC #### [address] [address] Creatinine [Mass/Vol] 0.82 mg/dL Normal 0.55-1.02 [facility] ([place]) Comment on above: Performed By: #### M G, ESR, PBNP, GFR, ADIFF, PRO, ANEU, CMP, CRP, CBC #### [address] [address] Electrolyte Balance 8.0 mEq/L Normal 4.0-15.0 [facility] ([place]) Comment on above: Performed By: #### M G, ESR, PBNP, GFR, ADIFF, PRO, ANEU, CMP, CRP, CBC #### [address] [address] Glucose [Mass/Vol] 90 mg/dL Normal 70-105 [facility] ([place]) Comment on above: Performed By: #### M G, ESR, PBNP, GFR, ADIFF, PRO, ANEU, CMP, CRP, CBC #### [address] [address] Potassium [Moles/Vol] 3.8 mmol/L Normal 3.5-5.1 [facility] ([place]) Comment on above: Performed By: #### M G, ESR, PBNP, GFR, ADIFF, PRO, ANEU, CMP, CRP, CBC #### [address] [address] Sodium [Moles/Vol] 141 mmol/L Normal 136-145 [facility] ([place]) Comment on above: Performed By: #### M G, ESR, PBNP, GFR, ADIFF, PRO, ANEU, CMP, CRP, CBC #### [address] [address] Urea nitrogen [Mass/Vol] 37 mg/dL High 7-18 [facility] ([place]) Comment on above: Performed By: #### M G, ESR, PBNP, GFR, ADIFF, PRO, ANEU, CMP, CRP, CBC #### [address] [address] CBCon 04-12-2023 Erythrocyte distribution width (RBC) [Ratio] 14.4 % Normal 11.5-14.5 [facility] ([place]) Comment on above: Performed By: #### M G, ESR, PBNP, GFR, ADIFF, PRO, ANEU, CMP, CRP, CBC #### [address] [address] Hematocrit (Bld) [Volume fraction] 38.7 % Normal 37.0-47.0 [facility] ([place]) Comment on above: Performed By: #### M G, ESR, PBNP, GFR, ADIFF, PRO, ANEU, CMP, CRP, CBC #### [address] [address] Hgb 13.7 G/dL Normal 12.0-16.0 [facility] ([place]) Comment on above: Performed By: #### M G, ESR, PBNP, GFR, ADIFF, PRO, ANEU, CMP, CRP, CBC #### [address] [address] MCH (RBC) [Entitic mass] 33.7 pg High 27.0-31.2 [facility] ([place]) Comment on above: Performed By: #### M G, ESR, PBNP, GFR, ADIFF, PRO, ANEU, CMP, CRP, CBC #### [address] [address] MCHC 35.4 G/dL Normal 33.0-37.0 [facility] ([place]) Comment on above: Performed By: #### M G, ESR, PBNP, GFR, ADIFF, PRO, ANEU, CMP, CRP, CBC #### [address] [address] MCV (RBC) [Entitic vol] 95.4 fL High 80.0-94.0 [facility] ([place]) Comment on above: Performed By: #### M G, ESR, PBNP, GFR, ADIFF, PRO, ANEU, CMP, CRP, CBC #### [address] [address] Platelet 305 10 3/mcL Normal 130-400 [facility] ([place]) Comment on above: Performed By: #### M G, ESR, PBNP, GFR, ADIFF, PRO, ANEU, CMP, CRP, CBC #### [address] [address] Platelet mean volume (Bld) [Entitic vol] 7.8 fL Normal 7.4-10.4 [facility] ([place]) Comment on above: Performed By: #### M G, ESR, PBNP, GFR, ADIFF, PRO, ANEU, CMP, CRP, CBC #### [address] [address] RBC 4.06 10 6/mcL Low 4.20-5.40 [facility]) Comment on above: Performed By: #### M G, ESR, PBNP, GFR, ADIFF, PRO, ANEU, CMP, CRP, CBC #### [address] [address] WBC 10.3 10 3/mcL Normal 4.6-10.8 [facility]) Comment on above: Performed By: #### M G, ESR, PBNP, GFR, ADIFF, PRO, ANEU, CMP, CRP, CBC #### [address] [address] [id number] 04-12-2023 SARS-CoV-2 (COVID-19) RNA VALERIO+probe Ql (Unsp spec) Negative Normal Negative [facility]) Comment on above: Performed By: #### M G, ESR, PBNP, GFR, ADIFF, PRO, ANEU, CMP, CRP, CBC #### [address] [address] SARS-CoV-2 (COVID-19) RNA VALERIO+probe Ql (Unsp spec) Normal [facility]) Comment on above: Result Comment: Nega tive [...] ADIFF, PRO, ANEU, CMP, CRP, CBC #### [facility] [address] [place], [place] [address] CT ANGIOGRAPHY CHEST W/CONTR Jessica 04-12-2023 CT [...] 6:00:00 AM Ordering Provider: RAY LEAL Normal [facility] ([place]) FLURSVon 04-12-2023 Flu A PCR (AO) Negative Normal Negative [facility] ([place]) Comment on above: Result Comment: Posi tive [...] REPEAT COLLECTION AND TESTING IS RECOMMENDED. The [employer] Flu A/B & RSV Assay is a real-time polymerase chain reaction (PCR) based qualitative in vitro diagnostic test for the direct detection and differentiation of influenza A virus, influenza B virus, and respiratory syncytial virus (RSV) nucleic acid in nasopharyngeal swab (CT TECHNOLOGIST) specimens from patients with signs and symptoms [...] ADIFF, PRO, ANEU, CMP, CRP, CBC #### [place] [address] [place], [place] [address] Flu B PCR (AO) Negative Normal Negative [facility] ([place]) Comment on above: Result Comment: Posi tive [...] virus (RSV) nucleic acid in nasopharyngeal swab (CT TECHNOLOGIST) specimens from patients with signs and symptoms [...] ADIFF, PRO, ANEU, CMP, CRP, CBC #### [place] [address] [place], [place] [address] RSV PCR (AO) Negative Normal Negative [facility] ([place]) Comment on above: Result Comment: Posi tive [...] REPEAT COLLECTION AND TESTING IS RECOMMENDED. [employer] Flu A/B & RSV Assay is a real-time polymerase chain reaction (PCR) based qualitative in vitro diagnostic test for the direct detection and differentiation of influenza A virus, influenza B virus, and respiratory syncytial virus (RSV) nucleic acid in nasopharyngeal swab (CT TECHNOLOGIST) specimens from patients with signs and symptoms [...] ADIFF, PRO, ANEU, CMP, CRP, CBC #### [place] [address] [place], [place] [address] LABORATORYOrdered By: SYSTEM SYSTEM on 04-12-2023 Basophil, [...] virus (RSV) nucleic acid in nasopharyngeal swab (CT TECHNOLOGIST) specimens from patients with signs and symptoms [...] REPEAT COLLECTION AND TESTING IS RECOMMENDED. [employer] Flu A/B & RSV Assay is a real-time polymerase chain reaction (PCR) based qualitative in vitro diagnostic test for the direct detection and differentiation of influenza A virus, influenza B virus, and respiratory syncytial virus (RSV) nucleic acid in nasopharyngeal swab (CT TECHNOLOGIST) specimens from patients with signs and symptoms [...] REPEAT COLLECTION AND TESTING IS RECOMMENDED. [employer] Flu A/B & RSV Assay is a real-time polymerase chain reaction (PCR) based qualitative in vitro diagnostic test for the direct detection and differentiation of influenza A virus, influenza B virus, and respiratory syncytial virus (RSV) nucleic acid in nasopharyngeal swab (CT TECHNOLOGIST) specimens from patients with signs and symptoms [...] Lactic Acid Lvl 0.7 mmol/L Normal 0.4-2.0 [facility] ([place]) Comment on above: Performed By: #### M G, ESR, PBNP, GFR, ADIFF, PRO, ANEU, CMP, CRP, CBC #### [address] [address] No Panel Informationon 04-12 Microscopic examination of blood, culture Culture has been received in lab and is no growth to date. Routine cultures are held for 5 days. [facility] Work Phone: PBNPon 04-12-2023 Natriuretic peptide B (Bld) [Mass/Vol] 193 pg/mL High 0-125 [facility] ([place]) Comment on above: Result Comment: NT-p roBNP results of less than 300 pg/mL effectively rules out acute congestive heart failure with 99% negative predictive value. Performed By: #### M G, ESR, PBNP, GFR, ADIFF, PRO, ANEU, CMP, CRP, CBC #### [address] [address] TROPHSon 04-12-2023 Troponin I High Sensitivity 8.5 ng/L Normal 0.0-51.4 [facility] ([place]) Comment on above: Performed By: #### M G, ESR, PBNP, GFR, ADIFF, PRO, ANEU, CMP, CRP, CBC #### [address] [address] XR CHEST 2 VIEWSon 3 XR CHEST [...] 04/06/2023 3:27:35 PM Ordering Provider: FELIPA Cruz [facility] ([place]) LABORATORYOrdered By: Tico Sandoval on 11-28-2022 HCG [...] Interpretation Code AO BB SS LABORATORYOrdered By: [employer] on 11-11-2022 Albumin BCP dye [Mass/Vol] [...] 10.8 10^3/mcL AO Workflow SS MRI CARD [employer] WO/W IVC ONon 01-17-2022 MRI CARD [employer] WO/W IVCON * * *Final Report* * * DATE OF EXAM: Jan 17 2022 10:43AM [place] 0703 - MRI CARD [employer] WO/W IVCON / PROCEDURE REASON: I49.3 * * * * Physician Interpretation * * * * EXAM TITLE:MRI CARDIAC VELOCITY FLOW MAP, MRI CARD [employer] WO/W IVCON DATE: 01/17/2022 10:43 AM COMPARISON: [...] mapping of the myocardium indicated a global [place] T1 value of 964 +/- 57 ms (normal values for this scanner 945 - 965 ms, [facility]). Late gadolinium enhancement sequences indicated no evidence of scars involving the left or right ventricles. The T2 value of the [place] myocardium is calculated at 45+/-5 msec ( normal values 40-45 msec). By modified [place] criteria, there is no suggestion of acute/subacute [...] ml/m2 (33-77) VII.Cardiac Index 2.5 L/min/m2 (2.5-3.0) Assistant Gm Of Content & Delivery: ANA Transcribe Date/Time: Jan 23 2022 1:30P Dictated by : JOSE PALM MD This examination was interpreted and the report reviewed and electronically signed by: JOSE PALM MD on Jan 23 2022 2:25PM EST [id number] Normal [facility] MRI CARDIAC VELOCITY FLOW MA Allen 01-17-2022 MRI CARDIAC VELOCITY FLOW MAP * * *Final Report* * * DATE OF EXAM: Jan 17 2022 10:43AM [facility] 0704 - MRI CARDIAC VELOCITY FLOW MAP [...] mapping of the myocardium indicated a global [place] T1 value of 964 +/- 57 ms (normal values for this scanner 945 - 965 ms, [facility]). Late gadolinium enhancement sequences indicated no evidence of scars involving the left or right ventricles. The T2 value of the northern [place] myocardium is calculated at 45+/-5 msec ( normal values 40-45 msec). By modified [place] criteria, there is no suggestion of acute/subacute [...] ml/m2 (33-77) VII.Cardiac Index 2.5 L/min/m2 (2.5-3.0) Assistant Gm Of Content & Delivery: ANA Transcribe Date/Time: Jan 23 2022 1:30P Dictated by : JOSE PALM MD This examination was interpreted and the report reviewed and electronically signed by: JOSE PALM MD on Jan 23 2022 2:25PM EST [id number] Normal [facility] JAKE ELIZABETH ([id number]) 1970 F Date Time Provider Department 01/14/22 DELLA CANTRELL During your visit today, we recorded the [...] Date: 01/14/2022 (None) Encounter Status:Closed by DELLA CANTRELL on 01/14/22 [facility] LABORATORYOrdered By: Linh Marc on 12-25-2021 Basophil, [...] 10^3/mcL AO Workflow SS LABORATORYOrdered By: Samantha Rogers on 12-25-2021 Cholesterol [Mass/Vol] 204 mg/dL Invalid [...] detected. Invalid Interpretation Code See Interp HPVN Auto Viro/Sero SS Specimen source Nom (Unsp spec) Cervix (08/20/21 12:13 PM) Invalid Interpretation Code Auto Viro/Sero SS CT ABDOMEN/PELVIS W/O CONTRA [...] resident's findings and interpretation. Interpreted By: Heidi Zamorano MDPreliminary Report By: Amanda Leon DOElectronically Signed By: Heidi Zamorano MD Dictated Date: 11/20/2016 11:02:18 PM Prelim Date: 11/20/2016 11:14:17 PM Sign Date: 11/20/2016 11:33:17 PM Normal [facility] Note on 11-21-2016 [facility] Note Normal [facility] Patient Summary Documentson 11-21-2016 Patient Summary Documents Normal [facility] test (u)on 017 test (u) Negative Normal [facility] Comment on above: Order Comment: CBN Result Comment: HCG not detected. Performed By: #### P REGU ####[address] [address] Urinalysis (AO)on 11-20-2016 Erythrocytes (RBC) 15-25 Abnormal NONE SEEN [facility] Comment on above: Order Comment: CBN Performed By: #### U AO ####[address] [address] Squamous Epi 0-5 Abnormal NONE SEEN [facility] Comment on above: Order Comment: CBN Performed By: #### U AO ####[address] [address] WBC (Leukocytes) NONE SEEN Normal NONE SEEN [facility] Comment on above: Order Comment: CBN Performed By: #### U AO ####[address] [address] Bilirubin (total) SMALL Abnormal NEGATIVE [facility] Comment on above: Order Comment: CBN Performed By: #### U AO ####[address] [address] Glucose mass conc Negative Normal NEGATIVE [facility] Comment on above: Order Comment: CBN Performed By: #### U AO ####[address] [address] Hemoglobin mass conc (Bld) LARGE Abnormal NEG - TRACE [facility] Comment on above: Order Comment: CBN Performed By: #### U AO ####[place] [address] pH of blood 5.5 [pH] Normal 5.0 - 8.0 [facility] Comment on above: Order Comment: CBN Performed By: #### U AO ####[place] [address] Protein Negative Normal NEG - TRACE [facility] Comment on above: Order Comment: CBN Performed By: #### U AO ####[place] [address] Urine, appearance CLEAR Normal CLEAR [facility] Comment on above: Order Comment: CBN Performed By: #### U AO ####[place] [address] Urine, color YELLOW Normal [facility] Comment on above: Order Comment: CBN Performed By: #### U AO ####[place] [address] Urine, ketones presence TRACE Normal NEGATIVE [facility] Comment on above: Order Comment: CBN Performed By: #### U AO ####[place] [address] Urine, nitrite presence Negative Normal NEGATIVE [facility] Comment on above: Order Comment: CBN Performed By: #### U AO ####[place] [address] Urine, specific gravity >=1.030 Abnormal 1.015-1.025 [facility] Comment on above: Order Comment: CBN Performed By: #### U AO ####[place] [address] Urine, urobilinogen 0.2 {Terri'U}/dL Normal NORMAL [facility] Comment on above: Order Comment: CBN Performed By: #### U AO ####[place] [address] [address] WBC (Leukocytes) Negative Normal NEGATIVE [facility] Comment on above: Order Comment: CBN Performed By: #### U AO ####[place] [address] [address] Specimen type (u) VOID Normal [facility] Comment on above: Order Comment: CBN Performed By: #### U AO ####[place] [address] [address] Vital Signs Date Time Vital Sign Value Performing Clinician Facility 11-15-2024 11:33-0400 Body height 167.64 cm Julienne Baltes [employer] Work Phone: [facility] 11-15-2024 11:33-0400 Body mass index (BMI) [Ratio] 38 kg/m2 Julienne Baltes [employer] Work Phone: [facility] 11-15-2024 11:33-0400 Body weight 107.04 kg Julienne Baltes [employer] Work Phone: [facility] 11-15-2024 11:33-0400 Diastolic blood pressure 82 mm[Hg] Julienne Baltes [employer] Work Phone: [facility] 11-15-2024 11:33-0400 Heart rate 68 /min Julienne Baltes [employer] Work Phone: [facility] 11-15-2024 11:33-0400 Respiratory rate 16 /min Julienne Baltes [employer] Work Phone: [facility] 11-15-2024 11:33-0400 Systolic blood pressure 129 mm[Hg] Julienne Baltes [employer] Work Phone: [facility] 08-17-2024 11:27-0400 Body mass index (BMI) [Ratio] 39 kg/m2 Julienne Baltes [employer] Work Phone: [facility] 08-17-2024 11:27-0400 Body weight 109.76 kg Julienne Baltes [employer] Work Phone: [facility] 08-17-2024 11:27-0400 Diastolic blood pressure 90 mm[Hg] Julienne Baltes [employer] Work Phone: [facility] 08-17-2024 11:27-0400 Heart rate 74 /min Julienne Baltes [employer] Work Phone: [facility] 08-17-2024 11:27-0400 Respiratory rate 18 /min Julienne Baltes [employer] Work Phone: [facility] 08-17-2024 11:27-0400 Systolic blood pressure 144 mm[Hg] Julienne Baltes [employer] Work Phone: [facility] 07-13-2023 07:34-0500 Body height 167.64 cm [employer] Julienne Baltes [employer] Work Phone: [facility] 07-13-2023 07:34-0500 Body mass index (BMI) [Ratio] 38.4 kg/m2 [employer] Julienne Baltes [employer] Work Phone: [facility] 07-13-2023 07:34-0500 Body temperature 97.5 [degF] [employer] Julienne Baltes [employer] Work Phone: [facility] 07-13-2023 07:34-0500 Body weight 107.95 kg [employer] Julienne Baltes [employer] Work Phone: [facility] 07-13-2023 07:34-0500 Heart rate 72 /min [employer] Julienne Baltes [employer] Work Phone: [facility] 07-13-2023 07:34-0500 Respiratory rate 18 /min [employer] Julienne Baltes [employer] Work Phone: [facility] 07-13-2023 07:34-0500 SaO2% (BldA) [Mass fraction] 95 % [employer] Julienne Baltes [employer] Work Phone: [facility] 06-16-2023 07:16-0500 Body height 167.64 cm [employer] Julienne Baltes [employer] Work Phone: [facility] 06-16-2023 07:16-0500 Body mass index (BMI) [Ratio] 37.8 kg/m2 [employer] Julienne Baltes [employer] Work Phone: [facility] 06-16-2023 07:16-0500 Body temperature 97.7 [degF] [employer] Julienne Baltes [employer] Work Phone: [facility] 06-16-2023 07:16-0500 Body weight 106.14 kg [employer] Julienne Baltes [employer] Work Phone: [facility] 06-16-2023 07:16-0500 Diastolic blood pressure 89 mm[Hg] [employer] Julienne Baltes [employer] Work Phone: [facility] 06-16-2023 07:16-0500 Heart rate 80 /min [employer] Julienne Baltes [employer] Work Phone: [facility] 06-16-2023 07:16-0500 SaO2% (BldA) [Mass fraction] 98 % [employer] Julienne Baltes [employer] Work Phone: [facility] 06-16-2023 07:16-0500 Systolic blood pressure 163 mm[Hg] [employer] Julienne Baltes [employer] Work Phone: [facility] 04-12-2023 05:19-0500 Heart rate 63 /min DR RAY LEAL MD [facility] 04-12-2023 05:19-0500 Respiratory rate 18 /min DR RAY LEAL MD [facility] 04-12-2023 04:41-0500 Body temperature 97.88 [degF] DR RAY LEAL MD [facility] 04-12-2023 04:41-0500 Diastolic Blood Pressure Non-Invasive 92 mm[Hg] DR RAY LEAL MD [facility] 04-12-2023 04:41-0500 Heart rate 64 /min DR RAY LEAL MD [facility] 04-12-2023 04:41-0500 Respiratory rate 20 /min DR RAY LEAL MD [facility] 04-12-2023 04:41-0500 Systolic Blood Pressure Non-Invasive 142 mm[Hg] DR RAY LEAL MD [facility] 03-19-2023 09:13-0400 Body mass index (BMI) [Ratio] 37.8 kg/m2 [employer] Julienne Baltes [employer] Work Phone: [facility] 03-19-2023 09:13-0400 Body weight 106.31 kg [employer] Julienne Baltes [employer] Work Phone: [facility] 03-19-2023 09:13-0400 Diastolic blood pressure 91 mm[Hg] [employer] Julienne Baltes [employer] Work Phone: [facility] 03-19-2023 09:13-0400 Heart rate 76 /min [employer] Julienne Baltes [employer] Work Phone: [facility] 03-19-2023 09:13-0400 Respiratory rate 16 /min [employer] Julienne Baltes [employer] Work Phone: [facility] 03-19-2023 09:13-0400 Systolic blood pressure 139 mm[Hg] [employer] Julienne Baltes [employer] Work Phone: [facility] 11-28-2022 16:05-0400 Diastolic Blood Pressure Non-Invasive [address] FRANKO BENITO MD [facility] 11-28-2022 16:05-0400 Heart rate 73 /min DR FRANKO BENITO MD [facility] 11-28-2022 16:05-0400 Respiratory rate 16 /min DR FRANKO BENITO MD [facility] 11-28-2022 16:05-0400 Systolic Blood Pressure Non-Invasive [address] FRANKO BENITO MD [facility] 11-28-2022 14:02-0400 Diastolic Blood Pressure Non-Invasive [address] FRANKO BENITO MD [facility] 11-28-2022 14:02-0400 Heart rate 67 /min DR FRANKO BENITO MD [facility] 11-28-2022 14:02-0400 Systolic Blood Pressure Non-Invasive [address] FRANKO BENITO MD [facility] 11-28-2022 13:46-0400 Respiratory rate 16 /min DR FRANKO BENITO MD [facility] 11-28-2022 13:30-0400 Diastolic Blood Pressure Non-Invasive [address] FRANKO BENITO MD [facility] 11-28-2022 13:30-0400 Heart rate 68 /min DR FRANKO BENITO MD [facility] 11-28-2022 13:30-0400 Respiratory rate 21 /min DR FRANKO BENITO MD [facility] 11-28-2022 13:30-0400 Systolic Blood Pressure Non-Invasive [address] FRANKO BENITO MD [facility] 11-28-2022 13:15-0400 Heart rate 62 /min DR FRANKO BENITO MD [facility] 11-28-2022 12:45-0400 Body temperature 96.8 [degF] DR FRANKO BENITO MD [facility] 11-28-2022 12:40-0400 Body temperature 32 [degF] DR FRANKO BENITO MD [facility] 11-28-2022 12:40-0400 Respiratory Rate - Anes 0 br/min DR FRANKO BENITO MD [facility] 11-28-2022 12:35-0400 Respiratory Rate - Anes 17 br/min DR FRANKO BENITO MD [facility] 11-28-2022 12:30-0400 Respiratory Rate - Anes 17 br/min DR FRANKO BENITO MD [facility] 11-28-2022 09:10-0400 Body height 165.[address] FRANKO BENITO MD [facility] 11-28-2022 09:10-0400 Body temperature 98.06 [degF] DR FRANKO BENITO MD [facility] 11-28-2022 09:10-0400 Body weight [address] FRANKO BENITO MD [facility] 11-28-2022 09:10-0400 Heart rate 75 /min DR FRANKO BENITO MD [facility] 11-26-2022 08:29-0400 Body height 165.[address] FRANKO BENITO MD [facility] 11-26-2022 08:29-0400 Body weight [address] FRANKO BENITO MD [facility] 11-26-2022 08:29-0400 Body weight 36.69 kg/m2 DR FRANKO BENITO MD [facility] 11-26-2022 08:29-0400 Diastolic Blood Pressure Non-Invasive [address] FRANKO BENITO MD [facility] 11-26-2022 08:29-0400 Heart rate 68 /min DR FRANKO BENITO MD [facility] 11-26-2022 08:29-0400 Respiratory rate 20 /min DR FRANKO BENITO MD [facility] 11-26-2022 08:29-0400 Systolic Blood Pressure Non-Invasive [address] FRANKO BENITO MD [facility] 08-19-2022 09:02-0400 Body height 167.64 cm [employer] Julienne Baltes [employer] Work Phone: [facility] 08-19-2022 09:02-0400 Body mass index (BMI) [Ratio] 34.9 kg/m2 [employer] Julienne Baltes [employer] Work Phone: [facility] 08-19-2022 09:02-0400 Body weight 98.11 kg [employer] Julienne Baltes [employer] Work Phone: [facility] 08-19-2022 09:02-0400 Diastolic blood pressure 88 mm[Hg] [employer] Julienne Baltes [employer] Work Phone: [facility] 08-19-2022 09:02-0400 Heart rate 64 /min [employer] Julienne Baltes [employer] Work Phone: [facility] 08-19-2022 09:02-0400 Respiratory rate 16 /min [employer] Julienne Baltes [employer] Work Phone: [facility] 08-19-2022 09:02-0400 Systolic blood pressure 116 mm[Hg] [employer] Julienne Baltes [employer] Work Phone: [facility] 06-04-2022 07:46-0500 Body mass index (BMI) [Ratio] 33.9 kg/m2 [employer] Julienne Baltes [employer] Work Phone: [facility] 06-04-2022 07:46-0500 Body temperature 98.1 [degF] [employer] Julienne Baltes [employer] Work Phone: [facility] 06-04-2022 07:46-0500 Body weight 95.25 kg [employer] Julienne Baltes [employer] Work Phone: [facility] 06-04-2022 07:46-0500 Diastolic blood pressure 80 mm[Hg] [employer] Julienne Baltes [employer] Work Phone: [facility] 06-04-2022 07:46-0500 Heart rate 79 /min [employer] Julienne Baltes [employer] Work Phone: [facility] 06-04-2022 07:46-0500 Respiratory rate 18 /min [employer] Julienne Baltes [employer] Work Phone: [facility] 06-04-2022 07:46-0500 SaO2% (BldA) [Mass fraction] 99 % [employer] Julienne Baltes [employer] Work Phone: [facility] 06-04-2022 07:46-0500 Systolic blood pressure 130 mm[Hg] [employer] Julienne Baltes [employer] Work Phone: [facility] 04-23-2022 15:32-0500 Body height 167.64 cm [employer] Julienne Baltes [employer] Work Phone: [facility] Work Phone: 04-23-2022 15:32-0500 Diastolic blood pressure 84 mm[Hg] [employer] Julienne Baltes [employer] Work Phone: [facility] Work Phone: 04-23-2022 15:32-0500 Systolic blood pressure 125 mm[Hg] [employer] Julienne Baltes [employer] Work Phone: [facility] Work Phone: 04-23-2022 15:29-0500 Body mass index (BMI) [Ratio] 33.2 kg/m2 [employer] Julienne Baltes [employer] Work Phone: [facility] Work Phone: 04-23-2022 15:29-0500 Body weight 93.44 kg [employer] Julienne Baltes [employer] Work Phone: [facility] Work Phone: 04-23-2022 15:29-0500 Heart rate 69 /min [employer] Julienne Baltes [employer] Work Phone: [facility] Work Phone: 04-23-2022 15:29-0500 Respiratory rate 18 /min [employer] Julienne Baltes [employer] Work Phone: [facility] Work Phone: 04-23-2022 15:29-0500 SaO2% (BldA) [Mass fraction] 97 % [employer] Julienne Baltes [employer] Work Phone: [facility] Work Phone: 01-27-2022 10:50-0400 Body height 167 cm GUERRERO KIM MD [facility] 01-27-2022 10:50-0400 Body temperature 100.04 [degF] GUERRERO KIM MD [facility] 01-27-2022 10:50-0400 Body weight 96 kg GUERRERO KIM MD [facility] 01-27-2022 10:50-0400 Diastolic blood pressure 84 mm[Hg] GUERRERO KIM MD [facility] 01-27-2022 10:50-0400 Heart rate 100 /min GUERRERO KIM MD [facility] 01-27-2022 10:50-0400 Respiratory rate 16 /min GUERRERO KIM MD [facility] 01-27-2022 10:50-0400 Systolic blood pressure 129 mm[Hg] GUERRERO KIM MD [facility] 10-09-2021 10:59-0400 Diastolic blood pressure 87 mm[Hg] [employer] Julienne Baltes [employer] Work Phone: [facility] Work Phone: 10-09-2021 10:59-0400 Systolic blood pressure 135 mm[Hg] [employer] Julienne Baltes [employer] Work Phone: [facility] Work Phone: 10-09-2021 10:52-0400 Body height 167.64 cm [employer] Julienne Baltes [employer] Work Phone: [facility] Work Phone: 10-09-2021 10:52-0400 Body mass index (BMI) [Ratio] 36.9 kg/m2 [employer] Julienne Baltes [employer] Work Phone: [facility] Work Phone: 10-09-2021 10:52-0400 Body weight 103.87 kg [employer] Julienne Baltes [employer] Work Phone: [facility] Work Phone: 10-09-2021 10:52-0400 Heart rate 72 /min [employer] Julienne Baltes [employer] Work Phone: [facility] Work Phone: 10-09-2021 10:52-0400 Respiratory rate 16 /min [employer] Julienne Baltes [employer] Work Phone: [facility] Work Phone: 10-09-2021 10:52-0400 SaO2% (BldA) [Mass fraction] 94 % [employer] Julienne Baltes [employer] Work Phone: [facility] Work Phone: Encounters Encounter Date Encounter Type Care Provider Facility Start: 11-15-2024 End: 11-15-2024 ambulatory Julienne Fajardo [employer] Work Phone: [facility] Work Phone: Start: 11-15-2024 End: 11-15-2024 Patient encounter procedure Martin Marie [employer] -[facility] Work Phone: Start: 10-31-2024 ambulatory JULIENNE FAJARDO DIRECTOR OF CAREER RESOURCES-[employer]URANCE PLAN SPECIALIST Fa cility:[facility] Start: 10-03-2024 ambulatory RAD[facility] Facilit y:[facility] Start: 08-17-2024 End: 08-17-2024 Patient encounter procedure Martin Marie [employer] -[facility] Work Phone: Start: 08-17-2024 End: 08-17-2024 ambulatory Martin Marie [employer] [facility] Start: 08-01-2024 End: 08-01-[address] Elder Kang MD -Pulmonary Services/Neurology Work Phone: Start: 08-01-2024 End: 08-01-2024 ambulatory Thea Mike Facility:[facility] Start: 08-01-2024 Non-patient / Non-visit Dr. Vidya Mike MD -[facility] Work Phone: Start: 08-01-2024 End: 08-01-2024 ambulatory Julienne Fajardo NP Facility:[facility] Start: 07-07-2024 ambulatory Cathy FANFARI Facility:[facility] Start: 07-07-2024 Non-patient / Non-visit Dr. Vianney [place] [facility] Start: 07-07-2024 End: 07-07-[address] Elder Kang MD -Cardiovascular Services Work Phone: Start: 07-07-2024 End: 07-07-2024 ambulatory Elder Kang Facility:[facility] Start: 07-04-2024 ambulatory MARTIN MARIE Facility:[facility] Start: 06-01-2024 ambulatory Elder Kang Facility:[facility] Start: 06-01-2024 Non-patient / Non-visit Dr. Friedman Of so [place] [facility] Start: 06-01-2024 End: 06-01-2024 Patient encounter procedure Martin Marie [employer] -Cardiovascular Services Work Phone: Start: 05-31-2024 End: 06-01-2024 ambulatory Martin Marie [employer] Facility:[facility] Start: 05-31-2024 Non-patient / Non-visit Dr. Friedman Of so [place] -[facility] Work Phone: Start: 05-31-2024 End: 05-31-2024 Patient encounter procedure Martin Marie [employer] -Pulmonary Services/Neurology Work Phone: Start: 05-31-2024 End: 05-31-2024 ambulatory Martin Marie STE[employer]ER [employer]MAN Facility:[facility] Start: 04-20-2024 ambulatory Lilia Washburn NP Facili ty:[facility] Start: 04-20-2024 Non-patient / Non-visit Dr. Vidya Mike MD -[facility] Work Phone: Start: 04-20-2024 End: 04-20-2024 Patient encounter procedure Lilia Washburn STE[employer]ER [employer]REMAN-C -Pulmonary Services/Neurology Work Phone: Start: 04-20-2024 End: 04-20-2024 ambulatory Lilia Washburn NP Facility:[facility] Start: 03-17-2024 End: 03-17-2024 ambulatory Lilia Washburn NP [facility] Start: 03-17-2024 End: 03-17-2024 ambulatory Lilia Washburn NP Facility:[facility] Start: 02-01-2024 End: 02-05-2024 ambulatory LISA SOTO DIRECTOR OF CAREER RESOURCES-INSURANCE PLAN SPECIALIST Facility:[facility] Start: 02-01-2024 End: 02-05-2024 Outreach Lab LISA SOTO DIRECTOR OF CAREER RESOURCES-INSURANCE PLAN SPECIALIST [facility] Start: 01-08-2024 End: 01-08-2024 ambulatory JULIENNE FAJARDO DIRECTOR OF CAREER RESOURCES-INSURANCE PLAN SPECIALIST Facility: Start: 01-08-2024 End: 01-08-2024 Patient encounter procedure TARAH BHATT MD [facility] Start: 12-01-2023 End: 12-05-2023 ambulatory JULIENNE FAJARDO DIRECTOR OF CAREER RESOURCES-INSURANCE PLAN SPECIALIST Facility:B Start: 12-01-2023 End: 12-05-2023 Outreach Lab TARAH BHATT MD [facility] Start: 11-24-2023 End: 11-24-2023 ambulatory UNKNOWN PROVIDER Facility:[facility] Start: 11-18-2023 End: 11-18-2023 ambulatory UNKNOWN PROVIDER Facility:[facility] Start: 11-18-2023 End: 11-18-2023 Patient encounter procedure TARAH BHATT MD [facility] Start: 11-17-2023 End: 11-21-2023 ambulatory UNKNOWN PROVIDER Facility:[facility] Start: 11-17-2023 End: 11-21-2023 Encounter for gynecological examination (general) (routine) without abnormal findings UNKNOWN PROVIDER Facility:[facility] Start: 11-17-2023 End: 11-21-2023 Outreach Lab TARAH BHATT MD [facility] Start: 07-13-2023 End: 07-13-2023 Patient encounter procedure [employer]-C Julienne Fajardo [employer]ER [employer]MAN Work Phone: [facility] [place] Work Phone: Start: 07-11-2023 End: 07-11-2023 ambulatory STE[employer]MAN-C Julienne Fajardo STE[employer]ER [employer]MAN Work Phone: [facility] Work Phone: Start: 07-11-2023 End: 07-11-2023 Patient encounter procedure STE[employer]MAN-C Julienne Fajardo STE[employer]ER [employer]MAN Work Phone: [facility], [facility] Work Phone: Start: 06-23-2023 Non-patient / Non-visit [employer]-C Tayler Fajardo STE[employer] BOILER FIREMAN Work Phone: [facility] Start: 06-23-2023 End: 06-23-2023 ambulatory STE[employer] BOILER FI[employer]MAN-C Julienne Fajardo STE[employer]ER [employer]MAN Work Phone: [facility] Work Phone: Start: 06-23-2023 End: 06-23-2023 Patient encounter procedure STEAM BOILER FIREMAN-C Julienne Fajardo STE[employer] BOILER [employer]MAN Work Phone: [facility]-Pulmonary Services/Neurology Work Phone: Start: 06-16-2023 End: 06-16-2023 Patient encounter procedure STEAM BOILER FIREMAN-C Julienne Fajardo STE[employer]ILER FIREMAN Work Phone: [facility]-P[facility] Work Phone: Start: 06-10-2023 End: 06-10-2023 ambulatory JULIENNE FAJARDO DIRECTOR OF CAREER RESOURCES-INSURANCE PLAN SPECIALIST Facility:[facility] Start: 06-10-2023 End: 06-10-2023 Patient encounter procedure JULIENNE FAJARDO DIRECTOR OF CAREER RESOURCES-INSURANCE PLAN SPECIALIST [facility] Start: 04-12-2023 End: 04-12-2023 Emergency department patient visit DR RAY LEAL MD [facility] Start: 04-06-2023 End: 04-06-2023 ambulatory JULIENNE FAJARDO DIRECTOR OF CAREER RESOURCES-INSURANCE PLAN SPECIALIST Facility:[facility] Start: 04-06-2023 End: 04-06-2023 Patient encounter procedure FELIPA HARTMANC [facility] Start: 03-19-2023 End: 03-19-2023 Patient encounter procedure STE[employer]MAN-C Julienne Fajardo STE[employer]ER FI[employer]MAN Work Phone: [facility] Work Phone: Start: 11-28-2022 End: 11-28-[address] FRANKO BENITO MD [facility] Start: 11-26-2022 End: 11-26-[address] FRANKO BENITO MD [facility] Start: 11-11-2022 End: 11-11-2022 Patient encounter procedure JULIENNE FAJARDO DIRECTOR OF CAREER RESOURCES-INSURANCE PLAN SPECIALIST [facility] Start: 11-11-2022 End: 11-11-2022 Well adult monitoring check done JULIENNE FAJARDO DIRECTOR OF CAREER RESOURCES-INSURANCE PLAN SPECIALIST [facility] Start: 10-23-2022 End: 10-23-2022 Patient encounter procedure TARAH BHATT MD [facility] Start: 10-14-2022 End: 10-18-2022 Outreach Lab TARAH BHATT MD [facility] Start: 08-26-2022 End: 08-26-2022 ambulatory STE[employer]MAN-C Julienne Fajardo STE[employer]ER FI[employer]MAN Work Phone: [facility] Work Phone: Start: 08-26-2022 End: 08-26-2022 Patient encounter procedure STE[employer]ILER FIREMAN-C Julienne Fajardo STE[employer]ILER FIREMAN Work Phone: [facility]-Pulmonary Services/Neurology Start: 08-19-2022 End: 08-19-2022 Patient encounter procedure STEAM BOILER FIREMAN-C Julienne Fajardo STE[employer]ILER FI[employer]MAN Work Phone: [facility] Start: 06-04-2022 End: 06-04-2022 Patient encounter procedure STEAM BOILER FIREMAN-C Julienne Fajardo STE[employer]ILER FI[employer]MAN Work Phone: [facility]-Pulmonary Medicine [facility] Start: 05-20-2022 End: 05-20-2022 ambulatory STE[employer]ILER FIREMAN-C Julienne Fajardo STE[employer] BOILER FIREMAN Work Phone: [facility] Work Phone: Start: 05-20-2022 End: 05-20-2022 Patient encounter procedure STEAM BOILER FIREMAN-C Julienne Fajardo STE[employer]ILER FI[employer]MAN Work Phone: [facility]Sleep Lab Start: 04-23-2022 End: 04-23-2022 Patient encounter procedure STEAM BOILER FIREMAN-Lexus Fajardo STEAM BOILER FIREMAN Work Phone: [facility] Start: 03-31-2022 Non-patient / Non-visit [employer]-C Tayler Fajardo STEAM BOILER FIREMAN Work Phone: [facility] Start: 03-31-2022 End: 03-31-2022 ambulatory STEAM [employer]ILER FIREMAN-C Julienne Fajardo STEAM BOILER FIREMAN Work Phone: [facility] Work Phone: Start: 03-31-2022 End: 03-31-2022 Patient encounter procedure STEAM BOILER FIREMAN-Leuxs Fajardo STEAM BOILER FIREMAN Work Phone: [facility]-Cardiovascul ar Services Start: 01-27-2022 Non-patient / Non-visit [employer]-C Tayler Fajardo STEAM BOILER FIREMAN Work Phone: [facility] Start: 01-27-2022 End: 01-27-2022 Emergency department patient visit GUERRERO KIM MD [facility] Start: 01-17-2022 End: 01-17-2022 Subsequent hospital visit by physician Mri 2 [facility] (I-Stat/1.5t) [facility] Comment on above: Ventricular prematur e depolarization [I49.3] Start: 01-14-2022 Telephone encounter Della Cantrell RT(R ) [facility] Comment on above: Orders Start: 12-25-2021 End: 12-25-2021 Patient encounter procedure JULIENNE FAJARDO DIRECTOR OF CAREER RESOURCES-INSURANCE PLAN SPECIALIST [facility] Start: 10-25-2021 Non-patient / Non-visit STE[employer]-C Tayler Fajardo STEAM BOILER FIREMAN Work Phone: [facility] Start: 10-25-2021 End: 10-25-2021 Patient encounter procedure STEAM BOILER FIREMAN-Lexus Fajardo STEAM BOILER FIREMAN Work Phone: [facility]-Cardiovascul ar Services Start: 10-24-2021 End: 10-24-2021 Patient encounter procedure STEAM BOILER FIREMAN-Lexus Fajardo STEAM BOILER FIREMAN Work Phone: [facility]-Pulmonary Services/Neurology Start: 10-09-2021 End: 10-09-2021 Patient encounter procedure STEAM BOILER FIREMAN-Lexus Fajardo STEAM BOILER FIREMAN Work Phone: [facility] Start: 08-20-2021 End: 08-24-2021 Outreach Lab TARAH BHATT MD [facility] Start: 07-25-2021 End: 07-25-2021 Patient encounter procedure JULIENNE FAJARDO DIRECTOR OF CAREER RESOURCES-INSURANCE PLAN SPECIALIST [facility] Start: 11-20-2016 End: 11-21-2016 Emergency department patient visit AKANKSHA MorenoAmy JEREZ Facility:[facility] Procedures Date Procedure Procedure Detail Performing Clinician Start: 07-11-2023 CT of face STEAM BOILER FIREMAN-Lexus Fajardo STE[employer]ILER FIREMAN Work Phone: Start: 06-25-2023 Laryngoscopy TARAH SMITH MD Start: 06-25-2023 Radioallergosorbent test TARAH BHATT MD Start: 11-22-2022 Arthroplasty of knee AM LAUREN BHATT MD Comment on above: right Start: 10-02-2020 Transesophageal echocardiography JULIENNE FAJARDO DIRECTOR OF CAREER RESOURCES-INSURANCE PLAN SPECIALIST Comment on above: No evidence of throm bus or vegetation. There is a small shunt through a patent foramen ovale. Arthroscopy of knee with meniscus repair TARAH BHATT MD Cholecystectomy JULIENNE FAJARDO DIRECTOR OF CAREER RESOURCES-INSURANCE PLAN SPECIALIST Decompression of median nerve JULIENNE FAJARDO DIRECTOR OF CAREER RESOURCES-INSURANCE PLAN SPECIALIST Comment on above: damaso Dilation and curettage JULIENNE FAJARDO DIRECTOR OF CAREER RESOURCES-INSURANCE PLAN SPECIALIST Comment on above: x2 Foot repair JULIENNE FAJARDO APR N-INSURANCE PLAN SPECIALIST Comment on above: screw Ligation of fallopian tube R SILVIANO FAJARDO DIRECTOR OF CAREER RESOURCES-INSURANCE PLAN SPECIALIST Plan of Treatment Date Care Activity Detail Author Start: 01-23-2022 Influenza vaccination INFLUENZA (#1) [facility] Start: 01-28-2017 COLOGUARD (FIT-DNA) COLOGUARD (FIT-DNA) [facility] Start: 01-28-2017 Colonoscopy COLONOSCOPY [facility] Start: 01-28-2017 COLORECTAL CANCER SCREENING COLORECTAL CANCER SCREENING [facility] Start: 01-28-[address] COLONOGRAPHY [facility] Start: 01-28-2017 DIABETES SCREEN DIABETES SCREEN [facility] Start: 01-28-2017 FECAL OCCULT BLOOD FECAL OCCULT BLOOD [facility] Start: 01-28-2017 LIPID SCREEN LIPID SCREEN [facility] Start: 01-28-2017 SIGMOIDOSCOPY SIGMOIDOSCOPY [facility] Start: 2012 Mammography MAMMOGRAM [facility] Start: 01-28-2002 HPV TESTING HPV TESTING [facility] Start: 01-28-1993 PAP TESTING PAP TESTING [facility] Start: 01-28-1991 Urine microalbumin profile DTAP,TDAP,TD (1 - Tdap) [facility] Start: 01-28-1990 HEPATITIS C SCREENING HEPATITIS C SCREENING [facility] Start: 01-28-1990 HIV SCREENING HIV SCREENING [facility] Start: 1984 Adult depression screening assessment DEPRESSION SCREENING [facility] Start: 1972 COVID-19 VACCINE (#1) COVID-19 VACCINE (#1) [facility] Start: 1972 HEPATITIS B (1 of 3 - 3-dose series) HEPATITIS B (1 of 3 - 3-dose series) [facility] 24 Hour ECG [facility] Work Phone: Comprehensive metabo [facility] 2000 panel - Serum or Plasma [facility] Payers Date Payer Category Payer Self-pay [id number] 2021 Unknown MMO MMO [employer] [id number] 2021-Present [phone] [address] [place] [address] PPO [id number] 2001 Unknown [id number] 1972 Unknown [id number] [id number] 1972 Unknown [id number] 2.16840.1.183753.3.579.2.62 1972 Unknown [id number] 2.840.1.811137.3.579.2. 1972 Unknown [id number] 2.840.1.400499.3.579.2.627 1972 Unknown [id number] 2.16840.1.255474.3.579.2.627 1972 Unknown [id number] 2.16840.1.125106.3.579.2.627 1972 Unknown [id number] 2.16840.1.040058.3.579.2.62 1972 Unknown [id number] 2.840.1.464373.3.579.2.627 1972 Unknown [id number] 2.16.840.1.076088.3.579.2.627 1972 Unknown [id number] 2.16840.1.305621.3.579.2.62 1972 Unknown [id number] 2.16840.1.684295.3.579.2.594 1972 Unknown [id number] 2.16840.1.083567.3.579.2.594 Unknown [id number] 2.16.840.1.853965.3.579.2.462 Unknown [id number] 2.16.840.1.220328.3.579.2.462 Unknown [id number] 2.16.840.1.097777.3.579.2.462 Unknown [id number] 2.16.840.1.992340.3.579.2.462 Unknown [id number] 2.16.840.1.104511.3.579.2.462 Unknown [id number] 2.16.840.1.192706.3.579.2.462 Unknown [id number] 2.16.840.1.912320.3.579.2.462 Unknown [id number] 2.16.840.1.703943.3.579.2.462 Unknown [id number] 2.16.840.1.504725.3.579.2.462 Unknown [id number] 2.16.840.1.737745.3.579.2.462 Unknown [id number] 2.16.840.1.772872.3.579.2.462 Unknown [id number] 2.16.840.1.045932.3.579.2.462 Unknown [id number] 2.16.840.1.609828.3.579.2.462 Social History Date Type Detail Facility Start: 12-28-2018 End: 08-17-2024 Never smoked tobacco (finding) [facility] Start: 1970 Sex Assigned At Female A [facility] Start: 10-09-2021 End: 07-13-2023 Tobacco smoking status SDIS Unknown if ever smoked [facility] Start: 07-29-[address] [facility] Start: 07-29-2020 Spouse/ Signif icant Other [facility] Start: 08-24-2019 Non-smoker [facility] Start: 1970 Sex Assigned At Not on file C [facility] Start: 01-07-2022 End: 01-17-2022 Exposure to SARS-CoV-2 (event) Not sure [facility] Start: 08-11-2024 Sex Female (finding) [facility] Functional Status Date Assessment Result Facility 04-12-2023 Functional Status Independent [facility] 04-12-2023 Functional Status Standard Safet y ID band on, Allergy Band on, Call device within reach, Bed in low position, Wheels locked, Upper/Half-Length side-rails up, personal items within reach, Bedside Cart Locked, Visitor at bedside [facility] 11-28-2022 Functional Status Independent [facility] 11-28-2022 Functional Status Repositions se lf, Resting [facility] 11-28-2022 Functional Status ice on [facility] 11-28-2022 Functional Status NPO Status Maintained A [facility] 11-28-2022 Functional Status [facility] 11-26-2022 Functional Status Sensory Deficits None [facility] 01-27-2022 Functional Status ID band on, Allergy Band on, Call device within reach, Bed in low position, Wheels locked, personal items within reach [facility] Mental Status Date Assessment Result Facility 04-12-2023 Mental Status Orientation Oriented x 4 [facility] 04-12-2023 Mental Status [facility] 11-28-2022 Mental Status Oriented x 4 [facility] 11-28-2022 Mental Status Orientation Asse ssment Oriented x 4 [facility] 01-27-2022 Mental Status Oriented x 4 [facility] Clinical Notes 01-14-2022 to 08-17-2024 Note Date & Type Note Facility 08-17-2024 Evaluation note Diagnosis Onset Date Resolution Multiple premature ventricular complexes acute July 11:25am Obesity chronic August 17 11:25am Patent foramen ovale chronic Pranav 2024 11:25am Multiple premature ventricular complexes acute November 15, 2024 11:31am Obesity chronic November 15 11:31am Patent foramen ovale chronic November 15, 2024 11:31am [facility] Work Phone: [phone]) 236-598809-11-2024 Note The microscopic examination is performed, except in the case of Gross Only. [facility] 09-10-2024 Note The microscopic examination is performed, except in the case of Gross Only. [facility] 09-10-2024 Note The microscopic examination is performed, except in the case of Gross Only. [facility] 09-10-2024 Note The microscopic examination is performed, except in the case of Gross Only. [facility] 09-10-2024 Note The microscopic examination is performed, except in the case of Gross Only. [facility] 09-10-2024 Note The microscopic examination is performed, except in the case of Gross Only. [facility] 09-10-2024 Note The microscopic examination is performed, except in the case of Gross Only. [facility] 06-26-2024 Note. MICRO - Microbiology PROCEDURE: Affirm Pathogens DNA [...] Locations *1: This test was performed at: [facility], [address] [place] [address], [id number]- , [facility] ([place])06-23-2023 Procedure [facility]01-17-2024 Note ORIGINAL EXAMINATION: TWO XRAY VIEWS OF [...] Sign Date: 06/10/2023 2:58:01 PM Ordering Provider: [facility]11-24-2023 Note. MICRO - Microbiology PROCEDURE: Blood Culture (bacterial) [...] Locations *1: This test was performed at: [facility], [address] [place] [address], [id number]- , [facility] ([place])04-17-2023 Note. MICRO - Microbiology PROCEDURE: Blood Culture (bacterial) [...] Locations *1: This test was performed at: [address], [facility] , [facility] ([place])04-12-2023 Hospital Discharge instructions Patient Education 04/12/2023 06:41:00 Acute Bronchitis [...] coughing up yellow or green mucus, and wheezing.Bronchitis can be acute or chronic. Acute means [...] You can help feel better faster by doingthe following: Take medicine as directed. You may be told to take ibuprofen or other dpco-yvv-xtqmjac medicines. These help relieve inflammation in your bronchial tubes. Your healthcare provider may prescribe an inhaler to help open up the bronchial tubes. Most of the time, acute bronchitis is caused by a viral in fection. Antibiotics are usually not prescribed for viral [...] in a week or two. But a drycough can linger beyond that time. Let your [...] or within 3 days of taking antibiotics [phone] [employer]. [address] [place] [address], [place] [address]. All rights reserved. This information is not intended as a substitute for professional medical care. Always follow yourcity hospitalcare professional's instructions. 04/12/2023 06:40:52 Hemoptysis Hemoptysis Hemoptysis is the medical term for coughing up blood. There are many causes for this, including minor illnesses like bronchitis. Hemoptysis can also be an early sign of a more serious illness, like ablood clot in the lung (pulmonary embolism), cancer, [...] will help loosen secretions in the lungs. Voca-mai-uymflco cough medicines that contain dextromethorphan may help reduce coughing. Check withyour healthcare provider before taking dextromethorphan if you have a chronic illness, are , or take daily medicines. If you were prescribed an antibiotic, take it until it is all gone. Take it even if you are feelingbetter after only a few days. Follow-up care [...] losing consciousness Rapid heartbeat Weakness or dizziness [phone] [employer]. [address] [place] [address]. All rights reserved. This information is not intended as a substitute for professional medical care. Always follow yourhealthcare professional's instructions. Follow Up Care 04/12/2023 04:34:10 With:JULIENNE FAJARDO Address: [address] [place] [address] [place] [address]- [phone] When:2-4 days Comments:Return to ED if symptoms worsen [facility] 11-19-2023 Note Discharge Instructions Thank you for allowing [facility] to assist you with your healthcare needs. The following is importantdischarge information regarding your hospital visit. Diagnosis from Today's Visit Cough - Minor hemoptysis Hemoptysis What to Do Next Instructions from Your Care Team No qualifying data available. Post Acute Orders No qualifying data available. You Need to Schedule the Following Appointments Follow Up with JULIENNE FAJARDO When Within 2-4 days Why: Return to ED if symptoms worsen Where: [address] [facility] [place] [phone] Allergies Cashews (Difficulty swallowing) sulfamethoxazole (Rash) Medications Please ask your primary doctor or pharmacist before taking any other medication not listed, including over the counter drugs, herbal medications, vitamins and or supplements as they may interact withyour home medications. What How Much When Why [...] coughing up yellow or green mucus, and wheezing.Bronchitis can be acute or chronic. Acute means [...] You can help feel better faster by doingthe following: Take medicine as directed. You may be told to take ibuprofen or other teqk-com-lgnxkbf medicines. These help relieve inflammation in your bronchial tubes. Your healthcare provider may prescribe an inhaler to help open up the bronchial tubes. Most of the time, acute bronchitis is caused by a viral in fection. Antibiotics are usually not prescribed for viral [...] in a week or two. But a drycough can linger beyond that time. Let your [...] or within 3 days of taking antibiotics [phone] [employer]. [address] [place] [address]. All rights reserved. This information is not intended as a substitute for professional medical care. Always follow yourhealthcare professional's instructions. Hemoptysis Hemoptysis is the medical term for coughing up blood. There are many causes for this, including minor illnesses like bronchitis. Hemoptysis can also be an early sign of a more serious illness, like ablood clot in the lung (pulmonary embolism), cancer, [...] will help loosen secretions in the lungs. Gmkd-rji-tejjyvs cough medicines that contain dextromethorphan may help reduce coughing. Check withyour healthcare provider before taking dextromethorphan if you have a chronic illness, are , or take daily medicines. If you were prescribed an antibiotic, take it until it is all gone. Take it even if you are feelingbetter after only a few days. Follow-up care [...] losing consciousness Rapid heartbeat Weakness or dizziness [phone] [employer]. [address] [place] [address]. All rights reserved. This information is not intended as a substitute for professional medical care. Always follow yourhealthcare professional's instructions. Additional Information VACCINATE! IT SAVES LIVES! Members of the community who have not yet received the COVID-19 vaccine and would like to receive it can visit one of [facility] vaccine clinics. There are many vaccine clinic locations within the [facility]. For locations and available times, please visit www.gettheshot.coronavirus.[place].gov/. It is important to note that some COVID mobile vaccine clinics are held outdoors and may be canceled in rainy or stormy conditions. To learn more about pediatric vaccinations (ages 5-11), we invite you to visit the [facility] webpage. https://www.[email or web address].org/pages/6113-Rpfue-Mxhetodvefo-Fleivfsrsk-Bfuib-Srh stions.htmlTo learn more about the COVID-19 vaccine, we invite you to visit the CDC website for a list of frequently asked questions. https://www.cdc.gov/coronavirus/2019-ncov/vaccines/faq.html [facility] Patient Portal Access Instructions: Stay connected with your healthcare team and access your personal medical information anytime with the [facility] Patient Portal. If you would like a full copy of your medical records please contact the [facility] Medical Records Department Thursday through Thursday between 8a.m. and 4:30p.m. Please follow the directions below to access the portal: 1.Access the email account you provided upon registration to the [facility].2.Look for an invitation email from [facility].3.Open the email and access the invitation link: Accept Invitation to [facility]4.Fill in the required zapien to create your account. Sign into [email or web address] with your username and password that you [...] you will allow to register on the [facility] Patient Portal for access to your information. You can also access the [facility] Patient Portal on the [employer] kj. Simply click on Health Records under kinkon and then click on the Titus logo. HOW TO SAFELY DISPOSE OF PRESCRIPTION MEDICATIONS Please use one of the following methods to safely dispose of your unused medications. 1.Use a drug disposal kit: the drug disposal pouch allows you to safely discard your old and unuseddrugs. Ask your nurse to give you one when you are discharged.2.Visit a local take-back location: Many local pharmacies and police departments have programs that collect old and unwanted prescriptiondrugs. Call your local pharmacy or go to http://bit.Zarfo/2H9Ag1t to find one close to you.3.Make use of household items: Use cat litter or old coffee grounds to dispose medications if other options arenot available. Mix your drugs with these household products, seal them in an airtight container andthrow it into the garbage. Call [facility]: [phone] to be sure your drugs can be [...] drowsiness, such as benzodiazepines, also known as benzos,including diazepam and alprazolam, muscle relaxants or sleep aids. Never sell or share prescriptionopioids. This is illegal. Store opioids in a secure place and out of reach of others (including children, family, friends and visitors). The last page(s) of this document has been signed and retained as a CHART COPY Signatures Patient Education Materials Acute Bronchitis Hemoptysis Medication Leaflets My discharge plan and instructions have been reviewed and explained to me and I,JAKE JOd my current condition and have read and understand these discharge instructions. I have received a written copy of the plan/instructions. If I have questions, I am aware that I should contact my doctor. Patient/Seismometer Operator Signature: Date/Time: Relationship to Patient: Witness Name/Signature: Date/Time: [facility]11-19-2023 Note ORIGINAL EXAMINATION: CTA OF THE CHEST [...] Sign Date: 04/12/2023 6:00:00 AM [facility]ing [facility] NoteSinus rhythm Short [place] interval Nonspecific intraventricular conduction delay Artifact in lead(s) I,II,III,aVR,aVL,aVF,V1,V3,V4 and baseline wander in lead(s) V1,V2,V3,V6 Electronic Signature: MD RAY LEAL MD 04/12/2023 06:32:43[facility] 11-19-2023 SARS-CoV-2 (COVID-19) RNA VALERIO+probe Ql (Nph) Negative *NA* (04/12/23 5:06 AM)AO Auto Urine [id number] Note ORIGINAL EXAMINATION: TWO XRAY VIEWS OF [...] Sign Date: 04/06/2023 3:27:35 PM Ordering Provider: [facility]07-07-2023 Hospital Discharge instructions Patient Education 11/28/2022 14:30:57 Monitored Anesthesia Care, Care After Monitored Anesthesia Care, Care After These instructions provide you with information about caring for yourself after your procedure. Your health care provider may also give you more specific instructions. Your treatment has been plannedaccording to current medical practices, but problems sometimes [...] have someone help care for you until youare awake and alert. Rest as needed. Do [...] before eating solid foods. General instructions Take gkkh-ipr-hagbtrs and prescription medicines only as told by [...] 08/31/2016 Document Revised: 08/09/2018 Document Reviewed: 08/31/2016 [employer] Patient Education 2020 Kaboodle. 11/28/2022 14:30:45 Partial Knee Replacement, Care After [...] Follow these instructions at home: Medicines Take dmte-yvv-wzawxei and prescription medicines only as told by [...] to keep your urine pale yellow. ?Take tzjj-ypu-vgosahs or prescription medicines. ?Eat foods that are high in fiber, such as beans, whole grains, and fresh fruits and vegetables. ?Limit foods that are high in fat and processed sugars, such as fried or sweet foods. Bathing Do not take baths, swim, or use a hot tub until your health care provider approves. Ask your healthcare provider if you may take showers. Keep [...] and water are not available, use hand financial administration officer. ?Change your dressing as told by your [...] contain nicotine or tobacco, such as cigarettes, e- cigarettes, and chewing tobacco. If you need help [...] health care provider. You may have to dothis for the first few days or weeks. [...] Document Reviewed: 06/01/2019 Elsevier Patient Education 2020 Kaboodle. Follow Up Care 11/17/2022 10:32:34 With:FRANKO BENITO MD Address: [address] [place] [address] [address] [facility] [place] [address] [phone] When:12/12/2022 09:15:00 Comments:Follow-up as scheduled with Sam Boone PA-C [facility] 07-07-2023 Summary of episode note Discharge Instructions Thank you for allowing [facility] to assist you with your healthcare needs. The following is importantdischarge information regarding your hospital visit. Your Care Team JULIENNE FAJARDO Your Diagnosis Partial Right Knee Replacement What to do next Instructions From Your Doctor See Instruction Sheet Scheduled Follow-Up Appointments Appointment Type When With Where Contact Information Wellness Annual 12/04/2022 09:00 AM EDT JULIENNE FAJARDO [address] [id number] Follow Up Appointments Follow Up with FRANKO BENITO MD When 12/12/2022 09:15 AM EDT Why: Follow-up as scheduled with Sam Boone PA-C Where: [address] [place] [address] [address] [facility] [place] [address] [phone] Allergies Cashews (Difficulty swallowing) sulfamethoxazole (Rash) Medications Please ask your primary doctor or pharmacist before taking any other medication not listed, including over the counter drugs, herbal medications, vitamins and or supplements as they may interact withyour home medications. What How Much When Why [...] more specific instructions. Your treatment has been plannedaccording to current medical practices, but problems sometimes [...] have someone help care for you until youare awake and alert. Rest as needed. Do [...] before eating solid foods. General instructions Take gtrp-ynv-jvjrgfq and prescription medicines only as told by [...] 08/31/2016 Document Revised: 08/09/2018 Document Reviewed: 08/31/2016 [employer] Patient Education 2020 Kaboodle. Partial Knee Replacement, Care After This sheet [...] Follow these instructions at home: Medicines Take woor-azj-xjqtbkt and prescription medicines only as told by [...] keep your urine pale yellow. ? Take fdqx-wgs-fmbesnm or prescription medicines. ? Eat foods that are high in fiber, such as beans, whole grains, and fresh fruits and vegetables. ? Limit foods that are high in fat and processed sugars, such as fried or sweet foods. Bathing Do not take baths, swim, or use a hot tub until your health care provider approves. Ask your healthcare provider if you may take showers. Keep [...] and water are not available, use hand financial administration officer. ? Change your dressing as told by [...] contain nicotine or tobacco, such as cigarettes, e- cigarettes, and chewing tobacco. If you need help [...] health care provider. You may have to dothis for the first few days or weeks. [...] Document Reviewed: 06/01/2019 Elsevier Patient Education 2020 [employer]. Additional Information VACCINATE! IT SAVES LIVES! Members of the community who have not yet received the COVID-19 vaccine and would like to receive it can visit one of [facility] vaccine clinics. There are many vaccine clinic locations within the [facility]. For locations and available times, please visit [email or web address]/. It is important to note that some COVID mobile vaccine clinics are held outdoors and may be canceled in rainy or stormy conditions. To learn more about pediatric vaccinations (ages 5-11), we invite you to visit the [facility] webpage. https://www.[email or web address]/pages/6638-Hnhfg-Fihzhjvfipk-Tybvkqifbr-Urkdn-Fvh stions.htmlTo learn more about the COVID-19 vaccine, we invite you to visit the CDC website for a list of frequently asked questions.https://www.cdc.gov/coronavirus/2019-ncov/vaccines/faq.html [facility] Patient Portal Access Instructions: Stay connected with your healthcare team and access your personal medical information anytime with the [facility] Patient Portal. Please follow the directions below to create your [facility] account: 1.Access the email account you provided upon registration to the hospital/physician office.2.Look for an invitation email from [facility].3.Open the email and access the invitation link: AcceptInvitation to [facility].4.Fill in the required zapien to create your account. To access your account, visit [employer]orm[employer]. Click the blue button labeled Access Patient Portal and then log in with the username and password that you created in the steps above. You will be able to view your test results, lab results, a summary of your visits, upcoming appointments and more. There is also a convenient messaging option where you can send secure messages to your p rovider. In addition, you will have the ability to download any documents or summaries to your computer and/or send the information securely to a physician. Remember that your healthcare information is confidential, so carefully consider who you will allowto register on the [facility] for access to your information. You can also access the [facility] on the [facility] kj. Simply click on Patient Portal and then log into your account. If you would like to receive a full copy of your medical records, please contact the [facility] Medical Records Department by calling [phone], Thursday through Thursday between 8 a.m. and 4:30 p.m. HOW TO SAFELY DISPOSE OF PRESCRIPTION MEDICATIONS Please use one of the following methods to safely dispose of your unused medications. 1.Use a drug disposal kit: the drug disposal pouch allows you to safely discard your old and unuseddrugs. Ask your nurse to give you one when you are discharged.2.Visit a local take-back location: Many local pharmacies and police departments have programs that collect old and unwanted prescriptiondrugs. Call your local pharmacy or go to http://Akamedia/6B6Hy8f to find one close to you.3.Make use of household items: Use cat litter or old coffee grounds to dispose medications if other options arenot available. Mix your drugs with these household products, seal them in an airtight container andthrow it into the garbage. Call [facility]: [phone] to be sure your drugs can be [...] reviewed and explained to me and I,JAKE JOd my current condition and have read and understand these discharge instructions. I have received a written copy of the plan/instructions. If I have questions, I am aware that I should contact my doctor. Patient/Seismometer Operator Signature: Date/Time: Relationship to Patient: Witness Name/Signature: Date/Time: [facility]07-07-2023 Note ORIGINAL EXAMINATION: TWO XRAY VIEWS OF [...] Date: 11/28/2022 1:25:39 PM Ordering Provider: FRANKO [facility]07-07-2023 Note ORIGINAL EXAMINATION: TWO XRAY VIEWS OF [...] Sign Date: 11/28/2022 1:25:39 PM Ordering Provider: [facility]07-07-2023 Anesthesiology Consult note Patient: JAKE JO Age: [...] by QUANG BOURNE on 11/28/2022 12:47 PM [facility]07-07-2023 Anesthesiology Consult note Patient: JAKE JO Age: [...] puff(s), Inhalation, QID, EA=8.5 gr unit, PRN: asneeded for wheezing, 3 EA, 3 Refill(s) tolterodine [...] 2.5 mg 25 mg 5 mL, Other, [facility] ropivacaine 25 mg + ketorolac 15 mg + epinephrine 0.3 mg + morphine 2.5 mg 25 mg 5 mL, Other, [facility] tranexamic acid PMX 1 gram(s) 100 mL, IV Piggyback, AsDirected tranexamic acid PMX 1 gram(s) 100 mL, IV Piggyback, AsDirected Continuous: (1) Lactated Ringers 1,000 mL 1,000 mL, Intravenous, 125 mL/hr PRN: (0) Problem list: Medical Acute bronchiolitis / SNOMED CT 35662559 / Confirmed Asthma due to seasonal allergies / SNOMED CT 7413134446 / Confirmed Anxiety / SNOMED CT 59001219 / Confirmed Atrial septal aneurysm / SNOMED CT 991379516 / Confirmed Cough in adult / SNOMED CT 25300568 / Confirmed SOB (shortness of breath) on exertion / SNOMED CT 788596606 / Confirmed Fatigue / SNOMED CT 259620820 / Confirmed GERD (gastroesophageal reflux disease) / SNOMED CT 853156187 / Confirmed History of pneumonia / SNOMED CT 348854347 / Confirmed LGSIL on Pap smear of cervix / SNOMED CT 6332087452 / Confirmed Osteoarthritis of right knee / SNOMED CT 0118640099 / Confirmed PFO (patent foramen ovale) / SNOMED CT 694760232 / Confirmed Screening for colon cancer / SNOMED CT 462423605 / Confirmed Screening for cardiovascular condition / SNOMED CT 854314251 / Confirmed Pre-op exam / SNOMED CT 800177273 / Confirmed Major depression, recurrent, chronic / SNOMED CT 864754538 / Confirmed Urge incontinence of urine / SNOMED CT 393133313 / Confirmed PVCs (premature ventricular contractions) / SNOMED CT 00912274 / Confirmed, Active Problems (18) Acute bronchiolitis [...] of urine Histories Past Medical History: Resolved (286970337): Resolved. Screening for breast cancer (943923627): Resolved., extreme anxiety and panic attacks. PFO, atrial septal aneurysm being followed by cardiology, Family History: Heart disease Mother (Loyda Sifuentes) Grandparent (mat, gma) Father (Quan Muse) Arthritis Mother (Loyda Sifuentes) Alcohol abuse Father (Quan Muse) Hepatitis Grandparent (mat, gma) Cancer Grandparent (mat, gpa) Procedure history: Transesophageal echocardiogram (1873078311) on 10/02/2020 at 50 Years. Comments: 10/19/2020 14:46 EDT - Jaek Lipscomb MA (ABR-OE) No evidence of thrombus or vegetation. There is a small shunt through a patent foramen ovale. Cholecystectomy (95051297). Tubal ligation (475412620). Dilation and curettage (53638623). Comments: 12/28/2018 11:37 La Collins LEASE PICKER x2 Foot repair (169829585). Comments: 12/28/2018 11:38 La Collins LEASE PICKER screw Carpal tunnel release (985001697). Comments: 12/28/2018 11:38 EDT La Pittman LPN damaso Arthroscopic repair of meniscus (5415268868). Social History Social & Psychosocial Habits Alcohol 04/30/2018Risk Assessment: Denies Alcohol Use 08/20/2021 Use: Current Frequency: 1-2 times per week Comment: Moderate-4 weekly - 12/28/2018 06:38 - La Russell LPN; Hasn't drank in a couple months -12/13/2019 08:08 - La Russell LPN; Has drank [...] Domestic Concerns None Living situation: Home/Independent Primary Manager Plant: Self Lives In Single level home Current [...] Resp Rate 14 br/min (NOV 28 09:10) PAS034 mmHg (NOV 28 09:10) DBP82 mmHg (NOV 28 09:10) Measurements from flowsheet : Measurements 11/28/2022 9:10 EDT Height 165.1 cm Admission Weight 100 kg [place] Body Weight 57.00 kg Body Mass Index [...] Height 165.1 cm Admission Weight 100 kg [place] Body Weight 57.00 kg Body Mass Index [...] no difficulties Skin Temperature Warm Skin Description [place], Normal for ethnicity, Dry Skin Moisture General Dry IV Present Present Extremity Movement Equal Characteristics of Speech Clear Level of Consciousness Alert Strength All Extremities Strong Affect/Behavior Appropriate Orientation Oriented x 4 Infectious Disease Symptoms Patient states no symptoms Allergies Yes Vacuum Technician On Yes Consent Form Signed Yes Patient [...] Patient Cleared for Surgery By JULIENNE FAJARDO APRN-INSURANCE PLAN SPECIALIST Cardiac Clearance For Surgery By ELDER KANG MD Admission Note-Nursing Same Day Patient History (Modified) 11/28/2022 9:02 EDT SN - Preop - CTm Pt in SDS Room 11/28/2022 9:02 . Assessment and Plan [place] Society of Anesthesiologists (ASA) physical status classification: Class III. Anesthetic Preoperative Plan Premedication: intravenous. Anesthetic technique: Spinal. Induction: intravenously. Regional: Spinal, Adductor Canal Block. Postoperative pain management: Per surgeon. Risks discussed: nausea, vomiting, headache, sore throat, dental injury, hypotension, allergic reaction, serious complications. Informed consent: signed by patient. Digitally Signed by QUANG BOURNE on 11/28/2022 10:24 AM [facility]04-28-2023 Evaluation + Plan note Future Scheduled Tests Radiology* MA Mammo Screening Bilateral w/ [place] 09/19/22 [facility] 09-05-2022 Hospital Discharge instructions Patient Education 01/27/2022 11:04:31 URI, Viral, [...] 3 days. When you resume activity, don't letyourself get too tired. Don't smoke. If you [...] loosen secretions in the nose and lungs. Cfux-kab-ctfutnr cold medicines will not shorten the length of time you re sick, but they may be helpful for the following symptoms: cough, sore throat, and nasal and sinus congestion. If you take prescription medicines, ask your healthcare provider or pharmacist which dryq-lvy-ccnjidj medicines are safe to use. (Note: Don't [...] it goes along with a muffled voice [phone] [employer]. [address] [place] [address]. All rights reserved. This information is not intended as a substitute for professional medical care. Always follow yourhealthcare professional's instructions. Follow Up Care 01/27/2022 10:46:34 With:JULIENNE FAJARDO APRN-INSURANCE PLAN SPECIALIST Address: [address] [facility] [place] [phone] When:Within 1 Week(s) Comments:Follow-up as needed if your symptoms or not improving.Push fluids, vaporizer at bedside.Use Tylenol, Advil or Aleve for fever and discomfort as needed.Continue jbwi-fhz-zcjvwrd decongestants for symptomatic relief.Use antibiotic (Z-Lisa) as prescribed.Return to the ED if symptoms worsen. [facility] 09-05-2022 Note Discharge Instructions Thank you for allowing [facility] to assist you with your healthcare needs. The following is importantdischarge information regarding your hospital visit. Diagnosis from [...] for fever and discomfort as needed. Continue gjhn-mje-xbkkqas decongestants for symptomatic relief. Use antibiotic (Z-Lisa) as prescribed. Return to the ED if symptoms worsen. Where: [address] [facility] [place] [phone] Allergies Cashews (Difficulty swallowing) sulfamethoxazole (Rash) Medications Please ask your primary doctor or pharmacist before taking any other medication not listed, including over the counter drugs, herbal medications, vitamins and or supplements as they may interact withyour home medications. What How Much When Why [...] pharmacies. Medication Leaflets azithromycin (oral/injection) (a BERNIE VIDAL sin) Azithromycin 3 Day Dose Pack, Azithromycin [...] reaction (fever, sore throat, burning in your eyes,skin pain, red or purple skin rash that spreads and causes blistering and peeling). Seek medical treatment if you have a serious drug reaction that can affect many parts of your body.Symptoms may include: skin rash, fever, swollen glands, [...] may report side effects to FDA at [phone]-8753. What other drugs will affect azithromycin? Tell your doctor about all your other medicines, especially: colchicine; digoxin; nelfinavir; phenytoin; an antacid that contains aluminum or magnesium--Acid Gone, Gaviscon, Gelusil, Maalox, Milk of Magnesia, Mylanta, Pepcid Complete, Rolaids, Rulox, and others; or a blood thinner--warfarin, Coumadin, Jantoven. This list is not complete. Other drugs may affect azithromycin, including prescription and gkyq-cya-ayrfidn medicines, vitamins, and herbal products. Not all [...] to ensure that the information provided by [employer]. ('[employer]') is accurate, up-to-date, and complete, but no guarantee is made to that effect. Drug information contained herein may be time sensitive. [employer] information has been compiled for use by healthcare practitioners and consumers in the [place] and therefore [employer] does not warrant that uses outside of the [place] are appropriate, unless specifically indicated otherwise. [employer] drug information does not endorse drugs, diagnose patients or recommend therapy. [employer]s drug information isan informational resource designed to assist licensed healthcare practitioners in caring for their p atients and/or to serve consumers viewing this service as a supplement to, and not a substitute for, the expertise, skill, knowledge and judgment of healthcare practitioners. The absence of a warningfor a given drug or drug combination in no way should be construed to indicate that the drug or drug combination is safe, effective or appropriate for any given patient. [facility] does not assume any responsibility for any aspect of healthcare administered with the aid of information [facility] provides. The information contained herein is not intended to cover all possible uses, directions, precautions, warnings, drug interactions, allergic reactions, or adverse effects. If you have questions about the drugs you are taking, check with your doctor, nurse or pharmacist. Copyright 5845-0142 [facility] [employer]. Version: 18.01. Revision Date: 09/23/2018. Education Materials [...] 3 days. When you resume activity, don't letyourself get too tired. Don't smoke. If you [...] loosen secretions in the nose and lungs. Alpr-qds-suxdiik cold medicines will not shorten the length of time you re sick, but they may be helpful for the following symptoms: cough, sore throat, and nasal and sinus congestion. If you take prescription medicines, ask your healthcare provider or pharmacist which wmzs-lyr-yfeptiz medicines are safe to use. (Note: Don't [...] it goes along with a muffled voice [phone] [employer]. [address] [place] [address], [place] [address]. All rights reserved. This information is not intended as a substitute for professional medical care. Always follow yourhealthcare professional's instructions. Additional Information VACCINATE! IT SAVES LIVES! Members of the community who have not yet received the COVID-19 vaccine and would like to receive it can visit one of [facility] vaccine clinics. There are many vaccine clinic locations within the [facility]. For locations and available times, please visit [email or web address]. It is important to note that some COVID mobile vaccine clinics are held outdoors and may be canceled in rainy orstormy conditions. To learn more about pediatric vaccinations (ages 5-11), we invite you to visit the [facility] webpage. https://www.[email or web address]/pages/7187-Trcin-Obyhktistoq-Nzqbgcfkwb-Mrtlz-Nwi stions.htmlTo learn more about the COVID-19 vaccine, we invite you to visit the [facility] website for a list of frequently asked questions. [email or web address]://[place].[employer]/assets/Whsyxdni-tia-Hhxrnemk/ssqbv-Rhfsdwn-Qufvhmcjfw _Asked-Questions.pdf [facility] Patient [facility] Access Instructions: Stay connected with your healthcare team and access your personal medical information anytime with the [facility] Patient Portal. If you would like a full copy of your medical records please contact the [facility] Medical Records Department Thursday through Thursday between 8a.m. and 4:30p.m. Please follow the directions below to access the portal: 1.Access the email account you provided upon registration to the [facility].2.Look for an invitation email from [facility].3.Open the email and access the invitation link: Accept Invitation to [facility]4.Fill in the required zapien to create your [...] you will allow to register on the [facility] Patient Portal for access to your information. You can also access the [employer] Patient Portal on the [employer]. Simply click on Health Records under kinkon and then click on the [employer] logo. HOW TO SAFELY DISPOSE OF PRESCRIPTION MEDICATIONS Please use one of the following methods to safely dispose of your unused medications. 1.Use a drug disposal kit: the drug disposal pouch allows you to safely discard your old and unuseddrugs. Ask your nurse to give you one when you are discharged.2.Visit a local take-back location: Many local pharmacies and police departments have programs that collect old and unwanted prescriptiondrugs. Call your local pharmacy or go to http://bit.Zarfo/5U8Cl3s to find one close to you.3.Make use of household items: Use cat litter or old coffee grounds to dispose medications if other options arenot available. Mix your drugs with these household products, seal them in an airtight container andthrow it into the garbage. Call [facility]: [phone] to be sure your drugs can be [...] drowsiness, such as benzodiazepines, also known as benzos,including diazepam and alprazolam, muscle relaxants or sleep aids. Never sell or share prescriptionopioids. This is illegal. Store opioids in a [...] and explained to me and ISANDRO PATRICIA Eunderstand my current condition and have read and understand these discharge instructions. I have received a written copy of the plan/instructions. If I have questions, I am aware that I should contact my doctor. 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 Order in scanned documents. documented in this encounter[facility] Center[facility] + Plan note Future Appointments Appointment Date:08/05/2021 03:30:00 PM Scheduled Provider:LINDSAY AYALA MD Location:[facility] [place] Appointment Type:GS STEAM BOILER FIREMAN Appointment Date:08/13/2021 03:30:00 PM Scheduled Provider:TARAH BHATT MD Location:[facility] [place] Appointment Type:WH OV Appointment Date:12/24/2021 10:00:00 AM Scheduled Provider:JULIENNE FAJARDO Location:[facility] [place] Appointment Type:PC OV Appointment Date:04/28/2022 03:30:00 PM Scheduled Provider:KANDY HERRERA Location:[facility] [place] Appointment Type:CV OV Future Scheduled Tests Laboratory* Pathology Shell Core And Molding Supervisor Request 02/14/21 [facility] Evaluation + Plan note Future Appointments Appointment Date:12/24/2021 10:00:00 AM Scheduled Provider:JULIENNE FAJARDO Location:[facility] [place] Appointment Type:PC OV Appointment Date:04/28/2022 03:30:00 PM Scheduled Provider:KANDY HERRERA Location:[facility] [place] Appointment Type:CV OV Future Scheduled Tests Laboratory* Pathology Shell Core And Molding Supervisor Request 02/14/21 [facility] Evaluation + Plan note Future Appointments Appointment Date:04/28/2022 03:30:00 PM Scheduled Provider:KANDY HERRERA Location:[facility] [place] Appointment Type:CV OV Appointment Date:07/24/2022 03:30:00 PM Scheduled Provider:JULIENNE FAJARDO Location:[facility] [place] Appointment Type:PC OV Future Scheduled Tests Laboratory* Pathology Shell Core And Molding Supervisor Request 02/14/21 [facility] Evaluation + Plan note Future Appointments Appointment Date:11/03/2022 09:30:00 AM Scheduled Provider: Location:RAD Appointment Type:CT Knee w/o Contrast Right Appointment Date:11/11/2022 09:00:00 AM Scheduled Provider:ABEBA MIDDLETON Location:[facility] [place] Appointment Type:PC OV Pre Op Appointment Date:12/04/2022 09:00:00 AM Scheduled Provider:JULIENNE FAJARDO Location:[facility] [place] Appointment Type:PC Wellness Annual Future Scheduled Tests Laboratory* Complete Blood Count 11/29/22 * Lipid Profile 11/29/22 * Complete Metabolic Panel 11/29/22 Radiology* MA Mammo Screening Bilateral w/ Herberth 10/14/22 * MA Mammo Screening Bilateral w/ Herberth 09/19/22 * CT Knee w/o Contrast Right 11/03/22 [facility] Evaluation + Plan note Future Appointments Appointment Date:11/03/2022 09:30:00 AM Scheduled Provider: Location:[facility] Appointment Type:CT Knee w/o Contrast Right Appointment Date:11/11/2022 09:00:00 AM Scheduled Provider:ABEBA MIDDLETON Location:[facility] [place] Appointment Type:PC OV Pre Op Appointment Date:12/04/2022 09:00:00 AM Scheduled Provider:JULIENNE FAJARDO Location:[facility] [place] Appointment Type: Wellness Annual Future Scheduled Tests Laboratory* Complete Blood Count 11/29/22 * Lipid Profile 11/29/22 * Complete Metabolic Panel 11/29/22 Radiology* MA Mammo Screening Bilateral w/ Herberth 09/19/22 * CT Knee w/o Contrast Right 11/03/22 [facility] Evaluation + Plan note Future Appointments Appointment Date:12/04/2022 09:00:00 AM Scheduled Provider:JULIENNE FAJARDO Location:[facility] [place] Appointment Type:PC Wellness Annual Future Scheduled Tests Radiology* MA Mammo Screening Bilateral w/ Herberth 09/19/22 [facility] Evaluation + Plan note Future Appointments Appointment Date:07/01/2023 03:30:00 PM Scheduled Provider:JULIENNE FAJARDO Location:[facility] [place] Appointment Type:PC OV Future Scheduled Tests Radiology* MA Mammo Screening Bilateral w/ Herberth 09/19/22 [facility] Evaluation + Plan note Future Appointments Appointment Date:12/01/2023 01:45:00 PM Scheduled Provider:TARAH BHATT MD Location: [place] Appointment Type: OV Diagnostic Tests Pending * HSV IgM Ab, with HSV IgG1,2 Reflex 11/18/23 * Rapid Plasma Reagin Test 11/18/23 Future Scheduled Tests Laboratory* HIV 1/2 Ab 11/17/23 Radiology* MA Mammo Screening Bilateral w/ Herberth 11/12/23 * MA Mammo Screening Bilateral w/ Herberth 11/17/23 * US Pelvis Non-OB W/Transvaginal 11/17/23 [facility] Evaluation + Plan note Future Appointments Appointment Date:11/24/2023 07:30:00 AM Scheduled Provider: Location:[facility] Appointment Type:US Pelvis Non-OB W/Transvaginal Appointment Date:12/01/2023 01:45:00 PM Scheduled Provider:TARAH BHATT MD Location: [place] Appointment Type: OV Future Scheduled Tests Laboratory* HIV 1/2 Ab 11/17/23 Radiology* MA Mammo Screening Bilateral w/ Herberth 11/12/23 * MA Mammo Screening Bilateral w/ Herberth 11/17/23 * US Pelvis Non-OB W/Transvaginal 11/24/23 [facility] Evaluation + Plan note Future Appointments Appointment Date:03/01/2024 03:30:00 PM Scheduled Provider:TARAH BHATT MD Location: [place] Appointment Type: OV Future Scheduled Tests Laboratory* HSV 1 and 2 Ab, IgG 12/01/23 * HIV 1/2 Ab 11/17/23 Radiology* MA Mammo Screening Bilateral w/ Herberth 11/12/23 [facility] Evaluation + Plan note Future Appointments Appointment Date:03/01/2024 03:30:00 PM Scheduled Provider:TARAH BHATT MD Location:[facility] Appointment Type: OV Diagnostic Tests Pending * HSV 1 and 2 Ab, IgG 01/08/24 Future Scheduled Tests Radiology* MA Mammo Screening Bilateral w/ Herberth 11/12/23 [facility] Evaluation + Plan note Future Appointments Appointment Date:03/01/2024 03:30:00 PM Scheduled Provider:TARAH BHATT MD Location:[facility] Appointment Type: OV Future Scheduled Tests Radiology* MA Mammo Screening Bilateral w/ Herberth 11/12/23 [facility] Evaluation note* Diagnosis Onset Date Resolution Status Multiple premature ventricular complexes acute [facility] Work Phone: Evaluation noteNo assessment information available [facility] Work Phone: Evaluation note* Diagnosis Onset Date Resolution Status Hypersomnolence acute Multiple premature ventricular complexes acute Patent foramen ovale chronic [facility] Work Phone: Evaluation note* Diagnosis Onset Date Resolution Status Asthma acute Obesity chronic Sleep concern noneactive Multiple premature ventricular complexes acute Patent foramen ovale [facility] Work Phone: Evaluation note* Diagnosis Onset Date Resolution Status Multiple premature ventricular complexes acute Patent foramen ovale chronic Chronic cough chronic [facility] Work Phone: Evaluation note* Diagnosis Onset Date Resolution Status Multiple premature ventricular complexes acute Patent foramen ovale chronic Chronic cough chronic Asthma [facility] Work Phone: Hospital course Narrative No data available for this section [facility] Hospital Discharge instructions No data available for this section [facility] Progress note No data available for this section [facility] Reason for referral (narrative)No reason for referral [facility] Work [facility]: Reiqna for visit Narrative* Diagnostic Procedure Only (Routine) - Closed Specialty Diagnoses / Procedures Referred By Contac t Referred To Contact [facility] Diagnoses Ventricular premature depolarization i49.3 Procedures CARDIAC MRI W/WO CONTRAST & FURTHER SEQ MRI WWO CARD [address] [place] [address] [facility] [address] [facility] [place] [address] Referral ID Status Reason Start Date Expiration Date Visits Re quested Visits Authorized [id number] Closed 01/08/2022 02/22/2022 1 1 [facility] Summary Purpose Family History Relationship Condition Age at Onset Recorded Date/T juan mother Cardiac disease Unknown father Cardiac disease Unknown Coronary artery disease Unknown Advance Directives Advance Directive Response Recorded Date/ Time Advance Directives No March 10:56am Living Will Yes March 03 9:19pm Power of Elementary Reading Specialist Yes March 03, 2021 9:19pm Advance Directive Response Recorded Date/ Time Advance Directives No March 9:56am Living Will Yes March 03 8:19pm Power of Elementary Reading Specialist Yes March 03, 2021 8:19pm Advance Directive Response Recorded Date/ Time Living Will Yes March 03 9:19pm Do you have a Healthcare Power of Elementary Reading Specialist? Yes March 03, 2021 9:19pm Advance Directives No March 10:56am Chief Complaint and Reason for Visit Chief Complaint BP ISSUES/SECOND OPI NION Ventricular premature depolarization Ventricular premature depolarization Reason for Visit Multiple premature v entricular complexes Chief Complaint Amb Documentation RIGHT SWELLING MASS Chief Complaint Amb Documentation RIGHT SWELLING MASS 6 M FU HYPERSOMNIA Reason for Visit Hypersomnolence Multiple premature ventricular complexes Patent foramen ovale Chief Complaint HYPERSOMNIA Sleep problems 3 M FU PVC Reason for Visit Asthma Obesity Sleep concern Multiple premature ventricular complexes Patent foramen ovale Chief Complaint 9 MO WITH CIVIL CELEBRANT Chronic Cough E ORDERS Chronic cough Chronic cough Reason for Visit Multiple premature v entricular complexes Patent foramen ovale Chronic cough Chief Complaint 9 MO WITH CIVIL CELEBRANT Chronic Cough E ORDERS Chronic cough Chronic cough CHRONIC SINUSITIS 6 wk FU Reason for Visit Multiple premature v entricular complexes Patent foramen ovale Chronic cough Asthma Chief Complaint Admit Date I49.3 Ventricular premature depolarizati on April 20, 2024 8:49am I49.3 Ventricular premature depolarizati on April 20, 2024 8:59am PVC BURDEN May 31, 2024 12 :07pm PVC BURDEN May 31, 2024 12 :19pm PVC BURDEN June 01, 2024 1: 01pm Ventricular premature depolarization Feb ruary 2024 9:51am Ventricular premature depolarization Feb ruary 2024 12:38pm Ventricular premature depolarization [facility] 2024 6:19am Ventricular premature depolarization [facility] 2024 7:08am Chief Complaint Admit Date Ventricular premature depolarization [facility] 2024 6:19am Ventricular premature depolarization [facility] 2024 7:08am 6 M FU August 17, 2024 11: 25am 3 M FU November 15, 2024 11:3 1am Reason for Visit Admit Date Multiple premature ventricular complexes August 17, 2024 11:25am Obesity August 17, 2024 11: 25am Patent foramen ovale August 17, 2024 11 :25am Multiple premature ventricular complexes November 15, 2024 11:31am Obesity November 15, 2024 11:3 1am Patent foramen ovale November 15, 2024 11: 31am Additional Source Comments INFORMATION SOURCE (unrecogn ized section and content) DATE CREATED AUTHOR 11/18/2017 [facility] DATE CREATED AUTHOR AUTHOR'S ORGANIZ ATION 01/24/2022 [facility] DATE CREATED AUTHOR AUTHOR'S ORGANIZ ATION 01/10/2024 [facility] ([place]) DATE CREATED AUTHOR AUTHOR'S ORGANIZ ATION 08/18/2024 [facility] DATE CREATED AUTHOR AUTHOR'S ORGANIZ ATION 10/04/2024 [facility] DATE CREATED AUTHOR AUTHOR'S ORGANIZ ATION 10/31/2024 [facility] Care Team (unrecognized sect ion and content) Team Status: Active Member Role Status Dates Julienne Fajardo STEAM BOILER FIREMAN, STEAM BOILER FIREMAN-C Primary Care Provider Active Team Status: Active Member Role Status Dates Julienne Fajardo STEAM BOILER FIREMAN, STEAM BOILER FIREMAN-C Primary Care Provider Active Start: August 01, 2024 Dr. Thea Mike MD Attending Provider Activ e Start: August 01, 2024 Dr. Elder Kang MD Referring Provider Active S tart: August 01, 2024 Team Status: Inactive Member Role Status Dates Julienne Fajardo STEAM BOILER FIREMAN, STEAM BOILER FIREMAN-C Primary Care Provider Active Start: August 01, 2024 End: August 01, 2024 Dr. Elder Kang MD Attending Provider Active S tart: August 01, 2024 End: August 01, 2024 Dr. Elder Kang MD Referring Provider Active S tart: August 01, 2024 End: August 01, 2024 Team Status: Inactive Member Role Status Dates Julienne Fajardo STEAM BOILER FIREMAN, STEAM BOILER FIREMAN-C Primary Care Provider Active Start: August 17, 2024 End: August 17, 2024 Julienne Fajardo STEAM BOILER FIREMAN, STEAM BOILER FIREMAN-C Referring Provider Active S tart: August 17, 2024 End: August 17, 2024 Martin Marie STEAM BOILER FIREMAN, STEAM BOILER FIREMAN-C Attending Provider Active S tart: August 17, 2024 End: August 17, 2024 Team Status: Inactive Member Role Status Dates Julienne Fajardo STEAM BOILER FIREMAN, STEAM BOILER FIREMAN-C Primary Care Provider Active Start: November 15, 2024 End: November 15, 2024 Julienne Fajardo STEAM BOILER FIREMAN, STEAM BOILER FIREMAN-C Referring Provider Active S tart: November 15, 2024 End: November 15, 2024 Martin Marie STEAM BOILER FIREMAN, STEAM BOILER FIREMAN-C Attending Provider Active S tart: November 15, 2024 End: November 15, 2024 Team Status: Active Member Role Status Dates Janette Collier STEAM BOILER FIREMAN, STEAM BOILER FIREMAN-C Family Provider Active Julienne Fajardo STEAM BOILER FIREMAN, STEAM BOILER FIREMAN-C Primary Care Provider Active Team Status: Inactive Member Role Status Dates Julienne Fajardo STEAM BOILER FIREMAN, STEAM BOILER FIREMAN-C Primary Care Provider, Referring Provider Active Lilia Washburn STEAM BOILER FIREMAN, STEAM BOILER FIREMAN-C Attending Provider Active Team Status: Inactive Member Role Status Dates Julienne Fajardo STEAM BOILER FIREMAN, STEAM BOILER FIREMAN-C Primary Care Provider, Referring Provider Active Summer Moss STEAM BOILER FIREMAN, STEAM BOILER FIREMAN-C Attending Provider Active Team Status: Inactive Member Role Status Dates Julienne Fajardo STEAM BOILER FIREMAN, STEAM BOILER FIREMAN-C Primary Care Provider Active Lilia Washburn STEAM BOILER FIREMAN, STEAM BOILER FIREMAN-C Attending Provider Active Team Status: Inactive Member Role Status Dates Julienne Fajardo STEAM BOILER FIREMAN, STEAM BOILER FIREMAN-C Primary Care Provider, Referring Provider Active Dr. Elder Kang MD Attending Provider Active Team Status: Inactive Member Role Status Dates Julienne Fajardo STEAM BOILER FIREMAN, STEAM BOILER FIREMAN-C Primary Care Provider, Referring Provider Active Dr. Trace Mehta DO Attending Provider Active Team Status: Active Member Role Status Dates Julienne Fajardo STEAM BOILER FIREMAN, STEAM BOILER FIREMAN-C Primary Care Provider Active Dr. Trace Mehta DO Referring Provider, Other Provide r Active Dr. Danie Menchaca MD Attending Provider Active Team Status: Inactive Member Role Status Dates Julienne Fajardo STEAM BOILER FIREMAN, STEAM BOILER FIREMAN-C Primary Care Provider Active Dr. Trace Mehta DO Attending Provider, Referring Pro vider Active Team Status: Inactive Member Role Status Dates Julienne Fajardo STEAM BOILER FIREMAN, STEAM BOILER FIREMAN-C Primary Care Provider Active Dr. Junior Panchal MD Attending Provider, Referring Pr ovider Active Team Status: Active Member Role Status Dates Julienne Fajardo STEAM BOILER FIREMAN, STEAM BOILER FIREMAN-C Primary Care Provider Active Team Status: Inactive Member Role Status Dates Julienne Scotty STEAM BOILER FIREMAN, STEAM BOILER FIREMAN-C Primary Care Provider Active Start: April 20, 2024 End: April 20, 2024 Lilia Washburn STEAM BOILER FIREMAN, STEAM BOILER FIREMAN-C Attending Provider Active Start: April 20, 2024 End: April 20, 2024 Lilia Washburn STEAM BOILER FIREMAN, STEAM BOILER FIREMAN-C Referring Provider Active Start: April 20, 2024 End: April 20, 2024 Team Status: Active Member Role Status Dates Julienne Fajardo STEAM BOILER FIREMAN, STEAM BOILER FIREMAN-C Primary Care Provider Active Start: April 20, 2024 Dr. Thea Mike MD Attending Provider Activ e Start: April 20, 2024 Lilia Washburn STEAM BOILER FIREMAN, STEAM BOILER FIREMAN-C Referring Provider Active Start: April 20, 2024 Team Status: Inactive Member Role Status Dates Julienne Scotty STEAM BOILER FIREMAN, STEAM BOILER FIREMAN-C Primary Care Provider Active Start: May 31, 2024 End: May 31, 2024 Martin Marie STEAM BOILER FIREMAN, STEAM BOILER FIREMAN-C Attending Provider Active S tart: May 31, 2024 End: May 31, 2024 Martin Marie STEAM BOILER FIREMAN, STEAM BOILER FIREMAN-C Referring Provider Active S tart: May 31, 2024 End: May 31, 2024 Team Status: Active Member Role Status Dates Julienne Scotty STEAM BOILER FIREMAN, STEAM BOILER FIREMAN-C Primary Care Provider Active Start: May 31, 2024 Dr. Elder Kang MD Attending Provider Active S tart: May 31, 2024 Martin Marie STEAM BOILER FIREMAN, STEAM BOILER FIREMAN-C Referring Provider Active S tart: May 31, 2024 Team Status: Inactive Member Role Status Dates Julienne Scotty STEAM BOILER FIREMAN, STEAM BOILER FIREMAN-C Primary Care Provider Active Start: June 01, 2024 End: June 01, 2024 Martin Marie STEAM BOILER FIREMAN, STEAM BOILER FIREMAN-C Attending Provider Active S tart: June 01, 2024 End: June 01, 2024 Martin Marie STEAM BOILER FIREMAN, STEAM BOILER FIREMAN-C Referring Provider Active S tart: June 01, 2024 End: June 01, 2024 Team Status: Active Member Role Status Dates Julienne Fajardo STEAM BOILER FIREMAN, STEAM BOILER FIREMAN-C Primary Care Provider Active Start: June 01, 2024 Dr. Elder Kang MD Attending Provider Active S tart: June 01, 2024 Team Status: Inactive Member Role Status Dates Julienne Fajardo STEAM BOILER FIREMAN, STEAM BOILER FIREMAN-C Primary Care Provider Active Start: July 07, 2024 End: July 07, 2024 Dr. Elder Kang MD Attending Provider Active S tart: July 07, 2024 End: July 07, 2024 Dr. Elder Kang MD Referring Provider Active S tart: July 07, 2024 End: July 07, 2024 NAKIA LIGHT Other Provider Active Start: 2024 End: July 07, 2024 Team Status: Active Member Role Status Dates Julienne Fajardo STEAM BOILER FIREMAN, STEAM BOILER FIREMAN-C Primary Care Provider Active Start: July 07, 2024 Dr. Elder Kang MD Attending Provider Active S tart: July 07, 2024 Dr. Elder Kang MD Referring Provider Active S tart: July 07, 2024 Dr. Elder Kang MD Other Provider Active Start : July 07, 2024 NAKIA LIGHT Other Provider Active Start: 2024 Team Status: Active Member Role Status Dates Julienne Fajardo STEAM BOILER FIREMAN, STEAM BOILER FIREMAN-C Primary Care Provider Active Start: August 01, 2024 Dr. Thea Mike MD Attending Provider Activ e Start: August 01, 2024 Dr. Elder Kang MD Referring Provider Active S tart: August 01, 2024 Team Status: Inactive Member Role Status Dates Julienne Fajardo STEAM BOILER FIREMAN, STEAM BOILER FIREMAN-C Primary Care Provider Active Start: August 01, 2024 End: August 01, 2024 Dr. Elder Kang MD Attending Provider Active S tart: August 01, 2024 End: August 01, 2024 Dr. Elder Kang MD Referring Provider Active S tart: August 01, 2024 End: August 01, 2024 Team Status: Inactive Member Role Status Dates Julienne Fajardo STEAM BOILER FIREMAN, STEAM BOILER FIREMAN-C Primary Care Provider Active Start: August 17, 2024 End: August 17, 2024 Julienne Fajardo STEAM BOILER FIREMAN, STEAM BOILER FIREMAN-C Referring Provider Active S tart: August 17, 2024 End: August 17, 2024 Martin Marie STEAM BOILER FIREMAN, STEAM BOILER FIREMAN-C Attending Provider Active S tart: August 17, 2024 End: August 17, 2024 Team Status: Inactive Member Role Status Dates Julienne Fajardo STEAM BOILER FIREMAN, STEAM BOILER FIREMAN-C Primary Care Provider Active Start: November 15, 2024 End: November 15, 2024 Julienne Fajardo STEAM BOILER FIREMAN, STEAM BOILER FIREMAN-C Referring Provider Active S tart: November 15, 2024 End: November 15, 2024 Martin Marie STEAM BOILER FIREMAN, STEAM BOILER FIREMAN-C Attending Provider Active S tart: November 15, 2024 End: November 15, 2024 Goals (unrecognized section and content) Goals may be documented in a n alternate section Care Team (unrecognized sect ion and content) Care Team Personnel Name: JULIENNE FAJARDO Position: P4 Advanced Practice Nurse Med Service: Active Provider Member Role: Primary Care Physician Address: Address: [address] [place] [address]- Name: KANDY HERRERA Position: P4 Advanced Practice Nurse Med Service: Active Provider Member Role: Tafe Registrar Address: Address: [address] [place] [address] [address] [facility] [place] [address]- Name: DO HEIDI JACKMAN DO Position: P3 Physician - Orthopedics Med Service: Admitting Member Role: Orthopaedist Address: Address: [address] [place] [address] [address] [place] [address] [place] Name: TARAH BHATT MD Position: P4 MATERNAL FETAL PHYSICIAN Provider Med Service: Active Provider Member Role: OBGYN Address: Address: [address] [place] [address] [address] [facility] [address]- Name: LAMINE SANDOVAL MD Med Service: Psychiatry Member Role: Psychiatrist Address: Address: [address] [facility] [address] [place] [address]- Care Team Related Persons Name: ELOISA ELIZABETH Address: Home [address] [place], [place] [id number] [place] Name: LOYDA SIFUENTES Name: RADHA MARSHALL Name: HEIDI JO Name: HEIDI JO Care Team Personnel Name: JULIENNE FAJARDO Position: P4 Advanced Practice Nurse Member Role: Primary Care Physician Address: Address: [address] [place] [address]- [place] Name: KANDY HERRERA DIRECTOR OF CAREER RESOURCES-INSURANCE PLAN SPECIALIST Position: P4 Advanced Practice Nurse Address: Address: [address] [facility] [address] [facility] [place] [address]- Name: DO HEIDI JACKMAN DO Position: P3 Physician - Orthopedics Address: Address: [address] [place] [address] [address] [place] [address] Name: TARAH BHATT MD Position: P4 MATERNAL FETAL PHYSICIAN Provider Address: Address: [address] [facility] [place] [address]- [place] Name: LAMINE SANDOVAL MD Address: Address: [address] [facility] [address] [place] [address]- [place] Name: GUERRERO KIM MD Position: AH ED Physician Member Role: ED Physician Address: Address: [facility] [address] [place] [address]- Name: JELANI Wolff Position: AO RN Member Role: ED RN Care Team Related Persons Name: ELOISA ELIZABETH Address: Home [address] [place], [place] [id number] Name: LOYDA SIFUENTES Name: RADHA MARSHALL Name: HEIDI JO Name: HEIDI JO Source Comments (unrecognize d section and content) In the event this informatio n is protected by the Federal Confidentiality of Alcohol and Drug Abuse Patient Records regulations: The Federal rules restrict any use of the information to criminally investigate or prosecute any alcohol or drug abuse patient.[facility] the event this information is protected by the Federal Confidentiality of Alcohol and Drug Abuse Patient Records regulations: The Federal rules restrict any use of the information to criminally investigate or prosecute any alcohol or drug abuse patient.[facility] Reason for Visit (unrecogniz ed section and [...] BE BASED ON THE PRIMARY CLINICAL RECORDS. [facility]. provides no warranty or guarantee of the accuracy or completeness of information in this document.
== END | disposition home or self-care (01) ==
LOC: LAB 12:12
PROVIDERS: PCP Nurse Practitioner Primary Care; Referring Provider Nurse Practitioner Family; Visit Provider Nurse Practitioner Family
DX: I49.3 Ventricular premature depolarization (principal); E66.812 Obesity, class 2; E66.09 Other obesity due to excess calories; Z86.39 Personal history of other endocrine, nutritional and metabolic disease
CPT/HCPCS: 36415; 80053